=== PATIENT | female | born 1935 | race Caucasian/White ===

== ENCOUNTER → 2016-09-20 | Outpatient (REF) | payer MEDICARE, MEDICAID ==
[~2016-09-20] MED LIST: /ESOM40CA OR; /SALMDISK IN; ALBUTEROL LIQ; ASMA110A INH; CLIN150C OR; FLOVENT PO; MELO15TA4 PO; MELO7.5S PO; MOTR200T4 PO; PROA1AER INH; SYNT100T OR; [UNRECOGNIZED DRUG - OTHER]
[2016-09-20 18:41] LABS: ALBUMIN/GLOBULIN RATIO 0.77 (1.00-1.93); ALKALINE PHOSPHATASE 70 U/L (45-117); ALT/SGPT 9 U/L (12-78); ANION GAP 9 MEQ/L (8-16); AST/SGOT 10 U/L (15-37); BILIRUBIN,TOTAL 0.4 MG/DL (0.2-1.0); BLOOD UREA NITROGEN 19 MG/DL (7-18); CALCIUM LEVEL 8.4 MG/DL (8.8-10.2); CARBON DIOXIDE LEVEL 28 MEQ/L (21-32); CHLORIDE LEVEL 104 MEQ/L (98-107); CREATININE FOR GFR 0.75 MG/DL (0.55-1.02); FERRITIN 65 NG/ML (8-252); GLOMERULAR FILTRATION RATE > 60.0 (>32); GLUCOSE, FASTING 131 MG/DL (83-110); PERCENT SATURATION 6.9 % (13.2-37.4); POTASSIUM SERUM 4.2 MEQ/L (3.5-5.1); SODIUM LEVEL 141 MEQ/L (136-145); TOTAL IRON BINDING CAPACITY 216 UG/DL (250-450); TOTAL PROTEIN 6.9 GM/DL (6.4-8.2)
[2016-09-20 18:58] LABS: BASO % 0.6 % (0.0-1.0); EOS # 0.1 K/mm3 (0.0-0.50); EOS % 2.9 % (0.0-3.0); LARGE UNSTAINED CELL # 0.2 K/mm3 (0.0-0.4); LARGE UNSTAINED CELL % 4.7 % (0.0-4.0); LYMPH # 0.7 K/mm3 (1.5-4.5); LYMPH % 15.8 % (24.0-44.0); MEAN CORPUSCULAR HEMOGLOBIN 26.3 pg (27.0-33.0); MEAN CORPUSCULAR HGB CONC 32.3 g/dl (32.0-36.5); MEAN CORPUSCULAR VOLUME 81.5 fl (80.0-96.0); MONO # 0.3 K/mm3 (0.0-0.8); MONO % 7.4 % (0.0-5.0); NEUTROPHILS # 3.1 K/mm3 (1.8-7.7); NEUTROPHILS % 68.5 % (36.0-66.0); PLATELET COUNT, AUTOMATED 328 k/mm3 (150-450); RED CELL DISTRIBUTION WIDTH 19.8 % (11.5-14.5); WHITE BLOOD COUNT 4.5 K/mm3 (4.0-10.0)
[2016-09-20 21:40] LABS: ERYTHROCYTE SEDIMENTATION RATE 86 mm/hr (0-30)
== END ==
LOC: M SFHCPLAZ 14:41
PROVIDERS: ATTEND Family Medicine
DX: D50.9 Iron deficiency anemia, unspecified (principal); E55.9 Vitamin D deficiency, unspecified; T84.51XA Infection and inflammatory reaction due to internal right hip prosthesis, initial encounter; R73.01 Impaired fasting glucose; E03.9 Hypothyroidism, unspecified; Z23 Encounter for immunization
CPT/HCPCS: 36415; 80053; 82306; 82728; 83036; 83550; 83970; 84443; 85025; 85652; 86140; 90670; G0009; G0463

== ENCOUNTER → 2016-09-27 | Outpatient (REF) | payer MEDICARE, MEDICAID | LOC: M SFHCPLAZ 11:40 | PROVIDERS: ATTEND Physician Assistant Medical | DX: L02.91 Cutaneous abscess, unspecified (principal) ==

== ENCOUNTER → 2016-10-11 | Outpatient (REF) | payer MEDICARE, MEDICAID ==
[2016-10-11 18:25] LABS: MEAN CORPUSCULAR VOLUME 77.5 fl (80.0-96.0); WHITE BLOOD COUNT 4.7 K/mm3 (4.0-10.0)
[2016-10-11 18:26] LABS: ADD MORPHOLOGY? NO; BASO % 0.9 % (0.0-1.0); DIFF SLIDE NUMBER 336; EOS # 0.2 K/mm3 (0.0-0.50); LARGE UNSTAINED CELL # 0.1 K/mm3 (0.0-0.4); LARGE UNSTAINED CELL % 1.6 % (0.0-4.0); LYMPH # 0.9 K/mm3 (1.5-4.5); LYMPH % 19.3 % (24.0-44.0); MEAN CORPUSCULAR HEMOGLOBIN 24.3 pg (27.0-33.0); MEAN CORPUSCULAR HGB CONC 31.4 g/dl (32.0-36.5); MONO # 0.1 K/mm3 (0.0-0.8); MONO % 8.4 % (0.0-5.0); NEUTROPHILS # 3.1 K/mm3 (1.8-7.7); NEUTROPHILS % 65.8 % (36.0-66.0); PLATELET COUNT, AUTOMATED 328 k/mm3 (150-450); RED CELL DISTRIBUTION WIDTH 15.6 % (11.5-14.5)
[2016-10-11 21:29] LABS: ERYTHROCYTE SEDIMENTATION RATE 80 mm/hr (0-30)
== END ==
LOC: M LAB REF 15:43
PROVIDERS: ATTEND Physician Assistant Medical
DX: L02.91 Cutaneous abscess, unspecified (principal)

== ENCOUNTER → 2016-11-08 | Outpatient (REF) | payer MEDICARE, MEDICAID ==
[2016-11-08 16:38] LABS: MEAN CORPUSCULAR HEMOGLOBIN 26.3 pg (27.0-33.0); MEAN CORPUSCULAR HGB CONC 33.3 g/dl (32.0-36.5); PLATELET COUNT, AUTOMATED 294 k/mm3 (150-450); RED CELL DISTRIBUTION WIDTH 20.4 % (11.5-14.5); WHITE BLOOD COUNT 4.1 K/mm3 (4.0-10.0)
[2016-11-08 18:30] LABS: ERYTHROCYTE SEDIMENTATION RATE 86 mm/hr (0-30)
[2016-11-08 21:58] LABS: EOSINOPHILS 4 % (0-5); HYPOCHROMASIA 2+
[2016-11-08 21:59] LABS: ANISOCYTOSIS 3+; MICROCYTOSIS 2+
[2016-11-08 22:00] LABS: ROULEAUX 1+
== END ==
LOC: M SFHCPLAZ 13:32
PROVIDERS: ATTEND Physician Assistant Medical
DX: B99.9 Unspecified infectious disease (principal)
CPT/HCPCS: 85025; 85652; 86140; G0463

== ENCOUNTER → 2016-11-22 | Outpatient (REF) | payer MEDICARE, MEDICAID | LOC: M SFHCPLAZ 15:00 | PROVIDERS: ATTEND Physician Assistant Medical | DX: T84.51XA Infection and inflammatory reaction due to internal right hip prosthesis, initial encounter (principal); B99.9 Unspecified infectious disease | CPT/HCPCS: 87070; 87077; G0463 ==

== ENCOUNTER → 2016-12-09 | Outpatient (CLI) | payer MEDICARE, MEDICAID ==
--- NOTE | 2016-12-09 15:26 | REP ---
LEFT RIB SERIES: Five views including PA chest. HISTORY: Pain. COMPARISON STUDY: August 15, 2007. FINDINGS: There is bilateral calcific pleural plaquing again noted. This is a little more extensive than previously. Lung bernal are otherwise clear. There is a levoconvex lower thoracic upper lumbar curve and a dextroconvex lumbar curve again noted. This is more pronounced than on the prior study as well. Heart is mildly prominent. Pulmonary vasculature is not increased. Multiple views of the left rib cage show no evidence of left rib fracture or bony destructive lesion. IMPRESSION: Negative left rib series. No active disease. Calcific pleural plaquing on the left. Signed by Caden Perez MD 12/09/2016 04:47 P
[2016-12-09 17:43] LABS: ADD MORPHOLOGY? YES; BASO % 0.5 % (0.0-1.0); EOS # 0.2 K/mm3 (0.0-0.50); EOS % 3.7 % (0.0-3.0); LARGE UNSTAINED CELL # 0.2 K/mm3 (0.0-0.4); LYMPH # 0.9 K/mm3 (1.5-4.5); LYMPH % 20.9 % (24.0-44.0); MEAN CORPUSCULAR HEMOGLOBIN 25.4 pg (27.0-33.0); MEAN CORPUSCULAR HGB CONC 32.3 g/dl (32.0-36.5); MEAN CORPUSCULAR VOLUME 78.8 fl (80.0-96.0); MONO # 0.4 K/mm3 (0.0-0.8); MONO % 9.4 % (0.0-5.0); NEUTROPHILS # 2.5 K/mm3 (1.8-7.7); NEUTROPHILS % 61.5 % (36.0-66.0); PLATELET COUNT, AUTOMATED 306 k/mm3 (150-450); RED CELL DISTRIBUTION WIDTH 26.6 % (11.5-14.5); WHITE BLOOD COUNT 4.1 K/mm3 (4.0-10.0)
[2016-12-09 18:21] LABS: ERYTHROCYTE SEDIMENTATION RATE 84 mm/hr (0-30)
[2016-12-09 20:49] LABS: ANISOCYTOSIS 3+; HYPOCHROMASIA 1+; MICROCYTOSIS 1+
== END ==
LOC: M WUC 12:39
PROVIDERS: ATTEND Physician Assistant Medical
DX: R07.81 Pleurodynia (principal); T84.51XA Infection and inflammatory reaction due to internal right hip prosthesis, initial encounter; Y83.9 Surgical procedure, unspecified as the cause of abnormal reaction of the patient, or of later complication, without mention of misadventure at the time of the procedure
CPT/HCPCS: 36415; 71101; 85025; 85652; 86140; G0463

== ENCOUNTER → 2017-01-21 | Outpatient (REF) | payer MEDICARE, MEDICAID ==
[2017-01-21 17:47] LABS: BASO % 0.9 % (0.0-1.0); EOS # 0.2 K/mm3 (0.0-0.50); EOS % 5.3 % (0.0-3.0); LARGE UNSTAINED CELL # 0.1 K/mm3 (0.0-0.4); LARGE UNSTAINED CELL % 1.6 % (0.0-4.0); LYMPH # 1.2 K/mm3 (1.5-4.5); LYMPH % 24.3 % (24.0-44.0); MEAN CORPUSCULAR HEMOGLOBIN 24.8 pg (27.0-33.0); MEAN CORPUSCULAR HGB CONC 32.6 g/dl (32.0-36.5); MEAN CORPUSCULAR VOLUME 76.1 fl (80.0-96.0); MONO # 0.4 K/mm3 (0.0-0.8); MONO % 8.4 % (0.0-5.0); NEUTROPHILS # 2.8 K/mm3 (1.8-7.7); NEUTROPHILS % 59.5 % (36.0-66.0); PLATELET COUNT, AUTOMATED 340 k/mm3 (150-450); RED CELL DISTRIBUTION WIDTH 22.1 % (11.5-14.5); WHITE BLOOD COUNT 4.7 K/mm3 (4.0-10.0)
[2017-01-21 17:52] LABS: ADD MORPHOLOGY? YES
[2017-01-21 18:11] LABS: ALBUMIN/GLOBULIN RATIO 0.68 (1.00-1.93); ALKALINE PHOSPHATASE 79 U/L (45-117); ALT/SGPT 14 U/L (12-78); ANION GAP 7 MEQ/L (8-16); AST/SGOT 12 U/L (15-37); BILIRUBIN,TOTAL 0.5 MG/DL (0.2-1.0); BLOOD UREA NITROGEN 17 MG/DL (7-18); CALCIUM LEVEL 8.8 MG/DL (8.8-10.2); CARBON DIOXIDE LEVEL 30 MEQ/L (21-32); CHLORIDE LEVEL 103 MEQ/L (98-107); CREATININE FOR GFR 0.73 MG/DL (0.55-1.02); FERRITIN 52 NG/ML (8-252); FREE T4 2.07 NG/DL (0.76-1.46); GLOMERULAR FILTRATION RATE > 60.0 (>32); GLUCOSE, FASTING 82 MG/DL (83-110); PERCENT SATURATION 7.1 % (13.2-37.4); POTASSIUM SERUM 4.5 MEQ/L (3.5-5.1); SODIUM LEVEL 140 MEQ/L (136-145); TOTAL IRON BINDING CAPACITY 254 UG/DL (250-450); TOTAL PROTEIN 7.4 GM/DL (6.4-8.2)
[2017-01-21 18:37] LABS: VITAMIN B12 LEVEL 299 PG/ML (247-911)
[2017-01-21 20:45] LABS: ANISOCYTOSIS 4+; HYPOCHROMASIA 1+; MICROCYTOSIS 1+; OVALOCYTES 2+; POIKILOCYTOSIS 2+; TARGET CELLS 1+
[2017-01-21 21:20] LABS: ERYTHROCYTE SEDIMENTATION RATE 76 mm/hr (0-30)
== END ==
LOC: M SFHCPLAZ 16:18
PROVIDERS: ATTEND Family Medicine
DX: T84.51XA Infection and inflammatory reaction due to internal right hip prosthesis, initial encounter (principal); D50.9 Iron deficiency anemia, unspecified; E03.9 Hypothyroidism, unspecified
CPT/HCPCS: 36415; 80053; 82607; 82728; 83550; 84439; 84443; 85025; 85652; 86140; G0463

== ENCOUNTER → 2017-03-03 | Outpatient (REF) | payer MEDICARE, MEDICAID ==
[~2017-03-03] MED LIST changes: -PROA1AER INH; +PROAAER10 INH
== END ==
LOC: M LAB REF 17:17
PROVIDERS: ATTEND Surgery
DX: T84.51XA Infection and inflammatory reaction due to internal right hip prosthesis, initial encounter (principal); Y83.1 Surgical operation with implant of artificial internal device as the cause of abnormal reaction of the patient, or of later complication, without mention of misadventure at the time of the procedure
CPT/HCPCS: 87070; 97597; G0463

== ENCOUNTER → 2017-03-17 | Outpatient (REF) | payer MEDICARE, MEDICAID ==
[2017-03-17 17:20] LABS: BLOOD UREA NITROGEN 17 MG/DL (7-18); CREATININE FOR GFR 0.73 MG/DL (0.55-1.02); GLOMERULAR FILTRATION RATE > 60.0 (>32)
== END ==
LOC: M LAB REF 16:27
PROVIDERS: ATTEND Surgery
DX: T84.51XA Infection and inflammatory reaction due to internal right hip prosthesis, initial encounter (principal)

== ENCOUNTER → 2017-04-29 | Outpatient (CLI) | payer MEDICARE, MEDICAID ==
--- NOTE | 2017-04-29 13:55 | REPMRS ---
Patient History The patient states she had a clinical breast exam in 03/2017. Patient has history of other cancer at age 77. Family history of colorectal cancer in maternal grandmother at age 50 or over. Benign excisional biopsy of the left breast, 1989. Taking estrogen for 4 years. Digital Woman Screen Mammo: April 29, 2017 - Exam #: [id number] Bilateral CC and MLO view(s) were taken. Technologist: Norma Acharya, Technologist Prior study comparison: April 27, 2016, digital woman screen mammo performed at [facility]. April 24, 2015, digital woman screen mammo performed at [facility]. April 23, 2014, digital woman screen mammo performed at [facility]. FINDINGS: There are scattered fibroglandular densities. There is a stable densely calcified central nodule in the left breast again noted. There has been no change in the appearance of the mammogram from the prior studies. There is a mild amount of scattered fibroglandular density which is fairly symmetric. There is no interval development of dominant mass, architectural distortion, or clustered microcalcification suggestive of malignancy. ASSESSMENT: BI-RADS/ACR category 1 mammogram. Negative. Recommendation Routine screening mammogram in 1 year (for women over age 40). This mammogram was interpreted with the aid of an FDA-approved computer-aided dectection system. Electronically Signed By: Simon Perez MD 04/29/17 [id number]
== END ==
LOC: M WHC 12:46
PROVIDERS: ATTEND Family Medicine
DX: Z12.31 Encounter for screening mammogram for malignant neoplasm of breast (principal)

== ENCOUNTER → 2017-05-12 | Outpatient (CLI) | payer MEDICARE, MEDICAID ==
--- NOTE | 2017-05-12 18:04 | REP ---
CT study of the right hip without contrast: History: Osteomyelitis, infection right prosthetic hip joint. Comparison right hip CT study is from January 22, 2016. Comparison radiographs are from January 24, 2016. CT technique: Helical scanning is acquired and 3 mm axial images are reviewed along with coronal and sagittal multiplanar re-formation images. CT findings: The prior study showed a large anterior soft tissue abscess. This has resolved. There is, however, in its wake a linear sinus tract out to the anterolateral skin from the right hip. No new abscess is appreciated. 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 Areas of bony erosion and radiolucent change are seen in the proximal femur adjacent to the prosthesis. There is considerable resorption of the acetabulum medially and superiorly. There is some reactive sclerosis in the right iliac bone. The right colon is displaced by the acetabuli protrusio. Visualized intra-abdominal structures are otherwise unremarkable. 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 The previously noted soft tissue abscess is resolved with a sinus tract visible in place anterolaterally. No new abscess is seen. Bony changes are essentially unchanged from the January 22, 2016 study. Signed by Caden Perez MD 05/13/2017 08:07 A
== END ==
LOC: M RADPRO 09:11
PROVIDERS: ATTEND Surgery
DX: T84.51XA Infection and inflammatory reaction due to internal right hip prosthesis, initial encounter (principal); S71.001A Unspecified open wound, right hip, initial encounter; Z88.8 Allergy status to other drugs, medicaments and biological substances; Z88.5 Allergy status to narcotic agent; Z91.040 Latex allergy status; Z88.0 Allergy status to penicillin; Z91.048 Other nonmedicinal substance allergy status; Z88.3 Allergy status to other anti-infective agents; X58.XXXA Exposure to other specified factors, initial encounter; Y93.9 Activity, unspecified; Y92.9 Unspecified place or not applicable; Y99.8 Other external cause status

== ENCOUNTER → 2017-07-01 | Outpatient (REF) | payer MEDICARE, MEDICAID ==
[2017-07-01 18:25] LABS: ALBUMIN 2.9 GM/DL (3.2-5.2); ALBUMIN/GLOBULIN RATIO 0.67 (1.00-1.93); ALKALINE PHOSPHATASE 72 U/L (45-117); ALT/SGPT 12 U/L (12-78); ANION GAP 7 MEQ/L (8-16); AST/SGOT 16 U/L (7-37); BILIRUBIN,TOTAL 0.4 MG/DL (0.2-1.0); BLOOD UREA NITROGEN 21 MG/DL (7-18); CALCIUM LEVEL 8.6 MG/DL (8.8-10.2); CARBON DIOXIDE LEVEL 29 MEQ/L (21-32); CHLORIDE LEVEL 102 MEQ/L (98-107); CREATININE FOR GFR 0.71 MG/DL (0.55-1.02); GLOMERULAR FILTRATION RATE > 60.0 (>32); GLUCOSE, FASTING 90 MG/DL (83-110); POTASSIUM SERUM 4.2 MEQ/L (3.5-5.1); SODIUM LEVEL 138 MEQ/L (136-145); TOTAL PROTEIN 7.2 GM/DL (6.4-8.2)
[2017-07-01 19:13] LABS: MEAN CORPUSCULAR VOLUME 78.9 fl (80.0-96.0); PLATELET COUNT, AUTOMATED 406 10^3/uL (150-450); RED CELL DISTRIBUTION WIDTH 17.8 % (11.5-14.5); WHITE BLOOD COUNT 5.8 10^3/uL (4.0-10.0)
[2017-07-01 19:17] LABS: MEAN CORPUSCULAR HGB CONC 30.4 g/dl (32.0-36.5)
[2017-07-01 22:07] LABS: ERYTHROCYTE SEDIMENTATION RATE 117 mm/hr (0-30)
== END ==
LOC: M LAB REF 16:36
PROVIDERS: ATTEND Surgery
DX: T84.51XS Infection and inflammatory reaction due to internal right hip prosthesis, sequela (principal); X58.XXXA Exposure to other specified factors, initial encounter; Y92.9 Unspecified place or not applicable; Y93.9 Activity, unspecified
CPT/HCPCS: 15271; 80053; 85027; 85652; Q4131

== ENCOUNTER → 2017-10-03 | Outpatient (CLI) | payer MEDICARE, MEDICAID | LOC: M WUC 14:20 | DX: M47.22 Other spondylosis with radiculopathy, cervical region (principal) ==

== ENCOUNTER → 2017-10-03 | Outpatient (CLI) | payer MEDICARE, MEDICAID ==
[2017-10-03 17:28] LABS: ALBUMIN 2.9 GM/DL (3.2-5.2); ALBUMIN/GLOBULIN RATIO 0.74 (1.00-1.93); ALKALINE PHOSPHATASE 79 U/L (45-117); ALT/SGPT 11 U/L (12-78); ANION GAP 7 MEQ/L (8-16); AST/SGOT 17 U/L (7-37); BILIRUBIN,TOTAL 0.3 MG/DL (0.2-1.0); BLOOD UREA NITROGEN 22 MG/DL (7-18); CALCIUM LEVEL 8.4 MG/DL (8.8-10.2); CARBON DIOXIDE LEVEL 30 MEQ/L (21-32); CHLORIDE LEVEL 103 MEQ/L (98-107); CREATININE FOR GFR 0.71 MG/DL (0.55-1.30); GLOMERULAR FILTRATION RATE > 60.0 (>32); GLUCOSE, FASTING 102 MG/DL (70-100); POTASSIUM SERUM 4.4 MEQ/L (3.5-5.1); PTH INTACT 67.6 PG/ML (18.5-88.0); SODIUM LEVEL 140 MEQ/L (136-145); TOTAL PROTEIN 6.8 GM/DL (6.4-8.2)
[2017-10-03 17:52] LABS: ESTIMATED AVERAGE GLUCOSE 117 MG/DL (60-110); HEMOGLOBIN A1c 5.7 %
[2017-10-03 18:58] LABS: BASO # 0.1 10^3/uL (0.0-0.2); BASO % 1.3 % (0.0-1.0); EOS # 0.2 10^3/uL (0.0-0.50); EOS % 4.4 % (0.0-3.0); HEMATOCRIT 31.1 % (36.0-47.0); HEMOGLOBIN 9.9 g/dl (12.0-16.0); IMMATURE GRANULOCYTE % 0.4 % (0-3.0); LYMPH % 22.9 % (24.0-44.0); MEAN CORPUSCULAR HEMOGLOBIN 24.8 pg (27.0-33.0); MEAN CORPUSCULAR HGB CONC 31.8 g/dl (32.0-36.5); MEAN CORPUSCULAR VOLUME 77.8 fl (80.0-96.0); MONO # 0.4 10^3/uL (0.0-0.8); MONO % 8.9 % (0.0-5.0); NEUTROPHILS # 2.8 10^3/uL (1.8-7.7); NEUTROPHILS % 62.1 % (36.0-66.0); PLATELET COUNT, AUTOMATED 306 10^3/uL (150-450); RED CELL DISTRIBUTION WIDTH 17.4 % (11.5-14.5); WHITE BLOOD COUNT 4.5 10^3/uL (4.0-10.0)
[2017-10-03 20:12] LABS: RETIC HEMOGLOBIN EQUIVALENT 29.2 pg (24-36); RETICULOCYTE # 39.6 10^9/L (17-77)
== END ==
LOC: M WUC 14:15
DX: D50.9 Iron deficiency anemia, unspecified (principal); E55.9 Vitamin D deficiency, unspecified; E03.9 Hypothyroidism, unspecified; R73.01 Impaired fasting glucose; M47.22 Other spondylosis with radiculopathy, cervical region
CPT/HCPCS: 84443

== ENCOUNTER 2017-10-18 08:56 | Emergency (ER) | payer MEDICARE, MEDICAID ==
[2017-10-18 10:13] LABS: BASO % 0.7 % (0.0-1.0); EOS # 0.2 10^3/uL (0.0-0.50); EOS % 2.6 % (0.0-3.0); HEMATOCRIT 31.6 % (36.0-47.0); HEMOGLOBIN 9.8 g/dl (12.0-16.0); IMMATURE GRANULOCYTE % 0.2 % (0-3.0); LYMPH # 0.8 10^3/uL (1.5-4.5); LYMPH % 13.1 % (24.0-44.0); MEAN CORPUSCULAR HEMOGLOBIN 24.4 pg (27.0-33.0); MEAN CORPUSCULAR VOLUME 78.6 fl (80.0-96.0); MONO # 0.5 10^3/uL (0.0-0.8); MONO % 9.3 % (0.0-5.0); NEUTROPHILS # 4.3 10^3/uL (1.8-7.7); NEUTROPHILS % 74.1 % (36.0-66.0); PLATELET COUNT, AUTOMATED 360 10^3/uL (150-450); RED BLOOD COUNT 4.02 10^6/uL (4.00-5.40); RED CELL DISTRIBUTION WIDTH 17.5 % (11.5-14.5); WHITE BLOOD COUNT 5.8 10^3/uL (4.0-10.0)
[2017-10-18 10:13] LABS: BEDSIDE GLUCOSE 98 MG/DL (83-110)
[2017-10-18 10:40] LABS: ANION GAP 6 MEQ/L (8-16); BLOOD UREA NITROGEN 24 MG/DL (7-18); CALCIUM LEVEL 8.5 MG/DL (8.8-10.2); CARBON DIOXIDE LEVEL 30 MEQ/L (21-32); CHLORIDE LEVEL 104 MEQ/L (98-107); CPK CREATINE PHOSPHOKINASE 59 U/L (26-192); FREE T4 1.21 NG/DL (0.76-1.46); GLOMERULAR FILTRATION RATE > 60.0 (>32); GLUCOSE, FASTING 90 MG/DL (70-100); MAGNESIUM LEVEL 2.2 MG/DL (1.8-2.4); POTASSIUM SERUM 4.1 MEQ/L (3.5-5.1); SODIUM LEVEL 140 MEQ/L (136-145); TROPONIN I < 0.02 NG/ML (< 0.10)
[2017-10-18 10:46] LABS: CK-MB VALUE MASS 1.6 NG/ML (0.0-3.6); MB/CK RELATIVE INDEX 2.71 (< OR =4)
== END 2017-10-18 15:46 | disposition home or self-care (01) ==
LOC: M ED 08:56
DX: R55 Syncope and collapse (principal); J45.909 Unspecified asthma, uncomplicated; J44.9 Chronic obstructive pulmonary disease, unspecified; I10 Essential (primary) hypertension; E03.9 Hypothyroidism, unspecified; M50.30 Other cervical disc degeneration, unspecified cervical region; Z79.51 Long term (current) use of inhaled steroids; Z79.899 Other long term (current) drug therapy; Z79.890 Hormone replacement therapy; Z88.5 Allergy status to narcotic agent; Z88.8 Allergy status to other drugs, medicaments and biological substances; Z88.0 Allergy status to penicillin; Z91.048 Other nonmedicinal substance allergy status; Z98.890 Other specified postprocedural states
CPT/HCPCS: 72141

== ENCOUNTER → 2017-12-21 | Outpatient (CLI) | payer MEDICARE, MEDICAID | LOC: M RAD 13:50 | DX: S71.001D Unspecified open wound, right hip, subsequent encounter (principal); Z96.60 Presence of unspecified orthopedic joint implant | CPT/HCPCS: 73700 ==

== ENCOUNTER → 2017-12-21 | Outpatient (REF) | payer MEDICARE, MEDICAID ==
[2017-12-21 20:11] LABS: C REACTIVE PROTEIN QUANTITATIV 5.96 MG/DL (0.00-0.30)
[2017-12-21 20:21] LABS: HEMATOCRIT 29.5 % (36.0-47.0); HEMOGLOBIN 9.1 g/dl (12.0-15.5); MEAN CORPUSCULAR HEMOGLOBIN 25.4 pg (27.0-33.0); MEAN CORPUSCULAR HGB CONC 30.8 g/dl (32.0-36.5); MEAN CORPUSCULAR VOLUME 82.4 fl (80.0-96.0); PLATELET COUNT, AUTOMATED 284 10^3/uL (150-450); RED BLOOD COUNT 3.58 10^6/uL (4.00-5.40); RED CELL DISTRIBUTION WIDTH 18.3 % (11.5-14.5); WHITE BLOOD COUNT 5.9 10^3/uL (4.0-10.0)
[2017-12-21 20:49] LABS: ERYTHROCYTE SEDIMENTATION RATE 107 mm/hr (0-30)
== END ==
LOC: M LAB REF 18:29
DX: S71.001D Unspecified open wound, right hip, subsequent encounter (principal); X58.XXXA Exposure to other specified factors, initial encounter; Y92.9 Unspecified place or not applicable; Y93.9 Activity, unspecified
CPT/HCPCS: 86140

== ENCOUNTER → 2018-02-03 | Outpatient (CLI) | payer MEDICARE, MEDICAID | LOC: M RAD 17:19 | DX: M71.22 Synovial cyst of popliteal space [Baker], left knee (principal); R60.9 Edema, unspecified | CPT/HCPCS: 93971 ==

== ENCOUNTER → 2018-02-03 | Outpatient (REF) | payer MEDICARE, MEDICAID ==
[2018-02-03 17:48] LABS: ALBUMIN/GLOBULIN RATIO 0.75 (1.00-1.93); ALKALINE PHOSPHATASE 73 U/L (45-117); ALT/SGPT 16 U/L (12-78); ANION GAP 8 MEQ/L (8-16); AST/SGOT 16 U/L (7-37); BILIRUBIN,TOTAL 0.5 MG/DL (0.2-1.0); BLOOD UREA NITROGEN 20 MG/DL (7-18); CALCIUM LEVEL 8.5 MG/DL (8.8-10.2); CARBON DIOXIDE LEVEL 28 MEQ/L (21-32); CHLORIDE LEVEL 104 MEQ/L (98-107); CREATININE FOR GFR 0.76 MG/DL (0.55-1.30); FREE T4 1.39 NG/DL (0.76-1.46); GLOMERULAR FILTRATION RATE > 60.0 (>32); GLUCOSE, FASTING 91 MG/DL (70-100); POTASSIUM SERUM 4.3 MEQ/L (3.5-5.1); SODIUM LEVEL 140 MEQ/L (136-145)
[2018-02-03 18:23] LABS: BASO % 0.9 % (0.0-1.0); EOS # 0.1 10^3/uL (0.0-0.50); EOS % 2.5 % (0.0-3.0); HEMATOCRIT 31.6 % (36.0-47.0); HEMOGLOBIN 9.7 g/dl (12.0-15.5); IMMATURE GRANULOCYTE % 0.2 % (0-3.0); LYMPH # 0.8 10^3/uL (1.5-4.5); LYMPH % 19.1 % (24.0-44.0); MEAN CORPUSCULAR HEMOGLOBIN 25.3 pg (27.0-33.0); MEAN CORPUSCULAR HGB CONC 30.7 g/dl (32.0-36.5); MEAN CORPUSCULAR VOLUME 82.3 fl (80.0-96.0); MONO # 0.4 10^3/uL (0.0-0.8); MONO % 8.2 % (0.0-5.0); NEUTROPHILS % 69.1 % (36.0-66.0); PLATELET COUNT, AUTOMATED 283 10^3/uL (150-450); RED BLOOD COUNT 3.84 10^6/uL (4.00-5.40); RED CELL DISTRIBUTION WIDTH 16.9 % (11.5-14.5); RETIC HEMOGLOBIN EQUIVALENT 29.2 pg (24-36); RETICULOCYTE # 41.1 10^9/L (17-77); RETICULOCYTE % 1.1 % (0.5-1.5); WHITE BLOOD COUNT 4.4 10^3/uL (4.0-10.0)
[2018-02-06 13:08] LABS: ALBUMIN 3.33 GM/DL (3.29-5.55); ALBUMIN % 47.5 % (55.8-66.1); ALPHA-1-GLOBULIN % 6.8 % (2.9-4.9); ALPHA-1-GLOBULINS 0.48 GM/DL (0.17-0.41); ALPHA-2-GLOBULINS 0.86 GM/DL (0.42-0.99); ALPHA-2-GLOBULINS % 12.3 % (7.1-11.8); BETA-1-GLOBULINS 0.44 GM/DL (0.28-0.60); BETA-1-GLOBULINS % 6.3 % (4.7-7.2); BETA-2-GLOBULINS 0.34 GM/DL (0.19-0.55); BETA-2-GLOBULINS % 4.8 % (3.2-6.5); GAMMA GLOBULIN % 22.3 % (11.1-18.8); GAMMA GLOBULINS 1.56 GM/DL (0.65-1.58)
== END ==
LOC: M SFHCPLAZ 16:10
DX: E53.8 Deficiency of other specified B group vitamins (principal); D50.9 Iron deficiency anemia, unspecified; E03.9 Hypothyroidism, unspecified
CPT/HCPCS: 84165

== ENCOUNTER → 2018-05-05 | Outpatient (CLI) | payer MEDICARE, MEDICAID | LOC: M WHC 11:09 | DX: Z12.31 Encounter for screening mammogram for malignant neoplasm of breast (principal) | CPT/HCPCS: 77067 ==

== ENCOUNTER → 2018-06-12 | Outpatient (CLI) | payer MEDICARE, MEDICAID ==
[2018-06-12 20:28] LABS: HEMATOCRIT 33.9 % (36.0-47.0)
[2018-06-12 20:28] LABS: BASO # 0.1 10^3/uL (0.0-0.2); EOS # 0.1 10^3/uL (0.0-0.50); EOS % 2.3 % (0.0-3.0); ESTIMATED AVERAGE GLUCOSE 126 MG/DL (60-110); HEMATOCRIT 33.9 % (36.0-47.0); HEMOGLOBIN 10.2 g/dl (12.0-15.5); IMMATURE GRANULOCYTE % 0.4 % (0-3.0); LYMPH # 0.9 10^3/uL (1.5-4.5); LYMPH % 18.2 % (24.0-44.0); MEAN CORPUSCULAR HEMOGLOBIN 23.8 pg (27.0-33.0); MEAN CORPUSCULAR HGB CONC 30.1 g/dl (32.0-36.5); MEAN CORPUSCULAR VOLUME 79.2 fl (80.0-96.0); MONO # 0.5 10^3/uL (0.0-0.8); MONO % 9.1 % (0.0-5.0); NEUTROPHILS # 3.6 10^3/uL (1.8-7.7); PLATELET COUNT, AUTOMATED 318 10^3/uL (150-450); RED BLOOD COUNT 4.28 10^6/uL (4.00-5.40); RED CELL DISTRIBUTION WIDTH 18.5 % (11.5-14.5); WHITE BLOOD COUNT 5.2 10^3/uL (4.0-10.0)
[2018-06-12 20:42] LABS: ALBUMIN 2.9 GM/DL (3.2-5.2); ALBUMIN/GLOBULIN RATIO 0.71 (1.00-1.93); ALKALINE PHOSPHATASE 82 U/L (45-117); ALT/SGPT 12 U/L (12-78); ANION GAP 7 MEQ/L (8-16); AST/SGOT 13 U/L (7-37); BILIRUBIN,TOTAL 0.4 MG/DL (0.2-1.0); BLOOD UREA NITROGEN 27 MG/DL (7-18); CALCIUM LEVEL 8.6 MG/DL (8.8-10.2); CARBON DIOXIDE LEVEL 28 MEQ/L (21-32); CHLORIDE LEVEL 104 MEQ/L (98-107); CREATININE FOR GFR 0.82 MG/DL (0.55-1.30); FERRITIN 42 NG/ML (8-252); FREE T4 1.33 NG/DL (0.76-1.46); GLOMERULAR FILTRATION RATE > 60.0 (>32); GLUCOSE, FASTING 97 MG/DL (70-100); IRON (FE) 18 UG/DL (50-170); NT-PRO BNP 1501 PG/ML (<450); PERCENT SATURATION 7.7 % (13.2-45.0); POTASSIUM SERUM 5.1 MEQ/L (3.5-5.1); SODIUM LEVEL 139 MEQ/L (136-145); TOTAL IRON BINDING CAPACITY 235 UG/DL (250-450)
[2018-06-12 20:43] LABS: GOLD SPEC TUBE RECIEVED
[2018-06-12 20:44] LABS: PTH INTACT 40.5 PG/ML (18.5-88.0)
[2018-06-13 11:39] LABS: PRETREATED FOLATE FOR RBCFOL 8.1 NG/ML; RBC FOLATE 501.8 NG/ML (280-791)
== END ==
LOC: M WUC 16:02
DX: R60.9 Edema, unspecified (principal); D50.9 Iron deficiency anemia, unspecified; E55.9 Vitamin D deficiency, unspecified; E03.9 Hypothyroidism, unspecified; R73.01 Impaired fasting glucose; Z79.899 Other long term (current) drug therapy
CPT/HCPCS: 83550

== ENCOUNTER → 2018-07-05 | Outpatient (REF) | payer MEDICARE, MEDICAID ==
[2018-07-05 13:47] LABS: ALBUMIN 2.8 GM/DL (3.2-5.2); ANION GAP 7 MEQ/L (8-16); BLOOD UREA NITROGEN 24 MG/DL (7-18); CARBON DIOXIDE LEVEL 29 MEQ/L (21-32); CHLORIDE LEVEL 99 MEQ/L (98-107); CREATININE FOR GFR 0.83 MG/DL (0.55-1.30); GLOMERULAR FILTRATION RATE > 60.0 (>32); GLUCOSE, FASTING 91 MG/DL (70-100); NT-PRO BNP 1629 PG/ML (<450); PHOSPHORUS LEVEL 4.2 MG/DL (2.5-4.9); POTASSIUM SERUM 4.1 MEQ/L (3.5-5.1); SODIUM LEVEL 135 MEQ/L (136-145)
== END ==
LOC: M LAB REF 12:36
DX: I50.32 Chronic diastolic (congestive) heart failure (principal)
CPT/HCPCS: 80069

== ENCOUNTER → 2018-08-18 | Outpatient (REF) | payer MEDICARE, MEDICAID ==
[~2018-08-18] MED LIST changes: -/ESOM40CA OR; +/ESOM40CA PO; +CALCTAB75 PO; +CELE100C PO; +DOXY-350 PO; +ESTR1CRE PV; +FLUT22IN INH; +MELO15TA28 PO; -MELO15TA4 PO; +POLY150C4 PO; +SALMDISK INH; +SYNT88TA2 PO; +VITA100072 PO
== END ==
LOC: M LAB REF 16:19
PROVIDERS: ATTEND Surgery
DX: L30.8 Other specified dermatitis (principal); S71.001D Unspecified open wound, right hip, subsequent encounter

== ENCOUNTER 2018-10-15 10:59 | Emergency (ER) | payer MEDICARE, MEDICAID ==
[~2018-10-15] VITALS: Ht 167.6 cm; Wt 61.4 kg
[2018-10-15] MEDS ORDERED: CALCTAB41 PO (11:21)
[2018-10-15] MEDS ORDERED: ONDANSETRON 4MG/2ML VIAL (J2405) IV ONE (12:00)
[2018-10-15 12:35] LABS: BASO # 0.1 10^3/uL (0.0-0.2); BASO % 1.1 % (0.0-1.0); EOS % 0.4 % (0.0-3.0); HEMATOCRIT 33.8 % (36.0-47.0); HEMOGLOBIN 10.7 g/dl (12.0-15.5); LYMPH # 0.8 10^3/uL (1.5-4.5); LYMPH % 15.4 % (24.0-44.0); MEAN CORPUSCULAR HEMOGLOBIN 24.9 pg (27.0-33.0); MEAN CORPUSCULAR HGB CONC 31.7 g/dl (32.0-36.5); MEAN CORPUSCULAR VOLUME 78.8 fl (80.0-96.0); MONO # 0.3 10^3/uL (0.0-0.8); MONO % 5.7 % (0.0-5.0); NEUTROPHILS # 4.1 10^3/uL (1.8-7.7); NEUTROPHILS % 77.2 % (36.0-66.0); PLATELET COUNT, AUTOMATED 423 10^3/uL (150-450); RED BLOOD COUNT 4.29 10^6/uL (4.00-5.40); WHITE BLOOD COUNT 5.3 10^3/uL (4.0-10.0)
[2018-10-15 12:46] LABS: INR 1.11; PROTHROMBIN TIME 14.4 SECONDS (12.1-14.4)
[2018-10-15 12:47] LABS: PARTIAL THROMBOPLASTIN TIME 38.2 SECONDS (25.4-37.6)
[2018-10-15 13:06] LABS: BLOOD UREA NITROGEN 16 MG/DL (7-18); C REACTIVE PROTEIN QUANTITATIV 8.52 MG/DL (0.00-0.30); CALCIUM LEVEL 8.5 MG/DL (8.8-10.2); CARBON DIOXIDE LEVEL 28 MEQ/L (21-32); CHLORIDE LEVEL 103 MEQ/L (98-107); CREATININE FOR GFR 0.76 MG/DL (0.55-1.30); GLOMERULAR FILTRATION RATE > 60.0 (>32); GLUCOSE, FASTING 95 MG/DL (70-100); SODIUM LEVEL 139 MEQ/L (136-145)
[2018-10-15 13:14] LABS: ERYTHROCYTE SEDIMENTATION RATE 73 mm/hr (0-30)
[2018-10-15 14:04] VITALS: BP 169/74
[2018-10-15] MEDS ORDERED: ONDA4TAB6 PO (14:17)
== END 2018-10-15 14:25 | disposition home or self-care (01) ==
LOC: M ED 10:59
DX: R11.0 Nausea (principal); S71.001D Unspecified open wound, right hip, subsequent encounter; X58.XXXD Exposure to other specified factors, subsequent encounter; Y92.89 Other specified places as the place of occurrence of the external cause; J45.909 Unspecified asthma, uncomplicated; E03.9 Hypothyroidism, unspecified; Z78.0 Asymptomatic menopausal state; Z79.899 Other long term (current) drug therapy; Z79.890 Hormone replacement therapy; Z88.0 Allergy status to penicillin; Z88.5 Allergy status to narcotic agent; Z88.8 Allergy status to other drugs, medicaments and biological substances; Z91.040 Latex allergy status; Z91.048 Other nonmedicinal substance allergy status
CPT/HCPCS: 80048; 83605; 85025; 85610; 85652; 85730; 86140; 87040; 96374; 99284; J2405

== ENCOUNTER 2018-10-18 10:07 | Emergency (ER) | payer MEDICARE, MEDICAID ==
[~2018-10-18] VITALS: Ht 167.6 cm; Wt 61.4 kg
[~2018-10-18 10:07] MED LIST changes: +CALCTAB41 PO; +ONDA4TAB6 PO
[2018-10-18] MEDS ORDERED: ONDANSETRON 4MG/2ML VIAL (J2405) IV ONE ×2 (11:45→13:15)
[2018-10-18] MEDS: GASTROGRAFIN SOLUTION 30ML PO SCH ×2 (12:30→13:18)
[2018-10-18 12:39] LABS: BASO # 0.1 10^3/uL (0.0-0.2); BASO % 0.6 % (0.0-1.0); EOS % 0.2 % (0.0-3.0); HEMATOCRIT 34.2 % (36.0-47.0); HEMOGLOBIN 11.1 g/dl (12.0-15.5); LYMPH # 0.5 10^3/uL (1.5-4.5); LYMPH % 4.6 % (24.0-44.0); MEAN CORPUSCULAR HEMOGLOBIN 25.5 pg (27.0-33.0); MEAN CORPUSCULAR HGB CONC 32.5 g/dl (32.0-36.5); MEAN CORPUSCULAR VOLUME 78.4 fl (80.0-96.0); MONO # 0.5 10^3/uL (0.0-0.8); MONO % 5.2 % (0.0-5.0); NEUTROPHILS # 8.7 10^3/uL (1.8-7.7); NEUTROPHILS % 89.1 % (36.0-66.0); PLATELET COUNT, AUTOMATED 434 10^3/uL (150-450); RED BLOOD COUNT 4.36 10^6/uL (4.00-5.40); WHITE BLOOD COUNT 9.8 10^3/uL (4.0-10.0)
[2018-10-18 13:06] LABS: BILIRUBIN,DIRECT 0.3 MG/DL (0.0-0.2); BILIRUBIN,TOTAL 0.8 MG/DL (0.2-1.0); CALCIUM LEVEL 8.8 MG/DL (8.8-10.2); CREATININE FOR GFR 1.07 MG/DL (0.55-1.30); GLOMERULAR FILTRATION RATE 52.1 (>32); TOTAL PROTEIN 7.3 GM/DL (6.4-8.2)
[2018-10-18] MEDS ORDERED: ISOVUE-370 76% 100ML VIAL (Q9967) As Ordered ONE (14:07)
--- NOTE | 2018-10-18 14:49 | REP ---
Clinical: Abdominal pain and nausea. Technique: Axial contrast enhanced images from the lung bases to the pubic symphysis oozing oral (per protocol) and 100 ml Isovue 370 intravenous contrast material with coronal and sagittal re-formations. Comparison: 11/22/2008. Findings: Lung bases are clear. Visualized heart and pericardium are grossly normal. Liver, spleen, pancreas, bilateral adrenal glands and kidneys are relatively normal. Subcentimeter left renal hypodensity compatible with cyst. The enteric system demonstrates fluid-filled mildly prominent large bowel suggesting element of colitis. Diffuse sigmoid diverticulosis noted without definite evidence for acute diverticulitis. No evidence for bowel obstruction. The small bowel appears relatively normal including terminal ileum. Evaluation of the pelvis is severely limited due to metallic streak artifact from bilateral hip prosthesis. No significant ascites. No free air. No obvious adenopathy. Atherosclerotic changes to the aorta and vasculature noted without aneurysm or dissection. Skeletal structures demonstrate extensive degenerative changes specifically involving the pelvis and hips (right greater than left). Impression: 1. Mildly prominent fluid filled colon suggests element of colitis. Correlation is recommended. 2. Diffuse sigmoid diverticulosis without obvious acute diverticulitis. 3. No ascites. No free air. No obvious adenopathy. No obvious focal inflammatory changes. 4. Extensive degenerative changes involving the bilateral hips and pelvis (right greater than left). Electronically Signed by Dragan Zuñiga MD 10/18/2018 02:41 P
[2018-10-18 15:53] VITALS: BP 132/80
--- NOTE | 2018-10-18 21:00 | ECGEPIP ---
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
== END 2018-10-18 16:00 | disposition home or self-care (01) ==
LOC: M ED 10:07 → EDBD 10:07 → M ED 16:00
DX: R55 Syncope and collapse (principal); Z79.899 Other long term (current) drug therapy; Z79.890 Hormone replacement therapy; Z88.0 Allergy status to penicillin; Z88.5 Allergy status to narcotic agent; Z88.8 Allergy status to other drugs, medicaments and biological substances; Z91.040 Latex allergy status; Z91.048 Other nonmedicinal substance allergy status
CPT/HCPCS: 36415; 74177; 80048; 80076; 83690; 85025; 93005; 96374; 96376; 99285; J2405; Q9963; Q9967

== ENCOUNTER → 2018-10-27 | Outpatient (REF) | payer MEDICARE, MEDICAID ==
[2018-10-27 19:02] LABS: BASO # 0.1 10^3/uL (0.0-0.2); BASO % 0.7 % (0.0-1.0); EOS # 0.1 10^3/uL (0.0-0.50); HEMATOCRIT 35.5 % (36.0-47.0); HEMOGLOBIN 10.8 g/dl (12.0-15.5); LYMPH # 0.8 10^3/uL (1.5-4.5); LYMPH % 11.1 % (24.0-44.0); MEAN CORPUSCULAR HEMOGLOBIN 24.1 pg (27.0-33.0); MEAN CORPUSCULAR HGB CONC 30.4 g/dl (32.0-36.5); MEAN CORPUSCULAR VOLUME 79.1 fl (80.0-96.0); MONO # 0.6 10^3/uL (0.0-0.8); MONO % 8.4 % (0.0-5.0); NEUTROPHILS # 5.5 10^3/uL (1.8-7.7); NEUTROPHILS % 78.7 % (36.0-66.0); PLATELET COUNT, AUTOMATED 344 10^3/uL (150-450); RED BLOOD COUNT 4.49 10^6/uL (4.00-5.40)
[2018-10-27 19:08] LABS: ALBUMIN 2.8 GM/DL (3.2-5.2); ALT/SGPT 15 U/L (12-78); BILIRUBIN,TOTAL 0.8 MG/DL (0.2-1.0); BLOOD UREA NITROGEN 20 MG/DL (7-18); CALCIUM LEVEL 7.9 MG/DL (8.8-10.2); CARBON DIOXIDE LEVEL 25 MEQ/L (21-32); CHLORIDE LEVEL 101 MEQ/L (98-107); CREATININE FOR GFR 0.87 MG/DL (0.55-1.30); FREE T4 1.48 NG/DL (0.76-1.46); GLOMERULAR FILTRATION RATE > 60.0 (>32); GLUCOSE, FASTING 71 MG/DL (70-100); MAGNESIUM LEVEL 2.1 MG/DL (1.8-2.4); NT-PRO BNP 477 PG/ML (<450); POTASSIUM SERUM 4.6 MEQ/L (3.5-5.1); SODIUM LEVEL 135 MEQ/L (136-145); THYROID STIMULATING HORMONE 0.579 uIU/ML (0.358-3.740); TOTAL PROTEIN 7.3 GM/DL (6.4-8.2)
== END ==
LOC: M LAB REF 16:54
PROVIDERS: ATTEND Family Medicine
DX: K59.09 Other constipation (principal); R10.13 Epigastric pain

== ENCOUNTER → 2019-05-10 | Outpatient (CLI) | payer MEDICARE, MEDICAID ==
[~2019-05-10] MED LIST changes: -/ESOM40CA PO; -/SALMDISK IN; +NEXI1CAP3 PO; +SERE1AER IN; +VITA100018 PO; -VITA100072 PO
--- NOTE | 2019-05-10 14:10 | REPMRS ---
Patient History The patient states she has not had a clinical breast exam in over a year. Patient has history of other cancer at age 77. Family history of colorectal cancer at age 50 or over in maternal grandmother. Benign excisional biopsy of the left breast, 1989. Took estrogen for 5 years. 3D TOMOSYNTHESIS WAS PERFORMED. The [facility] lifetime risk for breast cancer is 0.3%. Digital Woman Screen Mammo: May 10, 2019 - Exam #: [id number] Bilateral CC and MLO view(s) were taken. Technologist: Sol Gutierrez, Technologist Prior study comparison: May 05, 2018, bilateral digital woman screen mammo performed at [facility]. April 29, 2017, digital woman screen mammo performed at [facility]. FINDINGS: There are scattered fibroglandular densities. There has been no change in the appearance of the mammogram from the prior studies. There is a mild amount of residual fibroglandular tissue which is fairly symmetric. There is no interval development of dominant mass, architectural distortion, or clustered microcalcification suggestive of malignancy. Assessment: BI-RADS/ACR category 1 mammogram. Negative Mammogram. Recommendation Routine screening mammogram in 1 year (for women over age 40). This mammogram was interpreted with the aid of an FDA-approved computer-aided dectection system. Electronically Signed By: Chad Norwood MD 05/10/19 [id number]
--- NOTE | 2019-05-14 10:41 | DEXA ---
AP SPINE L1 - L4 1.197 0.0 1.9 LT FEMUR TOTAL Bilateral hip replacement. 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 The decreased density of the spine does represent a significant change. The density of the spine has decreased 3.6% since the initial exam on 03/19/2003. The spine density has decreased 6.2% since the most recent exam on 04/24/2015. The density of the left hip in the density of the right hip is N/A. FOLLOW-UP: Recommendation for the next bone density exam: 2 years. SARA
== END ==
LOC: M WHC 12:58
PROVIDERS: ATTEND Family Medicine
DX: Z12.31 Encounter for screening mammogram for malignant neoplasm of breast (principal); M81.0 Age-related osteoporosis without current pathological fracture

== ENCOUNTER → 2020-04-10 | Outpatient (REF) | payer MEDICARE, MEDICAID ==
[~2020-04-10] MED LIST changes: +DULC10SU2 PR; +ENSULIQ8 PO; +FLEEENE12 PR; +MIRA3350 PO; +MORP15TA2 PO; +MSIR30TA PO; +OMEP40CA97 PO; +SENN-80 PO
[2020-04-10 20:28] LABS: HEMATOCRIT 36.9 % (36.0-47.0); HEMOGLOBIN 10.9 g/dl (12.0-15.5); MEAN CORPUSCULAR HEMOGLOBIN 22.5 pg (27.0-33.0); MEAN CORPUSCULAR HGB CONC 29.5 g/dl (32.0-36.5); MEAN CORPUSCULAR VOLUME 76.2 fl (80.0-96.0); PLATELET COUNT, AUTOMATED 411 10^3/uL (150-450); RED BLOOD COUNT 4.84 10^6/uL (4.00-5.40); WHITE BLOOD COUNT 5.5 10^3/uL (4.0-10.0)
[2020-04-10 21:27] LABS: ALBUMIN 2.7 GM/DL (3.2-5.2); ALT/SGPT 12 U/L (12-78); BILIRUBIN,TOTAL 0.8 MG/DL (0.2-1.0); BLOOD UREA NITROGEN 10 MG/DL (7-18); CALCIUM LEVEL 8.9 MG/DL (8.8-10.2); CARBON DIOXIDE LEVEL 28 MEQ/L (21-32); CHLORIDE LEVEL 104 MEQ/L (98-107); CREATININE FOR GFR 0.79 MG/DL (0.55-1.30); FERRITIN 31 NG/ML (8-252); FREE T4 1.49 NG/DL (0.76-1.46); GLOMERULAR FILTRATION RATE > 60.0 (>32); GLUCOSE, FASTING 103 MG/DL (70-100); IRON (FE) 15 UG/DL (50-170); PERCENT SATURATION 6.6 % (13.2-45.0); POTASSIUM SERUM 4.9 MEQ/L (3.5-5.1); SODIUM LEVEL 136 MEQ/L (136-145); TOTAL IRON BINDING CAPACITY 229 UG/DL (250-450); TOTAL PROTEIN 7.4 GM/DL (6.4-8.2)
== END ==
LOC: M LAB REF 18:12
PROVIDERS: ATTEND Family Medicine
DX: I10 Essential (primary) hypertension (principal); E03.9 Hypothyroidism, unspecified; D50.9 Iron deficiency anemia, unspecified
CPT/HCPCS: 80053; 82728; 83036; 83550; 84439; 84443; 85027; G0463

== ENCOUNTER 2020-04-12 15:28 | Emergency (ER) | payer MEDICARE, MEDICAID ==
[~2020-04-12] VITALS: Ht 165.1 cm; Wt 60.0 kg
[~2020-04-12 15:28] MED LIST changes: -DULC10SU2 PR; -ENSULIQ8 PO; -FLEEENE12 PR; -MIRA3350 PO; -MORP15TA2 PO; -MSIR30TA PO; -OMEP40CA97 PO; -SENN-80 PO
[2020-04-12] MEDS ORDERED: DULC10SU2 PR (15:40)
[2020-04-12] MEDS ORDERED: FLEEENE12 PR (15:40)
[2020-04-12] MEDS ORDERED: MIRA3350 PO (15:40)
[2020-04-12] MEDS ORDERED: SENN-80 PO (15:40)
[2020-04-12] MEDS ORDERED: FLEET ENEMA PR ONE (16:30)
--- NOTE | 2020-04-12 17:37 | REPVR ---
PROCEDURE INFORMATION: Exam: XR Abdomen, 1 View Exam date and time: 04/12/2020 4:29 PM Age: 84 years old Clinical indication: Abdominal pain; Colic; Additional info: Constipation R/O obstruction TECHNIQUE: Imaging protocol: XR of the abdomen. Views: Frontal supine view of the abdomen. 1 View. COMPARISON: CT ABD/PEL W/IV ORAL CONTRAS 10/18/2018 2:06 PM FINDINGS: Gastrointestinal tract: Normal. No bowel dilation. Organs: There has been a cholecystectomy. Bones/joints: Status post bilateral hip replacements with a displaced acetabular prosthesis on the right. Dextroscoliosis. Degenerative spondylosis lumbar spine. Osteoporosis. IMPRESSION: 1. There has been a cholecystectomy. 2. No bowel obstruction. Electronically signed by: Rogers Kerns On 04/12/2020 17:37:14 PM
[2020-04-12] MEDS ORDERED: GLYCERIN ADULT SUPP PR ONE (18:15)
[2020-04-12] MEDS ORDERED: NS 500 ML IV ONE (18:30)
[2020-04-12] MEDS ORDERED: ISOVUE-370 76% 100ML VIAL As Ordered ONE (18:50)
[2020-04-12 19:01] LABS: BASO % 0.8 % (0.0-1.0); EOS % 0.8 % (0.0-3.0); HEMATOCRIT 31.4 % (36.0-47.0); HEMOGLOBIN 9.7 g/dl (12.0-15.5); LYMPH # 0.8 10^3/uL (1.5-5.0); LYMPH % 15.5 % (24.0-44.0); MEAN CORPUSCULAR HEMOGLOBIN 23.7 pg (27.0-33.0); MEAN CORPUSCULAR HGB CONC 30.9 g/dl (32.0-36.5); MEAN CORPUSCULAR VOLUME 76.6 fl (80.0-96.0); MONO # 0.5 10^3/uL (0.0-0.8); MONO % 8.8 % (0.0-5.0); NEUTROPHILS # 3.8 10^3/uL (1.5-8.5); NEUTROPHILS % 73.7 % (36.0-66.0); PLATELET COUNT, AUTOMATED 367 10^3/uL (150-450); WHITE BLOOD COUNT 5.1 10^3/uL (4.0-10.0)
--- NOTE | 2020-04-12 19:12 | REPVR ---
PROCEDURE INFORMATION: Exam: CT Abdomen And Pelvis With Contrast Exam date and time: 04/12/2020 6:52 PM Age: 84 years old Clinical indication: Other: Cramping; Additional info: Abd cramping, constipation x2 weeks TECHNIQUE: Imaging protocol: Computed tomography of the abdomen and pelvis with intravenous contrast. Radiation optimization: All CT scans at this facility use at least one of these dose optimization techniques: automated exposure control; mA and/or kV adjustment per patient size (includes targeted exams where dose is matched to clinical indication); or iterative reconstruction. Contrast material: ISOVUE 370; Contrast volume: 100 ml; Contrast route: INTRAVENOUS (IV); COMPARISON: CT ABD/PEL W/IV ORAL CONTRAS 10/18/2018 2:06 PM FINDINGS: Pleural space: Pleural calcifications lung bases. Findings suggest prior asbestos exposure. Liver: There is a diffuse decrease in hepatic parenchymal density, consistent with steatosis. Gallbladder and bile ducts: There has been a cholecystectomy. Pancreas: Normal. No ductal dilation. Spleen: Normal. No splenomegaly. Adrenals: Normal. No mass. Kidneys and ureters: Small bilateral renal cysts measure up to 9 mm. No follow-up suggested. Stomach and bowel: Moderate diverticulosis is present in the distal colon. No diverticulitis. There is increased fluid demonstrated in the transverse and proximal left colon consistent with diarrhea. No mass demonstrated. Appendix: No evidence of appendicitis. Intraperitoneal space: Unremarkable. No free air. No significant fluid collection. Vasculature: The aortoiliac vessels demonstrate mild atherosclerotic calcification. Lymph nodes: Unremarkable. No enlarged lymph nodes. Bladder: Unremarkable as visualized. Reproductive: There has been a hysterectomy. Bones/joints: Osteoporosis. Dextroscoliosis. Moderate central spinal stenosis L3-L4 and severe central spinal stenosis L4-L5. Status post bilateral hip replacements with medially displaced acetabular cup on the right associated with bony remodeling and destruction in the right acetabular region. Soft tissues: Unremarkable. IMPRESSION: 1. There has been a cholecystectomy. 2. There is a diffuse decrease in hepatic parenchymal density, consistent with steatosis. 3. Small bilateral renal cysts measure up to 9 mm. No follow-up suggested. 4. Moderate diverticulosis is present in the distal colon. No diverticulitis. 5. There is increased fluid demonstrated in the transverse and proximal left colon consistent with diarrhea. No mass demonstrated. 6. There has been a hysterectomy. COMMENTS: Consistent with the [employer]'s Incidental Findings Committee white paper (J Am Ariel Radiol 2018): Any incidental renal lesion less than 1.0 cm or classified as too small to characterize, or any incidental cystic renal lesion characterized as simple-appearing, is likely benign. No follow-up imaging is recommended for these lesions per consensus recommendations based on imaging criteria. Electronically signed by: Rogers Kerns On 04/12/2020 19:13:07 PM
[2020-04-12 19:34] LABS: ALBUMIN 2.3 GM/DL (3.2-5.2); BILIRUBIN,DIRECT 0.1 MG/DL (0.0-0.2); BILIRUBIN,TOTAL 0.7 MG/DL (0.2-1.0); TOTAL PROTEIN 6.5 GM/DL (6.4-8.2)
[2020-04-12 19:35] VITALS: BP 168/74
[2020-04-12] MEDS ORDERED: DOXYCYCLINE HYCLATE 100MG TABLET As Ordered ONE (20:20)
[2020-04-12] MEDS ORDERED: DOXYCYCLINE HYCLATE 100MG TABLET PO ONE (20:30)
[2020-04-12] MEDS ORDERED: ONDANSETRON 4 MG ORAL DISINTEGRATING TAB PO ONE (21:00)
== END 2020-04-12 21:05 | disposition home or self-care (01) ==
LOC: M ED 15:28
DX: K59.00 Constipation, unspecified (principal); K21.9 Gastro-esophageal reflux disease without esophagitis; J45.909 Unspecified asthma, uncomplicated; E03.9 Hypothyroidism, unspecified; K76.89 Other specified diseases of liver; K57.30 Diverticulosis of large intestine without perforation or abscess without bleeding; N28.1 Cyst of kidney, acquired; Z90.49 Acquired absence of other specified parts of digestive tract; Z96.643 Presence of artificial hip joint, bilateral; Z88.0 Allergy status to penicillin; Z88.8 Allergy status to other drugs, medicaments and biological substances; Z88.6 Allergy status to analgesic agent; Z91.040 Latex allergy status; Z79.899 Other long term (current) drug therapy
CPT/HCPCS: 36415; 74018; 74177; 80047; 80076; 83690; 85025; 96360; 99284; Q0162; Q9967

== ENCOUNTER 2020-04-15 14:54 | Emergency (ER) | payer MEDICARE, MEDICAID ==
[~2020-04-15 14:54] MED LIST changes: +DULC10SU2 PR; +FLEEENE12 PR; +MIRA3350 PO; +SENN-80 PO
[2020-04-15 17:15] VITALS: BP 128/73
== END 2020-04-15 17:44 | disposition home or self-care (01) ==
LOC: M ED 14:54 → EDBD 14:54 → M ED 17:44
DX: K62.89 Other specified diseases of anus and rectum (principal); K21.9 Gastro-esophageal reflux disease without esophagitis; J45.909 Unspecified asthma, uncomplicated; E03.9 Hypothyroidism, unspecified; K76.89 Other specified diseases of liver; Z88.0 Allergy status to penicillin; Z88.6 Allergy status to analgesic agent; Z88.8 Allergy status to other drugs, medicaments and biological substances; Z79.899 Other long term (current) drug therapy; Z91.040 Latex allergy status

== ENCOUNTER 2020-06-04 12:09 | Inpatient (IN) | payer MEDICARE, MEDICAID ==
[~2020-06-04] VITALS: Ht 165.1 cm; Wt 59.1 kg
[2020-06-04] VITALS (10 sets, daily range): BP systolic 143–166; BP diastolic 67–87
[2020-06-04] MEDS ORDERED: MORPHINE 4 MG/ML 1ML VIAL/SYRINGE (J2270) IV ONE (13:15)
--- NOTE | 2020-06-04 13:41 | REPVR ---
PROCEDURE INFORMATION: Exam: XR Right Femur Exam date and time: 06/04/2020 1:05 PM Age: 84 years old Clinical indication: Injury or trauma; Fall; Sprain or strain; Thigh or upper leg; Right TECHNIQUE: Imaging protocol: XR Right femur. Views: 2 views. COMPARISON: No relevant prior studies available. FINDINGS: Bones/joints: Nonvisualization of the proximal right femur. Incompletely visualized surgical hardware in the proximal right femur. osteopenia and degenerative change. No acute bony injury in the visualized right femur. Soft tissues: Metallic snaps. Vasculature: Prominent vascular calcification. IMPRESSION: 1. Nonvisualization of the proximal right femur. 2. No acute bony injury in the visualized right femur. Electronically signed by: Jorge Sullivan On 06/04/2020 13:41:50 PM
--- NOTE | 2020-06-04 13:43 | REPVR ---
PROCEDURE INFORMATION: Exam: XR Right Hip with Pelvis when Performed Exam date and time: 06/04/2020 1:05 PM Age: 84 years old Clinical indication: Injury or trauma; Fall; Sprain or strain; Right; Hip TECHNIQUE: Imaging protocol: XR Right hip with pelvis when performed. Views: 2 or 3 views. COMPARISON: CT ABD/PEL W/IV CONTRAST ONLY 04/12/2020 6:49 PM FINDINGS: Bones/joints: Extensive remodeling deformity in the right acetabulum and ilium. Malpositioned right hip prosthesis which can be better evaluated with CT if clinically indicated. Stable left hip arthroplasty. Osteopenia and degenerative change. Soft tissues: Metallic snaps. Gastrointestinal tract: Prominent stool. Vasculature: Vascular calcification. IMPRESSION: Malpositioned right hip prosthesis which can be better evaluated with CT if clinically indicated. Electronically signed by: Jorge Sullivan On 06/04/2020 13:43:41 PM
[2020-06-04 14:09] LABS: BASO # 0.1 10^3/uL (0.0-0.2); BASO % 0.8 % (0.0-1.0); EOS # 0.2 10^3/uL (0.0-0.5); EOS % 2.9 % (0.0-3.0); HEMATOCRIT 24.8 % (36.0-47.0); HEMOGLOBIN 7.6 g/dl (12.0-15.5); LYMPH # 0.6 10^3/uL (1.5-5.0); LYMPH % 10.7 % (24.0-44.0); MEAN CORPUSCULAR HEMOGLOBIN 24.1 pg (27.0-33.0); MEAN CORPUSCULAR HGB CONC 30.6 g/dl (32.0-36.5); MEAN CORPUSCULAR VOLUME 78.7 fl (80.0-96.0); MONO # 0.5 10^3/uL (0.0-0.8); MONO % 8.6 % (0.0-5.0); NEUTROPHILS # 4.6 10^3/uL (1.5-8.5); NEUTROPHILS % 76.7 % (36.0-66.0); PLATELET COUNT, AUTOMATED 353 10^3/uL (150-450); RED BLOOD COUNT 3.15 10^6/uL (4.00-5.40)
[2020-06-04 14:37] LABS: BLOOD UREA NITROGEN 13 MG/DL (7-18); CALCIUM LEVEL 8.5 MG/DL (8.8-10.2); CARBON DIOXIDE LEVEL 28 MEQ/L (21-32); CHLORIDE LEVEL 108 MEQ/L (98-107); CREATININE FOR GFR 0.61 MG/DL (0.55-1.30); GLOMERULAR FILTRATION RATE > 60.0 (>32); GLUCOSE, FASTING 89 MG/DL (70-100); POTASSIUM SERUM 4.3 MEQ/L (3.5-5.1); SODIUM LEVEL 140 MEQ/L (136-145)
[2020-06-04 14:51] LABS: INR 1.17; PROTHROMBIN TIME 15.1 SECONDS (12.5-14.3)
[2020-06-04 14:52] LABS: PARTIAL THROMBOPLASTIN TIME 34.4 SECONDS (24.2-38.5)
[2020-06-04] MEDS ORDERED: ISOVUE-370 76% 100ML VIAL As Ordered ONE (16:42)
[2020-06-04 16:54] LABS: FERRITIN 28 NG/ML (8-252); IRON (FE) 17 UG/DL (50-170); PERCENT SATURATION 6.9 % (13.2-45.0); TOTAL IRON BINDING CAPACITY 247 UG/DL (250-450)
[2020-06-04] MEDS: ACETAMINOPHEN 500 MG TAB PO SCH ×2 (17:00→21:00)
[2020-06-04] MEDS ORDERED: NALOXONE INJ 0.4MG/1ML VIAL (J2310 PER 1MG) IV PRN (17:00)
[2020-06-04] MEDS ORDERED: DOXYCYCLINE HYCLATE 100MG TABLET PO ONE (17:15)
[2020-06-04] MEDS ORDERED: ENSULIQ8 PO (17:27)
[2020-06-04] MEDS ORDERED: OMEP40CA97 PO (17:27)
--- NOTE | 2020-06-04 17:35 | REPVR ---
PROCEDURE INFORMATION: Exam: CT Right Lower Extremity With Contrast; Thigh Exam date and time: 06/04/2020 5:22 PM Age: 84 years old Clinical indication: Swelling or effusion of joint; Other: Femur; Prior surgery; Additional info: Right hip prosthetic chronic infection-malpositioned TECHNIQUE: Imaging protocol: CT of the Right lower extremity with intravenous contrast was performed. Exam focused on the thigh. Radiation optimization: All CT scans at this facility use at least one of these dose optimization techniques: automated exposure control; mA and/or kV adjustment per patient size (includes targeted exams where dose is matched to clinical indication); or iterative reconstruction. Contrast material: ISOVUE 370; Contrast volume: 100 ml; Contrast route: INTRAVENOUS (IV); COMPARISON: CR Femur RIGHT 06/04/2020 1:11 PM FINDINGS: Bones/joints: Redemonstration of extensive remodeling deformity in the right acetabulum and ilium. Malposition right hip prosthesis with medial displacement of the acetabular cup with protrusio deformity. There is subluxation of the femoral component from the acetabular cup. Osteoporosis. Status post total left hip replacement. Small knee joint effusion. Soft tissues: Examination of the soft tissues demonstrates gross inflammatory changes about the right hip joint with multiple enhancing fluid collections extending from the prosthesis into the anterior superior thigh. Bowel: Moderate diverticulosis is present in the distal colon. No diverticulitis. Reproductive: Pessary demonstrated. Status post hysterectomy. IMPRESSION: 1. Redemonstration of extensive remodeling deformity in the right acetabulum and ilium. Malposition right hip prosthesis with medial displacement of the acetabular cup with protrusio deformity. There is subluxation of the femoral component from the acetabular cup. 2. Moderate diverticulosis is present in the distal colon. No diverticulitis. 3. Examination of the soft tissues demonstrates gross inflammatory changes about the right hip joint with multiple enhancing fluid collections extending from the prosthesis into the anterior superior thigh. Electronically signed by: Rogers Kerns On 06/04/2020 17:34:42 PM
--- NOTE | 2020-06-04 17:38 | HPEPDOC ---
[facility] Medical History & Physical Date of Admission Jun 04, 2020 Date of Service: Jun 04, 2020 History and Physical CHIEF COMPLAINT: Right hip pain since she fell last Tuesday HISTORY OF PRESENT ILLNESS: 84-year-old female with history of congenital bilateral hip dysplasia status post bilateral total hip replacement complicated by chronic right hip wound secondary to osteomyelitis and degeneration of her total hip on i mmunosuppressive therapy with doxycycline 100 twice a day and wound care per Dr. Chris, as well as maintenance surveillance by [facility] in [place], Dr. Antonio Martínez at [phone] cell, presents to the emergency room with intractable right hip pain 10/10 on a pain scale since her fall on Tuesday.She was trying to get into the building walking up the slanted ramp into [facility] in order to do a CT of the right hip to look for a new pocket of infection since it stopped draining. Her daughter was a few steps in front of her and she was walking with her cane when a strong essence of wind pushed her over into the bushes. She fell backwards onto the side of the building landing on her bad hip on the right, unable to get up. She landed on the planter and Her daughter looked back and asked how she was. A man delivering rugs came over to help. Her daughter went inside the building to ask someone to help stand her up, and returned with a wheelchair. She was wheeled into the building after having some scrapes on her right 4th and 5th fingers, and had a CT of the right hip which was reviewed by Dr. Chris who said that there was no new fracture or drainage as compared with the previous CT in February 2020. Since then, she has had intractable right hip pain, rated a 10 out of 10, unable to sleep and was thrashing about in bed for the past few days despite taking ibuprofen 2 tablets. She is able to ambulate with severe pain and has attempted to put an ice pack on it to deaden the pain, but she remains in agony, prompting her to have her daughter bring her to the emergency room for further evaluation because "I can't take it anymore." , She asked her daughter to call her [facility] nurse, but that [place] was busy and another nurse from [facility] came and despite having normal vital signs. Encourage her to come into the ER for further evaluation. She denies any fever, chills, or serosanguineous or purulent drainage at the right hip site. Prior to the fall. She denied any chest pain, pressure, tightness, lightheadedness, dizziness, shortness of breath, nausea, vomiting, epigastric abdominal pain. Patient has chronic anemia and gets IV iron given by her primary care physician and denies any bright red blood per rectum, melena, hematemesis, coffee-ground emesis ,black tarry stools. She had a previous upper GI series showing Schatzki's ring, gastroesophageal reflux disease and hiatal hernia but has had no EGD or prior colonoscopy recently. Patient complains of chronic constipation for which she takes Senokot at night and MiraLAX in the morning, but recently has had liquid stools. She also complains of bladder issues with her prolapsed bladder with pessary. In the emergency room she was found to have a hemoglobin of 7.8 with baseline hemoglobin of 9.7 on 04/10/2020. X-ray of the right hip and pelvis showed malpositioned right hip prosthesis, which can be evaluated with CT if clinically indicated extensive remodeling deformity in the right acetabulum and ileum. Stable left hip arthroplasty, osteopenia and degenerative change, prominent stool in the GI tract. Hospitalist was asked to admit the patient for intractable pain at the right hip status post a mechanical fall 1 week ago. Per the patient's orthopedic surgeon in [place], Dr. Antonio Martínez, we should evaluate with a CT of the pelvis and femur. If patient has pockets of infection, which is the most common cause of malpositioning of the prosthesis and to continue on prophylactic doxycycline. PAST MEDICAL HISTORY: Iron deficiency anemia, gastroesophageal reflux disease, large hiatal hernia, large Schatzki's ring at the GE junction on upper GI series November 2009. History of dysphagia, chronic constipation, normal coronary angiogram 2007, Dr. Veras at [facility] in [place]. Nephrolithiasis, hypothyroidism, impaired fasting glucose. Allergic rhinitis, recurrent sinusitis, osteopenia, mild persistent asthma September 2007, FEV1 108% congenital hip dysplasia status post bilateral hip replacement. Microscopic hematuria secondary to nephrolithiasis, normal cystoscopy in 2008. Mild mitral regurgitation, borderline left ventricular hypertrophy, left atrial enlargement 4.4 cm by transthoracic echo June 2007, read by Dr. Guevara. Recurrent urinary tract infection. Carpal tunnel syndrome, left greater than right. 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 Ch. 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 Huerta , managed by Dr. Chris and Dr. Martínez at [facility] orthopedic group in [place], psoriasis, chronic diastolic heart failure. Osteo-arthritis of the spine with radiculopathy, dyspepsia, chronic constipation, weight loss, mild protein calorie malnutrition. Physical deconditioning shoulder impingement syndrome, B12 deficiency, mixed urinary incontinence, osteoporosis PAST SURGICAL HISTORY: Toe surgery, 2005 due to claw toes, right hip revision July 2002, right total hip replacement April 1995. 2. Right hip operations June 1948, left total hip replacement by Dr. Mcleod 2014. Cholecystectomy 1971, appendectomy 1969. Left total knee replacement 1990. Total abdominal hysterectomy for noncancerous reasons May 1970. Septoplasty June 1994 SOCIAL HISTORY: Divorce . DO NOT RESUSCITATE .Lives with her daughter,Stacey, walks with a cane. Right leg, 2 inches shorter than the left, which has been chronic for the past few decades. Lives in a one-story home is able to cope for self toilet and shower were on her own without assistance and was able to do her laundry prior to coming into the hospital. Denies any alcohol or cigarette use. Retired. FAMILY HISTORY: Father age 72, heart disease. Mother age 87. Dementia. Pneumonia. 2 sons, 2 daughters. One son in his 50s ALLERGIES: Please see below. REVIEW OF SYSTEMS: 12 point systems review obtained, all of which are negative aside from positive findings on the history of present illness. HOME MEDICATIONS: Please see below. PHYSICAL EXAMINATION: VITAL SIGNS: see below GENERAL APPEARANCE: Awake, alert, oriented, appears her stated age. No respiratory distress, cyanosis, pallor, able to speak in full sentences HEENT: Anicteric, no jaundice. Pupils round and reactive to light and accommodation. Extraocular muscles are intact. Normocephalic, atraumatic. Dry mucous membranes. No JVD, thyromegaly or cervical lymphadenopathy CARDIOVASCULAR: S1, S2, sinus rhythm, faint, 2/6 systolic ejection murmur at the apex with no radiation, slightly displaced point of maximal impulse no carotid bruit. No abdominal bruit LUNGS: Air entry is equal bilaterally. Clear to auscultation. No wheezing, rales or rhonchi ABDOMEN: Soft, nontender, nondistended, positive bowel sounds 4 quadrants. No hepatosplenomegaly. No abdominal bruit MUSCULOSKELETAL: 4 cm open wound noted at the right hip. No serious or sanguinous or purulent drainage. Clean and dry. No erythema or induration EXTREMITIES: No cyanosis, clubbing or pitting edema bilateral lower extremities LABORATORY DATA: See below. IMAGIN06/04/2020. X-ray of the right hip with pelvis malpositioned right hip prosthesi s, which can be better evaluated with CT if clinically indicated. Stable left hip arthroplasty. Extensive remodeling deformity in the right acetabulum and ileum degenerative change and osteopenia. Metallic snaps noted in the soft tissue and prominent stool in the gastrointestinal tract 06/04/2020. X-ray of the right femur nonvisualization of the proximal right femur. No acute bony injury in the visualized right femur incompletely visualized. Surgical hardware in the proximal right femur osteopenia and degenerative change. Metallic snaps, prominent vascular calcification. MICROBIOLOGY: Please see below. 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 Chris, as well as maintenance surveillance by [facility] in [place], Dr. Antonio Martínez at [phone] cell, presents to the emergency room with intractable right hip pain 10/10 on a pain scale since her fall on Tuesday.She was trying to get into the building walking up the slanted ramp into [facility] in order to do a CT of the right hip to look for a new pocket of infection since it stopped draining. Her daughter was a few steps in front of her and she was walking with her cane when a strong essence of wind pushed her over into the bushes. She fell backwards onto the side of the building landing on her bad hip on the right, unable to get up. She landed on the planter and Her daughter looked back and asked how she was. A man delivering rugs came over to help. Her daughter went inside the building to ask someone to help stand her up, and returned with a wheelchair. She was wheeled into the building after having some scrapes on her right 4th and 5th fingers, and had a CT of the right hip which was reviewed by Dr. Chris who said that there was no new fracture or drainage as compared with the previous CT in February 2020. Since then, she has had intractable right hip pain, rated a 10 out of 10, unable to sleep and was thrashing about in bed for the past few days despite taking ibuprofen 2 tablets. She is able to ambulate with severe pain and has attempted to put an ice pack on it to deaden the pain, but she remains in agony, prompting her to have her daughter bring her to the emergency room for further evaluation because "I can't take it anymore." . She denies any fever, chills, or serosanguineous or purulent drainage at the right hip site. Prior to the fall. She denied any chest pain, pressure, tightness, lightheadedness, dizziness, shortness of breath, nausea, vomiting, epigastric abdominal pain. Patient has chronic anemia and gets IV iron given by her primary care physician and denies any bright red blood per rectum, melena, black tarry stools. She had a previous upper GI series showing Schatzki's ring, gastroesophageal reflux disease and hiatal hernia but has had no EGD or prior colonoscopy recently. In the emergency room she was found to have a hemoglobin of 7.8 with baseline hemoglobin of 9.7 on 04/10/2020. X-ray of the right hip and pelvis showed malpositioned right hip prosthesis, which can be evaluated with CT if clinically indicated extensive remodeling deformity in the right acetabulum and ileum. Stable left hip arthroplasty, osteopenia and degenerative change, prominent stool in the GI tract. Hospitalist was asked to admit the patient for intractable pain at the right hip status post a mechanical fall 1 week ago. Per the patient's orthopedic surgeon in [place], Dr. Antonio Martínez, we should evaluate with a CT of the pelvis and femur. If patient has pockets of infection, which is the most common cause of malpositioning of the prosthesis and to continue on prophylactic doxycycline. 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 Huerta managed by Dr. Chris and Dr. Martínez at [facility] group in [place] Chronic iron deficiency anemia Acute symptomatic anemia gastroesophageal reflux disease/large hiatal hernia, large Schatzki's ring at the GE junction chronic constipation hypothyroidism impaired fasting glucose congenital hip dysplasia status post bilateral hip replacement. Prolapsed bladder pessary #3 knob with support psoriasis chronic diastolic heart failure PLAN: Patient will be admitted as an inpatient for 2 midnights for evaluation of her anemia which is most likely chronic iron deficiency with decreased oral intake and ruling out acute GI bleed as well as treatment for intractable right hip pain status post her mechanical fall. Iron studies have been sent and appears to be iron deficiency anemia, but since the patient is severely weak. We will transfuse her for symptomatic anemia until the hemoglobin is at least above 8 or 9. Blood transfusion consent form has been signed by the patient. She will be monitored for Hemoccult stools to look for blood during the hospital stay and will have repeatCBC in the morning. Per her [facility] orthopedic surgeon in [place]. We should evaluate her right hip to look for any pockets of infection despite being on prophylactic doxycycline with a CT of the pelvis and the right hip with contrast. She is to be continued on her doxycycline for now unless she develops purulent drainage at which point we will obtain a wound culture and sensitivity and change antibiotics accordingly if needed depending on the sensitivity results. Activity as tolerated per her orthopedic surgeon, Dr. Martínez. Compression stockings for DVT prophylaxis. She'll also other home medications. Patient says that she did okay with morphine in the emergency room and would like to continue this for pain control. For her Chronic constipation, Patient will need an aggressive bowel regimen. Vital Signs Vital Signs Date Time Temp Pulse Resp B/P (MAP) Pulse Ox O2 Delivery O2 Flow Rate FiO2 06/04/20 14:00 16 06/04/20 12:28 97.6 73 145/80 (101) 95 Room Air Laboratory Data Labs 24H Laboratory Tests 2 06/04/20 13:54: Immature Granulocyte % (Auto) 0.3, Neutrophils (%) (Auto) 76.7H, Lymphocytes (%) (Auto) 10.7L, Monocytes (%) (Auto) 8.6H, Eosinophils (%) (Auto) 2.9, Basophils (%) (Auto) 0.8, Neutrophils # (Auto) 4.6, Lymphocytes # (Auto) 0.6L, Monocytes # (Auto) 0.5, Eosinophils # (Auto) 0.2, Basophils # (Auto) 0.1, Reticulocyte # (auto) 39.0, Nucleated Red Blood Cells % (auto) 0.0, Differential Slide Review Report, Peripheral Blood Smear Path Consult PERIPHERAL SMEAR, Percent Reticulocyte Count 1.9H, Reticulocyte Hemoglobin Equivalent 20.9L, Anion Gap 4L, Glomerular Filtration Rate > 60.0, Calcium Level 8.5L, Iron Level 17L, Total Iron Binding Capacity 247L, Transferrin % Saturation 6.9L, Ferritin 28 06/04/20 14:27: Prothrombin Time 15.1H, Prothromb Time International Ratio 1.17, Activated Partial Thromboplast Time 34.4 CBC/BMP Laboratory Tests 06/04/20 13:54 Home Medications Scheduled Bisacodyl (Dulcolax) 10 Mg Supp.rect, 1 SUP NH DAILY for constipation Calcium Carbonate/Vitamin D3 (Calcium 500-Vit D3 400 Tablet) 1 Tab Tab, 1 TAB PO DAILY Cyanocobalamin (Vitamin B-12) (Vitamin B-12) 1,000 Mcg Tab, 1,000 MCG PO DAILY LUNCHTIME Doxycycline Monohydrate (Doxycycline) 100 Mg Cap, 100 MG PO Q12H Esomeprazole Magnesium (Nexium) 40 Mg Cap, 40 MG PO DAILY LUNCHTIME Estradiol (Estrace) 0.1 Mg/Gm Cre, 1 DOSE PV 2XWK NO SPECIFIC DAYS Fluticasone Propionate (Flovent Hfa) 220 Mcg/Act Aer, 2 PUFFS INH BID Levothyroxine Sodium (Synthroid) 88 Mcg Tab, 88 MCG PO DAILY 1000 Polyethylene Glycol 3350 (Miralax) 119 Gm Powder, 17 GRAM PO DAILY for constipation dissolve in water Salmeterol (Serevent Diskus) 28 Puff/Inhaler Aerp, 1 PUFF INH BID Sennosides (Senna) 8.6 Mg Tablet, 2 TAB PO TID for constipation Sodium Phosphate,[place]-Dibasic (Fleet Enema) 133 Ml Enema, 1 NATI NH ONCE Scheduled PRN Albuterol Sulfate (Proair Hfa) 108 Mcg/Act Aer, 2 PUFFS INH Q4H PRN for SOB/WHEEZING Allergies Coded Allergies: Corticosteroids (Glucocorticoids) (Verified Allergy, Unknown, 04/12/20) Penicillins (Verified Allergy, Unknown, 04/12/20) TAPE (Unverified Allergy, Unknown, BLISTERING, PRURITIS, 09/10/04) budesonide (Verified Allergy, Unknown, 04/12/20) codeine (Verified Allergy, Unknown, 04/12/20) hydrocodone (Verified Allergy, Unknown, 04/12/20) latex (Verified Allergy, Unknown, 04/12/20) montelukast (Verified Allergy, Unknown, 04/12/20) morphine (Verified Allergy, Unknown, 04/12/20) zoledronic acid (Verified Allergy, Unknown, 04/12/20) A-FIB/CHADSVASC A-FIB History Current/History of A-Fib/PAF?: No Current PO Anticoag Therapy: No Age/Risk Factor Scoring CHADSVASC: CHADSVASC Response (Comments) Value Age Risk Factor Age >/= 75 years old 2 Gender Risk Factor Female 1 Hx of CHF Yes 1 Hx of HTN No 0 Hx of Stroke/TIA/or VTE No 0 Hx of Diabetes No 0 Hx of Vascular Disease No 0 Total 4 Treatment Treatment ordered: NONE Reason Anticoagulant not given: Not indicated/[id number] BALDOMERO NELSON MD Jun 04, 2020 17:06
--- NOTE | 2020-06-04 17:38 | REPVR ---
PROCEDURE INFORMATION: Exam: CT Pelvis With Contrast Exam date and time: 06/04/2020 5:22 PM Age: 84 years old Clinical indication: Swelling or effusion of joint; Right; Prior surgery; Additional info: Right hip prosthetic chronic infection-malpositioned TECHNIQUE: Imaging protocol: Computed tomography images of the pelvis with intravenous contrast. Radiation optimization: All CT scans at this facility use at least one of these dose optimization techniques: automated exposure control; mA and/or kV adjustment per patient size (includes targeted exams where dose is matched to clinical indication); or iterative reconstruction. Contrast material: ISOVUE 370; Contrast volume: 100 ml; Contrast route: INTRAVENOUS (IV); COMPARISON: CT ABD/PEL W/IV CONTRAST ONLY 04/12/2020 6:49 PM FINDINGS: Stomach and bowel: Moderate diverticulosis is present in the distal colon. No diverticulitis. Appendix: No evidence of appendicitis. Intraperitoneal space: Unremarkable. No free air. No significant fluid collection. Vasculature: The aortoiliac vessels demonstrate mild atherosclerotic calcification. Lymph nodes: Unremarkable. No enlarged lymph nodes. Bladder: Normal. No mass. Reproductive: There has been a hysterectomy. Bones/joints: Abnormal positioning and deformity of the right hip prosthesis. Previous refer to accompanying CT extremity report for further details. Status post total left hip replacement. Fracture superior pubic ramus on the right. Degenerative spondylosis and scoliosis visualized lower lumbar spine. Soft tissues: Unremarkable. Other findings: Osteoporosis. IMPRESSION: 1. Abnormal positioning and deformity of the right hip prosthesis. Previous refer to accompanying CT extremity report for further details. 2. There has been a hysterectomy. 3. Moderate diverticulosis is present in the distal colon. No diverticulitis. 4. Fracture superior pubic ramus on the right. Electronically signed by: Rogers Kerns On 06/04/2020 17:38:23 PM
[2020-06-04] MEDS ORDERED: MORPHINE 2 MG/ML 1ML VIAL (J2270) IV PRN (18:00)
[2020-06-04] MEDS ORDERED: MORPHINE 30 MG TAB **MSIR PO ONE (18:15)
[2020-06-04] MEDS ORDERED: MORPHINE 30 MG TAB **MSIR PO PRN (22:00)
[2020-06-04] MEDS: DOXYCYCLINE HYCLATE 100MG TABLET PO SCH (22:01)
[2020-06-05 00:35] VITALS: BP 159/85
[2020-06-05] MEDS ORDERED: ALBUTEROL 90 MCG/ACT 8GM HFA INHALER INH PRN (05:45)
[2020-06-05 06:00] VITALS: BP 151/82
[2020-06-05] MEDS ORDERED: LEVOTHYROXINE 88MCG TABLET (0.088 MG) PO SCH (06:00)
[2020-06-05] MEDS ORDERED: PILL CUTTER 1 EACH XX PRN (06:15)
[2020-06-05 07:05] LABS: BASO # 0.1 10^3/uL (0.0-0.2); BASO % 1.1 % (0.0-1.0); EOS # 0.3 10^3/uL (0.0-0.5); EOS % 5.1 % (0.0-3.0); HEMATOCRIT 30.8 % (36.0-47.0); LYMPH # 0.8 10^3/uL (1.5-5.0); LYMPH % 14.1 % (24.0-44.0); MEAN CORPUSCULAR HEMOGLOBIN 25.3 pg (27.0-33.0); MEAN CORPUSCULAR HGB CONC 31.8 g/dl (32.0-36.5); MEAN CORPUSCULAR VOLUME 79.4 fl (80.0-96.0); MONO # 0.5 10^3/uL (0.0-0.8); MONO % 9.2 % (0.0-5.0); NEUTROPHILS # 3.7 10^3/uL (1.5-8.5); NEUTROPHILS % 70.1 % (36.0-66.0); PLATELET COUNT, AUTOMATED 302 10^3/uL (150-450); RED BLOOD COUNT 3.88 10^6/uL (4.00-5.40); WHITE BLOOD COUNT 5.3 10^3/uL (4.0-10.0)
[2020-06-05 07:11] LABS: HEMOGLOBIN 9.8 g/dl (12.0-15.5)
[2020-06-05 07:18] LABS: BLOOD UREA NITROGEN 14 MG/DL (7-18); CALCIUM LEVEL 8.3 MG/DL (8.8-10.2); CARBON DIOXIDE LEVEL 27 MEQ/L (21-32); CHLORIDE LEVEL 105 MEQ/L (98-107); CREATININE FOR GFR 0.76 MG/DL (0.55-1.30); GLOMERULAR FILTRATION RATE > 60.0 (>32); GLUCOSE, FASTING 78 MG/DL (70-100); POTASSIUM SERUM 4.6 MEQ/L (3.5-5.1); SODIUM LEVEL 138 MEQ/L (136-145)
[2020-06-05] MEDS ORDERED: MSIR30TA PO (07:42)
[2020-06-05] MEDS: IBUPROFEN 200MG TAB PO SCH ×3 (07:44→13:46)
[2020-06-05] MEDS ORDERED: FLUTICASONE HFA 220 MCG 12 GM INHALER (FLOVENT) INH SCH (08:00)
[2020-06-05] MEDS ORDERED: SALMETEROL DISKUS 50MCG INHALER (SEREVENT) INH SCH (08:00)
[2020-06-05] MEDS: ACETAMINOPHEN 500 MG TAB PO SCH (08:52)
[2020-06-05] MEDS: DOXYCYCLINE HYCLATE 100MG TABLET PO SCH (08:52)
[2020-06-05] MEDS ORDERED: MORPHINE 30 MG TAB **MSIR PO SCH ×2 (09:00→21:00)
[2020-06-05] MEDS ORDERED: CALCIUM/VITAMIN D 500 MG TAB PO SCH ×2 (09:00→17:30)
[2020-06-05] MEDS ORDERED: MIRALAX *UNIT DOSE* 17GM PACKET PO SCH (09:00)
[2020-06-05] MEDS ORDERED: FLUBLOK(EGG FREE)(QUAD)INFLUENZA VACC 0.5ML SYRINGE 18YRS & OLDER IM ONE (09:00)
[2020-06-05] MEDS ORDERED: MORP15TA2 PO (09:37)
[2020-06-05] MEDS ORDERED: SENOKOT S TAB PO ONE (09:45)
--- NOTE | 2020-06-05 10:06 | IPNPDOC ---
Date Seen The patient was seen on 06/05/20. Progress Note SUBJECTIVE: Complains of 5 out of 10 pain when she tries to move and ambulate, has not been out of bed, has had breakfast this morning and was given morphine intravenously with some improvement in her pain at the bedside without moving. She has no pain at all. CT of the hip shows no abscess or fluid collection. Despite the chronic sinus tract. She's had no fever or chills overnight. Per her surgeon, Dr. James zuniga [facility] in [place]. Patient may be discharged home once the pain is controlled and physical therapy has cleared her. Patient was given 2 units RBC transfusion for her chronic iron deficiency anemia. Hemoccult stool has been ordered, but no sample has been given. She otherwise denies any bright red blood per rectum, melena, black tarry stools, hematemesis or coffee-ground emesis and says that she has been evaluated with colOguard by Dr. Ch. OBJECTIVE: PHYSICAL EXAMINATION: VITAL SIGNS: see below GENERAL APPEARANCE: Awake, alert, oriented, appears her stated age. No respiratory distress, cyanosis, pallor, able to speak in full sentences. Conversant HEENT: Anicteric, no jaundice. Pupils round and reactive to light and accommodation. Extraocular muscles are intact. Normocephalic, atraumatic. , Moist mucous membranes. No JVD, thyromegaly or cervical lymphadenopathy CARDIOVASCULAR: S1, S2, sinus rhythm, faint, 2/6 systolic ejection murmur at the apex with no radiation, slightly displaced point of maximal impulse no carotid bruit. No abdominal bruit LUNGS: Air entry is equal bilaterally. Clear to auscultation. No wheezing, rales or rhonchi ABDOMEN: Soft, nontender, nondistended, positive bowel sounds 4 quadrants. No hepatosplenomegaly. No abdominal bruit MUSCULOSKELETAL: 4 cm open wound noted at the right hip. No serious or sanguinous or purulent drainage. Clean and dry. No erythema or induration EXTREMITIES: No cyanosis, clubbing or pitting edema bilateral lower extremities LABORATORY DATA: See below. IMAGIN06/04/2020. X-ray of the right hip with pelvis malpositioned right hip prosthesis, which can be better evaluated with CT if clinically indicated. Stable left hip arthroplasty. Extensive remodeling deformity in the right acet abulum and ileum degenerative change and osteopenia. Metallic snaps noted in the soft tissue and prominent stool in the gastrointestinal tract 06/04/2020. X-ray of the right femur nonvisualization of the proximal right femur. No acute bony injury in the visualized right femur incompletely visualize d. Surgical hardware in the proximal right femur osteopenia and degenerative change. Metallic snaps, prominent vascular calcification. MICROBIOLOGY: Please see below. 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 Chris, as well as maintenance surveillance by [facility] in [place], Dr. Antonio Martínez at [phone] cell, presents to the emergency room with intractable right hip pain 10/10 on a pain scale since her fall on Tuesday.She was trying to get into the building walking up the slanted ramp into [facility] in order to do a CT of the right hip to look for a new pocket of infection since it stopped draining. Her daughter was a few steps in front of her and she was walking with her cane when a strong essence of wind pushed her over into the bushes. She fell backwards onto the side of the building landing on her bad hip on the right, unable to get up. She landed on the planter and Her daughter looked back and asked how she was. A man delivering rugs came over to [facility]. Her daughter went inside the building to ask someone to help stand her up, and returned with a wheelchair. She was wheeled into the building after having some scrapes on her right 4th and 5th fingers, and had a CT of the right hip which was reviewed by Dr. Chris who said that there was no new fracture or drainage as compared with the previous CT in February 2020. Since then, she has had intractable right hip pain, rated a 10 out of 10, unable to sleep and was thrashing about in bed for the past few days despite taking ibuprofen 2 tablets. She is able to ambulate with severe pain and has attempted to put an ice pack on it to deaden the pain, but she remains in agony, prompting her to have her daughter bring her to the emergency room for further evaluation because "I can't take it anymore." . She denies any fever, chills, or serosanguineous or purulent drainage at the right hip site. Prior to the fall. She denied any chest pain, pressure, tightness, lightheadedness, dizziness, shortness of breath, nausea, vomiting, epigastric abdominal pain. Patient has chronic anemia and gets IV iron given by her primary care physician and denies any bright red blood per rectum, melena, black tarry stools. She had a previous upper GI series showing Schatzki's ring, gastroesophageal reflux disease and hiatal hernia but has had no EGD or prior colonoscopy recently. In the emergency room she was found to have a hemoglobin of 7.8 with baseline hemoglobin of 9.7 on 04/10/2020. X-ray of the right hip and pelvis showed malpositioned right hip prosthesis, which can be evaluated with CT if clinically indicated extensive remodeling deformity in the right acetabulum and ileum. Stable left hip arthroplasty, osteopenia and degenerative change, prominent stool in the GI tract. Hospitalist was asked to admit the patient for intractable pain at the right hip status post a mechanical fall 1 week ago. Per the patient's orthopedic surgeon in [place], Dr. Antonio Martínez, we should evaluate with a CT of the pelvis and femur. If patient has pockets of infection, which is the most common cause of malpositioning of the prosthesis and to continue on prophylactic doxycycline. 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 Huerta managed by Dr. Chris and Dr. Martínez at [facility] orthopedic group in [place] Chronic iron deficiency anemia Acute symptomatic anemia gastroesophageal reflux disease/large hiatal hernia, large Schatzki's ring at the GE junction chronic constipation hypothyroidism impaired fasting glucose congenital hip dysplasia status post bilateral hip replacement. Prolapsed bladder pessary #3 knob with support psoriasis chronic diastolic heart failure PLAN: Patient does not want any evaluation for her chronic anemia and refuses to have an EGD, colonoscopy and says that Dr. Ch has done the color guard for her. She says that she chronically has iron deficiency and takes supplements. She did have 2 units of RBC transfusion yesterday. She currently feels better with no complaints of any active GI bleed, either from above or from below. She denies any bright red blood per rectum, melena, black tarry stools, coffee-ground emesis, hematemesis and has no abdominal pain or nausea. No complaints of dysphagia. Her pain is improved with IV morphine and immediate release morphine were awaiting physical therapy evaluation today. Per her surgeon in [place], Dr. Martínez, Patient may be discharged home with no changes in her medications, aside from the addition of pain medications. . Her CAT scan of the right hip is unchanged with chronic sinus tract, but no purulent discharge at the bedside or abscess noted on imaging. Patient may be continued on her home dose of doxycycline with outpatient follow-up with Dr. Chris and her orthopedic surgeon in [place]. There are no other active medical issues and she may be discharged home when she is cleared by physical therapy. Vital Signs Vital Signs Date Time Temp Pulse Resp B/P (MAP) Pulse Ox O2 Delivery O2 Flow Rate FiO2 06/04/20 14:00 16 06/04/20 12:28 97.6 73 145/80 (101) 95 Room Air VS, I&O, 24H, Vincentbone Vital Signs/I&O Vital Signs Date Time Temp Pulse Resp B/P (MAP) Pulse Ox O2 Delivery O2 Flow Rate FiO2 06/05/20 08:54 20 06/05/20 06:00 99.3 77 151/82 (105) 95 Room Air I&O- Last 24 Hours up to 6 AM 06/05/20 06:00 Intake Total 1200 ml Output Total 0 ml Balance 1200 ml Laboratory Data 24H LABS Laboratory Tests 2 06/04/20 13:54: Immature Granulocyte % (Auto) 0.3, Neutrophils (%) (Auto) 76.7H, Lymphocytes (%) (Auto) 10.7L, Monocytes (%) (Auto) 8.6H, Eosinophils (%) (Auto) 2.9, Basophils (%) (Auto) 0.8, Neutrophils # (Auto) 4.6, Lymphocytes # (Auto) 0.6L, Monocytes # (Auto) 0.5, Eosinophils # (Auto) 0.2, Basophils # (Auto) 0.1, Reticulocyte # (auto) 39.0, Nucleated Red Blood Cells % (auto) 0.0, Differential Slide Review Report, Peripheral Blood Smear Path Consult PERIPHERAL SMEAR, Percent Reticulocyte Count 1.9H, Reticulocyte Hemoglobin Equivalent 20.9L, Anion Gap 4L, Glomerular Filtration Rate > 60.0, Calcium Level 8.5L, Iron Level 17L, Total Iron Binding Capacity 247L, Transferrin % Saturation 6.9L, Ferritin 28 06/04/20 14:27: Prothrombin Time 15.1H, Prothromb Time International Ratio 1.17, Activated Partial Thromboplast Time 34.4 06/05/20 06:35: Immature Granulocyte % (Auto) 0.4, Neutrophils (%) (Auto) 70.1H, Lymphocytes (%) (Auto) 14.1L, Monocytes (%) (Auto) 9.2H, Eosinophils (%) (Auto) 5.1H, Basophils (%) (Auto) 1.1H, Neutrophils # (Auto) 3.7, Lymphocytes # (Auto) 0.8L, Monocytes # (Auto) 0.5, Eosinophils # (Auto) 0.3, Basophils # (Auto) 0.1, Nucleated Red Blood Cells % (auto) 0.4H, Anion Gap 6L, Glomerular Filtration Rate > 60.0, Calcium Level 8.3L CBC/BMP Laboratory Tests 06/04/20 13:54 06/05/20 06:35 BALDOMERO NELSON MD Jun 05, 2020 10:03
[2020-06-05] MEDS ORDERED: KETOROLAC 30 MG/ML 1ML VIAL IV ONE (10:45)
[2020-06-05] MEDS ORDERED: ALPRAZolam 0.25 MG TAB PO PRN (10:45)
[2020-06-05] MEDS ORDERED: MORPHINE 30 MG TAB **MSIR PO ONE (12:00)
[2020-06-05] MEDS ORDERED: ACETAMINOPHEN 500 MG TAB PO SCH (13:00)
[2020-06-05 14:00] VITALS: BP 112/65
[2020-06-05] MEDS ORDERED: OMEPRAZOLE 20 MG CAP PO SCH (15:00)
[2020-06-05] MEDS ORDERED: DOXYCYCLINE HYCLATE 100MG TABLET PO SCH (17:30)
[2020-06-05] MEDS ORDERED: SENNA 8.6 MG TAB (SENOKOT) PO SCH (21:00)
== END 2020-06-05 16:15 | disposition home health service (06) | DRG 812 ==
LOC: M ED 12:09 → EDBD 12:09 → M ED INP 16:08 → ENRESERV 19:33 → M MS5PR 19:55
PROVIDERS: ADMIT General Practice; ATTEND General Practice
PROC: 30233N1 Transfusion of Nonautologous Red Blood Cells into Peripheral Vein, Percutaneous Approach (ICD-10-PCS; principal; 2020-06-04)
DX: D50.9 Iron deficiency anemia, unspecified (principal); I50.32 Chronic diastolic (congestive) heart failure; K21.9 Gastro-esophageal reflux disease without esophagitis; E03.9 Hypothyroidism, unspecified; N81.10 Cystocele, unspecified; K59.09 Other constipation; M25.551 Pain in right hip; R29.6 Repeated falls; T84.020D Dislocation of internal right hip prosthesis, subsequent encounter; K44.9 Diaphragmatic hernia without obstruction or gangrene; M85.80 Other specified disorders of bone density and structure, unspecified site; J45.30 Mild persistent asthma, uncomplicated; Z87.76 Personal history of (corrected) congenital malformations of integument, limbs and musculoskeletal system; Z79.899 Other long term (current) drug therapy; Z88.0 Allergy status to penicillin; Z96.643 Presence of artificial hip joint, bilateral; Z88.5 Allergy status to narcotic agent; Z88.8 Allergy status to other drugs, medicaments and biological substances; Z91.040 Latex allergy status; Z91.048 Other nonmedicinal substance allergy status

== ENCOUNTER → 2020-06-10 | Outpatient (REF) | payer MEDICARE, MEDICAID ==
[~2020-06-10] MED LIST changes: +ENSULIQ8 PO; +MORP15TA2 PO; +MSIR30TA PO; +OMEP40CA97 PO
[2020-06-10 18:39] LABS: HEMATOCRIT 36.2 % (36.0-47.0); HEMOGLOBIN 10.7 g/dl (12.0-15.5); MEAN CORPUSCULAR HEMOGLOBIN 23.6 pg (27.0-33.0); MEAN CORPUSCULAR HGB CONC 29.6 g/dl (32.0-36.5); MEAN CORPUSCULAR VOLUME 79.9 fl (80.0-96.0); PLATELET COUNT, AUTOMATED 393 10^3/uL (150-450); RED BLOOD COUNT 4.53 10^6/uL (4.00-5.40); WHITE BLOOD COUNT 6.6 10^3/uL (4.0-10.0)
[2020-06-10 18:54] LABS: HEMATOCRIT 36.2 % (36.0-47.0)
[2020-06-10 19:00] LABS: ALBUMIN 2.6 GM/DL (3.2-5.2); ALT/SGPT 13 U/L (12-78); BILIRUBIN,TOTAL 0.4 MG/DL (0.2-1.0); BLOOD UREA NITROGEN 21 MG/DL (7-18); CALCIUM LEVEL 9.1 MG/DL (8.8-10.2); CARBON DIOXIDE LEVEL 29 MEQ/L (21-32); CHLORIDE LEVEL 102 MEQ/L (98-107); CREATININE FOR GFR 0.68 MG/DL (0.55-1.30); FREE T4 1.13 NG/DL (0.76-1.46); GLOMERULAR FILTRATION RATE > 60.0 (>32); GLUCOSE, FASTING 130 MG/DL (70-100); POTASSIUM SERUM 5.3 MEQ/L (3.5-5.1); PTH INTACT 41.5 PG/ML (18.5-88.0); SODIUM LEVEL 138 MEQ/L (136-145); TOTAL 25(OH) VITAMIN D 45.9 NG/ML (30.0-100.0); TOTAL PROTEIN 8.2 GM/DL (6.4-8.2)
[2020-06-10 19:01] LABS: VITAMIN B12 LEVEL 508 PG/ML (247-911)
[2020-06-10 19:28] LABS: ERYTHROCYTE SEDIMENTATION RATE 77 mm/hr (0-30)
== END ==
LOC: M SFHCPLAZ 15:58
PROVIDERS: ATTEND Family Medicine
DX: D50.9 Iron deficiency anemia, unspecified (principal); E03.9 Hypothyroidism, unspecified; E55.9 Vitamin D deficiency, unspecified; T84.51XA Infection and inflammatory reaction due to internal right hip prosthesis, initial encounter; Z79.899 Other long term (current) drug therapy
CPT/HCPCS: 36415; 80053; 82306; 82607; 82747; 83970; 84439; 84443; 85027; 85046; 85652; 86140; G0463

== ENCOUNTER → 2020-11-18 | Outpatient (REF) | payer MEDICARE, MEDICAID ==
[2020-11-18 17:20] LABS: ALBUMIN 2.9 GM/DL (3.2-5.2); ALT/SGPT 13 U/L (12-78); BILIRUBIN,TOTAL 0.4 MG/DL (0.2-1.0); BLOOD UREA NITROGEN 26 MG/DL (7-18); CALCIUM LEVEL 9.4 MG/DL (8.8-10.2); CARBON DIOXIDE LEVEL 29 MEQ/L (21-32); CHLORIDE LEVEL 105 MEQ/L (98-107); CREATININE FOR GFR 0.85 MG/DL (0.55-1.30); FERRITIN 44 NG/ML (8-252); FREE T4 1.15 NG/DL (0.76-1.46); GLOMERULAR FILTRATION RATE > 60.0 (>32); GLUCOSE, FASTING 118 MG/DL (70-100); NT-PRO BNP 2016 PG/ML (<450); POTASSIUM SERUM 4.6 MEQ/L (3.5-5.1); SODIUM LEVEL 138 MEQ/L (136-145); TOTAL PROTEIN 7.5 GM/DL (6.4-8.2)
[2020-11-18 17:37] LABS: BASO # 0.1 10^3/uL (0.0-0.2); EOS # 0.1 10^3/uL (0.0-0.5); HEMATOCRIT 32.3 % (36.0-47.0); HEMOGLOBIN 9.8 g/dl (12.0-15.5); LYMPH % 15.5 % (24.0-44.0); MEAN CORPUSCULAR HEMOGLOBIN 25.1 pg (27.0-33.0); MEAN CORPUSCULAR HGB CONC 30.3 g/dl (32.0-36.5); MEAN CORPUSCULAR VOLUME 82.6 fl (80.0-96.0); MONO # 0.6 10^3/uL (0.0-0.8); MONO % 9.1 % (2.0-8.0); NEUTROPHILS # 4.4 10^3/uL (1.5-8.5); NEUTROPHILS % 72.1 % (36.0-66.0); PLATELET COUNT, AUTOMATED 354 10^3/uL (150-450); RED BLOOD COUNT 3.91 10^6/uL (4.00-5.40); WHITE BLOOD COUNT 6.1 10^3/uL (4.0-10.0)
[2020-11-18 17:47] LABS: HEMOGLOBIN A1c 5.5 %
== END ==
LOC: M SFHCPLAZ 13:46
PROVIDERS: ATTEND Family Medicine
DX: R73.01 Impaired fasting glucose (principal); D50.9 Iron deficiency anemia, unspecified; E03.9 Hypothyroidism, unspecified; I50.32 Chronic diastolic (congestive) heart failure
CPT/HCPCS: 36415; 80053; 82728; 83036; 83525; 83880; 84439; 84443; 85025; G0463

== ENCOUNTER → 2021-01-19 | Outpatient (REF) | payer MEDICARE, MEDICAID ==
[2021-01-19 11:21] LABS: BASO % 0.7 % (0.0-1.0); EOS # 0.1 10^3/uL (0.0-0.5); EOS % 2.4 % (0.0-3.0); HEMATOCRIT 30.7 % (36.0-47.0); HEMOGLOBIN 10.1 g/dl (12.0-15.5); LYMPH # 0.9 10^3/uL (1.5-5.0); LYMPH % 15.5 % (24.0-44.0); MEAN CORPUSCULAR HGB CONC 32.9 g/dl (32.0-36.5); MEAN CORPUSCULAR VOLUME 79.1 fl (80.0-96.0); MONO # 0.5 10^3/uL (0.0-0.8); MONO % 7.8 % (2.0-8.0); NEUTROPHILS # 4.2 10^3/uL (1.5-8.5); NEUTROPHILS % 73.1 % (36.0-66.0); PLATELET COUNT, AUTOMATED 358 10^3/uL (150-450); RED BLOOD COUNT 3.88 10^6/uL (4.00-5.40); WHITE BLOOD COUNT 5.8 10^3/uL (4.0-10.0)
[2021-01-19 11:34] LABS: ALBUMIN 2.5 GM/DL (3.2-5.2); ALT/SGPT 13 U/L (12-78); BILIRUBIN,TOTAL 0.4 MG/DL (0.2-1.0); BLOOD UREA NITROGEN 24 MG/DL (7-18); CALCIUM LEVEL 8.6 MG/DL (8.8-10.2); CARBON DIOXIDE LEVEL 27 MEQ/L (21-32); CHLORIDE LEVEL 104 MEQ/L (98-107); CREATININE FOR GFR 0.68 MG/DL (0.55-1.30); FERRITIN 37 NG/ML (8-252); GLOMERULAR FILTRATION RATE > 60.0 (>32); GLUCOSE, FASTING 156 MG/DL (70-100); NT-PRO BNP 2338 PG/ML (<450); POTASSIUM SERUM 4.3 MEQ/L (3.5-5.1); SODIUM LEVEL 138 MEQ/L (136-145); TOTAL PROTEIN 7.1 GM/DL (6.4-8.2)
== END ==
LOC: M SHH 10:38
PROVIDERS: ATTEND Family Medicine
DX: D50.9 Iron deficiency anemia, unspecified (principal); I50.32 Chronic diastolic (congestive) heart failure

== ENCOUNTER → 2021-01-29 | Outpatient (CLI) | payer MEDICARE, MEDICAID ==
--- NOTE | 2021-01-29 16:11 | REP ---
INDICATION: FRACTURE OF UNSP TARSAL BONE(S) OF LEFT FOOT, INIT. COMPARISON: None. TECHNIQUE: Helical scanning using 2 mm increments and reconstructed in both sagittal and coronal planes. FINDINGS: The bones are markedly demineralized. There are multiple chronic hammertoe deformities. Advanced degenerative changes seen throughout the foot particularly the digits and midfoot region. There is multifocal subchondral cyst formation with subchondral sclerosis and asymmetric joint space narrowing seen involving all of the tarsal metatarsal joints. There is no evidence of an acute fracture, dislocation, or subluxation. The alignment of the subtalar joints is within normal limits. There are plantar and retrocalcaneal heel spurs. There is no evidence of cyst formation the os calcis deep to the angle of Gissane. IMPRESSION: Advanced chronic changes as described above. No evidence of an acute fracture. Consider follow-up with MRI if marrow edema is of clinical concern. <Electronically signed by Rohan Huerta > 01/29/21 [id number]
== END ==
LOC: M RAD 15:11
PROVIDERS: ATTEND Podiatrist
DX: M20.42 Other hammer toe(s) (acquired), left foot (principal); M19.072 Primary osteoarthritis, left ankle and foot

== ENCOUNTER → 2021-02-03 | Outpatient (REF) | payer MEDICARE, MEDICAID ==
[~2021-02-03] MED LIST changes: +OMEP40CA4 PO; -OMEP40CA97 PO
== END ==
LOC: M LAB REF 16:00
PROVIDERS: ATTEND Physician Assistant
DX: S71.001D Unspecified open wound, right hip, subsequent encounter (principal)
CPT/HCPCS: 11043; 87070; 87077; 87186; G0463

== ENCOUNTER → 2021-04-14 | Outpatient (CLI) | payer MEDICARE, MEDICAID ==
--- NOTE | 2021-04-14 16:08 | REPMRS ---
Patient History The patient states she had a clinical breast exam in May 2020. Family history of colorectal cancer at age 50 or over in maternal grandmother. Benign excisional biopsy of the left breast, 1989. Took estrogen for 5 years. Patient states no breast complaints today. Patient has signed MRS History Sheet. Digital Woman Screen Mammo: April 14, 2021 - Exam #: [id number] Bilateral CC and MLO view(s) were taken. Technologist: Sol Gutierrez, Technologist Prior study comparison: May 10, 2019, bilateral digital woman screen mammo performed at [facility]. May 05, 2018, bilateral digital woman screen mammo performed at [facility]. April 29, 2017, digital woman screen mammo performed at [facility]. FINDINGS: There are scattered fibroglandular densities. The Volpara volumetric breast density category is:B. There has been no change in the appearance of the mammogram from the prior studies. There is a mild amount of scattered fibroglandular density which is fairly symmetric. There is no interval development of dominant mass, architectural distortion, or grouped microcalcification suggestive of malignancy. 3-D tomosynthesis shows no additional findings. Assessment: BI-RADS/ACR category 1 mammogram. Negative Mammogram. Recommendation Routine screening mammogram of both breasts in 1 year (for women over age 40). This mammogram was interpreted with the aid of an FDA-approved computer-aided dectection system. Electronically Signed By: Simon Perez MD 04/14/21 [id number]
== END ==
LOC: M WHC 15:07
PROVIDERS: ATTEND Family Medicine
DX: Z12.31 Encounter for screening mammogram for malignant neoplasm of breast (principal)

== ENCOUNTER 2021-06-20 19:16 | Observation (INO) | payer MEDICARE, MEDICAID ==
[~2021-06-20] VITALS: Ht 165.1 cm; Wt 72.2 kg
--- OUTSIDE RECORDS SUMMARY | 2021-06-20 19:24 | CCD ---
Author Author [facility] Organization [facility] Address Unknown Phone Unavailable Care Team Providers Care Machine Tester Name Role Phone Biju Ch Unavailable PROBLEMS Type Condition ICD9-CM Code RCO80-W[place] Code Onset Dates Condition S tatus W/U Status Risk SNOMED Code Notes Problem Impingement syndrome, shoulder M75.40 Active confir med 349937867 Problem Fe deficiency anemia D50.9 Active confirmed 23941385 Problem Hip osteoarthritis M16.9 Active confirmed 2 69319955 Problem Hypothyroid E03.9 Active confirmed 79298048 Problem Asthma, mild persistent J45.30 Active confirmed 744553639 Problem Breast cancer screening Z12.39 Active confirmed 399595208 Problem Vitamin D deficiency E55.9 Active confirmed 13756374 Problem Physical deconditioning R53.81 Active confirmed 70633884442849 Problem Mixed incontinence N39.46 Active confirmed 4 89963684 Problem Mild protein-calorie malnutrition E44.1 Active confirmed 889992943 Problem Pessary maintenance Z46.89 Active confirmed 712870314 Problem Cystocele N81.10 Active confirmed 198397378 Problem Primary osteoarthritis of both hips M16.0 Acti ve confirmed 872140525 Problem Allergic rhinitis, unspecifi ed allergic rhinitis trigger, unspecified rhinitis seasonality J30.9 Active confirmed 13780873 Problem Iron deficiency anemia, unspecified iron deficiency an emia type D50.9 Active confirmed 24657703 Problem B12 deficiency E53.8 Active confirmed 62907 4004 Problem Open wound of right hip, subsequent encounter S71. 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 Active confirmed 7536401725004514 Problem IFG (impaired fasting glucose) R73.01 Active confir med 365286038 Problem Ataxia R27.0 Active confirmed 45956463 Problem Osteoporosis M81.0 Active confirmed 7251749 6 Problem 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 Active confirmed 892007015 Problem Weight loss R63.4 Active confirmed 14951613 Problem Colon cancer screening Z12.11 Active confirmed 814294435 Problem Chronic pruritus L29.9 Active confirmed 418 113306 Problem Arthritis of foot M19.079 Active confirmed 4 99060743 ALLERGIES Allergen (clinical drug ingredient) Drug/Non Drug Allergy do cumented on EMR Reaction Allergy Type Onset Date Status Penicillin (For Allergies Use Only) Pruritis Drug Allerg y Active Vicodin suicidial, depressed Drug Allergy Ac tive codeine Codeine Sulfate([facility] Code:[address]-35) headaches Drug Al lergy Active budesonide Budesonide(ND Code:[address]-15) palpitations Drug Aller gy Active Oxycodone itching Drug Allergy Active Cortisporin Palpitations Drug Allergy Active montelukast Singulair(ND Code:[address]-89) Flu like symptoms Drug Allergy Active reclast increases BP Non Drug Allergy Active Levaquin muscle spasms/weakness Drug Allergy Active adhesive tape rash/ hives Non Drug Allergy Acti ve ENCOUNTERS from 1934 to 2021-05-28 Encounter Location Date Provider Diagnosis [place] [address] [facility] [phone] [place] [address] Apr, Biju Ch IMMUNIZATIONS Vaccine Route Administration Date Status Influenza 18 yrs & older Flublok IM Intramuscular Jun 09, 2018 Administered Influenza 18 yrs & older Flublok IM Intramuscular Jun 05, 2020 Administered Influenza (High Dose 65 & up) IM Intramuscular Jun 02, 2017 A dministered Influenza (High Dose 65 & up) IM Intramuscular Jun 11, 2016 A dministered Influenza (High Dose 65 & up) Unknown Jun 03, 2016 Ot hers Influenza (High Dose 65 & up) IM Intramuscular May 09, 2015 A dministered Influenza 18 yrs & older Flublok Unknown Jun 18, 2019 Others TDAP 0.5mL (Boostrix) IM Intramuscular Jul 30, 2010 Administe red Pneumococcal 0.5mL Prevnar 13 IM Intramuscular Sep 20, 2016 A dministered Influenza 6mo & up Fluzone IM Intramuscular Jun 06, 2014 Admi nistered SOCIAL HISTORY Tobacco Use: Social History Observation Description Date Details (start date - stop date) Never Smoker Sex Assigned At : Social History Observation Description Sex Assigned At Unknown Education: Question Answer Notes Level of Education: College Mormonism: Question Answer Notes Mormonism No restorationist beliefs that would impact health care. Alcohol Screening: Question Answer Notes Did you have a drink containing alcohol in the past year? No Points 0 Interpretation Negative BMI Care Goal Follow-Up Question Answer Notes Above Normal BMI Follow-Up Dietary needs education Tobacco Use: Question Answer Notes Are you a: never smoker never smoker REASON FOR REFERRAL No Information VITAL SIGNS No information MEDICATIONS Medication SIG (Take, Route, Frequency, Duration) Notes Start Da te End Date Status Omeprazole 40 MG 1 capsule 30 minutes before morning meal Orally Once a day for 90 day(s) Sep, Active Vitamin D 50 MCG (2000 UT) 1 capsule Orally Once a day for 90 day(s) Active Torsemide 5 MG 1 tablet Orally every morning for 90 day(s) Jan, Active Doxycycline Hyclate 100 MG 1 capsule Orally every 12 hrs for 90 day(s ) Active Salmeterol Xinafoate 50 MCG/DOSE 1 puff Inhalation Twice a day f or 90 day(s) Active Levothyroxine Sodium 88 MCG 1 tablet on an empty stoma ch in the morning Orally Once a day for 90 day(s) Active ProAir HFA 108 (90 Base) MCG/ACT 2 puffs Inhalation 4 times a day as needed for 90 day(s) Active Clobetasol Propionate 0.05 % 1 application to scalp Ex ternally every morning to scalp for 30 day(s) Active Polyethylene Glycol - 17 gm orally in 8 oz fluid every morning f or 90 day(s) Active Senna S 8.6-50 MG 1-2 tabs Orally QHS for 90 day(s) Active Cyanocobalamin 100 MCG 1 tablet Orally Daily for 90 day(s) Active Hypafix Tape 2"x10 yard - as directed Active Combine ABD 5 1 pad 5x9 abd pad apply to r ight hip wound Once a day Dx: T84.51XA for 30 day(s) Sep, Active Ibuprofen 200 mg 1-2 tablets Orally bid for 30 Days December Active Flovent HFA 220 MCG/ACT 2 puffs Inhalation Twice a day for 90 day(s) Active Gauze Pads 4 2 pad apply to right hip wou nd Once a day DX: T84.51XA for 30 day(s) Sep, Active Sodium Chloride 0.9 % as directed Irrigation Right hip Once a day Dx: T84.51XA for 30 Days Sep, Active Commode Bedside - as directed dx: R27.0 fax to [facility] emergency department December, Active Voltaren 1 % as directed Transdermal Four times a day Active hydrOXYzine HCl 25 MG 1-2 tablets Orally at bedtime for 30 day(s) Active Estrace 0.1 MG/GM 0.5 gm Vaginal twice a week for 90 days Active PROCEDURES No Information RESULTS No Results REASON FOR VISIT JCPN called reported DIZZY/HR 48 MEDICAL (GENERAL) HISTORY Type Description Date Medical History anemia, secondary to iron deficiency/ACD Medical History GERD/large hiatal hernia/lar ge Schatzki's ring at the GE junction by November 2009 upper GI series/history of dysphagia Medical History constipation, chronic Medical History September 2007 normal cardiac catheterization-Dr. Veras, [facility] Medical History history of nephrolithiasis Medical History hypothyroidism Medical History impaired fasting glucose Medical History allergic rhinitis/recurrent sinusitis Medical History osteopenia Medical History asthma, mild persistent-September 2007 FE V1 108% normal Medical History congential hip dysplasia status post matthew ateral hip replacement Medical History microscopic hematuria, proba cheryl secondary to nephrolithiasis seen by November 2008 CT largest 2 mm-March 2009 normal cystoscopy-Dr. De Los Santos Medical History mild MR, borderline LVH, LAE 4.4 cm by TTE June 2007-Dr. 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-[facility] er Medical History prolapsed bladder pessary # 3 knob with support changed to #4 ring with support 06/2020 Medical History Chronic diastolic CHF Surgical History appendectomy May 1970 Surgical History cholecystectomy August 1971 Surgical History TKR-left December 1990 Surgical History ANJALI-for noncancerous reasons May 197 0 Surgical History septoplasty June 1994 Surgical History left THR press fit Dr elaine Mayorga 2004 Surgical History 2 right hip operations June 1948 Surgical History right THR April 1995 Surgical History right hip revision July 2002 Surgical History toe surgery-claw toes 06/2006 Hospitalization History [facility]-intractable R hip pain s p mechanical fall-controlled c MSO4, CT R femur/pelvis s fracture nor new infection 06/04-06/05/20 Goals Section No Information Health Concerns No Information MEDICAL EQUIPMENT No Information MENTAL STATUS No Information FUNCTIONAL STATUS No Information ASSESSMENTS No Information PLAN OF TREATMENT Next Appt Details Provider Name:Maurilio Chris, 11:00:00 AM, [address] [facility], , [place], [address], Provider Name:Deborah Monroe, 2021-06-16 01:20:00 PM, [address] [facility], , [place], [address], Insurance Providers Payer Name Payer Address Payer Phone Insured Name Patient Relati onship to Insured Coverage Start Date Coverage End Date MEDICARE Part A and B [address] [facility] [phone] JACQUELINE DUNAWAY MEDICAID [place] [employer] [address] [facility] [id number] JACQUELINE DUNAWAY
--- OUTSIDE RECORDS SUMMARY | 2021-06-20 19:24 | CCD ---
Author Author [facility] Organization [facility] Address Unknown Phone Unavailable Care Team Providers Care Tire Recapper Name Role Phone Deborah Monroe Unavailable PROBLEMS Type Condition ICD9-CM Code AHR07-WO Code Onset Dates Condition S tatus W/U Status Risk SNOMED Code Notes Problem Impingement syndrome, shoulder M75.40 Active confir med 147354756 Problem Fe deficiency anemia D50.9 Active confirmed 00612336 Problem Hip osteoarthritis M16.9 Active confirmed 2 88857171 Problem Hypothyroid E03.9 Active confirmed 59241526 Problem Asthma, mild persistent J45.30 Active confirmed 113558323 Problem Breast cancer screening Z12.39 Active confirmed 039887860 Problem Vitamin D deficiency E55.9 Active confirmed 20227928 Problem Physical deconditioning R53.81 Active confirmed 52638134401333 Problem Mixed incontinence N39.46 Active confirmed 4 63346581 Problem Mild protein-calorie malnutrition E44.1 Active confirmed 858359054 Problem Pessary maintenance Z46.89 Active confirmed 996361778 Problem Cystocele N81.10 Active confirmed 748316764 Problem Primary osteoarthritis of both hips M16.0 Acti ve confirmed 927480557 Problem Allergic rhinitis, unspecifi ed allergic rhinitis trigger, unspecified rhinitis seasonality J30.9 Active confirmed 81688821 Problem Iron deficiency anemia, unspecified iron deficiency an emia type D50.9 Active confirmed 54803434 Problem B12 deficiency E53.8 Active confirmed 56278 4004 Problem Open wound of right hip, subsequent encounter S71. 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 Active confirmed 2921575051322553 Problem IFG (impaired fasting glucose) R73.01 Active confir med 057424708 Problem Ataxia R27.0 Active confirmed 70509264 Problem Osteoporosis M81.0 Active confirmed 7564311 6 Problem 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 Active confirmed 054274114 Problem Weight loss R63.4 Active confirmed 73884611 Problem Colon cancer screening Z12.11 Active confirmed 761499393 Problem Chronic pruritus L29.9 Active confirmed 418 643737 Problem Arthritis of foot M19.079 Active confirmed 4 07141215 ALLERGIES Allergen (clinical drug ingredient) Drug/Non Drug Allergy do cumented on EMR Reaction Allergy Type Onset Date Status Penicillin (For Allergies Use Only) Pruritis Drug Allerg y Active Vicodin suicidial, depressed Drug Allergy Ac tive Adhesive rash/ hives Drug Allergy Active budesonide Budesonide(ND Code:[address]-71) palpitations Drug Aller gy Active Levaquin muscle spasms/weakness Drug Allergy Active Oxycodone itching Drug Allergy Active Cortisporin Palpitations Drug Allergy Active montelukast Singulair(ND Code:[address]-26) Flu like symptoms Drug Allergy Active codeine Codeine Sulfate(ND Code:[address]-10) headaches Drug Al lergy Active zoledronic acid Reclast(ND Code:[address]-49) increases BP Drug All ergy Active ENCOUNTERS from 1934 to 2021-06-17 Encounter Location Date Provider Diagnosis [facility] [address] [facility] [phone] [place] [address] May, Deborah Monroe Pessary maintenance Z46.89 IMMUNIZATIONS Vaccine Route Administration Date Status Influenza 18 yrs & older Flublok Unknown Jun 18, 2019 Others Influenza 18 yrs & older Flublok IM Intramuscular Jun 09, 2018 Administered Influenza (High Dose 65 & up) IM Intramuscular Jun 02, 2017 A dministered Influenza (High Dose 65 & up) IM Intramuscular Jun 11, 2016 A dministered Influenza (High Dose 65 & up) Unknown Jun 03, 2016 Ot hers Influenza (High Dose 65 & up) IM Intramuscular May 09, 2015 A dministered Influenza 18 yrs & older Flublok IM Intramuscular Jun 05, 2020 Administered TDAP 0.5mL (Boostrix) IM Intramuscular Jul 30, [...] Question Answer Notes Level of Education: College Denominational: Question Answer Notes Denominational No congregational beliefs that would impact health care. Alcohol Screening: Question Answer Notes Did you have a drink containing alcohol in the past year? No Points 0 Interpretation Negative BMI Care Goal Follow-Up Question Answer Notes Above Normal BMI Follow-Up Dietary needs education Tobacco Use: Question Answer Notes Are you a: never smoker never smoker REASON FOR REFERRAL No Information VITAL SIGNS Weight 119 lbs May, Height 66 in May, BMI 19.21 kg/m2 May, Blood pressure systolic 100 mm Hg May, Blood pressure diastolic 60 mm Hg May, MEDICATIONS Medication SIG (Take, Route, Frequency, Duration) Notes Start Da te End Date Status Flovent HFA 220 MCG/ACT 2 puffs Inhalation Twice a day for 90 day(s) Active ProAir HFA 108 (90 Base) MCG/ACT 2 puffs Inhalation 4 times a day as needed for 90 day(s) Active Polyethylene Glycol - 17 gm orally in 8 oz fluid every morning f or 90 day(s) Active Ibuprofen 200 mg 1-2 tablets Orally bid for 30 Days December Active Senna S 8.6-50 MG 1-2 tabs Orally QHS for 90 day(s) Active hydrOXYzine HCl 25 MG 1-2 tablets Orally at bedtime for 30 day(s) Active Combine ABD 5 1 pad 5x9 abd pad apply to r ight hip wound Once a day Dx: T84.51XA for 30 day(s) Sep, Active Clobetasol Propionate 0.05 % 1 application to scalp Ex ternally every morning to scalp for 30 day(s) Active Levothyroxine Sodium 88 MCG 1 tablet on an empty stoma ch in the morning Orally Once a day for 90 day(s) Active Voltaren 1 % as directed Transdermal Four times a day Active Vitamin D 50 MCG (2000 UT) 1 capsule Orally Once a day for 90 day(s) Active Estrace 0.1 MG/GM 0.5 gm Vaginal twice a week for 90 days Active Doxycycline Hyclate 100 MG 1 capsule Orally every 12 hrs for 90 day(s ) Active Salmeterol Xinafoate 50 MCG/DOSE 1 puff Inhalation Twice a day f or 90 day(s) Active Hypafix Tape 2"x10 yard - as directed Active Sodium Chloride 0.9 % as directed Irrigation Right hip Once a day Dx: T84.51XA for 30 Days Sep, Active Omeprazole 40 MG 1 capsule 30 minutes before morning meal Orally Once a day for 90 day(s) Sep, Active Gauze Pads 4 2 pad apply to right hip wou nd Once a day DX: T84.51XA for 30 day(s) Sep, Active Commode Bedside - as directed dx: R27.0 fax to [facility] December, Active Cyanocobalamin 100 MCG 1 tablet Orally Daily for 90 day(s) Active Torsemide 5 MG 1 tablet Orally every morning for 90 day(s) Jan, Active PROCEDURES No Information RESULTS No Results REASON FOR VISIT pess check MEDICAL (GENERAL) HISTORY Type Description Date Medical History anemia, secondary to iron deficiency/ACD Medical History GERD/large hiatal hernia/lar ge Schatzki's ring at the GE junction by November 2009 upper GI series/history of dysphagia Medical History constipation, chronic Medical History September 2007 normal cardiac catheterization-Dr. 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 Medical History prolapsed bladder pessary # 3 knob with support changed to #4 ring with support 06/2020 Medical History Chronic diastolic CHF Surgical History appendectomy May 1970 Surgical History cholecystectomy August 1971 Surgical History TKR-left December 1990 Surgical History ANJALI-for noncancerous reasons May 0 Surgical History septoplasty June 1994 Surgical [...] No Information FUNCTIONAL STATUS No Information ASSESSMENTS Encounter Date Diagnosis Assessment Notes Treatment Notes Treatm ent Clinical Notes May, Pessary maintenance (ICD-10 - Z46.89) PLAN OF TREATMENT Next Appt Details 3 Months Reason:pessary maintenance Provider Name:Maurilio Chris, 02:15:00 PM, [address], , [place], [address], Provider Name:Biju Ch, 2021-07-01 0 1:00:00 PM, [address] [facility], , [place], [address], Provider Name:Deborah Monroe, 2021-09-15 01:20:00 PM, [address] [facility], , [place], [address], Follow Up:3 Monthspessary maintenance Insurance Providers Payer Name Payer Address Payer Phone Insured Name Patient Relati onship to Insured Coverage Start Date Coverage End Date MEDICAID Vocation [address] [facility] [id number] [phone] JACQUELINE DUNAWAY [facility] MEDICARE Part A and B [address] [place] [id number] [phone] JACQUELINE DUNAWAY self
--- OUTSIDE RECORDS SUMMARY | 2021-06-20 19:24 | CCD ---
Author Author [facility] Organization [facility] Address Unknown Phone Unavailable Care Team Providers Care Car Oiler Name Role Phone Maurilio Chris Unavailable PROBLEMS Type Condition ICD9-CM Code HJM26-XZ Code Onset Dates Condition S tatus W/U Status Risk SNOMED Code Notes Problem Impingement syndrome, shoulder M75.40 Active confir med 321793426 Problem Fe deficiency anemia D50.9 Active confirmed 18574640 Problem Hip osteoarthritis M16.9 Active confirmed 2 63125013 Problem Hypothyroid E03.9 Active confirmed 27114039 Problem Asthma, mild persistent J45.30 Active confirmed 031499926 Problem Breast cancer screening Z12.39 Active confirmed 392429740 Problem Vitamin D deficiency E55.9 Active confirmed 54757088 Problem Physical deconditioning R53.81 Active confirmed 11934061305152 Problem Mixed incontinence N39.46 Active confirmed 4 21778601 Problem Mild protein-calorie malnutrition E44.1 Active confirmed 044425067 Problem Pessary maintenance Z46.89 Active confirmed 269753071 Problem Cystocele N81.10 Active confirmed 909827619 Problem Primary osteoarthritis of both hips M16.0 Acti ve confirmed 850657836 Problem Allergic rhinitis, unspecifi ed allergic rhinitis trigger, unspecified rhinitis seasonality J30.9 Active confirmed 58842512 Problem Iron deficiency anemia, unspecified iron deficiency an emia type D50.9 Active confirmed 34055537 Problem B12 deficiency E53.8 Active confirmed 91361 4004 Problem Open wound of right hip, subsequent encounter S71. 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 Active confirmed 8058531679409561 Problem IFG (impaired fasting glucose) R73.01 Active confir med 559557402 Problem Ataxia R27.0 Active confirmed 02507225 Problem Osteoporosis M81.0 Active confirmed 9307831 6 Problem 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 Active confirmed 399619903 Problem Weight loss R63.4 Active confirmed 83255791 Problem Colon cancer screening Z12.11 Active confirmed 958333493 Problem Chronic pruritus L29.9 Active confirmed 418 793383 Problem Arthritis of foot M19.079 Active confirmed 4 20006139 ALLERGIES Allergen (clinical drug ingredient) Drug/Non Drug Allergy do cumented on EMR Reaction Allergy Type Onset Date Status Penicillin (For Allergies Use Only) Pruritis Drug Allerg y Active Vicodin suicidial, depressed Drug Allergy Ac tive codeine Codeine Sulfate(ND Code:[address]-06) headaches Drug Al lergy Active budesonide Budesonide(ND Code:[address]-27) palpitations Drug Aller gy Active Oxycodone itching Drug Allergy Active Cortisporin Palpitations Drug Allergy Active montelukast Singulair(ND Code:[address]-95) Flu like symptoms Drug Allergy Active reclast increases BP Non Drug Allergy Active Levaquin muscle spasms/weakness Drug Allergy Active adhesive tape rash/ hives Non Drug Allergy Acti ve ENCOUNTERS from 1934 to 2021-04-23 Encounter Location Date Provider Diagnosis [facility] [address] [facility] [phone] [place] [address] Apr, Maurilio Chris Open wound of right hip, sub sequent encounter S71.001D IMMUNIZATIONS Vaccine Route Administration Date Status Influenza [...] Question Answer Notes Level of Education: College Rastafari: Question Answer Notes Rastafari No gnosticism beliefs that would impact health care. Alcohol Screening: Question Answer Notes Did you have a drink containing alcohol in the past year? No Points 0 Interpretation Negative BMI Care Goal Follow-Up Question Answer Notes Above Normal BMI Follow-Up Dietary needs education Tobacco Use: Question Answer Notes Are you a: never smoker never smoker REASON FOR REFERRAL No Information VITAL SIGNS Weight 129.3 lbs Apr, Weight-kg 58.65 kg Apr, Height 66 in Apr, BMI 20.87 kg/m2 Apr, Heart Rate 67 /min Apr, Respiratory Rate 20 /min Apr, Temperature 97.9 degrees Fahrenheit Apr, Oximetry 97 Apr, Blood pressure systolic 136 mm Hg Apr, Blood pressure diastolic 58 mm Hg Apr, MEDICATIONS Medication SIG (Take, Route, Frequency, Duration) Notes Start Da te End Date Status Sodium Chloride 0.9 % as directed Irrigation Right hip Once a day Dx: T84.51XA for 30 Days Sep, Active Cyanocobalamin 100 MCG 1 tablet Orally Daily for 90 day(s) Active Estrace 0.1 MG/GM 0.5 gm Vaginal twice a week for 90 days Active Commode Bedside - as directed dx: R27.0 fax to [facility] December, Active Ibuprofen 200 mg 1-2 tablets Orally bid for 30 Days December Active Omeprazole 40 MG 1 capsule 30 minutes before morning meal Orally Once a day for 90 day(s) Sep, Active Polyethylene Glycol - 17 gm orally in 8 oz fluid every morning f or 90 day(s) Active Clobetasol Propionate 0.05 % 1 application to scalp Ex ternally every morning to scalp for 30 day(s) Active Vitamin D 50 MCG (2000 UT) 1 capsule Orally Once a day for 90 day(s) Active Senna S 8.6-50 MG 1-2 tabs Orally QHS for 90 day(s) Active hydrOXYzine HCl 25 MG 1-2 tablets Orally at bedtime for 30 day(s) Active Flovent HFA 220 MCG/ACT 2 puffs Inhalation Twice a day for 90 day(s) Active Salmeterol Xinafoate 50 MCG/DOSE 1 puff Inhalation Twice a day f or 90 day(s) Active Doxycycline Hyclate 100 MG 1 capsule Orally every 12 hrs for 90 day(s ) Active Combine ABD 5 1 pad 5x9 abd pad apply to r ight hip wound Once a day Dx: T84.51XA for 30 day(s) Sep, Active ProAir HFA 108 (90 Base) MCG/ACT 2 puffs Inhalation 4 times a day as needed for 90 day(s) Active Gauze Pads 4 2 pad apply to right hip wou nd Once a day DX: T84.51XA for 30 day(s) Sep, Active Levothyroxine Sodium 88 MCG 1 tablet on an empty stoma ch in the morning Orally Once a day for 90 day(s) Active Voltaren 1 % as directed Transdermal Four times a day Active Torsemide 5 MG 1 tablet Orally every morning for 90 day(s) Jan, Active Hypafix Tape 2"x10 yard - as directed Active PROCEDURES from 1934 to 2021-04-23 Procedure Date Ordered Result Body Site Medication: 4% Lidocaine topical cream (Anecream) 5gm 2021-04-22 N/A RESULTS No Results REASON FOR VISIT Right Hip Wound MEDICAL (GENERAL) HISTORY Type Description Date Medical History anemia, secondary to iron deficiency/ACD Medical History GERD/large hiatal hernia/lar ge Schatzki's ring at the GE junction by November 2009 upper GI series/history of dysphagia Medical History constipation, chronic Medical History September 2007 normal cardiac catheterization-Dr. Veras, [facility] Medical History history of nephrolithiasis Medical [...] Notes Treatment Notes Treatm ent Clinical Notes Apr, Open wound of right hip, subsequent enco unter (ICD-10 - S71.001D) PLAN OF TREATMENT Next Appt Details 3 Weeks Reason: Provider Name:Maurilio Chris, 02:15:00 PM, [address], , [place], [address], Provider Name:Biju Ch, 2021-05-25 0 2:30:00 PM, [address] [place] [address], , [place], [address], Provider Name:Deborah Monroe, 2021-06-16 01:20:00 PM, [address] [place] [address], , [place], [address], Insurance Providers Payer Name Payer Address Payer Phone Insured Name Patient Relati onship to Insured Coverage Start Date Coverage End Date MEDICAID [employer] [address] [facility] [id number] JACQUELINE DUNWAAY MEDICARE Part A and B [address] [facility] [phone] JACQUELINE DUNAWAY self
--- OUTSIDE RECORDS SUMMARY | 2021-06-20 19:24 | CCD ---
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 Name Role Phone Maurilio Chris Unavailable PROBLEMS Type Condition ICD9-CM Code [id number] Code Onset Dates Condition S tatus W/U Status Risk SNOMED Code Notes Problem Impingement syndrome, shoulder M75.40 Active confir med 466902257 Problem Fe deficiency anemia D50.9 Active confirmed 74391991 Problem Hip osteoarthritis M16.9 Active confirmed 2 81878297 Problem Hypothyroid E03.9 Active confirmed 13418864 Problem Asthma, mild persistent J45.30 Active confirmed 054259405 Problem Breast cancer screening Z12.39 Active confirmed 769839671 Problem Vitamin D deficiency E55.9 Active confirmed 89971201 Problem Physical deconditioning R53.81 Active confirmed 33550771765684 Problem Mixed incontinence N39.46 Active confirmed 4 72153611 Problem Mild protein-calorie malnutrition E44.1 Active confirmed 246306430 Problem Pessary maintenance Z46.89 Active confirmed 678257288 Problem Cystocele N81.10 Active confirmed 868889189 Problem Primary osteoarthritis of both hips M16.0 Acti ve confirmed 444576529 Problem Allergic rhinitis, unspecifi ed allergic rhinitis trigger, unspecified rhinitis seasonality J30.9 Active confirmed 00221367 Problem Iron deficiency anemia, unspecified iron deficiency an emia type D50.9 Active confirmed 70468078 Problem B12 deficiency E53.8 Active confirmed 13482 4004 Problem Open wound of right hip, subsequent encounter S71. 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 Active confirmed 2783910497827960 Problem IFG (impaired fasting glucose) R73.01 Active confir med 736842588 Problem Ataxia R27.0 Active confirmed 98825770 Problem Osteoporosis M81.0 Active confirmed 4097731 6 Problem 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 Active confirmed 656076610 Problem Weight loss R63.4 Active confirmed 79959367 Problem Colon cancer screening Z12.11 Active confirmed 492383028 Problem Chronic pruritus L29.9 Active confirmed 418 410544 Problem Arthritis of foot M19.079 Active confirmed 4 34985289 ALLERGIES Allergen (clinical drug ingredient) Drug/Non Drug Allergy do cumented on EMR Reaction Allergy Type Onset Date Status Penicillin (For Allergies Use Only) Pruritis Drug Allerg y Active Vicodin suicidial, depressed Drug Allergy Ac tive Adhesive rash/ hives Drug Allergy Active budesonide Budesonide(ND Code:[address]-68) palpitations Drug Aller gy Active Levaquin muscle spasms/weakness Drug Allergy Active Oxycodone itching Drug Allergy Active Cortisporin Palpitations Drug Allergy Active montelukast Singulair(ND Code:[address]-23) Flu like symptoms Drug Allergy Active codeine Codeine Sulfate(ND Code:[address]-58) headaches Drug Al lergy Active zoledronic acid Reclast(ND Code:[address]-25) increases BP Drug All ergy Active ENCOUNTERS from 1934 to 2021-06-08 Encounter Location Date Provider Diagnosis [facility] [address] [phone] [place] [address] 13 May, 2021 Maurilio Chris Open wound of right hip, sub sequent encounter S71.001D IMMUNIZATIONS Vaccine Route Administration Date Status Influenza 18 yrs & older Flublok IM Intramuscular Jun 09, 2018 Administered Influenza (High Dose 65 & up) IM Intramuscular Jun 02, 2017 A dministered Influenza 18 yrs & older [...] Question Answer Notes Level of Education: College Hoahaoism: Question Answer Notes Hoahaoism No taoist beliefs that would impact health care. Alcohol Screening: Question Answer Notes Did you have a drink containing alcohol in the past year? No Points 0 Interpretation Negative BMI Care Goal Follow-Up Question Answer Notes Above Normal BMI Follow-Up Dietary needs education Tobacco Use: Question Answer Notes Are you a: never smoker never smoker REASON FOR REFERRAL No Information VITAL SIGNS Weight 129 lbs May, Height 66 in May, BMI 20.82 kg/m2 May, Heart Rate 101 /min May, Respiratory Rate 17 /min May, Temperature 97.1 degrees Fahrenheit May, Oximetry 99% May, Blood pressure systolic 127 mm Hg May, Blood pressure diastolic 66 mm Hg May, MEDICATIONS Medication SIG (Take, Route, Frequency, Duration) Notes Start Da te End Date Status Sodium Chloride 0.9 % as directed Irrigation Right hip Once a day Dx: T84.51XA for 30 Days Sep, Active Cyanocobalamin 100 MCG 1 tablet Orally Daily for 90 day(s) Active Estrace 0.1 MG/GM 0.5 gm Vaginal twice a week for 90 days Active Levothyroxine Sodium 88 MCG 1 tablet on an empty stoma ch in the morning Orally Once a day for 90 day(s) Active Ibuprofen 200 mg 1-2 tablets Orally bid for 30 Days December Active Voltaren 1 % as directed Transdermal Four times a day Active Vitamin D 50 MCG (1999) 1 capsule Orally Once a day for 90 day(s) Active Commode Bedside - as directed dx: R27.0 fax to [facility] December, Active Flovent HFA 220 MCG/ACT 2 puffs Inhalation Twice a day for 90 day(s) Active ProAir HFA 108 (90 Base) MCG/ACT 2 puffs Inhalation 4 times a day as needed for 90 day(s) Active hydrOXYzine HCl 25 MG 1-2 tablets Orally at bedtime for 30 day(s) Active Combine ABD 5 1 pad 5x9 abd pad apply to r ight hip wound Once a day Dx: T84.51XA for 30 day(s) Sep, Active Senna S 8.6-50 MG 1-2 tabs Orally QHS for 90 day(s) Active Doxycycline Hyclate 100 MG 1 capsule Orally every 12 hrs for 90 day(s ) Active Torsemide 5 MG 1 tablet Orally every morning for 90 day(s) Jan, Active Polyethylene Glycol - 17 gm orally in 8 oz fluid every morning f or 90 day(s) Active Gauze Pads 4 2 pad apply to right hip wou nd Once a day DX: T84.51XA for 30 day(s) Sep, Active Omeprazole 40 MG 1 capsule 30 minutes before morning meal Orally Once a day for 90 day(s) Sep, Active Salmeterol Xinafoate 50 MCG/DOSE 1 puff Inhalation Twice a day f or 90 day(s) Active Clobetasol Propionate 0.05 % 1 application to scalp Ex ternally every morning to scalp for 30 day(s) Active Hypafix Tape 2"x10 yard - as directed Active PROCEDURES from 1934 to 2021-06-08 Procedure Date Ordered Result Body Site Medication: 4% Lidocaine topical cream (Anecream) 5gm 2021-06-03 N/A RESULTS No Results REASON FOR VISIT Right Hip Wound MEDICAL (GENERAL) HISTORY Type Description Date Medical History anemia, secondary to iron deficiency/ACD Medical History GERD/large hiatal hernia/lar ge Schatzki's ring at the GE junction by November 2009 upper GI series/history of dysphagia Medical History constipation, chronic Medical History September 2007 normal cardiac catheterization-Dr. Veras, [facility] Medical History history of nephrolithiasis [...] Treatment Notes Treatm ent Clinical Notes May, Open wound of right hip, subsequent enco unter (ICD-10 - S71.001D) PLAN OF TREATMENT Next Appt Details 2 Weeks Reason: Provider Name:Deborah Monroe, 2021-06-16 01:20:00 PM, [address] [facility], , [place], [address], Provider Name:Maurilio Chris, 02:15:00 PM, [address], , [place], [address], Provider Name:Biju Ch, 2021-07-01 0 1:00:00 PM, [address] [facility], , [place], [address], Insurance Providers Payer Name Payer Address Payer Phone Insured Name Patient Relati onship to Insured Coverage Start Date Coverage End Date MEDICAID [employer] [address] [facility] [id number] [phone] JACQUELINE DUNAWAY MEDICARE Part A and B [address] [facility] [address] JACQUELINE DUNAWAY self
--- OUTSIDE RECORDS SUMMARY | 2021-06-20 19:24 | CCD ---
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 Field Name Role Phone Maurilio Chris Unavailable PROBLEMS Type Condition ICD9-CM Code [id number] Code Onset Dates Condition S tatus W/U Status Risk SNOMED Code Notes Problem Impingement syndrome, shoulder M75.40 Active confir med 583305331 Problem Fe deficiency anemia D50.9 Active confirmed 50358287 Problem Hip osteoarthritis M16.9 Active confirmed 2 47645841 Problem Hypothyroid E03.9 Active confirmed 30344464 Problem Asthma, mild persistent J45.30 Active confirmed 590905092 Problem Breast cancer screening Z12.39 Active confirmed 194071824 Problem Vitamin D deficiency E55.9 Active confirmed 58719356 Problem Physical deconditioning R53.81 Active confirmed 67818154170509 Problem Mixed incontinence N39.46 Active confirmed 4 01889815 Problem Mild protein-calorie malnutrition E44.1 Active confirmed 495144676 Problem Pessary maintenance Z46.89 Active confirmed 952192693 Problem Cystocele N81.10 Active confirmed 655536401 Problem 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 Active confirmed 6691735192513941 Problem IFG (impaired fasting glucose) R73.01 Active confir med 541281454 Problem Ataxia R27.0 Active confirmed 59344123 Problem Osteoporosis M81.0 Active confirmed 6131056 6 Problem 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 Active confirmed 191803720 Problem Weight loss R63.4 Active confirmed 10930570 Problem Colon cancer screening Z12.11 Active confirmed 070194787 Problem Chronic pruritus L29.9 Active confirmed 418 089096 Problem Arthritis of foot M19.079 Active confirmed 4 65608316 ALLERGIES Allergen (clinical drug ingredient) Drug/Non Drug Allergy do cumented on EMR Reaction Allergy Type Onset Date Status Penicillin (For Allergies Use Only) Pruritis Drug Allerg y Active Vicodin suicidial, depressed Drug Allergy Ac tive codeine Codeine Sulfate(ND Code:[address]-64) headaches Drug Al lergy Active budesonide Budesonide(ND Code:[address]-55) palpitations Drug Aller gy Active Oxycodone itching Drug Allergy Active Cortisporin Palpitations Drug Allergy Active montelukast Singulair(ND Code:[address]-33) Flu like symptoms Drug Allergy Active reclast increases BP Non Drug Allergy Active Levaquin muscle spasms/weakness Drug Allergy Active adhesive tape rash/ hives Non Drug Allergy Acti ve ENCOUNTERS from 1934 to 2021-04-06 Encounter Location Date Provider Diagnosis [facility] [address] [facility] [phone] [place] [address] 11 Mar, 2021 Maurilio Chris Open wound of right [...] Question Answer Notes Level of Education: College Evangelical: Question Answer Notes Evangelical No mormonism beliefs that would impact health care. Alcohol Screening: Question Answer Notes Did you have a drink containing alcohol in the past year? No Points 0 Interpretation Negative BMI Care Goal Follow-Up Question Answer Notes Above Normal BMI Follow-Up Dietary needs education Tobacco Use: Question Answer Notes Are you a: never smoker never smoker REASON FOR REFERRAL No Information VITAL SIGNS Weight 127.5 lbs Mar, Height 66 in Mar, BMI 20.58 kg/m2 Mar, Heart Rate 55 /min Mar, Respiratory Rate 19 /min Mar, Temperature 97 degrees Fahrenheit Mar, Oximetry 99 Mar, Blood pressure systolic 130 mm Hg Mar, Blood pressure diastolic 62 mm Hg Mar, MEDICATIONS Medication SIG (Take, Route, Frequency, Duration) Notes Start Da te End Date Status Flovent HFA 220 MCG/ACT 2 puffs Inhalation Twice a day for 90 day(s) Active Estrace 0.1 MG/GM 0.5 gm Vaginal twice a week for 90 days Active Clobetasol Propionate 0.05 % 1 application to scalp Ex ternally every morning to scalp for 30 day(s) Active Gauze Pads 4 2 pad apply to right hip wou nd Once a day DX: T84.51XA for 30 day(s) Sep, Active Senna S 8.6-50 MG 1-2 tabs Orally QHS for 90 day(s) Active Torsemide 5 MG 1 tablet Orally every morning for 90 day(s) Jan, Active Polyethylene Glycol - 17 gm orally in 8 oz fluid every morning f or 90 day(s) Active Commode Bedside - as directed dx: R27.0 fax to [facility] December, Active Salmeterol Xinafoate 50 MCG/DOSE 1 puff Inhalation Twice a day f or 90 day(s) Active Omeprazole 40 MG 1 capsule 30 minutes before morning meal Orally Once a day for 90 day(s) Sep, Active Hypafix Tape 2"x10 yard - as directed Active Doxycycline Hyclate 100 MG 1 capsule Orally every 12 hrs for 90 day(s ) Active ProAir HFA 108 (90 Base) MCG/ACT 2 puffs Inhalation 4 times a day as needed for 90 day(s) Active Sodium Chloride 0.9 % as directed Irrigation Right hip Once a day Dx: T84.51XA for 30 Days Sep, Active Combine ABD 5 1 pad 5x9 abd pad apply to r ight hip wound Once a day Dx: T84.51XA for 30 day(s) Sep, Active hydrOXYzine HCl 25 MG 1-2 tablets Orally at bedtime for 30 day(s) Active Cyanocobalamin 100 MCG 1 tablet Orally Daily for 90 day(s) Active Levothyroxine Sodium 88 MCG 1 tablet on an empty stoma ch in the morning Orally Once a day for 90 day(s) Active Vitamin D 50 MCG (2000 UT) 1 capsule Orally Once a day for 90 day(s) Active Voltaren 1 % as directed Transdermal Four times a day Active Ibuprofen 200 mg 1-2 tablets Orally bid for 30 Days December Active PROCEDURES from 1934 to 2021-04-06 Procedure Date Ordered Result Body Site Medication: Silver Nitrate Stick topically 2021-04-01 N/A Medication: 4% Lidocaine topical cream (Anecream) 5gm 2021-04-01 N/A RESULTS No Results REASON FOR VISIT Right Hip Wound MEDICAL (GENERAL) HISTORY Type Description Date Medical History anemia, secondary to iron deficiency/ACD Medical History GERD/large hiatal hernia/lar ge Schatzki's ring at the GE junction by November 2009 upper GI series/history of dysphagia Medical History constipation, chronic Medical History September 2007 normal cardiac catheterization-Dr. Veras, [facility] Medical History history of nephrolithiasis Medical History [...] Notes Treatment Notes Treatm ent Clinical Notes Mar, Open wound of right hip, subsequent enco unter (ICD-10 - S71.001D) PLAN OF TREATMENT Next Appt Details 3 Weeks Reason: Provider Name:Maurilio Chris, 11:15:00 AM, [address], , [place], [address], Provider Name:Biju Ch, 2021-05-25 0 2:30:00 PM, [address] [place] [address], , [place], [address], Provider Name:Deborah Monroe, 2021-06-16 01:20:00 PM, [address] [place] [address], , [place], [address], Insurance Providers Payer Name Payer Address Payer Phone Insured Name Patient Relati onship to Insured Coverage Start Date Coverage End Date MEDICAID [employer] [address] [facility] [id number] JACQUELINE DUNAWAY MEDICARE Part A and B [address] [facility] [address] JACQUELINE DUNAWAY self
--- OUTSIDE RECORDS SUMMARY | 2021-06-20 19:24 | CCD ---
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 Name Role Phone Biju Ch Unavailable PROBLEMS Type Condition ICD9-CM Code [id number] Code Onset Dates Condition S tatus W/U Status Risk SNOMED Code Notes Problem Impingement syndrome, shoulder M75.40 Active confir med 669981358 Problem Fe deficiency anemia D50.9 Active confirmed 90793847 Problem Hip osteoarthritis M16.9 Active confirmed 2 75423392 Problem Hypothyroid E03.9 Active confirmed 91215237 Problem Asthma, mild persistent J45.30 Active confirmed 311329634 Problem Breast cancer screening Z12.39 Active confirmed 876336932 Problem Vitamin D deficiency E55.9 Active confirmed 81680650 Problem Physical deconditioning R53.81 Active confirmed 65337690127920 Problem Mixed incontinence N39.46 Active confirmed 4 00516368 Problem Mild protein-calorie malnutrition E44.1 Active confirmed 269125204 Problem Pessary maintenance Z46.89 Active confirmed 096597056 Problem Cystocele N81.10 Active confirmed 207682196 Problem Primary osteoarthritis of both hips M16.0 Acti ve confirmed 925446550 Problem Allergic rhinitis, unspecifi ed allergic rhinitis trigger, unspecified rhinitis seasonality J30.9 Active confirmed 92465510 Problem Iron deficiency anemia, unspecified iron deficiency an emia type D50.9 Active confirmed 83783986 Problem B12 deficiency E53.8 Active confirmed 44727 4004 Problem Open wound of right hip, subsequent encounter S71. 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 Active confirmed 0648685921619403 Problem IFG (impaired fasting glucose) R73.01 Active confir med 135265960 Problem Ataxia R27.0 Active confirmed 16975641 Problem Osteoporosis M81.0 Active confirmed 4727761 6 Problem 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 Active confirmed 730384453 Problem Weight loss R63.4 Active confirmed 53364908 Problem Colon cancer screening Z12.11 Active confirmed 361824498 Problem Chronic pruritus L29.9 Active confirmed 418 128088 Problem Arthritis of foot M19.079 Active confirmed 4 49895262 ALLERGIES Allergen (clinical drug ingredient) Drug/Non Drug Allergy do cumented on EMR Reaction Allergy Type Onset Date Status Penicillin (For Allergies Use Only) Pruritis Drug Allerg y Active Vicodin suicidial, depressed Drug Allergy Ac tive codeine Codeine Sulfate([facility] Code:[address]-91) headaches Drug Al lergy Active budesonide Budesonide(ND Code:[address]-70) palpitations Drug Aller gy Active Oxycodone itching Drug Allergy Active Cortisporin Palpitations Drug Allergy Active montelukast Singulair(ND Code:[address]-77) Flu like symptoms Drug Allergy Active reclast increases BP Non Drug Allergy Active Levaquin muscle spasms/weakness Drug Allergy Active adhesive tape rash/ hives Non Drug Allergy Acti ve ENCOUNTERS from 1934 to 2021-06-03 Encounter Location Date Provider Diagnosis [place] [id number] [facility] [phone] [place] [address] May, Biju Ch IMMUNIZATIONS Vaccine Route Administration Date Status Influenza 18 yrs & older Flublok IM Intramuscular Jun 09, 2018 Administered Influenza (High Dose 65 & up) IM Intramuscular Jun 02, 2017 A dministered Influenza (High Dose 65 & up) IM Intramuscular Jun 11, 2016 A dministered Influenza 18 yrs & older Flublok IM Intramuscular Jun 05, 2020 Administered Influenza (High Dose 65 & up) Unknown [...] Question Answer Notes Level of Education: College Christianity: Question Answer Notes Christianity No nondenominational beliefs that would impact health care. Alcohol [...] - as directed dx: R27.0 fax to [facility] December, Active Flovent HFA 220 MCG/ACT 2 [...] 2"x10 yard - as directed Active PROCEDURES No Information RESULTS No Results REASON FOR VISIT No Information MEDICAL (GENERAL) HISTORY Type Description Date Medical History anemia, secondary to iron deficiency/ACD Medical History GERD/large hiatal hernia/lar ge Schatzki's ring at the GE junction by November 2009 upper GI series/history of dysphagia Medical History constipation, chronic Medical History September 2007 normal cardiac catheterization-Dr. 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 er Medical History prolapsed bladder [...] PLAN OF TREATMENT Next Appt Details Provider Name:Deborah Monroe, 2021-06-16 01:20:00 PM, [address] [place] [address], , [place], [address], Provider Name:Maurilio Chris, 02:15:00 PM, [facility] [address], , [place], [address], Provider Name:Biju Ch, 2021-07-01 0 1:00:00 PM, [address] [facility], , [place], [address], Insurance Providers Payer Name Payer Address Payer Phone Insured Name Patient Relati onship to Insured Coverage Start Date Coverage End Date MEDICAID [employer] [address] [facility] [id number] JACQUELINE DUNAWAY MEDICARE Part A and B [address] [facility] [address] JACQUELINE DUNAWAY
--- OUTSIDE RECORDS SUMMARY | 2021-06-20 19:24 | CCD ---
Author Author [facility] Organization [facility] [employer] ems Address Unknown Phone Unavailable Care Team Providers Care Threshing Operator Name Role Phone Maurilio Chris Unavailable PROBLEMS Type Condition ICD9-CM Code OMI66-VH Code Onset Dates Condition S tatus W/U Status Risk SNOMED Code Notes Problem Impingement syndrome, shoulder M75.40 Active confir med 826056775 Problem Fe deficiency anemia D50.9 Active confirmed 59010555 Problem Hip osteoarthritis M16.9 Active confirmed 2 85141963 Problem Hypothyroid E03.9 Active confirmed 36928516 Problem Asthma, mild persistent J45.30 Active confirmed 059825707 Problem Breast cancer screening Z12.39 Active confirmed 953967254 Problem Vitamin D deficiency E55.9 Active confirmed 18497803 Problem Physical deconditioning R53.81 Active confirmed 36051730829746 Problem Mixed incontinence N39.46 Active confirmed 4 64520866 Problem Mild protein-calorie malnutrition E44.1 Active confirmed 991629573 Problem Pessary maintenance Z46.89 Active confirmed 851541081 Problem Cystocele N81.10 Active confirmed 509498219 Problem Primary osteoarthritis of both hips M16.0 Acti ve confirmed 600882506 Problem Allergic rhinitis, unspecifi ed allergic rhinitis trigger, unspecified rhinitis seasonality J30.9 Active confirmed 87780289 Problem Iron deficiency anemia, unspecified iron deficiency an emia type D50.9 Active confirmed 20562410 Problem B12 deficiency E53.8 Active confirmed 91410 4004 Problem Open wound of right hip, subsequent encounter S71. 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 Active confirmed 1069276367982774 Problem IFG (impaired fasting glucose) R73.01 Active confir med 689325187 Problem Ataxia R27.0 Active confirmed 66004192 Problem Osteoporosis M81.0 Active confirmed 4679339 6 Problem 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 Code:[address]-47) headaches Drug Al lergy Active budesonide Budesonide(ND Code:[address]-78) palpitations Drug Aller gy Active Oxycodone itching Drug Allergy Active Cortisporin Palpitations Drug Allergy Active montelukast Singulair(ND Code:[address]-67) Flu like symptoms Drug Allergy Active reclast increases BP Non Drug Allergy Active Levaquin muscle spasms/weakness Drug Allergy Active adhesive tape rash/ hives Non Drug Allergy Acti ve ENCOUNTERS from 1934 to 2021-04-29 Encounter Location Date Provider Diagnosis [facility] [address] [facility] [phone] [place] [address] Apr, Maurilio Chris IMMUNIZATIONS Vaccine Route Administration Date Status Influenza [...] Question Answer Notes Level of Education: College Gnosticism: Question Answer Notes Gnosticism No congregational beliefs that would impact health [...] - as directed dx: R27.0 fax to [facility] December, Active Ibuprofen 200 mg 1-2 tablets [...] 30 day(s) Active Vitamin D 50 MCG (1999 [place]) 1 capsule Orally Once a day [...] Information RESULTS No Results REASON FOR VISIT increase in wound MEDICAL (GENERAL) HISTORY Type Description Date Medical History anemia, secondary to iron deficiency/ACD Medical History GERD/large hiatal hernia/lar ge Schatzki's ring at the GE junction by November 2009 upper GI series/history of dysphagia Medical History constipation, chronic Medical History September 2007 normal cardiac catheterization-Dr. 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-[facility] er Medical History prolapsed bladder pessary # [...] TREATMENT Next Appt Details Provider Name:Maurilio Chris, 02:15:00 PM, [address], , [place], [address], Provider Name:Biju Ch, 2021-05-25 0 2:30:00 PM, [address] [place] [address] , [place], [address], Provider Name:Deborah Monroe, 2021-06-16 01:20:00 PM, [address] [place] [address] , [place], [address], Insurance Providers Payer Name Payer Address Payer Phone Insured Name Patient Relati onship to Insured Coverage Start Date Coverage End Date MEDICARE Part A and B [address] [facility] [phone] JACQUELINE DUNAWAY MEDICAID [employer] [address] [facility] [id number] JACQUELINE DUNAWAY
--- OUTSIDE RECORDS SUMMARY | 2021-06-20 19:24 | CCD ---
Author Author [facility] Organization [facility] [employer] em[facility] Address Unknown Phone Unavailable Care Team Providers Care Application Integration Engineer Name Role Phone Maurilio Chris Unavailable PROBLEMS Type Condition ICD9-CM Code WWG26-CL Code Onset Dates Condition S tatus W/U Status Risk SNOMED Code Notes Problem Impingement syndrome, shoulder M75.40 Active confir med 254373748 Problem Fe deficiency anemia D50.9 Active confirmed 65172864 Problem Hip osteoarthritis M16.9 Active confirmed 2 81677414 Problem Hypothyroid E03.9 Active confirmed 33961571 Problem Asthma, mild persistent J45.30 Active confirmed 701239666 Problem Breast cancer screening Z12.39 Active confirmed 392490567 Problem Vitamin D deficiency E55.9 Active confirmed 71330523 Problem Physical deconditioning R53.81 Active confirmed 64863585590488 Problem Mixed incontinence N39.46 Active confirmed 4 66367246 Problem Mild protein-calorie malnutrition E44.1 Active confirmed 159182398 Problem Pessary maintenance Z46.89 Active confirmed 375749500 Problem Cystocele N81.10 Active confirmed 527749644 Problem Primary osteoarthritis of both hips M16.0 Acti ve confirmed 845520963 Problem Allergic rhinitis, unspecifi ed allergic rhinitis trigger, unspecified rhinitis seasonality J30.9 Active confirmed 81733351 Problem Iron deficiency anemia, unspecified iron deficiency an emia type D50.9 Active confirmed 87360318 Problem B12 deficiency E53.8 Active confirmed 06479 4004 Problem Open wound of right hip, subsequent encounter S71. 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 Active confirmed 7908347240658274 Problem IFG (impaired fasting glucose) R73.01 Active confir med 146060237 Problem Ataxia R27.0 Active confirmed 03246226 Problem Osteoporosis M81.0 Active confirmed 1724973 6 Problem 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 Active confirmed 331434798 Problem Weight loss R63.4 Active confirmed 97782024 Problem Colon cancer screening Z12.11 Active confirmed 650969925 Problem Chronic pruritus L29.9 Active confirmed 418 408937 Problem Arthritis of foot M19.079 Active confirmed 4 68248123 ALLERGIES Allergen (clinical drug ingredient) Drug/Non Drug Allergy do cumented on EMR Reaction Allergy Type Onset Date Status Penicillin (For Allergies Use Only) Pruritis Drug Allerg y Active Vicodin suicidial, depressed Drug Allergy Ac tive codeine Codeine Sulfate(ND Code:[address]-96) headaches Drug Al lergy Active budesonide Budesonide(ND Code:[address]-03) palpitations Drug Aller gy Active Oxycodone itching Drug Allergy Active Cortisporin Palpitations Drug Allergy Active montelukast Singulair(ND Code:[address]-79) Flu like symptoms Drug Allergy Active reclast increases BP Non Drug Allergy Active Levaquin muscle spasms/weakness Drug Allergy Active adhesive tape rash/ hives Non Drug Allergy Acti ve ENCOUNTERS from 1934 to 2021-05-19 Encounter Location Date Provider Diagnosis [facility] [address] [facility] [phone] [place] [address] Apr, Maurilio Chris Open wound of right [...] Question Answer Notes Level of Education: College Anabaptism: Question Answer Notes Anabaptism No amish beliefs that would impact health care. Alcohol Screening: Question Answer Notes Did you have a drink containing alcohol in the past year? No Points 0 Interpretation Negative BMI Care Goal Follow-Up Question Answer Notes Above Normal BMI Follow-Up Dietary needs education Tobacco Use: Question Answer Notes Are you a: never smoker never smoker REASON FOR REFERRAL No Information VITAL SIGNS Weight 129 lbs Apr, Height 66 in Apr, BMI 20.82 kg/m2 Apr, Heart Rate 50 /min Apr, Respiratory Rate 18 /min Apr, Temperature 98.5 degrees Fahrenheit Apr, Oximetry 100 Apr, MEDICATIONS Medication SIG (Take, Route, Frequency, [...] - as directed dx: R27.0 fax to [facility] December, Active Voltaren 1 % as directed Transdermal Four times a day Active hydrOXYzine HCl 25 MG 1-2 tablets Orally at bedtime for 30 day(s) Active Estrace 0.1 MG/GM 0.5 gm Vaginal twice a week for 90 days Active PROCEDURES from 1934 to 2021-05-19 Procedure Date Ordered Result Body Site Medication: 2% Lidocaine intradermal 2021-05-13 N/A Medication: 4% Lidocaine topical cream (Anecream) 5gm 2021-05-13 N/A RESULTS No Results REASON FOR VISIT Right Hip Wound MEDICAL (GENERAL) HISTORY Type Description Date Medical History anemia, secondary to iron deficiency/ACD Medical History GERD/large hiatal hernia/lar ge Schatzki's ring at the GE junction by November 2009 upper GI series/history of dysphagia Medical History constipation, chronic Medical History September 2007 normal cardiac catheterization-Dr. Veras, [facility] Medical History history of nephrolithiasis Medical [...] hip, subsequent enco unter (ICD-10 - S71.001D) I, Alexia Lewis, documented the above orders acting as a scribe for Dr. Chris. I have reviewed the above orders, written by nathanael Marquez, and I verify it is accurate. PLAN OF TREATMENT Treatment Notes Assessment Notes Clinical Notes Open wound of right hip, subsequent encounter I, Alexia Lewis, documented the above orders acting as a scribe for Dr. Chris. I have reviewed the above orders, written by nathanael Marquez, and I verify it is accurate. Next Appt Details 2 Week Reason: Provider Name:Biju Ch, 2021-05-25 0 2:30:00 PM, [address] [address], , [place], [address], Provider Name:Maurilio Hessaltagracia, 11:00:00 AM, [address], , [place], [address], Provider Name:Deborah Mabel, 2021-06-16 01:20:00 PM, [address] [facility], , [place], [address], Insurance Providers Payer Name Payer Address Payer Phone Insured Name Patient Relati onship to Insured Coverage Start Date Coverage End Date MEDICARE Part A and B [address] [facility] [phone] JACQUELINE DUNAWAY self MEDICAID [employer] [address] [facility] [id number] [phone] JACQUELINE DUNAWAY self
--- OUTSIDE RECORDS SUMMARY | 2021-06-20 19:24 | CCD ---
Author Author [facility] Organization [facility] [employer] Address Unknown Phone Unavailable Care Team Providers Care Flagsetter Name Role Phone Biju Ch Unavailable PROBLEMS Type Condition ICD9-CM Code TTY89-EE Code Onset Dates Condition S tatus W/U Status Risk SNOMED Code Notes Problem Impingement syndrome, shoulder M75.40 Active confir med 821848956 Problem Fe deficiency anemia D50.9 Active confirmed 00002674 Problem Hip osteoarthritis M16.9 Active confirmed 2 34578572 Problem Hypothyroid E03.9 Active confirmed 72123934 Problem Asthma, mild persistent J45.30 Active confirmed 173105527 Problem Breast cancer screening Z12.39 Active confirmed 226543756 Problem Vitamin D deficiency E55.9 Active confirmed 86101436 Problem Physical deconditioning R53.81 Active confirmed 67885216564109 Problem Mixed incontinence N39.46 Active confirmed 4 19170553 Problem Mild protein-calorie malnutrition E44.1 Active confirmed 352690515 Problem Pessary maintenance Z46.89 Active confirmed 743936724 Problem Cystocele N81.10 Active confirmed 526121137 Problem Primary osteoarthritis of both hips M16.0 Acti ve confirmed 868589158 Problem Allergic rhinitis, unspecifi ed allergic rhinitis trigger, unspecified rhinitis seasonality J30.9 Active confirmed 24630020 Problem Iron deficiency anemia, unspecified iron deficiency an emia type D50.9 Active confirmed 46570722 Problem B12 deficiency E53.8 Active confirmed 94170 4004 Problem Open wound of right hip, subsequent encounter S71. 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 Active confirmed 5800827391485587 Problem IFG (impaired fasting glucose) R73.01 Active confir med 834445975 Problem Ataxia R27.0 Active confirmed 15470783 Problem Osteoporosis M81.0 Active confirmed 5717810 6 Problem 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 Active confirmed 468183784 Problem Weight loss R63.4 Active confirmed 34916041 Problem Colon cancer screening Z12.11 Active confirmed 684004924 Problem Chronic pruritus L29.9 Active confirmed 418 118964 Problem Arthritis of foot M19.079 Active confirmed 4 75818247 ALLERGIES Allergen (clinical drug ingredient) Drug/Non Drug Allergy do cumented on EMR Reaction Allergy Type Onset Date Status Penicillin (For Allergies Use Only) Pruritis Drug Allerg y Active Vicodin suicidial, depressed Drug Allergy Ac tive codeine Codeine Sulfate(ND Code:[address]-83) headaches Drug Al lergy Active budesonide Budesonide(ND Code:[address]-30) palpitations Drug Aller gy Active Oxycodone itching Drug Allergy Active Cortisporin Palpitations Drug Allergy Active montelukast Singulair(ND Code:[address]-31) Flu like symptoms Drug Allergy Active reclast increases BP Non Drug Allergy Active Levaquin muscle spasms/weakness Drug Allergy Active adhesive tape rash/ hives Non Drug Allergy Acti ve ENCOUNTERS from 1934 to 2021-05-07 Encounter Location Date Provider Diagnosis [place] [address] [facility] [phone] [place] [address] 15 Apr, 2021 Biju Ch IMMUNIZATIONS Vaccine Route Administration Date [...] Question Answer Notes Level of Education: College Sikh: Question Answer Notes Sikh No sabianism beliefs that would impact health care. Alcohol [...] - as directed dx: R27.0 fax to [facility] December, Active Ibuprofen 200 mg 1-2 tablets [...] Information RESULTS No Results REASON FOR VISIT irregular heart beat, low pulse MEDICAL (GENERAL) HISTORY Type Description Date Medical History anemia, secondary to iron deficiency/ACD Medical History GERD/large hiatal hernia/lar ge Schatzki's ring at the GE junction by November 2009 upper GI series/history of dysphagia Medical History constipation, chronic Medical History September 2007 normal cardiac catheterization-Dr. 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-[facility] er Medical History prolapsed bladder pessary [...] Name:Maurilio Chris, 02:15:00 PM, [address], , [place], [address], Provider Name:Biju Ch, 2021-05-25 0 2:30:00 PM, [address] [place] [address] , [place], [address], Provider Name:Deborah Monroe, 2021-06-16 01:20:00 PM, [address] [place] [address] , [place], [address], Insurance Providers Payer Name Payer Address Payer Phone Insured Name Patient Relati onship to Insured Coverage Start Date Coverage End Date MEDICARE Part A and B [address] [facility] [id number] [phone] JACQUELINE DUNAWAY MEDICAID [employer] [address] [facility] [address] JACQUELINE DUNAWAY
--- OUTSIDE RECORDS SUMMARY | 2021-06-20 19:25 | CCD ---
Author Author [facility] Organization [facility] Address Unknown Phone Unavailable Care Team Providers Care Actuary Manager Name Role Phone NO, PCP Unavailable Unavailable Isai Perdomo MD Unavailable Unavailable Isai Perdomo MD Unavailable Unavailable Isai Perdomo MD Unavailable Unavailable Isai Perdomo MD Unavailable Unavailable Isai Perdomo MD Unavailable Unavailable Isai Perdomo MD Unavailable Unavailable Isai Perdomo MD Unavailable Unavailable Isai Perdomo MD Unavailable Unavailable Isai Perdomo MD Unavailable Unavailable Isai Perdomo MD Unavailable Unavailable Isai Perdomo MD Unavailable Unavailable Isai Perdomo MD Unavailable Unavailable Isai Perdomo MD Unavailable Unavailable Isai Perdomo MD Unavailable Unavailable Isai Perdomo MD Unavailable Unavailable Isai Perdomo MD Unavailable Unavailable Isai Perdomo MD Unavailable Unavailable Isai Perdomo MD Unavailable Unavailable Isai Perdomo MD Unavailable Unavailable Isai Perdomo MD Unavailable Unavailable Isai Perdomo MD Unavailable Unavailable Isai Perdomo MD Unavailable Unavailable Isai Perdomo MD Unavailable Unavailable Isai Perdomo MD Unavailable Unavailable Isai Perdomo MD Unavailable Unavailable Isai Perdomo MD Unavailable Unavailable Greenky, S Antonio MD Unavailable Unavailable Greenky, S Antonio MD Unavailable Unavailable Greenky, S Antonio MD Unavailable Unavailable Greenky, S Antonio MD Unavailable Unavailable Greenky, S Antonio MD Unavailable Unavailable Greenky, S Antonio MD Unavailable Unavailable Greenky, S Antonio MD Unavailable Unavailable Greenky, S Antonio MD Unavailable Unavailable Greenky, S Antonio MD Unavailable Unavailable Greenky, S Antonio MD Unavailable Unavailable Greenky, S Antonio MD Unavailable Unavailable Greenky, S Antonio MD Unavailable Unavailable Greenky, S Antonio MD Unavailable Unavailable Greenky, S Antonio MD Unavailable Unavailable Greenky, S Antonio MD Unavailable Unavailable Greenky, S Antonio MD Unavailable Unavailable Greenky, S Antonio MD Unavailable Unavailable Greenky, S Antonio MD Unavailable Unavailable Greenky, S Antonio MD Unavailable Unavailable Greenky, S Antonio MD Unavailable Unavailable Greenky, S Antonio MD Unavailable Unavailable Greenky, S Antonio MD Unavailable Unavailable Greenky, S Antonio MD Unavailable Unavailable Greenky, S Antonio MD Unavailable Unavailable Greenky, S Antonio MD Unavailable Unavailable Greenky, S Antonio MD Unavailable Unavailable Greenky, S Antonio MD Unavailable Unavailable Greenky, S Antonio MD Unavailable Unavailable Greenky, S Antonio MD Unavailable Unavailable Greenky, S Antonio MD Unavailable Unavailable Greenky, S Antonio MD Unavailable Unavailable Greenky, S Antonio MD Unavailable Unavailable Greenky, S Antonio MD Unavailable Unavailable Greenky, S Antonio MD Unavailable Unavailable Greenky, S Antonio MD Unavailable Unavailable Greenky, S Antonio MD Unavailable Unavailable Greenky, S Antonio MD Unavailable Unavailable Greenky, S Antonio MD Unavailable Unavailable Greenky, S Antonio MD Unavailable Unavailable Greenky, S Antonio MD Unavailable Unavailable Greenky, S Antonio MD Unavailable Unavailable Greenky, S Antonio MD Unavailable Unavailable Greenky, S Antonio MD Unavailable Unavailable Greenky, S Antonio MD Unavailable Unavailable Greenky, S Antonio MD Unavailable Unavailable Greenky, S Antonio MD Unavailable Unavailable Greenky, S Antonio MD Unavailable Unavailable Greenky, S Antonio MD Unavailable Unavailable Greenky, S Antonio MD Unavailable Unavailable Greenky, S Antonio MD Unavailable Unavailable Greenky, S Antonio MD Unavailable Unavailable Greenky, S Antonio MD Unavailable Unavailable Greenky, S Antonio MD Unavailable Unavailable Greenky, S Antonio MD Unavailable Unavailable Greenky, S Antonio MD Unavailable Unavailable Greenky, S Antonio MD Unavailable Unavailable Greenky, S Antonio MD Unavailable Unavailable Isai Perdomo MD Unavailable Unavailable Isai Perdomo MD Unavailable Unavailable Isai Perdomo MD Unavailable Unavailable Isai Perdomo MD Unavailable Unavailable Isai Perdomo MD Unavailable Unavailable Isai Perdomo MD Unavailable Unavailable Justin Purcell MD Unavailable Unavailable Justin Purcell MD Unavailable Unavailable Justin Purcell MD Unavailable Unavailable Justin Purcell MD Unavailable Unavailable Justin Purcell MD Unavailable Unavailable Justin Purcell MD Unavailable Unavailable DimaCaren shelton MD Unavailable Unavailable DimaCaren shelton MD Unavailable Unavailable DimaCaren shelton MD Unavailable Unavailable DimaCaren shelton MD Unavailable Unavailable DimaCaren shelton MD Unavailable Unavailable DimaCaren shelton MD Unavailable Unavailable DimaCaren MD Unavailable Unavailable DimaCaren shelton MD Unavailable Unavailable DimaCaren shelton MD Unavailable Unavailable DimaCaren shelton MD Unavailable Unavailable DimaCaren shelton MD Unavailable Unavailable DimaCaren shelton MD Unavailable Unavailable DimaCaren shelton MD Unavailable Unavailable DimaCaren shelton MD Unavailable Unavailable DimaCaren shelton MD Unavailable Unavailable DimaCaren shelton MD Unavailable Unavailable DimaCaren shelton MD Unavailable Unavailable DimaCaren shelton MD Unavailable Unavailable DimaCaren shelton MD Unavailable Unavailable DimaCaren shelton MD Unavailable Unavailable DimaCaren shelton MD Unavailable Unavailable DimaCaren shelton MD Unavailable Unavailable DimaCaren shelton MD Unavailable Unavailable DimaCaren shelton MD Unavailable Unavailable DimaCaren shelton MD Unavailable Unavailable DimaCaren shelton MD Unavailable Unavailable DimaCaren shelton MD Unavailable Unavailable DimaCaren shelton MD Unavailable Unavailable DimaCaren shelton MD Unavailable Unavailable DimaCaren shelton MD Unavailable Unavailable DimaCaren shelton MD Unavailable Unavailable DimaCaren shelton MD Unavailable Unavailable DimaCaren shelton MD Unavailable Unavailable DimaCaren shelton MD Unavailable Unavailable DimaCaren shelton MD Unavailable Unavailable DimaCaren shelton MD Unavailable Unavailable DimaCaren shelton MD Unavailable Unavailable DimaCaren shelton MD Unavailable Unavailable DimaCaren shelton MD Unavailable Unavailable DimaCaren shelton MD Unavailable Unavailable DimaCaren shelton MD Unavailable Unavailable DimaCaren shelton MD Unavailable Unavailable DimaCaren shelton MD Unavailable Unavailable DimaCaren shelton MD Unavailable Unavailable DimaCaren shelton MD Unavailable Unavailable DimaCaren shelton MD Unavailable Unavailable DimaCaren shelton MD Unavailable Unavailable DimaCaren shelton MD Unavailable Unavailable DimaCaren shelton MD Unavailable Unavailable DimaCaren shelton MD Unavailable Unavailable Dima, E Biju MD Unavailable Unavailable Dima, E Biju MD Unavailable Unavailable Dima, E Biju MD Unavailable Unavailable Dima, E Biju MD Unavailable Unavailable Dima, E Biju MD Unavailable Unavailable Dima, E Biju MD Unavailable Unavailable Dima, E Biju MD Unavailable Unavailable Dima, E Biju MD Unavailable Unavailable Dima, E Biju MD Unavailable Unavailable Dima, E Biju MD Unavailable Unavailable Re-disclosure Warning The records that you are about to access may contain information from federally-assisted alcohol or drug abuse programs. If such information is present, then the following federally mandated warning applies: This information has been disclosed to you from records protected by federal confidentiality rules (42 CFR part 2). The federal rules prohibit you from making any further disclosure of this information unless further disclosure is expressly permitted by the written consent of the person to whom it pertains or as otherwise permitted by 42 CFR part 2. A general authorization for the release of medical or other information is NOT sufficient for this purpose. The Federal rules restrict any use of the information to criminally investigate or prosecute any alcohol or drug abuse patient.The records that you are about to access may contain highly sensitive health information, the redisclosure of which is protected by Article 27-F of the [facility] Public Health law. If you continue you may have access to information: Regarding HIV / AIDS; Provided by facilities licensed or operated by the [facility] Office of Mental Health; or Provided by the [facility] Office for People With Developmental Disabilities. If such information is present, then the following [facility] mandated warning applies: This information has been disclosed to you from confidential records which are protected by state law. State law prohibits you from making any further disclosure of this information without the specific written consent of the person to whom it pertains, or as otherwise permitted by law. Any unauthorized further disclosure in violation of state law may result in a fine or usp sentence or both. A general authorization for the release of medical or other information is NOT sufficient authorization for further disc losure. Family History Family Member Name Family Member Gender Family Member Status Date o f Status Description Data Source(s) Unknown Male Encounters Encounter Providers Location Date Indications Data Source(s ) [place] [address] [facility] [address] 06/16/2021 12:00:00 AM EDT eCW1 ([facility]) ([id number]) For Template [place] [address] [place] [address] 06/03/2021 12:00:00 AM EDT eCW1 ([facility]) Unknown [address] [facility] [address] 06/03/2021 12:00:00 AM EDT eCW1 ([facility]) Emergency Attender: Justin Purcell MDConsultant: PCP NO 05/30/2021 11:06:00 AM EDT - 05/30/2021 02:14:00 PM EDT [facility] Patient discharged. Unknown [address] [facility] [address] 05/21/2021 12:00:00 AM EDT eCW1 ([facility]) ([id number]) For [place] [address] [place] [address] 05/13/2021 12:00:00 AM EDT eCW1 ([facility]) Unknown [address] [facility] [address] 05/06/2021 12:00:00 AM EDT eCW1 ([facility]) Unknown [address] [facility] [place] [address] 04/29/2021 12:00:00 AM EDT eCW1 ([facility]) Outpatient [address] [facility] [place] [address] 04/22/2021 12:00:00 AM EDT eCW1 ([facility]) ([id number]) For [employer] [place] [address] [place] [address] 04/01/2021 12:00:00 AM EDT eCW1 ([facility]) Outpatient [facility] [address] 03/19/2021 12:00:00 AM EDT eCW1 ([email or web address] ([id number]) For [place] [facility] [place] [address] 03/11/2021 12:00:00 AM EDT eCW1 ([facility]) Unknown [address] [facility] [address] 02/24/2021 12:00:00 AM EDT eCW1 ([facility]) ([id number]) For [employer] [place] [address] [place] [address] 02/18/2021 12:00:00 AM EDT eCW1 ([facility]) Unknown [address] [facility] [address] 02/13/2021 12:00:00 AM EDT eCW1 ([facility]) Unknown [address] [facility] [address] 02/13/2021 12:00:00 AM EDT eCW1 ([facility]) ([id number]) For [employer] [place] [address] [place] [address] 02/10/2021 12:00:00 AM EDT eCW1 ([facility]) Unknown [address] [facility] [address] 02/04/2021 12:00:00 AM EDT eCW1 ([facility]) ([id number]) Est New Patient 60 [address] [place] [address] 02/03/2021 12:00:00 AM EDT eCW1 ([facility]) Unknown [address] [facility] [address] 02/03/2021 12:00:00 AM EDT eCW1 ([facility]) Unknown [address] [facility] [address] 02/02/2021 12:00:00 AM EDT eCW1 ([facility]) Unknown [address] [facility] [address] 01/20/2021 12:00:00 AM EDT eCW1 ([facility]) Unknown [address] [facility] [address] 01/16/2021 12:00:00 AM EDT eCW1 ([facility]) Unknown [address] [facility], [facility] [address] 01/16/2021 12:00:00 AM EDT eCW1 ([facility]) Unknown [address] [facility] [address] 01/16/2021 12:00:00 AM EDT eCW1 ([facility]) Outpatient [address] [facility], [facility] [address] 01/15/2021 12:00:00 AM EDT eCW1 ([facility]) ([id number]) For [place] [address] [place] [address] 01/14/2021 12:00:00 AM EDT eCW1 ([facility]) Office Visit, Est Pt., Level 3 PC [address] [place] [address] 01/12/2021 12:00:00 AM EDT eCW1 ([facility]) Unknown [address] [facility] [address] 01/09/2021 12:00:00 AM EDT eCW1 ([facility]) ([id number]) For [place] [address] [place] [address] 12/24/2020 12:00:00 AM EDT eCW1 ([facility]) ([id number]) For [place] [address] [place] [address] 12/03/2020 12:00:00 AM EDT eCW1 ([facility]) Unknown [facility] [address] 12/03/2020 12:00:00 AM EDT eCW1 ([facility]) ([id number]) 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 [address] [place] [address] 11/18/2020 12:00:00 AM EDT eCW1 ([facility]) ([id number]) For [employer] [place] [address] [place] [address] 11/12/2020 12:00:00 AM EDT eCW1 ([facility]) Unknown [address] [facility] [address] 10/27/2020 12:00:00 AM EST eCW1 ([facility]) ([id number]) For [place] [address] [place] [address] 10/22/2020 12:00:00 AM EST eCW1 ([facility]) ([id number]) For [place] [facility] [place] [address] 10/01/2020 12:00:00 AM EST eCW1 ([facility]) Unknown [address] [facility] [place] [address] 09/29/2020 12:00:00 AM EST eCW1 ([facility]) Unknown [address] [facility] [place] [address] 09/24/2020 12:00:00 AM EST eCW1 ([facility]) Unknown [address] [facility] [place] [address] 09/22/2020 12:00:00 AM EST eCW1 ([facility]) Unknown [address] [facility] [place] [address] 09/19/2020 12:00:00 AM EST eCW1 ([facility]) Outpatient [address] [facility] [place] [address] 09/18/2020 12:00:00 AM EST eCW1 ([facility]) ([id number]) For [place] [facility] [place] [address] 09/10/2020 12:00:00 AM EST eCW1 ([facility]) Unknown [address] [facility] [place] [address] 08/28/2020 12:00:00 AM EST eCW1 ([email or web address] ([id number]) Est New Patient 60 [address] [place] [address] 08/27/2020 12:00:00 AM EST eCW1 ([facility]) Unknown [address] [facility] [address] 08/27/2020 12:00:00 AM EST eCW1 ([facility]) ([id number]) Est New Patient 60 [address] [place] [address] 07/14/2020 12:00:00 AM EST eCW1 ([facility]) Unknown [address] [facility] [address] 07/09/2020 12:00:00 AM EST eCW1 ([email or web address] Outpatient Attender: Antonio Perdomo MDReferrer: Biju Ch MD 07/02/2020 08:47:52 AM EST [facility] Visit, Est Pt., Level 3 PC [address] [place] [address] 06/25/2020 12:00:00 AM EST eCW1 ([facility]) ([id number]) For [employer] [place] [address] [place] [address] 06/16/2020 12:00:00 AM EDT eCW1 ([facility]) Unknown [address] [facility] [address] 06/11/2020 12:00:00 AM EDT eCW1 ([email or web address] Unknown [address] [facility] [address] 06/10/2020 12:00:00 AM EDT eCW1 ([email or web address] Outpatient [address] [facility] [address] 06/10/2020 12:00:00 AM EDT eCW1 ([facility]) Unknown [address] [facility] [address] 06/04/2020 12:00:00 AM EDT eCW1 ([facility]) Unknown [address] [facility] [address] 05/30/2020 12:00:00 AM EDT eCW1 ([facility]) Outpatient [address] [facility] [place] [address] 05/26/2020 12:00:00 AM EDT eCW1 ([facility]) [facility] [address] [place] [address] 05/07/2020 12:00:00 AM EDT eCW1 ([facility]) Immunizations Vaccine Date Status Description Data Source(s) COVID-19 VACCINE Dilan 11/07/2020 12:00:00 AM EDT completed [facility] Vaccine Series Complete: YESThis Data wa s Submitted to [facility] Via [employer]. influenza, recombinant, quadrIvalent,injectable, prese rvative free 06/05/2020 02:44:00 PM EDT completed eCW1 ([facility]) influenza, recombinant, quadrIvalent,injectable, prese rvative free 06/05/2020 02:44:00 PM EDT completed eCW1 ([facility]) influenza, recombinant, quadrIvalent,injectable, prese rvative free 06/05/2020 02:44:00 PM EDT completed eCW1 ([facility]) influenza, recombinant, quadrIvalent,injectable, prese rvative free 06/05/2020 02:44:00 PM EDT completed eCW1 ([facility]) influenza, recombinant, quadrIvalent,injectable, prese rvative free 06/05/2020 02:44:00 PM EDT completed eCW1 ([facility]) influenza, recombinant, quadrIvalent,injectable, prese rvative free 06/05/2020 02:44:00 PM EDT completed eCW1 ([facility]) influenza, recombinant, quadrIvalent,injectable, prese rvative free 06/05/2020 02:44:00 PM EDT completed eCW1 ([facility]) influenza, recombinant, quadrIvalent,injectable, prese rvative free 06/05/2020 02:44:00 PM EDT completed eCW1 ([facility]) influenza, recombinant, quadrIvalent,injectable, prese rvative free 06/05/2020 02:44:00 PM EDT completed eCW1 ([facility]) influenza, recombinant, quadrIvalent,injectable, prese rvative free 06/05/2020 02:44:00 PM EDT completed eCW1 ([facility]) influenza, recombinant, quadrIvalent,injectable, prese rvative free 06/05/2020 02:44:00 PM EDT completed eCW1 ([facility]) influenza, recombinant, quadrIvalent,injectable, prese rvative free 06/05/2020 02:44:00 PM EDT completed eCW1 ([facility]) influenza, recombinant, quadrIvalent,injectable, prese rvative free 06/05/2020 02:44:00 PM EDT completed eCW1 ([facility]) influenza, recombinant, quadrIvalent,injectable, prese rvative free 06/05/2020 02:44:00 PM EDT completed eCW1 ([facility]) influenza, recombinant, quadrIvalent,injectable, prese rvative free 06/05/2020 02:44:00 PM EDT completed eCW1 ([facility]) influenza, recombinant, quadrIvalent,injectable, prese rvative free 06/05/2020 02:44:00 PM EDT completed eCW1 ([facility]) influenza, recombinant, quadrIvalent,injectable, prese rvative free 06/05/2020 02:44:00 PM EDT completed eCW1 ([facility]) influenza, recombinant, quadrIvalent,injectable, prese rvative free 06/05/2020 02:44:00 PM EDT completed eCW1 ([facility]) influenza, recombinant, quadrIvalent,injectable, prese rvative free 06/05/2020 02:44:00 PM EDT completed eCW1 ([facility]) influenza, recombinant, quadrIvalent,injectable, prese rvative free 06/05/2020 02:44:00 PM EDT completed eCW1 ([facility]) influenza, recombinant, quadrIvalent,injectable, prese rvative free 06/05/2020 02:44:00 PM EDT completed eCW1 ([facility]) influenza, recombinant, quadrIvalent,injectable, prese rvative free 06/05/2020 02:44:00 PM EDT completed eCW1 ([facility]) influenza, recombinant, quadrIvalent,injectable, prese rvative free 06/05/2020 02:44:00 PM EDT completed eCW1 ([facility]) influenza, recombinant, quadrIvalent,injectable, prese rvative free 06/05/2020 02:44:00 PM EDT completed eCW1 ([facility]) influenza, recombinant, quadrIvalent,injectable, prese rvative free 06/05/2020 02:44:00 PM EDT completed eCW1 ([facility]) influenza, recombinant, quadrIvalent,injectable, prese rvative free 06/05/2020 02:44:00 PM EDT completed eCW1 ([facility]) influenza, recombinant, quadrIvalent,injectable, prese rvative free 06/05/2020 02:44:00 PM EDT completed eCW1 ([facility]) influenza, recombinant, quadrIvalent,injectable, prese rvative free 06/05/2020 02:44:00 PM EDT completed eCW1 ([facility]) influenza, recombinant, quadrIvalent,injectable, prese rvative free 06/05/2020 02:44:00 PM EDT completed eCW1 ([facility]) influenza, recombinant, quadrIvalent,injectable, prese rvative free 06/05/2020 02:44:00 PM EDT completed eCW1 ([facility]) influenza, recombinant, quadrIvalent,injectable, prese rvative free 06/05/2020 02:44:00 PM EDT completed eCW1 ([facility]) influenza, recombinant, quadrIvalent,injectable, prese rvative free 06/05/2020 02:44:00 PM EDT completed eCW1 ([facility]) influenza, recombinant, quadrIvalent,injectable, prese rvative free 06/05/2020 02:44:00 PM EDT completed eCW1 ([facility]) influenza, recombinant, quadrIvalent,injectable, prese rvative free 06/05/2020 02:44:00 PM EDT completed eCW1 ([facility]) influenza, recombinant, quadrIvalent,injectable, prese rvative free 06/05/2020 02:44:00 PM EDT completed eCW1 ([facility]) influenza, recombinant, quadrIvalent,injectable, prese rvative free 06/05/2020 02:44:00 PM EDT completed eCW1 ([facility]) influenza, recombinant, quadrIvalent,injectable, prese rvative free 06/05/2020 02:44:00 PM EDT completed eCW1 ([facility]) influenza, recombinant, quadrIvalent,injectable, prese rvative free 06/05/2020 02:44:00 PM EDT completed eCW1 ([facility]) influenza, recombinant, quadrIvalent,injectable, prese rvative free 06/05/2020 02:44:00 PM EDT completed eCW1 ([facility]) influenza, recombinant, quadrIvalent,injectable, prese rvative free 06/05/2020 02:44:00 PM EDT completed eCW1 ([facility]) influenza, recombinant, quadrIvalent,injectable, prese rvative free 06/05/2020 02:44:00 PM EDT completed eCW1 ([facility]) influenza, recombinant, quadrIvalent,injectable, prese rvative free 06/05/2020 02:44:00 PM EDT completed eCW1 ([facility]) influenza, recombinant, quadrIvalent,injectable, prese rvative free 06/05/2020 02:44:00 PM EDT completed eCW1 ([facility]) influenza, recombinant, quadrIvalent,injectable, prese rvative free 06/05/2020 02:44:00 PM EDT completed eCW1 ([facility]) influenza, recombinant, quadrIvalent,injectable, prese rvative free 06/05/2020 02:44:00 PM EDT completed eCW1 ([facility]) influenza, recombinant, quadrIvalent,injectable, prese rvative free 06/05/2020 02:44:00 PM EDT completed eCW1 ([facility] [facility]) influenza, recombinant, quadrIvalent,injectable, prese rvative free 06/05/2020 02:44:00 PM EDT completed eCW1 ([facility]) influenza, recombinant, quadrIvalent,injectable, prese rvative free 06/05/2020 02:44:00 PM EDT completed eCW1 ([facility]) influenza, recombinant, quadrIvalent,injectable, prese rvative free 06/05/2020 02:44:00 PM EDT completed eCW1 ([facility]) influenza, recombinant, quadrIvalent,injectable, prese rvative free 06/05/2020 02:44:00 PM EDT completed eCW1 ([facility]) influenza, recombinant, quadrIvalent,injectable, prese rvative free 06/05/2020 02:44:00 PM EDT completed eCW1 ([facility]) influenza, recombinant, quadrIvalent,injectable, prese rvative free 06/05/2020 02:44:00 PM EDT completed eCW1 ([facility]) influenza, recombinant, quadrIvalent,injectable, prese rvative free 06/05/2020 02:44:00 PM EDT completed eCW1 ([facility]) influenza, recombinant, quadrIvalent,injectable, prese rvative free 06/05/2020 02:44:00 PM EDT completed eCW1 ([facility]) Medications Medication Brand Name Start Date Product Form Dose Route Admi nistrative Instructions Pharmacy Instructions Status Indications Reaction Description Data Source(s) torsemide 5 MG Oral Tablet Torsemide 5 MG Torsemide 5 MG 01/20/2021 12:00:00 AM EDT 1.0 {tablet} active Torsemide 5 MG eCW1 ([facility]) torsemide 5 MG Oral Tablet Torsemide 5 MG Torsemide 5 MG 01/20/2021 12:00:00 AM EDT 1.0 {tablet} active Torsemide 5 MG eCW1 ([facility]) torsemide 5 MG Oral Tablet Torsemide 5 MG Torsemide 5 MG 01/20/2021 12:00:00 AM EDT 1.0 {tablet} active Torsemide 5 MG eCW1 ([facility]) torsemide 5 MG Oral Tablet Torsemide 5 MG Torsemide 5 MG 01/20/2021 12:00:00 AM EDT 1.0 {tablet} active Torsemide 5 MG eCW1 ([facility]) torsemide 5 MG Oral Tablet Torsemide 5 MG Torsemide 5 MG 01/20/2021 12:00:00 AM EDT 1.0 {tablet} active Torsemide 5 MG eCW1 ([facility]) torsemide 5 MG Oral Tablet Torsemide 5 MG Torsemide 5 MG 01/20/2021 12:00:00 AM EDT 1.0 {tablet} active Torsemide 5 MG eCW1 ([facility]) torsemide 5 MG Oral Tablet Torsemide 5 MG Torsemide 5 MG 01/20/2021 12:00:00 AM EDT 1.0 {tablet} active Torsemide 5 MG eCW1 ([facility]) torsemide 5 MG Oral Tablet Torsemide 5 MG Torsemide 5 MG 01/20/2021 12:00:00 AM EDT 1.0 {tablet} active Torsemide 5 MG eCW1 ([facility]) torsemide 5 MG Oral Tablet Torsemide 5 MG Torsemide 5 MG 01/20/2021 12:00:00 AM EDT 1.0 {tablet} active Torsemide 5 MG eCW1 ([facility]) torsemide 5 MG Oral Tablet Torsemide 5 MG Torsemide 5 MG 01/20/2021 12:00:00 AM EDT 1.0 {tablet} active Torsemide 5 MG eCW1 ([facility]) torsemide 5 MG Oral Tablet Torsemide 5 MG Torsemide 5 MG 01/20/2021 12:00:00 AM EDT 1.0 {tablet} active Torsemide 5 MG eCW1 ([facility]) torsemide 5 MG Oral Tablet Torsemide 5 MG Torsemide 5 MG 01/20/2021 12:00:00 AM EDT 1.0 {tablet} active Torsemide 5 MG eCW1 ([facility]) torsemide 5 MG Oral Tablet Torsemide 5 MG Torsemide 5 MG 01/20/2021 12:00:00 AM EDT 1.0 {tablet} active Torsemide 5 MG eCW1 ([facility]) torsemide 5 MG Oral Tablet Torsemide 5 MG Torsemide 5 MG 01/20/2021 12:00:00 AM EDT 1.0 {tablet} active Torsemide 5 MG eCW1 ([facility]) torsemide 5 MG Oral Tablet Torsemide 5 MG Torsemide 5 MG 01/20/2021 12:00:00 AM EDT 1.0 {tablet} active Torsemide 5 MG eCW1 ([facility]) torsemide 5 MG Oral Tablet Torsemide 5 MG Torsemide 5 MG 01/20/2021 12:00:00 AM EDT 1.0 {tablet} active Torsemide 5 MG eCW1 ([facility]) torsemide 5 MG Oral Tablet Torsemide 5 MG Torsemide 5 MG 01/20/2021 12:00:00 AM EDT 1.0 {tablet} active Torsemide 5 MG eCW1 ([facility]) torsemide 5 MG Oral Tablet Torsemide 5 MG Torsemide 5 MG 01/20/2021 12:00:00 AM EDT 1.0 {tablet} active Torsemide 5 MG eCW1 ([facility]) torsemide 5 MG Oral Tablet Torsemide 5 MG Torsemide 5 MG 01/20/2021 12:00:00 AM EDT 1.0 {tablet} active Torsemide 5 MG eCW1 ([facility]) torsemide 5 MG Oral Tablet Torsemide 5 MG Torsemide 5 MG 01/20/2021 12:00:00 AM EDT 1.0 {tablet} active Torsemide 5 MG eCW1 ([facility]) torsemide 5 MG Oral Tablet Torsemide 5 MG Torsemide 5 MG 01/20/2021 12:00:00 AM EDT 1.0 {tablet} active Torsemide 5 MG eCW1 ([facility]) torsemide 5 MG Oral Tablet Torsemide 5 MG Torsemide 5 MG 01/20/2021 12:00:00 AM EDT 1.0 {tablet} active Torsemide 5 MG eCW1 ([facility]) Ibuprofen 200 MG Oral Tablet Ibuprofen 200 mg Ibuprofen 200 mg 01/15/2021 12:00:00 AM EDT active Ibuprofe n 200 mg eCW1 ([facility]) Ibuprofen 200 MG Oral Tablet Ibuprofen 200 mg Ibuprofen 200 mg 01/15/2021 12:00:00 AM EDT active Ibuprofe n 200 mg eCW1 ([facility]) Ibuprofen 200 MG Oral Tablet Ibuprofen 200 mg Ibuprofen 200 mg 01/15/2021 12:00:00 AM EDT active e CW1 ([facility]) Ibuprofen 200 MG Oral Tablet Ibuprofen 200 mg Ibuprofen 200 mg 01/15/2021 12:00:00 AM EDT active Ibuprofe n 200 mg eCW1 ([facility]) Ibuprofen 200 MG Oral Tablet Ibuprofen 200 mg Ibuprofen 200 mg 01/15/2021 12:00:00 AM EDT active Ibuprofe n 200 mg eCW1 ([facility]) Ibuprofen 200 MG Oral Tablet Ibuprofen 200 mg Ibuprofen 200 mg 01/15/2021 12:00:00 AM EDT active Ibuprofe n 200 mg eCW1 ([facility]) Ibuprofen 200 MG Oral Tablet Ibuprofen 200 mg Ibuprofen 200 mg 01/15/2021 12:00:00 AM EDT active Ibuprofe n 200 mg eCW1 ([facility]) Ibuprofen 200 MG Oral Tablet Ibuprofen 200 mg Ibuprofen 200 mg 01/15/2021 12:00:00 AM EDT active Ibuprofe n 200 mg eCW1 ([facility]) Ibuprofen 200 MG Oral Tablet Ibuprofen 200 mg Ibuprofen 200 mg 01/15/2021 12:00:00 AM EDT active Ibuprofe n 200 mg eCW1 ([facility]) Ibuprofen 200 MG Oral Tablet Ibuprofen 200 mg Ibuprofen 200 mg 01/15/2021 12:00:00 AM EDT active Ibuprofe n 200 mg eCW1 ([facility]) Ibuprofen 200 MG Oral Tablet Ibuprofen 200 mg Ibuprofen 200 mg 01/15/2021 12:00:00 AM EDT active Ibuprofe n 200 mg eCW1 ([facility]) Ibuprofen 200 MG Oral Tablet Ibuprofen 200 mg Ibuprofen 200 mg 01/15/2021 12:00:00 AM EDT active Ibuprofe n 200 mg eCW1 ([facility]) Ibuprofen 200 MG Oral Tablet Ibuprofen 200 mg Ibuprofen 200 mg 01/15/2021 12:00:00 AM EDT active e CW1 ([facility]) Ibuprofen 200 MG Oral Tablet Ibuprofen 200 mg Ibuprofen 200 mg 01/15/2021 12:00:00 AM EDT active Ibuprofe n 200 mg eCW1 ([facility]) Ibuprofen 200 MG Oral Tablet Ibuprofen 200 mg Ibuprofen 200 mg 01/15/2021 12:00:00 AM EDT active Ibuprofe n 200 mg eCW1 ([facility]) Ibuprofen 200 MG Oral Tablet Ibuprofen 200 mg Ibuprofen 200 mg 01/15/2021 12:00:00 AM EDT active Ibuprofe n 200 mg eCW1 ([facility]) Ibuprofen 200 MG Oral Tablet Ibuprofen 200 mg Ibuprofen 200 mg 01/15/2021 12:00:00 AM EDT active Ibuprofe n 200 mg eCW1 ([facility]) Ibuprofen 200 MG Oral Tablet Ibuprofen 200 mg Ibuprofen 200 mg 01/15/2021 12:00:00 AM EDT active Ibuprofe n 200 mg eCW1 ([facility]) Ibuprofen 200 MG Oral Tablet Ibuprofen 200 mg Ibuprofen 200 mg 01/15/2021 12:00:00 AM EDT active Ibuprofe n 200 mg eCW1 ([facility]) Ibuprofen 200 MG Oral Tablet Ibuprofen 200 mg Ibuprofen 200 mg 01/15/2021 12:00:00 AM EDT active Ibuprofe n 200 mg eCW1 ([facility]) Ibuprofen 200 MG Oral Tablet Ibuprofen 200 mg Ibuprofen 200 mg 01/15/2021 12:00:00 AM EDT active Ibuprofe n 200 mg eCW1 ([facility]) Ibuprofen 200 MG Oral Tablet Ibuprofen 200 mg Ibuprofen 200 mg 01/15/2021 12:00:00 AM EDT active Ibuprofe n 200 mg eCW1 ([facility]) Ibuprofen 200 MG Oral Tablet Ibuprofen 200 mg Ibuprofen 200 mg 01/15/2021 12:00:00 AM EDT active Ibuprofe n 200 mg eCW1 ([facility]) Ibuprofen 200 MG Oral Tablet Ibuprofen 200 mg Ibuprofen 200 mg 01/15/2021 12:00:00 AM EDT active Ibuprofe n 200 mg eCW1 ([facility]) Ibuprofen 200 MG Oral Tablet Ibuprofen 200 mg Ibuprofen 200 mg 01/15/2021 12:00:00 AM EDT active Ibuprofe n 200 mg eCW1 ([facility]) Ibuprofen 200 MG Oral Tablet Ibuprofen 200 mg Ibuprofen 200 mg 01/15/2021 12:00:00 AM EDT active Ibuprofe n 200 mg eCW1 ([facility]) Ibuprofen 200 MG Oral Tablet Ibuprofen 200 mg Ibuprofen 200 mg 01/15/2021 12:00:00 AM EDT active Ibuprofe n 200 mg eCW1 ([facility]) Commode Bedside - Commode Bedside - 01/12/2021 12:00:00 AM EDT active Commode Bedside - eCW1 ([facility]) Commode Bedside - Commode Bedside - 01/12/2021 12:00:00 AM EDT active Commode Bedside - eCW1 ([facility]) celecoxib 200 MG Oral Capsule [Celebrex] Celebrex 200 MG Rosalee ebrex 200 MG 01/12/2021 12:00:00 AM EDT 1.0 {capsule_with_food} active Celebrex 200 MG eCW1 ([facility]) Commode Bedside - Commode Bedside - 01/12/2021 12:00:00 AM EDT active Commode Bedside - eCW1 ([facility]) Commode Bedside - Commode Bedside - 01/12/2021 12:00:00 AM EDT active Commode Bedside - eCW1 ([facility]) tramadol hydrochloride 50 MG Oral Tablet Tramadol HCl 50 MG Tramadol HCl 50 MG 01/12/2021 12:00:00 AM EDT 1.0 {tablet_as_needed} active Tramadol HCl 50 MG eCW1 ([facility]) Commode Bedside - Commode Bedside - 01/12/2021 12:00:00 AM EDT active Commode Bedside - eCW1 ([facility]) Commode Bedside - Commode Bedside - 01/12/2021 12:00:00 AM EDT active Commode Bedside - eCW1 ([facility]) Commode Bedside - Commode Bedside - 01/12/2021 12:00:00 AM EDT active eCW1 ([facility]) Commode Bedside - Commode Bedside - 01/12/2021 12:00:00 AM EDT active Commode Bedside - eCW1 ([facility]) Commode Bedside - Commode Bedside - 01/12/2021 12:00:00 AM EDT active Commode Bedside - eCW1 ([facility]) Commode Bedside - Commode Bedside - 01/12/2021 12:00:00 AM EDT active Commode Bedside - eCW1 ([facility]) Commode Bedside - Commode Bedside - 01/12/2021 12:00:00 AM EDT active Commode Bedside - eCW1 ([facility]) Commode Bedside - Commode Bedside - 01/12/2021 12:00:00 AM EDT active Commode Bedside - eCW1 ([facility]) Commode Bedside - Commode Bedside - 01/12/2021 12:00:00 AM EDT active Commode Bedside - eCW1 ([facility]) Commode Bedside - Commode Bedside - 01/12/2021 12:00:00 AM EDT active Commode Bedside - eCW1 ([facility]) Commode Bedside - Commode Bedside - 01/12/2021 12:00:00 AM EDT active Commode Bedside - eCW1 ([facility]) Commode Bedside - Commode Bedside - 01/12/2021 12:00:00 AM EDT active Commode Bedside - eCW1 ([facility]) Commode Bedside - Commode Bedside - 01/12/2021 12:00:00 AM EDT active Commode Bedside - eCW1 ([facility]) Commode Bedside - Commode Bedside - 01/12/2021 12:00:00 AM EDT active Commode Bedside - eCW1 ([facility]) Commode Bedside - Commode Bedside - 01/12/2021 12:00:00 AM EDT active Commode Bedside - eCW1 ([facility]) Commode Bedside - Commode Bedside - 01/12/2021 12:00:00 AM EDT active Commode Bedside - eCW1 ([facility]) Commode Bedside - Commode Bedside - 01/12/2021 12:00:00 AM EDT active Commode Bedside - eCW1 ([facility]) Commode Bedside - Commode Bedside - 01/12/2021 12:00:00 AM EDT active Commode Bedside - eCW1 ([facility]) Commode Bedside - Commode Bedside - 01/12/2021 12:00:00 AM EDT active Commode Bedside - eCW1 ([facility]) Commode Bedside - Commode Bedside - 01/12/2021 12:00:00 AM EDT active Commode Bedside - eCW1 ([facility]) Commode Bedside - Commode Bedside - 01/12/2021 12:00:00 AM EDT active Commode Bedside - eCW1 ([facility]) Commode Bedside - Commode Bedside - 01/12/2021 12:00:00 AM EDT active Commode Bedside - eCW1 ([facility]) Commode Bedside - Commode Bedside - 01/12/2021 12:00:00 AM EDT active eCW1 ([facility]) Commode Bedside - Commode Bedside - 01/12/2021 12:00:00 AM EDT active Commode Bedside - eCW1 ([facility]) Omeprazole 40 MG Delayed Release Oral Capsule Omeprazole 40 MG 09/22/2020 12:00:00 AM EST active Omeprazo le 40 MG eCW1 ([facility]) Omeprazole 40 MG Delayed Release Oral Capsule Omeprazole 40 MG 09/22/2020 12:00:00 AM EST active Omeprazo le 40 MG eCW1 ([facility]) Omeprazole 40 MG Delayed Release Oral Capsule Omeprazole 40 MG 09/22/2020 12:00:00 AM EST active Omeprazo le 40 MG eCW1 ([facility]) Omeprazole 40 MG Delayed Release Oral Capsule Omeprazole 40 MG 09/22/2020 12:00:00 AM EST active e CW1 ([facility]) Omeprazole 40 MG Delayed Release Oral Capsule Omeprazole 40 MG 09/22/2020 12:00:00 AM EST active Omeprazo le 40 MG eCW1 ([facility]) Omeprazole 40 MG Delayed Release Oral Capsule Omeprazole 40 MG 09/22/2020 12:00:00 AM EST active Omeprazo le 40 MG eCW1 ([facility]) Omeprazole 40 MG Delayed Release Oral Capsule Omeprazole 40 MG 09/22/2020 12:00:00 AM EST active Omeprazo le 40 MG eCW1 ([facility]) Omeprazole 40 MG Delayed Release Oral Capsule Omeprazole 40 MG 09/22/2020 12:00:00 AM EST active Omeprazo le 40 MG eCW1 ([facility]) Omeprazole 40 MG Delayed Release Oral Capsule Omeprazole 40 MG 09/22/2020 12:00:00 AM EST active Omeprazo le 40 MG eCW1 ([facility]) Omeprazole 40 MG Delayed Release Oral Capsule Omeprazole 40 MG 09/22/2020 12:00:00 AM EST active Omeprazo le 40 MG eCW1 ([facility]) Omeprazole 40 MG Delayed Release Oral Capsule Omeprazole 40 MG 09/22/2020 12:00:00 AM EST active Omeprazo le 40 MG eCW1 ([facility]) Omeprazole 40 MG Delayed Release Oral Capsule Omeprazole 40 MG 09/22/2020 12:00:00 AM EST active Omeprazo le 40 MG eCW1 ([facility]) Omeprazole 40 MG Delayed Release Oral Capsule Omeprazole 40 MG 09/22/2020 12:00:00 AM EST active Omeprazo le 40 MG eCW1 ([facility]) Omeprazole 40 MG Delayed Release Oral Capsule Omeprazole 40 MG 09/22/2020 12:00:00 AM EST active Omeprazo le 40 MG eCW1 ([facility]) Omeprazole 40 MG Delayed Release Oral Capsule Omeprazole 40 MG 09/22/2020 12:00:00 AM EST active Omeprazo le 40 MG eCW1 ([facility]) Omeprazole 40 MG Delayed Release Oral Capsule Omeprazole 40 MG 09/22/2020 12:00:00 AM EST active Omeprazo le 40 MG eCW1 ([facility]) Omeprazole 40 MG Delayed Release Oral Capsule Omeprazole 40 MG 09/22/2020 12:00:00 AM EST active Omeprazo le 40 MG eCW1 ([facility]) Omeprazole 40 MG Delayed Release Oral Capsule Omeprazole 40 MG 09/22/2020 12:00:00 AM EST active Omeprazo le 40 MG eCW1 ([facility]) Omeprazole 40 MG Delayed Release Oral Capsule Omeprazole 40 MG 09/22/2020 12:00:00 AM EST active Omeprazo le 40 MG eCW1 ([facility]) Omeprazole 40 MG Delayed Release Oral Capsule Omeprazole 40 MG 09/22/2020 12:00:00 AM EST active Omeprazo le 40 MG eCW1 ([facility]) Omeprazole 40 MG Delayed Release Oral Capsule Omeprazole 40 MG 09/22/2020 12:00:00 AM EST active Omeprazo le 40 MG eCW1 ([facility]) Omeprazole 40 MG Delayed Release Oral Capsule Omeprazole 40 MG 09/22/2020 12:00:00 AM EST active Omeprazo le 40 MG eCW1 ([facility]) Omeprazole 40 MG Delayed Release Oral Capsule Omeprazole 40 MG 09/22/2020 12:00:00 AM EST active Omeprazo le 40 MG eCW1 ([facility]) Omeprazole 40 MG Delayed Release Oral Capsule Omeprazole 40 MG 09/22/2020 12:00:00 AM EST active Omeprazo le 40 MG eCW1 ([facility]) Omeprazole 40 MG Delayed Release Oral Capsule Omeprazole 40 MG 09/22/2020 12:00:00 AM EST active Omeprazo le 40 MG eCW1 ([facility]) Omeprazole 40 MG Delayed Release Oral Capsule Omeprazole 40 MG 09/22/2020 12:00:00 AM EST active Omeprazo le 40 MG eCW1 ([facility]) Omeprazole 40 MG Delayed Release Oral Capsule Omeprazole 40 MG 09/22/2020 12:00:00 AM EST active Omeprazo le 40 MG eCW1 ([facility]) Omeprazole 40 MG Delayed Release Oral Capsule Omeprazole 40 MG 09/22/2020 12:00:00 AM EST active Omeprazo le 40 MG eCW1 ([facility]) Omeprazole 40 MG Delayed Release Oral Capsule Omeprazole 40 MG 09/22/2020 12:00:00 AM EST active Omeprazo le 40 MG eCW1 ([facility]) Omeprazole 40 MG Delayed Release Oral Capsule Omeprazole 40 MG 09/22/2020 12:00:00 AM EST active Omeprazo le 40 MG eCW1 ([facility]) Omeprazole 40 MG Delayed Release Oral Capsule Omeprazole 40 MG 09/22/2020 12:00:00 AM EST active Omeprazo le 40 MG eCW1 ([facility]) Omeprazole 40 MG Delayed Release Oral Capsule Omeprazole 40 MG 09/22/2020 12:00:00 AM EST active Omeprazo le 40 MG eCW1 ([facility]) Omeprazole 40 MG Delayed Release Oral Capsule Omeprazole 40 MG 09/22/2020 12:00:00 AM EST active Omeprazo le 40 MG eCW1 ([facility]) Omeprazole 40 MG Delayed Release Oral Capsule Omeprazole 40 MG 09/22/2020 12:00:00 AM EST active Omeprazo le 40 MG eCW1 ([facility]) Omeprazole 40 MG Delayed Release Oral Capsule Omeprazole 40 MG 09/22/2020 12:00:00 AM EST active Omeprazo le 40 MG eCW1 ([facility]) Omeprazole 40 MG Delayed Release Oral Capsule Omeprazole 40 MG 09/22/2020 12:00:00 AM EST active Omeprazo le 40 MG eCW1 ([facility]) Omeprazole 40 MG Delayed Release Oral Capsule Omeprazole 40 MG 09/22/2020 12:00:00 AM EST active Omeprazo le 40 MG eCW1 ([facility]) Omeprazole 40 MG Delayed Release Oral Capsule Omeprazole 40 MG 09/22/2020 12:00:00 AM EST active Omeprazo le 40 MG eCW1 ([facility]) Omeprazole 40 MG Delayed Release Oral Capsule Omeprazole 40 MG 09/22/2020 12:00:00 AM EST active Omeprazo le 40 MG eCW1 ([facility]) Omeprazole 40 MG Delayed Release Oral Capsule Omeprazole 40 MG 09/22/2020 12:00:00 AM EST active Omeprazo le 40 MG eCW1 ([facility]) Omeprazole 40 MG Delayed Release Oral Capsule Omeprazole 40 MG 09/22/2020 12:00:00 AM EST active e CW1 ([facility]) Hydroxyzine Hydrochloride 25 MG Oral Tablet HydrOXYzin e HCl 25 MG HydrOXYzine HCl 25 MG 09/18/2020 12:00:00 AM EST suspende d HydrOXYzine HCl 25 MG eCW1 ([facility]) Hydroxyzine Hydrochloride 25 MG Oral Tablet HydrOXYzin e HCl 25 MG HydrOXYzine HCl 25 MG 09/18/2020 12:00:00 AM EST suspende d HydrOXYzine HCl 25 MG eCW1 ([facility]) Hydroxyzine Hydrochloride 25 MG Oral Tablet HydrOXYzin e HCl 25 MG HydrOXYzine HCl 25 MG 09/18/2020 12:00:00 AM EST active HydrOXYzine HCl 25 MG eCW1 ([facility]) Hydroxyzine Hydrochloride 25 MG Oral Tablet HydrOXYzin e HCl 25 MG HydrOXYzine HCl 25 MG 09/18/2020 12:00:00 AM EST active HydrOXYzine HCl 25 MG eCW1 ([facility]) Hydroxyzine Hydrochloride 25 MG Oral Tablet HydrOXYzin e HCl 25 MG HydrOXYzine HCl 25 MG 09/18/2020 12:00:00 AM EST active HydrOXYzine HCl 25 MG eCW1 ([facility]) Hydroxyzine Hydrochloride 25 MG Oral Tablet HydrOXYzin e HCl 25 MG HydrOXYzine HCl 25 MG 09/18/2020 12:00:00 AM EST active HydrOXYzine HCl 25 MG eCW1 ([facility]) Hydroxyzine Hydrochloride 25 MG Oral Tablet HydrOXYzin e HCl 25 MG HydrOXYzine HCl 25 MG 09/18/2020 12:00:00 AM EST active HydrOXYzine HCl 25 MG eCW1 ([facility]) Hydroxyzine Hydrochloride 25 MG Oral Tablet HydrOXYzin e HCl 25 MG HydrOXYzine HCl 25 MG 09/18/2020 12:00:00 AM EST suspende d HydrOXYzine HCl 25 MG eCW1 ([facility]) Hydroxyzine Hydrochloride 25 MG Oral Tablet HydrOXYzin e HCl 25 MG HydrOXYzine HCl 25 MG 09/18/2020 12:00:00 AM EST active HydrOXYzine HCl 25 MG eCW1 ([facility]) Hydroxyzine Hydrochloride 25 MG Oral Tablet HydrOXYzin e HCl 25 MG HydrOXYzine HCl 25 MG 09/18/2020 12:00:00 AM EST suspende d HydrOXYzine HCl 25 MG eCW1 ([facility]) Hydroxyzine Hydrochloride 25 MG Oral Tablet HydrOXYzin e HCl 25 MG HydrOXYzine HCl 25 MG 09/18/2020 12:00:00 AM EST suspende d HydrOXYzine HCl 25 MG eCW1 ([facility]) Hydroxyzine Hydrochloride 25 MG Oral Tablet HydrOXYzin e HCl 25 MG HydrOXYzine HCl 25 MG 09/18/2020 12:00:00 AM EST active HydrOXYzine HCl 25 MG eCW1 ([facility]) Hydroxyzine Hydrochloride 25 MG Oral Tablet HydrOXYzin e HCl 25 MG HydrOXYzine HCl 25 MG 09/18/2020 12:00:00 AM EST active HydrOXYzine HCl 25 MG eCW1 ([facility]) Hydroxyzine Hydrochloride 25 MG Oral Tablet HydrOXYzin e HCl 25 MG HydrOXYzine HCl 25 MG 09/18/2020 12:00:00 AM EST active HydrOXYzine HCl 25 MG eCW1 ([facility]) Hydroxyzine Hydrochloride 25 MG Oral Tablet HydrOXYzin e HCl 25 MG HydrOXYzine HCl 25 MG 09/18/2020 12:00:00 AM EST suspende d HydrOXYzine HCl 25 MG eCW1 ([facility]) Morphine Sulfate 2 MG/ML Oral Solution Morphine Sulfat e 10 MG/5ML Morphine Sulfate 10 MG/5ML 06/12/2020 12:00:00 AM EDT 2.0 {ml_as_needed} suspended Morphine Sulfate 10 MG/5ML eCW1 ([facility]) Morphine Sulfate 2 MG/ML Oral Solution Morphine Sulfat e 10 MG/5ML Morphine Sulfate 10 MG/5ML 06/12/2020 12:00:00 AM EDT 2.0 {ml_as_needed} suspended Morphine Sulfate 10 MG/5ML eCW1 ([facility]) Morphine Sulfate 2 MG/ML Oral Solution Morphine Sulfat e 10 MG/5ML Morphine Sulfate 10 MG/5ML 06/12/2020 12:00:00 AM EDT 2.0 {ml_as_needed} suspended Morphine Sulfate 10 MG/5ML eCW1 ([facility]) Morphine Sulfate 2 MG/ML Oral Solution Morphine Sulfat e 10 MG/5ML Morphine Sulfate 10 MG/5ML 06/12/2020 12:00:00 AM EDT 2.0 {ml_as_needed} suspended Morphine Sulfate 10 MG/5ML eCW1 ([facility]) Morphine Sulfate 2 MG/ML Oral Solution Morphine Sulfat e 10 MG/5ML Morphine Sulfate 10 MG/5ML 06/12/2020 12:00:00 AM EDT 2.0 {ml_as_needed} active Morphine Sulfate 10 MG/5ML eCW1 ([facility]) Morphine Sulfate 2 MG/ML Oral Solution Morphine Sulfat e 10 MG/5ML Morphine Sulfate 10 MG/5ML 06/12/2020 12:00:00 AM EDT 2.0 {ml_as_needed} active Morphine Sulfate 10 MG/5ML eCW1 ([facility]) Morphine Sulfate 2 MG/ML Oral Solution Morphine Sulfat e 10 MG/5ML Morphine Sulfate 10 MG/5ML 06/12/2020 12:00:00 AM EDT 2.0 {ml_as_needed} suspended Morphine Sulfate 10 MG/5ML eCW1 ([facility]) Morphine Sulfate 2 MG/ML Oral Solution Morphine Sulfat e 10 MG/5ML Morphine Sulfate 10 MG/5ML 06/12/2020 12:00:00 AM EDT 2.0 {ml_as_needed} suspended Morphine Sulfate 10 MG/5ML eCW1 ([facility]) Morphine Sulfate 2 MG/ML Oral Solution Morphine Sulfat e 10 MG/5ML Morphine Sulfate 10 MG/5ML 06/12/2020 12:00:00 AM EDT 2.0 {ml_as_needed} suspended Morphine Sulfate 10 MG/5ML eCW1 ([facility]) Morphine Sulfate 2 MG/ML Oral Solution Morphine Sulfat e 10 MG/5ML Morphine Sulfate 10 MG/5ML 06/12/2020 12:00:00 AM EDT 2.0 {ml_as_needed} suspended Morphine Sulfate 10 MG/5ML eCW1 ([facility]) Morphine Sulfate 2 MG/ML Oral Solution Morphine Sulfat e 10 MG/5ML Morphine Sulfate 10 MG/5ML 06/12/2020 12:00:00 AM EDT 2.0 {ml_as_needed} suspended Morphine Sulfate 10 MG/5ML eCW1 ([facility]) Docusate Sodium 50 MG / sennosides, NURSING HOME 8.6 MG Oral Ta blet Senna S 8.6-50 MG Senna S 8.6-50 MG 06/10/2020 12:00:00 AM EDT active Senna S 8.6-50 MG eCW1 ([facility]) Docusate Sodium 50 MG / sennosides, NURSING HOME 8.6 MG Oral Ta blet Senna S 8.6-50 MG Senna S 8.6-50 MG 06/10/2020 12:00:00 AM EDT active Senna S 8.6-50 MG eCW1 ([facility]) Docusate Sodium 50 MG / sennosides, NURSING HOME 8.6 MG Oral Ta blet Senna S 8.6-50 MG Senna S 8.6-50 MG 06/10/2020 12:00:00 AM EDT active Senna S 8.6-50 MG eCW1 ([facility]) Docusate Sodium 50 MG / sennosides, NURSING HOME 8.6 MG Oral Ta blet Senna S 8.6-50 MG Senna S 8.6-50 MG 06/10/2020 12:00:00 AM EDT active Senna S 8.6-50 MG eCW1 ([facility]) Docusate Sodium 50 MG / sennosides, NURSING HOME 8.6 MG Oral Ta blet Senna S 8.6-50 MG Senna S 8.6-50 MG 06/10/2020 12:00:00 AM EDT active Senna S 8.6-50 MG eCW1 ([facility]) Docusate Sodium 50 MG / sennosides, NURSING HOME 8.6 MG Oral Ta blet Senna S 8.6-50 MG Senna S 8.6-50 MG 06/10/2020 12:00:00 AM EDT active Senna S 8.6-50 MG eCW1 ([facility]) Docusate Sodium 50 MG / sennosides, NURSING HOME 8.6 MG Oral Ta blet Senna S 8.6-50 MG Senna S 8.6-50 MG 06/10/2020 12:00:00 AM EDT active Senna S 8.6-50 MG eCW1 ([facility]) Docusate Sodium 50 MG / sennosides, NURSING HOME 8.6 MG Oral Ta blet Senna S 8.6-50 MG Senna S 8.6-50 MG 06/10/2020 12:00:00 AM EDT active Senna S 8.6-50 MG eCW1 ([facility]) Docusate Sodium 50 MG / sennosides, NURSING HOME 8.6 MG Oral Ta blet Senna S 8.6-50 MG Senna S 8.6-50 MG 06/10/2020 12:00:00 AM EDT active Senna S 8.6-50 MG eCW1 ([facility]) Docusate Sodium 50 MG / sennosides, NURSING HOME 8.6 MG Oral Ta blet Senna S 8.6-50 MG Senna S 8.6-50 MG 06/10/2020 12:00:00 AM EDT active Senna S 8.6-50 MG eCW1 ([facility]) Docusate Sodium 50 MG / sennosides, NURSING HOME 8.6 MG Oral Ta blet Senna S 8.6-50 MG Senna S 8.6-50 MG 06/10/2020 12:00:00 AM EDT active Senna S 8.6-50 MG eCW1 ([facility]) Morphine Sulfate 4 MG/ML Oral Solution Morphine Sulfat e 20 MG/5ML Morphine Sulfate 20 MG/5ML 06/10/2020 12:00:00 AM EDT 1.0 {ml_as_needed} active Morphine Sulfate 20 MG/5ML eCW1 ([facility]) Docusate Sodium 50 MG / sennosides, NURSING HOME 8.6 MG Oral Ta blet Senna S 8.6-50 MG Senna S 8.6-50 MG 06/10/2020 12:00:00 AM EDT active Senna S 8.6-50 MG eCW1 ([facility]) Insurance Providers Payer name Policy type / Coverage type Policy ID Covered alliance party ID Covered alliance party's relationship to quezada Policy [place] Plan Information Medicare Natl Gov't Servi Medicare Primary [id number] Self [id number] Medicare C [id number] SELF [id number] MEDICARE [id number] SP [id number] MEDICARE A [id number] Self [id number] Medicare C [id number] SELF [id number] [id number] DME Jurisdiction A [facility] C [id number] SELF [id number] Medicaid [facility] S D [id number] SELF [id number] Medicaid [facility] S D [id number] SELF [id number] MEDICAID M [id number] Self [id number] MEDICAID [id number] SP [id number] Medicare C [id number] SELF [id number] DME Jurisdiction A AKIC C [id number] SELF [id number] MEDICAID [id number] SP [id number] ANSI-Medicaid [id number] ANSI-Medicare Part B [id number] ANSI-Medicare Part B [id number] ANSI-Medicaid [id number] ANSI-Medicaid [id number] ANSI-Medicare Part B [id number] MEDICAID [id number] SP [id number] ANSI-Medicare Part B [id number] ANSI-Medicaid [id number] ANSI-Medicare Part B [id number] ANSI-Medicaid [id number] ANSI-Medicare Part B [id number] ANSI-Medicaid [id number] ANSI-Medicaid [id number] ANSI-Medicare Part B [id number] ANSI-Medicaid [id number] ANSI-Medicare Part B [id number] ANSI-Medicare Part B [id number] ANSI-Medicaid [id number] ANSI-Medicare Part B [id number] ANSI-Medicaid [id number] ANSI-Medicare Part B [id number] ANSI-Medicaid [id number] ANSI-Medicaid [id number] ANSI-Medicare Part B [id number] ANSI-Medicaid [id number] ANSI-Medicare Part B [id number] ANSI-Medicaid [id number] ANSI-Medicare Part B [id number] ANSI-Medicaid [id number] ANSI-Medicare Part B [id number] ANSI-Medicaid [id number] ANSI-Medicare Part B [id number] ANSI-Medicare Part B [id number] ANSI-Medicaid [id number] ANSI-Medicaid [id number] ANSI-Medicare Part B [id number] ANSI-Medicaid [id number] ANSI-Medicare Part B [id number] ANSI-Medicaid [id number] ANSI-Medicare Part B [id number] ANSI-Medicare Part B [id number] ANSI-Medicaid [id number] ANSI-Medicaid [id number] ANSI-Medicare Part B [id number] ANSI-Medicaid [id number] ANSI-Medicare Part B [id number] ANSI-Medicaid [id number] ANSI-Medicare Part B [id number] ANSI-Medicaid [id number] ANSI-Medicare Part B [id number] ANSI-Medicare Part B [id number] ANSI-Medicaid [id number] ANSI-Medicaid [id number] ANSI-Medicare Part B [id number] ANSI-Medicare Part B [id number] ANSI-Medicaid [id number] ANSI-Medicaid [id number] ANSI-Medicare Part B [id number] ANSI-Medicare Part B [id number] ANSI-Medicaid [id number] ANSI-Medicare Part B [id number] ANSI-Medicaid [id number] ANSI-Medicaid [id number] ANSI-Medicare Part B [id number] ANSI-Medicare Part B [id number] ANSI-Medicaid [id number] ANSI-Medicaid [id number] ANSI-Medicare Part B [id number] ANSI-Medicaid [id number] ANSI-Medicare Part B [id number] MEDICARE [id number] SP [id number] MEDICARE [id number] SP [id number] [employer] OPTIONS O [id number] S [id number] MEDICARE C [id number] S [id number] [place] [id number] [place] [id number] SP [id number] M [id number] MEDICARE [id number] SP [id number] MEDICAID -O/P [id number] MEDICARE PART A -O/P [id number] 18 [id number] EMEDNY [id number] SP [id number] MEDICARE C [id number] S [id number] MEDICAID M [id number] S [id number] [facility] O [id number] S [id number] MEDICARE PART A -O/P [id number] 18 [id number] [facility]-Medicare Part B [id number] [facility]-Medicaid [id number] [facility] [id number] [facility] [id number] Problems, Conditions, and Diagnoses Code Display Name Description Problem Type Effective Dates Data Source(s) K65394 Presence of unspecified artificial hip j oint Presence of unspecified artificial hip joint Diagnosis 05/30/2021 11:06:00 AM EDT [facility] I509 Heart failure, unspecified Heart failure, unspecified Diagnosis 05/30/2021 11:06:00 AM EDT [facility] [id number] Unspecified asthma, uncomplicated Unspecified as thma, uncomplicated Diagnosis 05/30/2021 11:06:00 AM EDT [facility] 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 Diagnosis 05/30/2021 11:06:00 AM EDT [facility] D508 Other iron deficiency anemias Other iron deficiency an emias Diagnosis 05/30/2021 11:06:00 AM EDT [facility] R42 Dizziness and giddiness Dizziness and giddiness Diagno sis 05/30/2021 11:06:00 AM EDT [facility] M19.079 [id number] Arthritis of foot Problem 01/15/2021 12:00:0 0 AM EDT eCW1 ([facility]) R27.0 04697159 Ataxia Problem 01/12/2021 12:00:00 AM ED T eCW1 ([facility]) M19.072 [id number] Arthritis of left foot Problem 0 01/12/2021 12:00:00 AM EDT eCW1 ([facility]) L29.9 [id number] Chronic pruritus Problem 09/18/2020 12:00:00 AM EST eCW1 ([facility]) Z12.11 [id number] Colon cancer screening Problem 09/18/2020 12 :00:00 AM EST eCW1 ([facility]) R63.4 92239492 Weight loss Problem 09/18/2020 12:00:[address] eCW1 ([facility]) N81.6 8570974 Rectocele Problem 06/25/2020 12:00:00 AM ES T eCW1 ([facility]) Surgeries/Procedures Procedure Description Date Indications Data Source(s) FINE NEEDLE ASPIRATION W/O IMAGING GUIDANCE 06/03/2021 12:00:00 AM EDT eCW1 ([facility]) FINE NEEDLE ASPIRATION W/O IMAGING GUIDANCE 05/13/2021 12:00:00 AM EDT eCW1 ([facility]) Medication: 2% Lidocaine intradermal 05/13/2021 12:00: 00 AM EDT eCW1 ([facility]) FINE NEEDLE ASPIRATION W/O IMAGING GUIDANCE 04/22/2021 12:00:00 AM EDT eCW1 ([facility]) FINE NEEDLE ASPIRATION W/O IMAGING GUIDANCE 04/01/2021 12:00:00 AM EDT eCW1 ([facility]) Medication: Silver Nitrate Stick topically 04/01/2021 12:00:00 AM EDT eCW1 ([facility]) FINE NEEDLE ASPIRATION W/O IMAGING GUIDANCE 03/11/2021 12:00:00 AM EDT eCW1 ([facility]) FINE NEEDLE ASPIRATION W/O IMAGING GUIDANCE 02/18/2021 12:00:00 AM EDT eCW1 ([facility]) Medication: Silver Nitrate Stick topically 02/10/2021 12:00:00 AM EDT eCW1 ([facility]) FINE NEEDLE ASPIRATION W/O IMAGING GUIDANCE 02/10/2021 12:00:00 AM EDT eCW1 ([facility]) FINE NEEDLE ASPIRATION W/O IMAGING GUIDANCE 02/03/2021 12:00:00 AM EDT eCW1 ([facility]) FINE NEEDLE ASPIRATION W/O IMAGING GUIDANCE 12/24/2020 12:00:00 AM EDT eCW1 ([facility]) FINE NEEDLE ASPIRATION W/O IMAGING GUIDANCE 12/03/2020 12:00:00 AM EDT eCW1 ([facility]) FINE NEEDLE ASPIRATION W/O IMAGING GUIDANCE 11/12/2020 12:00:00 AM EDT eCW1 ([facility]) FINE NEEDLE ASPIRATION W/O IMAGING GUIDANCE 10/22/2020 12:00:00 AM EST eCW1 ([facility]) FINE NEEDLE ASPIRATION W/O IMAGING GUIDANCE 10/01/2020 12:00:00 AM EST eCW1 ([facility]) FINE NEEDLE ASPIRATION W/O IMAGING GUIDANCE 09/10/2020 12:00:00 AM EST eCW1 ([facility]) FINE NEEDLE ASPIRATION W/O IMAGING GUIDANCE 06/16/2020 12:00:00 AM EDT eCW1 ([facility]) FINE NEEDLE ASPIRATION W/O IMAGING GUIDANCE 05/26/2020 12:00:00 AM EDT eCW1 ([facility]) Results ID Date Data Source [id number] 06/02/2021 07:46:00 AM EDT [facility] [address] [place] [address] RESPIRATORY CARE REPORT ==== ---------NAME------- NUMBER SEX AGE ADMIT DISC. XRAY# F/C DANIEL PHILLIPS [id number] F 85 05/30/21 05/30/21155327 MB4 E/R DATE OF : 1935 M/R# [id number] PH#: [phone] TR-03 LOCATION: EMERGENCY DEPT [facility] [address] COMP LETE:05/30/21 14:25 [facility] [address] PHYSICIAN: TORI Lopez Name Value Range Interpretation Code Description Data Ladi rce(s) Supporting Document(s) ID Date Data Source [id number] 06/01/2021 02:02:00 PM EDT [facility] [address] [place] [address] PHONE: [phone] FAX: [phone] Name .................. : GUME PHILLIPS Acct Number.................. : [id number] ROOM. ................. : TR-03 Number ................... : [id number] Stay type ............. : E/R Discharge Date......... ... : 05/30/21 Admit Date ......... : 05/30/21 Admit Phys .................... : TORI Lopez Date of ....... : 1935 Family Phys ................... : NO PCP Phone .................. : [phone] Age ................................ : 85 Film# .................. .:[id number] Sex ................................. : F Unsigned transcriptions are preliminary reports and do not represent a medical or legal document CT HEAD W/O CONTRAST [id number] COMPLETE:05/30/21 16:23 [facility] [id number] Reason(s): Vertigo/Dizziness CT BRAIN WITHOUT IV CONTRAST INDICATION: Vertigo, dizziness COMPARISON: None CONTRAST: None Preliminary report for this exam was provided by [facility] . One or more of the following dose reduction techniques were utilized in effectively lowering the radiation dose for this examination: Automated Exposure Control, Adjustment of the mA and/or kV according to patient size, or Iterative Reconstruction. FIN DINGS: Ventricles and sulci moderately enlarged. Linear group of small benign- appearing calcifications along the anterior left ventricular margin. No adjacent mass effect or abnormal attenuation. Mild periventricular low attenuation elsewhere likely chronic ischemic small vessel change. No extra-axial collection or intracranial hemorrhage. No indication of acute or prior ischemic CVA. No mass or mass effect. Calvarium and skull base are within normal limits. Left maxillary sinus mucosal thickening. Bilateral antrectomies. IMPRESSION: Age compatible atrophy and likely chronic ischemic small vessel change. Small calcifications along left lateral ventricle anterior margin likely benign dystrophic calcification. No acute intracranial abnormality. Incidental chronic sinusitis and postoperative sinus changes. [address] 2 [place] [address] PHONE: [phone] FAX: [phone] Name .................. : GUME PHILLIPS Acct Number.................. : [id number] ROOM. ................. : TR-03 MR Number ................... : [id number] Stay type ............. : E/R Discharge Date......... ... : 05/30/21 Admit Date ......... : 05/30/21 Admit Phys .................... : TORI Lopez Date of ....... : 1935 Family Phys ................... : NO PCP Phone .................. : [phone] Age ................................ : 85 Film# .................. .:[id number] Sex ................................. : F Unsigned transcriptions are preliminary reports and do not represent a medical or legal document CT HEAD W/O CONTRAST [id number] COMPLETE:05/30/21 16:23 [facility] [id number] Reason(s): Vertigo/Dizziness Electronically Reviewed and Signed By Gunnar Bray MD , 06/01/21 14:02, [facility] Transcribe Initials: DZ , Transcribe Date: 05/30/21 22:12, Dictation Date: Copy for: EMERGENCY DEPT via modem Copy for: 710 MED REC DISCHARGED Page 2 of 2 Name Value Range Interpretation Code Description Data Ladi rce(s) Supporting Document(s) ID Date Data Source [id number] 06/01/2021 01:58:00 [place] [address] PHONE: [phone] FAX: [phone] Name .................. : GUME PHILLIPS Acct Number.................. : [id number] ROOM. ................. : TR-[id number] MR Number ................... : [id number] Stay type ............. : E/R Discharge Date......... ... : 05/30/21 Admit Date ......... : 05/30/21 Admit Phys .................... : TORI Lopez Date of ....... : 1935 Family Phys ................... : NO PCP Phone .................. : [phone] Age ................................ : 85 Film# .................. .:[id number] Sex ................................. : F Unsigned transcriptions are preliminary reports and do not represent a medical or legal document CHEST PORTABLE [id number] COMPLETE:05/30/21 16:23 GILMER [id number] Reason(s): Shortness of Breath PORTABLE CHEST SINGLE VIEW 11:46 AM HISTORY: Shortness of breath COMPARISON: None. FINDINGS: No mediastinal or hilar masses. Heart size within normal limits. No pneumonia or edema. Large irregular calcific densities over the upper lungs bilaterally most likely representing calcified pleural plaques. Elevated right hemidiaphragm. No pleural effusions or pneumothorax. Clips over right upper quadrant. IMPRESSION: Irregular densities likely representing calcified pleural plaques.. Elevated right hemidiaphragm. Electronically Reviewed and Signed By Gunnar Brya MD , 06/01/21 13:58, SCB Transcribe Initials: SHY , Transcribe Date: 05/30/21 22:10, Dictation Date: Copy for: EMERGENCY DEPT via modem Copy for: 710 MED REC DISCHARGED Page 1 of 1 Name Value Range Interpretation Code Description Data Ladi rce(s) Supporting Document(s) ID Date Data Source [id number] 05/30/2021 11:06:00 AM EDT [facility] 1 OrderSheet [facility] Emergency Department [address] [place] [address] Phone #: ext- [phone] 05/30/2021 11:04 Patient: JACQUELINE DUNAWAY Sex: F : 1935 Age: 85yWEIGHT:57.2 kg (M) HEIGHT:65 inches (E) BMI:21.0ALLERGIES: PulmicortCHIEF COMPLAINT: dizzinessDIAGNOSIS: Anemia, Dizziness, Ventricular premature complexLAB ORDERSOrder Description Priority Entered Acknowledged InitialedCMP STAT 11:24 05/30 11:27 Tori Perez Jack ; Deborah JonesCBC w Diff STAT 11:24 05/30/2021 11:27 Tori Perez Jack ; Jennifer R.N.Type and Screen STAT 11:24 05/30/2021 11:27 Tori Perez Jack ; Jennifer R.N.Troponin-T STAT 11:24 05/30/2021 11:27 Tori Perez Jack ; Jennifer R.N.Magnesium STAT 11:28 05/30/2021 11:29 Tori Perez Jack ; Jennifer R.N.Occult Blood Stool 14:10 05/30/2021 14:15 Carrington,Diagnostic 1 slide Justin Purcell ; Ava JonesDIAGNOSTIC STUDY ORDERSOrder Description Priority Entered Acknowledged InitialedChest Portable 1 STAT 11:24 05/30/2021 Ack'd: 11:27 11:31 Ranjana Perez Jack ; Deborah Perez R.N.(Oxygen?(No)) Robert Reason for Study: Shortness of BreathCT Head W/O Cont STAT 11:24 05/30/2021 Ack'd: 11:27 11:41 Ana(Oxygen?(No)) Justin Purcell ; Deborah Perez R.N., R.N. Reason for Study: Vertigo/DizzinessMEDICATION/IV/DRIP/FLUID ORDERSOrder Description Priority Entered Acknowledged InitialedGENERAL ORDERSOrder Description Priority Entered Acknowledged In itialed 2 OrderSheet [facility] Emergency Department [address] [place] [address] Phone #: [phone] 05/30/2021 11:04 Patient: JACQUELINE DUNAWAY Sex: F : 1935 Age: 85yEKG 11:24 05/30/2021 11:27 Tori Perez Jack ; Deborah Jones[Electronically signed by Deborah Perez R.N. (15:22 05/30/2021)][Electronically signed by Justin Purcell (15:57 05/30/2021)][Electronically locked by Deborah Perez R.N. (15:22 05/30/2021)] Name Value Range Interpretation Code Description Data Ladi rce(s) Supporting Document(s) ID Date Data Source [id number] 05/30/2021 11:06:00 AM EDT [facility] 1 Medication Reconciliation Report [facility] Emergency Department [address] [place] [address] Phone #: ext- [phone] 05/30/2021 11:04 Patient: JACQUELINE DUNAWAY Sex: F : 1935 Age: 85yWeight: 57.2 kgHeight/Length: 65 in.BMI: 21.0ALLERGIES: PulmicortThe patient's Home Medications are listed below:CONTINUE TAKING THE FOLLOWING MEDICATIONS: Boost Oral Doxycycline Oral unknown dose, 2x a day Flovent Diskus Inhalation 2 puffs, 2x a day Levothyroxine Sodium Oral 88 mcg, daily MiraLax Oral 1 packet, daily Salmeterol Xinafoate Inhalation 1 puff, daily Senna S Oral (8.6-50 mg) 2 tablets, dailyThe source(s) of the original Home Medication information:patientThe following Medications were given to the patient in the Emergency Department:None.The following Medications were prescribed to the patient:None. Name Value Range Interpretation Code Description Data Ladi [facility](s) Supporting Document(s) ID Date Data Source [id number] 05/30/2021 11:06:00 AM EDT [facility] 1 Medication Administration Record [facility] Emergency Department [address] [place] [address] Phone #: ext- [phone] 05/30/2021 11:04 Patient: JACQUELINE DUNAWAY Sex: F : 1935 Age: 85yWeight: 57.2 kgHeight/Length: 65 inBMI: 21ALLERGIES: PulmicortDate/Time Medication Administered Medication Ordered Name Value Range Interpretation Code Description Data Ladi [facility](s) Supporting Document(s) ID Date Data Source [id number] 05/30/2021 11:06:00 AM EDT [facility] 1 General Instructions [facility] Emergency Department [address] [place] [address] Phone #: ext- [phone] 05/30/2021 11:04 Patient: JACQUELINE DUNAWAY Sex: F : 1935 Age: 85yEpisodic dizzinessModerate chronic iron deficiency anemia. No iron deficiency anemia from chronic blood loss.Occasional PVC's.INSTRUCTIONSWarnings: Further evaluation is necessary.GENERAL WARNINGS: Return or contact your physician immediately if your condition worsens orchanges unexpectedly, if not improving as expected, or if other problems arise.Your Current Medications: Your current home medications have been reviewed.CONTINUE TAKING THE FOLLOWING MEDICATIONS:Boost Oral.Doxycycline Oral : unknown dose 2x a day.Flovent Diskus Inhalation : 2 puffs 2x a day.Levothyroxine Sodium Oral : 88 mcg daily.MiraLax Oral : 1 packet daily.Salmeterol Xinafoate Inhalation : 1 puff daily.Senna S Oral : Tablet 8.6-50 mg, 2 tablets daily.Follow-up:Follow up with your healthcare provider.Understanding of the discharge instructions verbalized by patient. ADDITIONAL INFORMATIONDizziness (Uncertain Cause)Dizziness is a common symptom. It may be described as lightheadedness, spinning, or feeling likeyou are going to faint. Dizziness can have many causes.Tell the healthcare provider about: All medicines you take, including prescription, fpiu-fwr-xumozmj, herbs, and supplements Any other symptoms you have 2 General Instructions [facility] Emergency Department [address] [place] [address] Phone #: ext- [phone] 05/30/2021 11:04 Patient: JACQUELINE DUNAWAY Sex: F : 1935 Age: 85y Any health problems you are being treated for Any past major health problems you've had, such as a heart attack, balance issues, hearing problems, or blood pressure problems Anything that causes the dizziness to get worse or betterToday's exam did not show an exact cause for your dizziness . Other tests may be needed. Follow upwith your healthcare provi eugenio.Home care Dizziness that occurs with sudden standing may be a sign of mild dehydration. Drink extra fluids for the next few days. If you recently started a new medicine, stopped a medicine, or had the dose of a current medicine changed, talk with the prescribing healthcare provider. Your medicine plan may need adjustment. If dizziness lasts more than a few seconds, sit or lie down until it passes. This may help prevent injury in case you pass out. Get up slowly when you feel better. Don't drive or use power tools or dangerous equipment until you have had no dizziness for at least 48 hours.Follow-up careFollow up with your healthcare provider for further evaluation in the next 7 days, or as advised.When to get medical adviceCall your healthcare provider for any of the following: Worsening of symptoms or new symptoms Repeated vomiting Headache Vision or hearing changesCall 911Call 911, or get medical care right away if any of these occur: Chest, arm, neck, back, or jaw pain Weakness of an arm or leg or one side of the face 3 General Instructions [facility] Emergency Department [address] [place] [address] Phone #: ext- [phone] 05/30/2021 11:04 Patient: [id number] Sex: F : 1935 Age: 85y Blood in vomit or stool (black or red color) Shortness of breath Feeling that your heart is fluttering or beating fast or hard (palpitations) Passing out or seizure Trouble walking or speaking [id number] [employer] [place] [address]. All rights reserved. This information is not intended as asubstitute for professional medical care. Always follow your healthcare professional's instructions.Anemia, Type Not Specified (Adult)Red blood cells carry oxygen to the tissues of your body. Anemia is a condition in which you have toofew red blood cells. You need iron to make red blood cells. The most common cause of ane stacy is nothaving enough iron. This may be because of: Loss of blood. This can be caused by heavy menstrual periods. It can also be caused by bleeding from the stomach or intestines. Poor diet. You may not be eating enough foods that contain iron.Other causes of anemia include certain vitamin deficiencies, chronic kidney disease, and otherchronic illnesses.Anemia makes you feel tired and run down. When anemia becomes severe, your skin becomes pale.You may feel short of breath after physical activity. Other symptoms include: Headaches Dizziness Leg cramps with physical activity DrowsinessHome careFollow these guidelines when caring for yourself at home: Don't overexert yourself. Talk with your healthcare provider before traveling by air or traveling to high altitudes.Follow-up careFollow up with your healthcare provider, or as advised. You may need other blood tests to find out the 4 General Instructions [facility] Emergency Department [address] [place] [address] Phone #: ext- [phone] 05/30/2021 11:04 Patient: JACQUELINE DUNAWAY Sex: F : 1935 Age: 85yexact cause of your anemia. If you had testing done today, it may take several days to get all of theresults. You can follow up with your own healthcare provider to get the results.Call [address] [place] [address] or get immediate medical care if any of the following occur: Shortness of breath or chest pain Dizziness or fainting gets worse Vomiting blood or passing red or black-colored stool [employer]. [address] [place] [address], [place] [address]. All rights reserved. This information is not intended as asubstitute for professional medical care. Always follow your healthcare professional's instructions.Heart PalpitationsPalpitations are the feeling that your heart is beating hard, fast, or irregular. Some describe it as"pounding," "flip-flopping in the chest," or "skipped beats." Palpitations may occur in someone withheart disease. But they can also occur in a healthy person. 5 General Instructions [facility] Emergency Department [address] [place] [address] Phone #: ext- [phone] 05/30/2021 11:04 Patient: JACQUELINE DUNAWAY Sex: F : 1935 Age: 85yHeart-related causes: Heart rhythm problem (arrhythmia) Heart valve disease Disease of the heart muscle (cardiomyopathy) Coronary artery disease High blood jwxuogiiQjt-euhmj-hupygez causes: Certain medicines such as asthma inhalers and decongestants Some herbal supplements, energy drinks and pills, and weight loss pills Illegal stimulant drugs such as cocaine, crank, methamphetamine, PCP, bath salts, and ecstasy Caffeine, alcohol, and tobacco Health conditions such as thyroid disease, anemia, anxiety, and panic disorderSometimes the cause can't be found.Home careFollow these home care tips: Don't use too much caffeine, alcohol, or tobacco, or any stimulant drugs. Tell your doctor about any prescription or tqzn-spb-gergnlq or herbal medicines you take.Follow-up care Follow up with your doctor, or as advised.Call 911This is the fastest and safest way to get to the emergency department. The paramedics can also starttreatment on the way to the hospital, if needed.Don't wait until your symptoms are severe to call 911. These are reasons to call 911: Chest pain Shortness of breath 6 General Instructions [facility] Emergency Department [address] [place] [address] Phone #: ext- [phone] 05/30/2021 11:04 Patient: JACQUELINE DUNAWAY Sex: F : 1935 Age: 85y Feeling lightheaded, faint, or dizzy, or losing consciousness Very irregular heartbeat Rapid heartbeat that makes you uncomfortable Slower than usual heart rate along with symptoms Chest pain with weakness, dizziness, heavy sweating, nausea, or vomiting Extreme drowsiness, confusion, or weakness Weakness of an arm or leg, or on one side of the face Trouble with speech or visionWhen to seek medical adviceCall your healthcare provider right away if you have palpitations that last longer than normal, or aredifferent from your past palpitations. [id number] [employer] [place] [address]. All rights reserved. This information is not intended as asubstitute for professional medical care. Always follow your healthcare professional's instructions. You have been given the following additional information: Dizziness, Uncertain Cause Anemia, Type Not Specified (Adult) Palpitations(Electronically signed by Justin Purcell 05/30/2021 15:57) Name Value Range Interpretation Code Description Data Ladi rce(s) Supporting Document(s) ID Date Data Source [id number] 05/30/2021 11:06:00 AM EDT [facility] 1 Clinical Report - Nurses [facility] Emergency Department [address] [place] [address] Phone #: [phone]- [phone] 05/30/2021 11:04 Patient: JACQUELINE DUNAWAY Sex: F : 1935 Age: 85yTRIAGEArrived by EMS. Historian: EMS and patient. Unaccompanied.Triage time: 11:07 05/30/2021. Acuity: LEVEL 3.Chief Complaint: DIZZINESS.Alert. No acute distress.This started 3 weeks ago. ( EMS noted several PVCs on the way here. Pt took Zofran this am with n oeffect. Pt has taken Doxy for the last 5 yrs. Pt has had dizziness for 3 weeks. Pts heart rate has variedfrom 42-135 today during vital signs with home health aide. Pt contacted her PCP on regarding this.Pt feels nausea but doesn't want to vomit.). She has had nausea and trouble walking.Treatment GRAPHIC USER INTERFACE DESIGNER:None.SEPSIS SCREEN: SIRS SCREEN NEGATIVE. SEPSIS SCREEN NEGATIVE. No suspected or confirmedsigns of infection present.GLA OW COMA SCORE: 15- eyes open- spontaneous (4); best verbal response- oriented (5); bestmotor response- obeys commands (6). --11:15 05/30/21 Ava Carrington R.N.11:07 05/30/21. BP: 148/90. MAP: 109. HR: 82. RR: 18. O2 saturation: 97% on room air. Temp: 97.8 F(oral). Pain level now: 0. --11:15 05/30/21 Ava Carrington R.N.Weight: 57.2 kg measured. Height/Length: 65 inches Estimated. BMI: 21. --11:06 05/30/21 Ava Carrington R.N.MedicationsDoxycycline Oral unknown dose, 2x a day. --11:22 05/30/21 Deborah Perez R.N. Levothyroxine Sodium Oral 88 mcg, daily. --11:23 05/30/21 Deborah Perez R.N. Salmeterol Xinafoate Inhalation 1 puff, daily. --11:23 05/30/21 Deborah Perez R.N. Flovent Diskus Inhalation 2 puffs, 2x a day. --11:23 05/30/21 Deborah Perez R.N. Senna S Oral (Tablet 8.6-50 mg) 2 tablets, daily. --11:24 05/30/21 Deborah Perez R.N. MiraLax Oral 1 packet, daily. --11:24 05/30/21 Deborah Perez R.N. Boost Oral. --11:24 05/30/21 Deborah Perez R.N.AllergiesPulmicort. 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 --11:25 05/30/21 Deborah Perez R.N.Medication/allergy information source: the patient. --11:15 05/30/21 Ava Carrington R.N.ADDITIONAL SURGERIES:Appendectomy.Cholecystectomy.Hip Surgery.Hysterectomy. --11:18 05/30/21 Ava Carrington R.N.HistorySOCIAL HX: Never smoker. No alcohol use or drug use. She was offered HIV testing but declined.Patient education was provided. She was offered hepatitis C testing but declined. Patient education wasprovided. She has not traveled outside the [place]Infectious disease exposure: No infectious disease exposure. (COVID screen negative, pt was vaccinatedfor COVID). Patient is not a known carrier of tuberculosis, hepatitis, HIV, MRSA or VRE. Patient is not aknown carrier of CRE.SELF HARM ASSESSMENT: Self harm assessment was performed. The patient answered "no" to thequestion(s) "Do you have thoughts of harming or killing yourself?", "Do you have a plan for harming orkilling yourself?" and "Have you recently had thoughts about harming or killing others?".ABUSE ASSESSMENT: Abuse assessment. The patient had positive responses to the question(s) "Do youfeel safe in your home?" (yes). Abuse denied. No suspicion of abuse. No report of abu se.NUTRITIONAL RISK ASSESSMENT: The nutritional risk assessment revealed no deficiencies.FUNCTIONAL ASSESSMENT: Functional assessment: no impairments noted.LEARNING NEEDS ASSESSMENT: The learning needs assessment revealed no barriers.FALL RISK ASSESSMENT: Fall risk assessment completed. Risk factors identified include dizziness andpatient medications, age greater than 65 years and history of fall. Fall interventions initiated. Side rails upx2. Patient identified as a fall risk by chart flagged. Call light in reach of patient. Instructed not to get upwithout assistance. Instructions given to patient.SKIN INTEGRITY ASSESSMENT: Skin integrity risk assessment completed. No skin integrity riskidentified. --11:15 05/30/21 Ava Carrington R.N.FAMILY HX:(non- contributory). --11:30 05/30/21 Justin Purcell.InterventionsIdentification band on patient. --11:05/30/21 Ava Carirngton R.N. 3 Clinical Report - Nurses [facility] Emergency Department [address] [place] [address] Phone #: ext- [phone] 05/30/2021 11:04 Patient: JACQUELINE DUNAWAY Sex: F : 1935 Age: 85yPHYSICAL ASSESSMENTTo room via stretcher. Patient gowned.GENERAL / NEURO / PSYCH: Oriented X 4. Appears anxious. Alert. Speech within normal limits. (Pt gets tearful at times when talking about symptoms as she states "i'm dizzy but not dizzy and i'mnauseous but not like i might throw up and i can't make anyone understand";).HEENT: No facial asymmetry noted. Pupils equal, round and reactive to light.RESPIRATORY: Breath sounds within normal limits. Respirations not labored.CVS: Cardiac rhythm: PVCs (70's-80's with frequent PVC's).GI / : The patient has had intermittent episodes of nausea (denies currently). Abdomen soft andnontender.SKIN: Skin is warm and dry. Skin is pale. --11:27 05/30/21 Deborah Perez R.N.NURSING PROGRESS NOTES11:05/30/2021 Site #1 started prior to arrival by EMS via IV in the left forearm with an 20g angiocath,with aseptic technique and good blood return. --11:22 05/30/21 Deborah Perez R.N. late entry - 11:11 05/30/21. nuclear monitoring technician, NIBP monitor and pulse oximeter placed on patient; monitoring specialist- Lead II; monitor alarms on; monitor strip added to paper chart. Patient gowned. Reassurance given. Three patient identifiers checked. Call light placed in reach. Side rails up x 2. Bed placed in lowest position. Brakes of bed on. Patient ready for evaluation- ED physician notified. --11:05/30/21 Deborah Perez R.N. EKG time: (late entry - 11:05 05/30/2021). EKG was ordered, performed by a nurse and shown to the ED physician. --11:22 05/30/21 Deborah Perez R.N. 11:27 05/30/21. BP: 148/79. HR: 84. RR: 16. O2 saturation: 99%. --11:27 05/30/21 Deborah Perez R.N. Portable chest x-ray completed. --11:31 05/30/21 Deborah Perez R.N. Patient transported to CT by stretcher with mask and master fire control technician. --11:42 05/30/21 Deborah Perez R.N. Patient returned from CT by stretcher with mask and master fire control technician. --11:50 05/30/21 Deborah Perez R.N. Rounding: Pain: assessed pain level. Proximity of possessions / care items: call light within easy reach. Plug ins: checked status of equipment in use; located all cords, tubes, and lines to prevent fall hazard. Set expectations: advised patient of rounding protocol timing and asked if they needed anything else at this time. The patient is calm and resting quietly. Overall patient status is the same- she states feels the same. ( Pt has intermittent episodes of this "nausea and dizziness" but states it is not "nausea and dizziness"; Pt gets very frustrated when attempting to describe symptoms; Otherwise pt condition unchanged, NAD). 4 Clinical Report - Nurses [facility] Emergency Department [address] [place] [address] Phone #: ext- [phone] 05/30/2021 11:04 Patient: JACQUELINE DUNAWAY Sex: F : 1935 Age: 85y GENERAL / NEURO / PSYCH: The patient reports anxiety. Denies headache. Alert. Oriented X 4. RESPIRATORY: No respiratory distress. CVS: Cardiac rhythm: normal sinus rhythm; unifocal PVCs. --12:02 05/30/21 Deborah Perez R.N. 12:01 05/30/21. BP: 143/76. HR: 73. RR: 16. O2 saturation: 97%. --12:02 05/30/21 Deborah Perez R.N. late entry - 13:00 05/30/21. Reassessment acuity: LEVEL 3. Rounding: Pain: assessed pain level. Position: states comfortable. Proximity of possessions / care items: call light within easy reach. Plug ins: checked status of equipment in use; located all cords, tubes, and lines to prevent fall hazard. Set expectations: advised patient of rounding protocol timing and asked if they needed anything else at this time. The patient reports no complaints and she is calm and resting quietly. Overall patient status is the same- she states feels the same. ( Pt talks very fast and asked many questions and appears quite anxious, otherwise pt stable, NAD; Pt stood and pivoted to commode with 1 assist and tolerated well.). GENERAL / NEURO / PSYCH: The patient reports anxiety. Alert. Oriented X 4. RESPIRATORY: No respiratory distress. --15:20 05/30/21 Deborah Perez R.N. late entry - 14:00 05/30/21. Reassessment acuity: LEVEL 3. Rounding: Pain: assessed pain level. Position: states comfortable. Proximity of possessions / care items: call light within easy reach. Plug ins: checked status of equipment in use; located all cords, tubes, and lines to prevent fall hazard. Set expectations: advised patient of rounding protocol timing and asked if they needed anything else at this time. The patient reports no complaints and she is calm and resting quietly. Overall patient status is the same- she states feels the same. ( stool for charlie obtained by ). --15:05/30/21 Deborah Perez R.N.DISPOSITION / DISCHARGE Departure time: late entry - 14:14 05/30/2021. Condition at departure: improved and stable. No learning barriers present. Discharge instructions provided and reviewed with the patient. Reviewed warnings (please see paper copy). Patient verbalized understanding. Written instructions provided in Rwandan. The patient was discharged by the physician. She was discharged home and accompanied by family. She left in a wheelchair and via private vehicle. Family member driving (daughter). --15:05/30/21 Deborah Perez R.N. 14:14 05/30/21. BP: 137/74. MAP: 95. HR: 79. RR: 18. O2 saturation: 97% on room air. Temp: 98.7 F (oral). Pain level now: 0/10. --15:22 05/30/21 Deborah Perez R.N. ( please see paper copy for full list of VS). --15:05/30/21 Deborah Perez R.N. 14:00 05/30/2021 Site #1 removed upon discharge. Bandage applied (2x2 and tape, pt tolerated well, clean dry and intact upon d/c.). --15:05/30/21 Deborah Perez R.N. 5 Clinical Report - Nurses [facility] Emergency Department [address] [place] [address] Phone #: ext- [phone] 05/30/2021 11:04 Patient: JACQUELINE DUNAWAY Sex: F : 1935 Age: 85yLocked/Released at 05/30/2021 15:22 by Deborah Perez R.N. Name Value Range Interpretation Code Description Data Ladi rce(s) Supporting Document(s) ID Date Data Source [id number] 05/30/2021 11:06:00 AM EDT [facility] 1 Clinical Report - Physicians/Mid Levels [facility] Emergency Department [address] [place] [address] Phone #: ext- [phone] 05/30/2021 11:04 Patient: JACQUELINE DUNAWAY Sex: F : 1935 Age: 85y Time Seen: 11:22 05/30/2021. Arrived- By ambulance. Historian- patient.HISTORY OF PRESENT ILLNESS Chief Complaint: DIZZINESS. This started 3 weeks and is still present. It has been constant and waxing/waning. Not described as a sense of rotation, movement, falling or confusion. Not described as feeling off balance or weak all over. Described as feeling light-headed. Severity described as moderate at its maximum. When seen in the E.D., severity described as moderate. Modifying factors. Not worsened by anything. The patient has had nausea. No vomiting, hearing loss, tinnitus or ear pain. (Patient states she feels like she's going to pass out for weeks. Nauseated at times. She has not passed out. She complains she can't get any answers from her PCP or Scientologist. No new medications, palpitations or chest pain. History of "bowel problems" and constipation but no rectal bleeding.). Similar symptoms previously. Recent medical care: Not recently seen/assessed.REVIEW OF SYSTEMSNo headache, double vision, head injury, chest pain or palpitations. No black stools, numbness, fever,sore throat or cough. No abdominal pain, diarrhea, enlarged lymph nodes, joint pain or weight loss. Nonumbness or diabetic symptoms. The patient has had difficulty walking. She has had nausea anddizziness. All other systems reviewed and are negative.PAST HISTORYSee nurses notes. Has not had GI bleeding. Problems: Congestive Heart Failure. Anemia. 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 Additional Surgeries: Appendectomy. Cholecystectomy. Hip Surgery. Hysterectomy. Medications: Boost Oral. MiraLax Oral 1 packet, daily. 2 Clinical Report - Physicians/Mid Levels [facility] Emergency Department [address] [place] [address] Phone #: ext- [phone] 05/30/2021 11:04 Patient: JACQUELINE DUNAWAY Sex: F : 1935 Age: 85y Senna S Oral (Tablet 8.6-50 mg) 2 tablets, daily. Flovent Diskus Inhalation 2 puffs, 2x a day. Salmeterol Xinafoate Inhalation 1 puff, daily. Levothyroxine Sodium Oral 88 mcg, daily. Doxycycline Oral unknown dose, 2x a day. Allergies: Pulmicort.SOCIAL HISTORYNever smoker. No alcohol use.FAMILY HISTORY(non-contribu tory).ADDITIONAL NOTESThe nursing notes have been reviewed.PHYSICAL EXAMVital Signs: 05/30/2021 11:07 BP: 148/90. MAP: 109. HR: 82. RR: 18. O2 saturation: 97% on room air.Temp: 97.8 F. Pain level now: 0/10.Appearance: Alert. No acute distress.Eyes: Pupils equal, round and reactive to light. No nystagmus. Extraocular movements normal.ENT: Moist mucous membranes. Pharynx normal.Neck: Neck supple.CVS: Normal heart rate and rhythm. Heart sounds normal. Pulses normal.Respiratory: No respiratory distress. Painless inspiration.Abdomen: Nontender.Back: Normal inspection.Rectal: Light brown stool.Skin: Skin warm and dry. Pallor. (two opening wound over right lateral hip is without induration).Extremities: No lower extremity edema. (right leg is shortened).Neuro: Alert. Oriented X 3. Speech normal. Cranial nerves normal (as tested). No cerebellar findings.No motor deficit. No sensory deficit.LABS, X- RAYS, AND EKGEKG: EKG time: 11:05 05/30/2021. No acute ischemia. Rate: 80. Occasional ectopic beats. Consistentwith premature ventricular contractions. Normal DARRICK. Normal QRS complex. Normal axis. Normal STand T waves and QT. Prior EKG unavailable. The study has been interpreted contemporaneously byme. Interpr etation time: 11:05/30/2021.CT Head: No acute changes. There is atrophy is present. No intracranial mass or infarction. The studywas interpreted by the radiologist.Laboratory Tests: Occult Blood Stool Diagnostic 1 slide: (ZOLTAN: 05/30/2021 14:20) ( MsgRcvd 05/30/2021 14:49) Final results 3 Clinical Report - Physicians/Mid Levels [facility] Emergency Department [address] [place] [address] Phone #: [phone] 05/30/2021 11:04 Patient: JACQUELINE DUNAWAY Sex: F : 1935 Age: 85y Test Result Flag Units (Reference) OCCULT BLOOD NEGATIVE (NORMAL: NEGAT OCCULT BLOOD REENTER NEGATIVE (NORMAL: NEGAT { HEMOCCULT LOT # [id number] ){ LOT EXP [id number] ){ PROCEDURAL CONTROL POS/NEG VALID)Direct Heath: (ZOLTAN: 05/30/2021 12:12) ( MsgRcvd 05/30/2021 15:49) Final results Test Result Flag Units (Reference) DIR HEATH POSITIVE A (NORMAL: NEGAT { DIR HEATH RE-ENTER POSITIVE (NORMAL: NEGATIVE )Magnesium: (ZOLTAN: 05/30/2021 12:12) ( MsgRcvd 05/30/2021 13:12) Final results Test Result Flag Units (Reference) MAGNESIUM 1.7 MG/DL (1.7 - 2.2)CMP: (ZOLTAN: 05/30/2021 12:12) ( MsgRcvd 05/30/2021 13:24) Final results Test Result Flag Units (Reference) COMPREHENSIVE METABOLIC PANEL COMPREHENSIVE METABOLIC PANEL SODIUM 140 mEq/L (134 - 153) POTASSIUM 4.5 mEq/L (3.6 - 5.0) CHLORIDE 102 mEq/L (98 - 107) CO2 27 MEQ/L (22 - 30) GLUCOSE 95 MG/DL (70 - 99) BUN 15 MG/DL (7 - 21) CREATININE 0.7 MG/DL (0.7 - 1.5) BUN/CREAT 21 (8 - 27) TOTAL PROTEIN 6.9 G/DL (6.3 - 8.2) ALBUMIN 3.2 L G/DL (3.9 - 5.0) GLOBULIN 3.7 H GM/DL (2.4 - 3.2) A/G RATIO 0.9 (0.8 - 2.0) CALCIUM 9.2 MG/DL (8.4 - 10.2) TOTAL BILI <0.7 MG/DL (0.2 - 1.3) ALKALINE PHOS 77 U/L (38 - 126) SGOT/AST 13 U/L (5 - 40) SGPT/ALT 5 L U/L (7 - 56) ANION GAP 11.0 mmol/L (8.0 - 16.0) AGE 85 yrs NON-AA GFR >60 mL/min AFR AMER GFR >60 Male GFR Interprentation 20-49 yrs >60 mL/min Uhrwkc77-80 yrs >56 mL/min Normal 60-69 yrs >49 mL/min Normal 70-79yrs>42 mL/min Normal 80 and above >35 mL/min Normal Female GFRInterpretation 20-39 yrs >60 mL/min Normal 40-49 yrs >58 mL/minNormal 50- 59 yrs >51 mL/min Normal 60-69 yrs >45 mL/min Derlyq12-90 yrs >39 mL/min Normal 80 and above >32 mL/min NormalCBC w Diff: (ZOLTAN: 05/30/2021 12:12) ( MsgRcvd 05/30/2021 12:43) Final results Test Result Flag Units (Reference) CBC W/AUTOMATED DIFF COMPLETE BLOOD COUNT WBC 4.3 10/uL (4.2 - 11.0) 4 Clinical Report - Physicians/Mid Levels [facility] Emergency Department [address] [place] [address] Phone #: ext- [phone] 05/30/2021 11:04 Patient: JACQUELINE DUNAWAY Sex: F : 1935 Age: 85y RBC 3.89 L 10/uL (4.20 - 5.40) HEMOGLOBIN 8.8 L g/dL (12.0 - 16.0) HEMATOCRIT 29.1 L % (37.0 - 47.0) MCV 74.8 L fL (81.0 - 101) MCH 22.6 L pg (27.0 - 34.0) MCHC 30.2 L g/dL (31.0 - 36.0) RDW 17.9 H % (11.5 - 14.5) PLATELETS 415 10/uL (150 - 450) MPV 9.9 fL (7.4 - 10.4) NEUT 79.1 % (37.0 - 80.0) LYMPH 10.1 L % (25.0 - 40.0) MONO 8.0 % (3.0 - 8.0) EOS 1.4 % (0.0 - 7.0) BASO 0.9 % (0.0 - 2.5) %IG 0.5 H % (0.0 - 0.0) %NRBC 0.0 % (0.0 - 0.0) #NEUT 3.38 10/uL (2.00 - 6.90) #LYMPH 0.43 L 10/uL (0.60 - 3.40) #MONO 0.34 10/uL (0.00 - 0.90) #EOS 0.06 10/uL (0.00 - 0.70) #BASO 0.04 10/uL (0.00 - 0.20) #IG 0.02 10/uL (0.00 - 0.10) #NRBC 0.00 10/uL (0.00 - 0.00) MANUAL DIFF NOT INDICATED RBC MORPH NOT INDICATED Type and Screen: (ZOLTAN: 05/30/2021 12:12) ( [facility] 05/30/2021 14:38) Final results Test Result Flag Units (Reference) ABO GROUP O RH TYPE POSITIVE AB SCREEN POSITIVE A (NORMAL: NEGAT { ABO/RH REENTER O POSITIVE{ AB SCREEN RE-ENTER POSITIVE Troponin-T: (ZOLTAN: 05/30/2021 12:12) ( [facility] 05/30/2021 13:24) Final results Test Result Flag Units (Reference) TROPONIN T 0.02 NG/ML (0.00 - 0.10) TROPONIN T0.1 ng/ml Recommended as the clinical threshold value Christ Connor.PROGRESS AND PROCEDURESCourse of Care: 11:33 05/30/21. Vital signs stable aside from slightly elevated BP. PVC's seen on cardiacmonitor. Its unclear if her complaints are chronic. Will check for electrolyte abnormalities 14:12 05/30/21. Blood pressure is 135/70 with a pulse of 80. The patient's symptoms may be secondary to anemia. However she even complained of lightheadedness with laying flat at rest. Patient had a colonoscopy in past that was reportedly normal. Patient/family counseled. Disposition: Discharged. Condition: stable. 5 Clinical Report - Physicians/Mid Levels [facility] Emergency Department [address] [place] [address] Phone #: ext- [phone] 05/30/2021 11:04 Patient: JACQUELINE DUNAWAY Sex: F : 1935 Age: 85yCLINICAL IMPRESSION Episodic dizziness Moderate chronic iron deficiency anemia. No iron deficiency anemia from chronic blood loss. Occasional PVC's.INSTRUCTIONS Warnings: Further evaluation is necessary. GENERAL WARNINGS: Return or contact your physician immediately if your condition worsens or changes unexpectedly, if not improving as expected, or if other problems arise. Your Current Medications: Your current home medications have been reviewed. CONTINUE TAKING THE FOLLOWING MEDICATIONS: Boost Oral. Doxycycline Oral : unknown dose 2x a day. Flovent Diskus Inhalation : 2 puffs 2x a day. Levothyroxine Sodium Oral : 88 mcg daily. MiraLax Oral : 1 packet daily. Salmeterol Xinafoate Inhalation : 1 puff daily. Senna S Oral : Tablet 8.6-50 mg, 2 tablets daily. Follow-up: Follow up with your healthcare provider. Understanding of the discharge instructions verbalized by patient.(Electronically signed by Justin Purcell 05/30/2021 15:57) Name Value Range Interpretation Code Description Data Ladi rce(s) Supporting Document(s) ID Date Data Source [id number] 05/30/2021 02:49:00 PM EDT [facility] Name Value Range Interpretation Code Description Data [facility] rce(s) Supporting Document(s) OCCULT BLOOD NEGATIVE NORMAL: NEGATIVE [facility] OCCULT BLOOD REENTER NEGATIVE NORMAL: NEGATIVE [facility] { HEMOCCULT LOT # [id number] ){ LOT EXP DATE 01-19-22 ){ PROCEDURAL CONTROL POS/NEG VALID ) ID Date Data Source [id number] 06/02/2021 10:35:00 AM EDT [facility] Name Value Range Interpretation Code Description Data [facility] rce(s) Supporting Document(s) Blood group antibodies identified in Serum or Plasma Anti-Fy(a) Wu [facility] XXX blood group Ab [Titer] in Serum or Plasma by Antihuman globulin 1 6 NA [facility] If a numerical titer result has been rep orted, please note that thisresult is the reciprocal value of titer results formerly reported as1:2,1:4, 1:8, etc. These results are now reported as 2, 4, 8, etc.[employer] has recommended this changein titer reporting formats to simply reflect the reciprocal value ofthe titer. ID Date Data Source [id number] 05/30/2021 03:49:00 PM EDT [facility] Name Value Range Interpretation Code Description Data Ladi rce(s) Supporting Document(s) Direct antiglobulin test.IgG specific re agent [Interpretation] on Red Blood Cells POSITIVE NORMAL: NEGATIVE [facility] { DIR HEATH RE-ENTER POSITIVE (NORMAL: NEGATIVE ) ID Date Data Source [id number] 05/30/2021 02:37:00 PM EDT [facility] Name Value Range Interpretation Code Description Data Ladi rce(s) Supporting Document(s) ABO group [Type] in Blood O [facility] Rh [Type] in Blood POSITIVE [facility] AB SCREEN POSITIVE NORMAL: NEGATIVE [facility] { ABO/RH REENTER O POSITIVE{ AB SCREEN RE-ENTER POSITIVE ID Date Data Source [id number] 05/30/2021 01:24:00 PM EDT [facility] Name Value Range Interpretation Code Description Data Ladi rce(s) Supporting Document(s) TROPONIN T 0.02 NG/ML 0.00 - 0.10 [facility] spital TROPONIN T0.1 ng/ml Recommended as the c linical threshold value forTroponin T. ID Date Data Source [id number] 05/30/2021 01:24:00 PM EDT [facility] Name Value Range Interpretation Code Description Data Ladi rce(s) Supporting Document(s) COMPREHENSIVE METABOLIC PANEL [facility] COMPREHENSIVE METABOLIC PANEL Sodium [Moles/volume] in Serum or Plasma 140 mEq/L 134 - 153 [facility] Potassium [Moles/volume] in Serum or Plasma 4.5 mEq/L 3.6 - 5.0 [facility] Chloride [Moles/volume] in Serum or Plasma 102 mEq/L 98 - 107 [facility] Carbon dioxide, total [Moles/volume] in Serum or Plasma 27 MEQ/L 22 - 30 [facility] Glucose [Mass/volume] in Serum or Plasma 95 MG/DL 70 - 99 [facility] BUN 15 MG/DL 7 - 21 [facility] al Creatinine [Mass/volume] in Serum or Plasma 0.7 MG/DL 0.7 - 1.5 [facility] BUN/CREAT 21 8 - 27 [facility] al Protein [Mass/volume] in Serum or Plasma 6.9 G/DL 6.3 - 8.2 [facility] Albumin [Mass/volume] in Serum or Plasma 3.2 G/DL 3.9 - 5.0 L [facility] Globulin [Mass/volume] in Serum by calculation 3.7 GM/DL 2.4 - 3.2 H [facility] A/G RATIO 0.9 0.8 - 2.0 [facility] Calcium [Mass/volume] in Serum or Plasma 9.2 MG/DL 8.4 - 10.2 [facility] Bilirubin.total [Mass/volume] in Serum or Plasma <0.7 MG/DL 0.2 - 1.3 [facility] Alkaline phosphatase [Enzymatic activity/volume] in Serum or Plasma 77 U/L 38 - 126 [facility] Aspartate aminotransferase [Enzymatic activity/volume] in Serum or Plasma 13 U/L 5 - 40 [facility] Alanine aminotransferase [Enzymatic activity/volume] in Seru m or Plasma 5 U/L 7 - 56 L [facility] Anion gap 3 in Serum or Plasma 11.0 mmol/L 8.0 - 16.0 [facility] AGE 85 yrs [facility] al NON-AA GFR >60 mL/min [facility] ital AFR AMER GFR >60 [facility] Male GFR In terprentation 20-49 yrs >60 mL/min Normal 50-59 yrs >56 mL/min Normal 60-69 yrs >49 mL/min Normal 70-79yrs >42 mL/min Normal 80 and above >35 mL/min Normal Female GFR Interpretation 20-39 yrs >60 mL/min Normal 40-49 yrs >58 mL/min Normal 50-59 yrs >51 mL/min Normal 60-69 yrs >45 mL/min Normal 70-79 yrs >39 mL/min Normal 80 and above >32 mL/min Normal ID Date Data Source [id number] 05/30/2021 01:12:00 PM EDT [facility] Name Value Range Interpretation Code Description Data Ladi rce(s) Supporting Document(s) Magnesium [Mass/volume] in Serum or Plasma 1.7 MG/DL 1.7 - 2.2 [facility] ID Date Data Source [id number] 05/30/2021 12:43:00 PM EDT [facility] Name Value Range Interpretation Code Description Data Ladi rce(s) Supporting Document(s) CBC W/AUTOMATED DIFF [facility] COMPLETE BLOOD COUNT Leukocytes [#/volume] in Blood by Automated count 4.3 10^3/uL 4.2 - 1 1.0 [facility] Erythrocytes [#/volume] in Blood by Automated count 3.89 10^6/uL 4. 20 - 5.40 L [facility] Hemoglobin [Mass/volume] in Blood 8.8 g/dL 12.0 - 16.0 L [facility] Hematocrit [Volume Fraction] of Blood by Automated count 29.1 % 3 7.0 - 47.0 L [facility] Erythrocyte mean corpuscular volume [Entitic volume] by Auto mated count 74.8 fL 81.0 - 101 L [facility] Erythrocyte mean corpuscular hemoglobin [Entitic mass] by Automated count 22.6 pg 27.0 - 34.0 L [facility] Erythrocyte mean corpuscular hemoglobin concentration [Mass/volume] by Automated count 30.2 g/dL 31.0 - 36.0 L [facility] Erythrocyte distribution width [Ratio] by Automated count 17.9 % 11.5 - 14.5 H [facility] Platelets [#/volume] in Blood by Automated count 415 10^3/uL 150 - 45 0 [facility] Platelet mean volume [Entitic volume] in Blood by Automated count 9.9 fL 7.4 - 10.4 [facility] Neutrophils/100 leukocytes in Blood by Automated count 79.1 % 37. 0 - 80.0 [facility] Lymphocytes/100 leukocytes in Blood by Manual count 10.1 % 25.0 - 40.0 L [facility] Monocytes/100 leukocytes in Blood by Automated count 8.0 % 3.0 - 8.0 [facility] Eosinophils/100 leukocytes in Blood by Automated count 1.4 % 0.0 - 7.0 [facility] Basophils/100 leukocytes in Blood by Automated count 0.9 % 0.0 - 2.5 [facility] %IG 0.5 % 0.0 - 0.0 [facility] al %NRBC 0.0 % 0.0 - 0.0 [facility] al Neutrophils [#/volume] in Blood by Automated count 3.38 10^3/uL 2.00 - 6.90 [facility] Lymphocytes [#/volume] in Blood by Automated count 0.43 10^3/uL 0.60 - 3.40 L [facility] Monocytes [#/volume] in Blood by Automated count 0.34 10^3/uL 0.00 - 0.90 [facility] Eosinophils [#/volume] in Blood by Automated count 0.06 10^3/uL 0.00 - 0.70 [facility] Basophils [#/volume] in Blood by Automated count 0.04 10^3/uL 0.00 - 0.20 [facility] #IG 0.02 10^3/uL 0.00 - 0.10 [facility] #NRBC 0.00 10^3/uL 0.00 - 0.00 [facility] MANUAL DIFF NOT INDICATED [facility] RBC MORPH NOT INDICATED [facility] ID Date Data Source WOUND CULTURE 02/03/2021 12:00:00 AM EDT eCW1 ([facility]) Name Value Range Interpretation Code Description Data Ladi rce(s) Supporting Document(s) FULL REPORT IN LAB NOTES (eCW and Medent). WOUND CULTURE eCW1 ([facility]) ID Date Data Source TSH 01/19/2021 12:00:00 AM EDT eCW1 ([facility]) Name Value Range Interpretation Code Description Data Ladi rce(s) Supporting Document(s) 8.570 0.358-3.740 THYROID STIMULATING HORM ONE eCW1 ([facility]) THYROID STIMULATING HORMONE ID Date Data Source Reticulocyte Count Sysmex 01/19/2021 12:00:00 AM EDT eCW1 ([facility]) Name Value Range Interpretation Code Description Data Ladi rce(s) Supporting Document(s) 1.4 0.5-1.5 RETICULOCYTE % eCW1 ([facility]) ID Date Data Source FERRITIN 01/19/2021 12:00:00 AM EDT eCW1 ([facility]) Name Value Range Interpretation Code Description Data Ladi rce(s) Supporting Document(s) 37 8-252 FERRITIN eCW1 ([facility]) FERRITIN ID Date Data Source Comprehensive Metabolic Profile (CMP) 01/19/2021 12:00:00 AM EDT eCW1 ([facility]) Name Value Range Interpretation Code Description Data Ladi rce(s) Supporting Document(s) 24 7-18 BLOOD UREA NITROGEN eCW1 ([facility]) 0.68 0.55-1.30 CREATININE FOR GFR eCW1 ([facility]) 156 70-100 GLUCOSE, FASTING eCW1 ([facility]) 4.3 3.5-5.1 POTASSIUM SERUM eCW1 ([facility]) 104 98-107 CHLORIDE LEVEL eCW1 ([facility]) 138 136-145 SODIUM LEVEL eCW1 ([facility]) > 60.0 >32 GLOMERULAR FILTRATION RATE eCW 1 ([facility]) 8.6 8.8-10.2 CALCIUM LEVEL eCW1 ([facility]) 27 21-32 CARBON DIOXIDE LEVEL eCW1 ([facility]) 13 7-37 AST/SGOT eCW1 ([facility]) 0.4 0.2-1.0 BILIRUBIN,TOTAL eCW1 ([facility]) 13 12-78 ALT/SGPT eCW1 ([facility]) 94 45-117 ALKALINE PHOSPHATASE eCW1 ([facility]) 7.1 6.4-8.2 TOTAL PROTEIN eCW1 ([facility]) 0.5 1.2-2.2 ALBUMIN/GLOBULIN RATIO eCW1 ([facility]) 2.5 3.2-5.2 ALBUMIN eCW1 ([facility]) ID Date Data Source CBC with Differential 01/19/2021 12:00:00 AM EDT eCW1 ([facility]) Name Value Range Interpretation Code Description Data Ladi rce(s) Supporting Document(s) 5.8 4.0-10.0 WHITE BLOOD COUNT eCW1 ([facility]) 10.1 12.0-15.5 HEMOGLOBIN eCW1 ([facility]) 30.7 36.0-47.0 HEMATOCRIT eCW1 ([facility]) 3.88 4.00-5.40 RED BLOOD COUNT eCW1 ([facility]) 26.0 27.0-33.0 MEAN CORPUSCULAR HEMOGLOB IN eCW1 ([facility]) 79.1 80.0-96.0 MEAN CORPUSCULAR VOLUME e CW1 ([facility]) 32.9 32.0-36.5 MEAN CORPUSCULAR HGB CONC eCW1 ([facility]) 18.4 11.5-14.5 RED CELL DISTRIBUTION WID TH eCW1 ([facility]) 358 150-450 PLATELET COUNT, AUTOMATED eCW1 ([facility]) 7.8 2.0-8.0 MONO % eCW1 ([facility]) 15.5 24.0-44.0 LYMPH % eCW1 ([facility]) 73.1 36.0-66.0 NEUTROPHILS % eCW1 ([facility]) 0.7 0.0-1.0 BASO % eCW1 ([facility]) 2.4 0.0-3.0 EOS % eCW1 ([facility]) 4.2 1.5-8.5 NEUTROPHILS # eCW1 ([facility]) 0.9 1.5-5.0 LYMPH # eCW1 ([facility]) 0.1 0.0-0.5 EOS # eCW1 ([facility]) 0.5 0.0-0.8 MONO # eCW1 ([facility]) 0.0 0.0-0.2 BASO # eCW1 ([facility]) ID Date Data Source NT-PRO BNP 01/19/2021 12:00:00 AM EDT eCW1 ([facility]) Name Value Range Interpretation Code Description Data Ladi rce(s) Supporting Document(s) 2338 <450 NT-PRO BNP eCW1 ([facility]) ID Date Data Source FREE T4 BY DIALYSIS DIRECT 06/17/2020 05:43:42 AM EDT eCW1 ( [facility]) Name Value Range Interpretation Code Description Data Ladi rce(s) Supporting Document(s) 1.6 eCW1 ([facility]) ID Date Data Source RBC FOLATE PROFILE 06/17/2020 05:43:27 AM EDT eCW1 ([facility]) Name Value Range Interpretation Code Description Data Ladi rce(s) Supporting Document(s) 36.2 HEMATOCRIT eCW1 ([facility]) 707 RBC FOLATE eCW1 ([facility]) ID Date Data Source [id number] 07/02/2020 08:47:52 AM EST [facility] PCName: Jacqueline Singleton: 1935Provider: Livia Perdomo: 06/13/2020 Reason For VisitVerbal consent obtained from the patient for telemedicine visit. This assessment was done using telemedicine as a result of social distancing due to the outbreak of COVID-19. Minutes for review of chart, virtual visit itself, and documentation. AssessmentREASON FOR VISIT:Increased pain in right hip. 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 She was doing well, in fact the drainage stopped with no evidence of swelling or redness. She took a fall when the wind blew her over and that was the precipitant of increased pain. It was not the infection itself. She was seen in a day, waited in the hospital. She had a CT scan which showed some possible fluid around the hip. She was seen by her doctor. Her pain is in improving. She is now waking around the house and is out of the hospital. She has some Morphine that she takes at night for discomfort, but definitely feels she is improved. PAST MEDICAL HISTORY:Remains unchanged. VIRTUAL EXAMINATION:Patient told me there was no real drainage at this present time, but the right leg itself is not red, swollen or warm and that she was walking in a similar was as she had when I last physically saw her. In addition, she told me that she has not had a te mperature recorded, i.e., she does not have a temperature. <OBX.5.1><OBX.5.1.1>IMPRESSION </OBX.5.1.1><OBX.5.1.2> PLAN: </OBX.5.1.2></OBX.5.1>Regarding the right hip, we spoke for some time on the phone about her problem I am going to connect with her again next week, Tuesday or Tuesday and check on her and make sure she is getting better and not make her come up here unless there is evidence of worsening. It doesn't sound like it is her infection. Her wound care doctor is going to be seeing her next week for a check. Signatures Electronically signed by : Zahira Grace, ; Jun 30 2020 1:22PM EST Electronically signed by : Antonio Perdomo M.D.; Jul 02 2020 8:47AM EST Name Value Range Interpretation Code Description Data Ladi rce(s) Supporting Document(s) ID Date Data Source ERYTHROCYTE SEDIMENTATION RATE 06/12/2020 03:07:47 AM EDT eC W1 ([facility]) Name Value Range Interpretation Code Description Data Ladi rce(s) Supporting Document(s) 77 ERYTHROCYTE SEDIMENTATION RATE eCW1 ([facility]) ERYTHROCYTE SEDIMENTATION RATE ID Date Data Source CBC - Complete Blood Count 06/12/2020 03:07:42 AM EDT eCW1 ( [facility]) Name Value Range Interpretation Code Description Data Ladi rce(s) Supporting Document(s) 4.53 eCW1 ([facility]) 10.7 eCW1 ([facility]) 6.6 eCW1 ([facility]) 29.6 eCW1 ([facility]) 23.6 eCW1 ([facility]) 79.9 eCW1 ([facility]) 36.2 eCW1 ([facility]) 393 eCW1 ([facility]) 21.5 eCW1 ([facility]) ID Date Data Source C REACTIVE PROTEIN QUANTITATIV (At [facility]) 06/10/2020 08:02 :45 AM EDT eCW1 ([facility]) Name Value Range Interpretation Code Description Data Ladi rce(s) Supporting Document(s) 11.10 C REACTIVE PROTEIN QUANTI TATIV eCW1 ([facility]) C REACTIVE PROTEIN QUANTITATIV ID Date Data Source VITAMIN D 25-HYDROXY 06/10/2020 08:02:32 AM EDT eCW1 ([facility]) Name Value Range Interpretation Code Description Data Ladi rce(s) Supporting Document(s) 45.9 TOTAL 25(OH) VITAMIN D eCW1 ([facility]) TOTAL 25(OH) VITAMIN D ID Date Data Source FREE T4 & TSH PANEL 06/10/2020 08:02:29 AM EDT eCW1 ([facility]) Name Value Range Interpretation Code Description Data Ladi rce(s) Supporting Document(s) 1.13 FREE T4 eCW1 ([facility]) 14.200 THYROID STIMULATING HORMONE eC W1 ([facility]) ID Date Data Source PTH INTACT 06/10/2020 08:02:20 AM EDT eCW1 ([facility]) Name Value Range Interpretation Code Description Data Ladi rce(s) Supporting Document(s) 41.5 PTH INTACT eCW1 ([facility]) PTH INTACT ID Date Data Source VITAMIN B12 LEVEL 06/10/2020 08:02:18 AM EDT eCW1 ([facility]) Name Value Range Interpretation Code Description Data Ladi rce(s) Supporting Document(s) 508 VITAMIN B12 LEVEL eCW1 ([facility]) ID Date Data Source [id number] 05/30/2020 12:00:00 AM EDT [facility] Maurilio Chris MD Patient Name: DOUGLAS DUNAWAY Date [place] : 1935[place] [address] Date of Exam: 05/30/2020#: Fax: [phone] EXAM: CT LOWER EXTREMITY W/O CONTRASTCLINICAL INFORMATION: Pain and swelling. Patient has a history of acutaneous abscess.Low dose 64 slice helical scanning through the right hip was obtained using1 mm increments and reconstructed in both coronal and sagittal planes. 3Dreconstructions were also obtained. 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 The bones are markedly demineralized, status quo. Alignment andposition of the prosthesis is unchanged. No new fractures are identified.There is no significant change in the appearance of the position of theinternally affixing screws and the affixing wires.Even with O-MAR, there is significant spray artifact obscuring the softtissue detail. There does not appear to be a significant change in theappearance of the soft tissues compared to the latest prior exam. Nodefinite abnormal air densities have developed. No definite air fluidlevels are identified.IMPRESSION:There is no evidence of significant change when compared to the prior exam.Accredited by the [employer] in [place].NGA Moseley/Ines you for referring JACQUELINE DUNAWAY to our office. Electronically Signed - KAYCE JUARES DO 06/02/20 10:24 Name Value Range Interpretation Code Description Data Ladi rce(s) Supporting Document(s) Procedure Social History Code Duration Value Status Description Data Source(s ) Smoking 06/16/2021 12:00:00 AM EDT Never Smoker completed Never S moker eCW1 ([facility]) Smoking 06/06/2021 12:00:00 AM EDT Never Smoker completed Never S moker eCW1 ([facility]) Smoking 06/03/2021 12:00:00 AM EDT Never Smoker completed Never S moker eCW1 ([facility]) Smoking 05/13/2021 12:00:00 AM EDT Never Smoker completed Never S moker eCW1 ([facility]) Smoking 05/13/2021 12:00:00 AM EDT Never Smoker completed Never S moker eCW1 ([facility]) Smoking 04/22/2021 12:00:00 AM EDT Never Smoker completed Never S moker eCW1 ([facility]) Smoking 04/22/2021 12:00:00 AM EDT Never Smoker completed Never S moker eCW1 ([facility]) Smoking 04/22/2021 12:00:00 AM EDT Never Smoker completed Never S moker eCW1 ([facility]) Smoking 04/01/2021 12:00:00 AM EDT Never Smoker completed Never S moker eCW1 ([facility]) Smoking 03/17/2021 12:00:00 AM EDT Never Smoker completed Never S moker eCW1 ([facility]) Smoking 03/17/2021 12:00:00 AM EDT Never Smoker completed Never S moker eCW1 ([facility]) Smoking 02/18/2021 12:00:00 AM EDT Never Smoker completed Never S moker eCW1 ([facility]) Smoking 02/18/2021 12:00:00 AM EDT Never Smoker completed Never S moker eCW1 ([facility]) Smoking 02/10/2021 12:00:00 AM EDT Never Smoker completed Never S moker eCW1 ([facility]) Smoking 02/10/2021 12:00:00 AM EDT Never Smoker completed Never S moker eCW1 ([facility]) Smoking 02/10/2021 12:00:00 AM EDT Never Smoker completed Never S moker eCW1 ([facility]) Smoking 02/10/2021 12:00:00 AM EDT Never Smoker completed Never S moker eCW1 ([facility]) Smoking 02/03/2021 12:00:00 AM EDT Never Smoker completed Never S moker eCW1 ([facility]) Smoking 02/03/2021 12:00:00 AM EDT Never Smoker completed Never S moker eCW1 ([facility]) Smoking 01/15/2021 12:00:00 AM EDT Never Smoker completed Never S moker eCW1 ([facility]) Smoking 01/15/2021 12:00:00 AM EDT Never Smoker completed Never S moker eCW1 ([facility]) Smoking 01/15/2021 12:00:00 AM EDT Never Smoker completed Never S moker eCW1 ([facility]) Smoking 01/15/2021 12:00:00 AM EDT Never Smoker completed Never S moker eCW1 ([facility]) Smoking 01/15/2021 12:00:00 AM EDT Never Smoker completed Never S moker eCW1 ([facility]) Smoking 01/15/2021 12:00:00 AM EDT Never Smoker completed Never S moker eCW1 ([facility]) Smoking 01/15/2021 12:00:00 AM EDT Never Smoker completed Never S moker eCW1 ([facility]) Smoking 01/15/2021 12:00:00 AM EDT Never Smoker completed Never S moker eCW1 ([facility]) Smoking 01/14/2021 12:00:00 AM EDT Never Smoker completed Never S moker eCW1 ([facility]) Smoking 12/24/2020 12:00:00 AM EDT Never Smoker completed Never S moker eCW1 ([facility]) Smoking 12/24/2020 12:00:00 AM EDT Never Smoker completed Never S moker eCW1 ([facility]) Smoking 12/03/2020 12:00:00 AM EDT Never Smoker completed Never S moker eCW1 ([facility]) Smoking 12/03/2020 12:00:00 AM EDT Never Smoker completed Never S moker eCW1 ([facility]) Smoking 11/18/2020 12:00:00 AM EDT Never Smoker completed Never S moker eCW1 ([facility]) Smoking 11/12/2020 12:00:00 AM EDT Never Smoker completed Never S moker eCW1 ([facility]) Smoking 10/22/2020 12:00:00 AM EST Never Smoker completed Never S moker eCW1 ([facility]) Smoking 10/22/2020 12:00:00 AM EST Never Smoker completed Never S moker eCW1 ([facility]) Smoking 10/01/2020 12:00:00 AM EST Never Smoker completed Never S moker eCW1 ([facility]) Smoking 09/18/2020 12:00:00 AM EST Never Smoker completed Never S moker eCW1 ([facility]) Smoking 09/18/2020 12:00:00 AM EST Never Smoker completed Never S moker eCW1 ([facility]) Smoking 09/18/2020 12:00:00 AM EST Never Smoker completed Never S moker eCW1 ([facility]) Smoking 09/18/2020 12:00:00 AM EST Never Smoker completed Never S moker eCW1 ([facility]) Smoking 09/18/2020 12:00:00 AM EST Never Smoker completed Never S moker eCW1 ([facility]) Smoking 09/10/2020 12:00:00 AM EST Never Smoker completed Never S moker eCW1 ([facility]) Smoking 08/27/2020 12:00:00 AM EST Never Smoker completed Never S moker eCW1 ([facility]) Smoking 08/27/2020 12:00:00 AM EST Never Smoker completed Never S moker eCW1 ([facility]) Smoking 08/27/2020 12:00:00 AM EST Never Smoker completed Never S moker eCW1 ([facility]) Smoking 07/14/2020 12:00:00 AM EST Never Smoker completed Never S moker eCW1 ([facility]) Smoking 07/14/2020 12:00:00 AM EST Never Smoker completed Never S moker eCW1 ([facility]) Smoking 06/25/2020 12:00:00 AM EST Never Smoker completed Never S moker eCW1 ([facility]) Smoking 06/25/2020 12:00:00 AM EST Never Smoker completed Never S moker eCW1 ([facility]) Smoking 06/25/2020 12:00:00 AM EST Never Smoker completed Never S moker eCW1 ([facility]) Smoking 06/16/2020 12:00:00 AM EDT Never Smoker completed Never S moker eCW1 ([facility]) Smoking 06/10/2020 12:00:00 AM EDT Never Smoker completed Never S moker eCW1 ([facility]) Smoking 06/10/2020 12:00:00 AM EDT Never Smoker completed Never S moker eCW1 ([facility]) Smoking 05/26/2020 12:00:00 AM EDT Never Smoker completed Never S moker eCW1 ([facility]) Smoking 05/26/2020 12:00:00 AM EDT Never Smoker completed Never S moker eCW1 ([facility]) Smoking 05/26/2020 12:00:00 AM EDT Never Smoker completed Never S moker eCW1 ([facility]) Vital Signs ID Date Data Source UNK Name Value Range Interpretation Code Description Data Source(s) Body weight 119 [lb_av] 119 [lb_av] eCW1 ([facility]) Body height 66 [in_i] 66 [in_i] eCW1 ([facility]) Body mass index (BMI) [Ratio] 19.21 kg/m2 19.21 kg/m2 eCW1 ([facility]) Systolic blood pressure 100 mm[Hg] 100 mm[Hg] e CW1 ([facility]) Diastolic blood pressure 60 mm[Hg] 60 mm[Hg] eCW1 ([facility]) Body temperature 97.1 [degF] 97.1 [degF] eCW1 ( [facility]) Systolic blood pressure 127 mm[Hg] 127 mm[Hg] e CW1 ([facility]) Body weight 129 [lb_av] 129 [lb_av] eCW1 ([facility]) Body height 66 [in_i] 66 [in_i] eCW1 ([facility]) Body mass index (BMI) [Ratio] 20.82 kg/m2 20.82 kg/m2 eCW1 ([facility]) Diastolic blood pressure 66 mm[Hg] 66 mm[Hg] eCW1 ([facility]) Heart rate 101 /min 101 /min eCW1 ([facility]) Respiratory rate 17 /min 17 /min eCW1 ([facility]) Body weight 129 [lb_av] 129 [lb_av] eCW1 ([facility]) Body height 66 [in_i] 66 [in_i] eCW1 ([facility]) Body mass index (BMI) [Ratio] 20.82 kg/m2 20.82 kg/m2 eCW1 ([facility]) Heart rate 50 /min 50 /min eCW1 ([facility]) Respiratory rate 18 /min 18 /min eCW1 ([facility]) Body temperature 98.5 [degF] 98.5 [degF] eCW1 ( [facility]) Body weight 129.3 [lb_av] 129.3 [lb_av] eCW1 ([facility]) Body weight 58.65 kg 58.65 kg eCW1 ([facility]) Body height 66 [in_i] 66 [in_i] eCW1 ([facility]) Body mass index (BMI) [Ratio] 20.87 kg/m2 20.87 kg/m2 eCW1 ([facility]) Heart rate 67 /min 67 /min eCW1 ([facility]) Respiratory rate 20 /min 20 /min eCW1 ([facility]) Body temperature 97.9 [degF] 97.9 [degF] eCW1 ( [facility]) Systolic blood pressure 136 mm[Hg] 136 mm[Hg] e CW1 ([facility]) Diastolic blood pressure 58 mm[Hg] 58 mm[Hg] eCW1 ([facility]) Body height 66 [in_i] 66 [in_i] eCW1 ([facility]) Systolic blood pressure 130 mm[Hg] 130 mm[Hg] e CW1 ([facility]) Body mass index (BMI) [Ratio] 20.58 kg/m2 20.58 kg/m2 eCW1 ([facility]) Body temperature 97 [degF] 97 [degF] eCW1 ([facility]) Heart rate 55 /min 55 /min eCW1 ([facility]) Respiratory rate 19 /min 19 /min eCW1 ([facility]) Diastolic blood pressure 62 mm[Hg] 62 mm[Hg] eCW1 ([facility]) Body weight 127.5 [lb_av] 127.5 [lb_av] eCW1 ([facility]) Body weight 127.4 [lb_av] 127.4 [lb_av] eCW1 ([facility]) Body height 66 [in_i] 66 [in_i] eCW1 ([facility]) Body mass index (BMI) [Ratio] 20.56 kg/m2 20.56 kg/m2 eCW1 ([facility]) Systolic blood pressure 134 mm[Hg] 134 mm[Hg] e CW1 ([facility]) Diastolic blood pressure 64 mm[Hg] 64 mm[Hg] eCW1 ([facility]) Body weight 124 [lb_av] 124 [lb_av] eCW1 ([facility]) Body weight kg eCW1 ([facility]) Body height 66 [in_i] 66 [in_i] eCW1 ([facility]) Body mass index (BMI) [Ratio] 20.01 kg/m2 20.01 kg/m2 eCW1 ([facility]) Heart rate 87 /min 87 /min eCW1 ([facility]) Respiratory rate 18 /min 18 /min eCW1 ([facility]) Body temperature 98.4 [degF] 98.4 [degF] eCW1 ( [facility]) Systolic blood pressure 132 mm[Hg] 132 mm[Hg] e CW1 ([facility]) Diastolic blood pressure 82 mm[Hg] 82 mm[Hg] eCW1 ([facility]) Body height 66 [in_i] 66 [in_i] eCW1 ([facility]) Body weight 124 [lb_av] 124 [lb_av] eCW1 ([facility]) Body weight kg eCW1 ([facility]) Body mass index (BMI) [Ratio] 20.01 kg/m2 20.01 kg/m2 eCW1 ([facility]) Heart rate 56 /min 56 /min eCW1 ([facility]) Respiratory rate 17 /min 17 /min eCW1 ([facility]) Body temperature 97.9 [degF] 97.9 [degF] eCW1 ( [facility]) Respiratory rate 16 /min 16 /min eCW1 ([facility]) Diastolic blood pressure 75 mm[Hg] 75 mm[Hg] eCW1 ([facility]) Body weight 124 [lb_av] 124 [lb_av] eCW1 ([facility]) Body temperature 95.9 [degF] 95.9 [degF] eCW1 ( [facility]) Body height 66 [in_i] 66 [in_i] eCW1 ([facility]) Body mass index (BMI) [Ratio] 20.01 kg/m2 20.01 kg/m2 eCW1 ([facility]) Body weight kg eCW1 ([facility]) Heart rate 54 /min 54 /min eCW1 ([facility]) Systolic blood pressure 180 mm[Hg] 180 mm[Hg] e CW1 ([facility]) Body weight 124 [lb_av] 124 [lb_av] eCW1 ([facility]) Body weight kg eCW1 ([facility]) Body height 66 [in_i] 66 [in_i] eCW1 ([facility]) Body mass index (BMI) [Ratio] 20.01 kg/m2 20.01 kg/m2 eCW1 ([facility]) Heart rate 64 /min 64 /min eCW1 ([facility]) Respiratory rate 18 /min 18 /min eCW1 ([facility]) Body temperature 98.3 [degF] 98.3 [degF] eCW1 ( [facility]) Systolic blood pressure 167 mm[Hg] 167 mm[Hg] e CW1 ([facility]) Diastolic blood pressure 74 mm[Hg] 74 mm[Hg] eCW1 ([facility]) Body weight [lb_av] eCW1 ([facility]) Body weight kg eCW1 ([facility]) Body height 66 [in_i] 66 [in_i] eCW1 ([facility]) Body mass index (BMI) [Ratio] 20.01 kg/m2 20.01 kg/m2 eCW1 ([facility]) Heart rate 41 /min 41 /min eCW1 ([facility]) Respiratory rate 20 /min 20 /min eCW1 ([facility]) Body temperature 98.6 [degF] 98.6 [degF] eCW1 ( [facility]) Systolic blood pressure 142 mm[Hg] 142 mm[Hg] e CW1 ([facility]) Diastolic blood pressure 60 mm[Hg] 60 mm[Hg] eCW1 ([facility]) Body weight [lb_av] eCW1 ([facility]) Body weight kg eCW1 ([facility]) Body height 66 [in_i] 66 [in_i] eCW1 ([facility]) Body mass index (BMI) [Ratio] 20.01 kg/m2 20.01 kg/m2 eCW1 ([facility]) Heart rate 41 /min 41 /min eCW1 ([facility]) Respiratory rate 20 /min 20 /min eCW1 ([facility]) Body temperature 98.6 [degF] 98.6 [degF] eCW1 ( [facility]) Systolic blood pressure 142 mm[Hg] 142 mm[Hg] e CW1 ([facility]) Diastolic blood pressure 60 mm[Hg] 60 mm[Hg] eCW1 ([facility]) Body weight 124 [lb_av] 124 [lb_av] eCW1 ([facility]) Body weight kg eCW1 ([facility]) Body height 66 [in_i] 66 [in_i] eCW1 ([facility]) Body mass index (BMI) [Ratio] 20.01 kg/m2 20.01 kg/m2 eCW1 ([facility]) Heart rate 42 /min 42 /min eCW1 ([facility]) Respiratory rate 18 /min 18 /min eCW1 ([facility]) Body temperature 98.1 [degF] 98.1 [degF] eCW1 ( [facility]) Systolic blood pressure 140 mm[Hg] 140 mm[Hg] e CW1 ([facility]) Diastolic blood pressure 60 mm[Hg] 60 mm[Hg] eCW1 ([facility]) Body mass index (BMI) [Ratio] 20.01 kg/m2 20.01 kg/m2 eCW1 ([facility]) Body weight [lb_av] eCW1 ([facility]) Heart rate 66 /min 66 /min eCW1 ([facility]) Respiratory rate 18 /min 18 /min eCW1 ([facility]) Body temperature 97.6 [degF] 97.6 [degF] eCW1 ( [facility]) Systolic blood pressure 132 mm[Hg] 132 mm[Hg] e CW1 ([facility]) Body height 66 [in_i] 66 [in_i] eCW1 ([facility]) Diastolic blood pressure 66 mm[Hg] 66 mm[Hg] eCW1 ([facility]) Systolic blood pressure 133 mm[Hg] 133 mm[Hg] e CW1 ([facility]) Body weight kg eCW1 ([facility]) Body weight 124 [lb_av] 124 [lb_av] eCW1 ([facility]) Diastolic blood pressure 64 mm[Hg] 64 mm[Hg] eCW1 ([facility]) Body height 66 [in_i] 66 [in_i] eCW1 ([facility]) Body mass index (BMI) [Ratio] 20.01 kg/m2 20.01 kg/m2 eCW1 ([facility]) Heart rate 56 /min 56 /min eCW1 ([facility]) Respiratory rate 18 /min 18 /min eCW1 ([facility]) Body temperature 97.5 [degF] 97.5 [degF] eCW1 ( [facility]) Body weight 124 [lb_av] 124 [lb_av] eCW1 ([facility]) Body weight kg eCW1 ([facility]) Body height 66 [in_i] 66 [in_i] eCW1 ([facility]) Body mass index (BMI) [Ratio] 20.01 kg/m2 20.01 kg/m2 eCW1 ([facility]) Heart rate 59 /min 59 /min eCW1 ([facility]) Respiratory rate 17 /min 17 /min eCW1 ([facility]) Body temperature 98.3 [degF] 98.3 [degF] eCW1 ( [facility]) Systolic blood pressure 154 mm[Hg] 154 mm[Hg] e CW1 ([facility]) Diastolic blood pressure 67 mm[Hg] 67 mm[Hg] eCW1 ([facility]) Body weight 124 [lb_av] 124 [lb_av] eCW1 ([facility]) Body weight 56.25 kg 56.25 kg eCW1 ([facility]) Body height 66 [in_i] 66 [in_i] eCW1 ([facility]) Body mass index (BMI) [Ratio] 20.01 kg/m2 20.01 kg/m2 eCW1 ([facility]) Systolic blood pressure 160 mm[Hg] 160 mm[Hg] e CW1 ([facility]) Diastolic blood pressure 58 mm[Hg] 58 mm[Hg] eCW1 ([facility]) Body weight 124 [lb_av] 124 [lb_av] eCW1 ([facility]) Body weight kg eCW1 ([facility]) Body height 66 [in_i] 66 [in_i] eCW1 ([facility]) Body mass index (BMI) [Ratio] 20.01 kg/m2 20.01 kg/m2 eCW1 ([facility]) Heart rate 82 /min 82 /min eCW1 ([facility]) Respiratory rate 18 /min 18 /min eCW1 ([facility]) Body temperature 98.1 [degF] 98.1 [degF] eCW1 ( [facility]) Body weight 124 [lb_av] 124 [lb_av] eCW1 ([facility]) Body height 66 [in_i] 66 [in_i] eCW1 ([facility]) Body mass index (BMI) [Ratio] 20.01 kg/m2 20.01 kg/m2 eCW1 ([facility]) Systolic blood pressure 154 mm[Hg] 154 mm[Hg] e CW1 ([facility]) Diastolic blood pressure 79 mm[Hg] 79 mm[Hg] eCW1 ([facility]) Body weight 124 [lb_av] 124 [lb_av] eCW1 ([facility]) Body temperature 98.1 [degF] 98.1 [degF] eCW1 ( [facility]) Body weight kg eCW1 ([facility]) Systolic blood pressure 152 mm[Hg] 152 mm[Hg] e CW1 ([facility]) Body height 66 [in_i] 66 [in_i] eCW1 ([facility]) Diastolic blood pressure 64 mm[Hg] 64 mm[Hg] eCW1 ([facility]) Body mass index (BMI) [Ratio] 20.01 kg/m2 20.01 kg/m2 eCW1 ([facility]) Heart rate 56 /min 56 /min eCW1 ([facility]) Respiratory rate 18 /min 18 /min eCW1 ([facility]) Body weight 124.6 [lb_av] 124.6 [lb_av] eCW1 ([facility]) Heart rate 72 /min 72 /min eCW1 ([facility]) Respiratory rate 20 /min 20 /min eCW1 ([facility]) Body height 66 [in_i] 66 [in_i] eCW1 ([facility]) Systolic blood pressure 140 mm[Hg] 140 mm[Hg] e CW1 ([facility]) Body temperature 97.1 [degF] 97.1 [degF] eCW1 ( [facility]) Diastolic blood pressure 60 mm[Hg] 60 mm[Hg] eCW1 ([facility]) Body mass index (BMI) [Ratio] 20.11 kg/m2 20.11 kg/m2 eCW1 ([facility]) Body weight 122 [lb_av] 122 [lb_av] eCW1 ([facility]) Body weight kg eCW1 ([facility]) Body height 66 [in_i] 66 [in_i] eCW1 ([facility]) Body mass index (BMI) [Ratio] 19.69 kg/m2 19.69 kg/m2 eCW1 ([facility]) Heart rate 51 /min 51 /min eCW1 ([facility]) Respiratory rate 18 /min 18 /min eCW1 ([facility]) Body temperature 97.3 [degF] 97.3 [degF] eCW1 ( [facility]) Systolic blood pressure 157 mm[Hg] 157 mm[Hg] e CW1 ([facility]) Diastolic blood pressure 70 mm[Hg] 70 mm[Hg] eCW1 ([facility]) Body weight 122 [lb_av] 122 [lb_av] eCW1 ([facility]) Body height 66 [in_i] 66 [in_i] eCW1 ([facility]) Body mass index (BMI) [Ratio] 19.69 kg/m2 19.69 kg/m2 eCW1 ([facility]) Heart rate 84 /min 84 /min eCW1 ([facility]) Respiratory rate 18 /min 18 /min eCW1 ([facility]) Body temperature 95.7 [degF] 95.7 [degF] eCW1 ( [facility]) Systolic blood pressure 161 mm[Hg] 161 mm[Hg] e CW1 ([facility]) Diastolic blood pressure 81 mm[Hg] 81 mm[Hg] eCW1 ([facility]) Body weight 122 [lb_av] 122 [lb_av] eCW1 ([facility]) Body height 66 [in_i] 66 [in_i] eCW1 ([facility]) Body mass index (BMI) [Ratio] 19.69 kg/m2 19.69 kg/m2 eCW1 ([facility]) Heart rate 67 /min 67 /min eCW1 ([facility]) Respiratory rate 18 /min 18 /min eCW1 ([facility]) Body temperature 97.6 [degF] 97.6 [degF] eCW1 ( [facility]) Systolic blood pressure 166 mm[Hg] 166 mm[Hg] e CW1 ([facility]) Diastolic blood pressure 86 mm[Hg] 86 mm[Hg] eCW1 ([facility]) Body mass index (BMI) [Ratio] 20.17 kg/m2 20.17 kg/m2 eCW1 ([facility]) Systolic blood pressure 126 mm[Hg] 126 mm[Hg] e CW1 ([facility]) Diastolic blood pressure 78 mm[Hg] 78 mm[Hg] eCW1 ([facility]) Body weight 125 [lb_av] 125 [lb_av] eCW1 ([facility]) Body weight 56.7 kg 56.7 kg eCW1 ([facility]) Body height 66 [in_i] 66 [in_i] eCW1 ([facility]) Body weight 125 [lb_av] 125 [lb_av] eCW1 ([facility]) Body weight kg eCW1 ([facility]) Body height 66 [in_i] 66 [in_i] eCW1 ([facility]) Body mass index (BMI) [Ratio] 20.17 kg/m2 20.17 kg/m2 eCW1 ([facility]) Heart rate 75 /min 75 /min eCW1 ([facility]) Respiratory rate 16 /min 16 /min eCW1 ([facility]) Body temperature 96.6 [degF] 96.6 [degF] eCW1 ( [facility]) Systolic blood pressure 138 mm[Hg] 138 mm[Hg] e CW1 ([facility]) Diastolic blood pressure 70 mm[Hg] 70 mm[Hg] eCW1 ([facility]) Body mass index (BMI) [Ratio] 20.17 kg/m2 20.17 kg/m2 eCW1 ([facility]) Body weight 125.0 [lb_av] 125.0 [lb_av] eCW1 ([facility]) Body height 66 [in_i] 66 [in_i] eCW1 ([facility]) Heart rate 843 /min 843 /min eCW1 ([facility]) Respiratory rate 20 /min 20 /min eCW1 ([facility]) Body temperature 98.3 [degF] 98.3 [degF] eCW1 ( [facility]) Systolic blood pressure 118 mm[Hg] 118 mm[Hg] e CW1 ([facility]) Diastolic blood pressure 62 mm[Hg] 62 mm[Hg] eCW1 ([facility]) Body weight 131 [lb_av] 131 [lb_av] eCW1 ([facility]) Body weight kg eCW1 ([facility]) Body height 66 [in_i] 66 [in_i] eCW1 ([facility]) Body mass index (BMI) [Ratio] 21.14 kg/m2 21.14 kg/m2 eCW1 ([facility]) Heart rate 95 /min 95 /min eCW1 ([facility]) Respiratory rate 20 /min 20 /min eCW1 ([facility]) Body temperature 97.1 [degF] 97.1 [degF] eCW1 ( [facility]) Systolic blood pressure 177 mm[Hg] 177 mm[Hg] e CW1 ([facility]) Diastolic blood pressure 73 mm[Hg] 73 mm[Hg] eCW1 ([facility]) Patient Treatment Plan of Care Planned Activity Planned Date Details Description Data Source (s) torsemide 5 MG Oral Tablet 01/20/2021 12:00:00 AM EDT eCW1 ([facility]) torsemide 5 MG Oral Tablet 01/20/2021 12:00:00 AM EDT eCW1 ([facility]) torsemide 5 MG Oral Tablet 01/20/2021 12:00:00 AM EDT eCW1 ([facility]) Ibuprofen 200 MG Oral Tablet 01/15/2021 12:00:00 AM EDT eCW1 ([facility]) Ibuprofen 200 MG Oral Tablet 01/15/2021 12:00:00 AM EDT eCW1 ([facility]) Ibuprofen 200 MG Oral Tablet 01/15/2021 12:00:00 AM EDT eCW1 ([facility]) Ibuprofen 200 MG Oral Tablet 01/15/2021 12:00:00 AM EDT eCW1 ([facility]) Ibuprofen 200 MG Oral Tablet 01/15/2021 12:00:00 AM EDT eCW1 ([facility]) Ibuprofen 200 MG Oral Tablet 01/15/2021 12:00:00 AM EDT eCW1 ([facility]) Ibuprofen 200 MG Oral Tablet 01/15/2021 12:00:00 AM EDT eCW1 ([facility]) Ibuprofen 200 MG Oral Tablet 01/15/2021 12:00:00 AM EDT eCW1 ([facility]) Commode Bedside - 01/12/2021 12:00:00 AM EDT eCW1 ([facility]) Commode Bedside - 01/12/2021 12:00:00 AM EDT eCW1 ([facility]) Commode Bedside - 01/12/2021 12:00:00 AM EDT eCW1 ([facility]) Commode Bedside - 01/12/2021 12:00:00 AM EDT eCW1 ([facility]) Commode Bedside - 01/12/2021 12:00:00 AM EDT eCW1 ([facility]) Commode Bedside - 01/12/2021 12:00:00 AM EDT eCW1 ([facility]) Commode Bedside - 01/12/2021 12:00:00 AM EDT eCW1 ([facility]) Commode Bedside - 01/12/2021 12:00:00 AM EDT eCW1 ([facility]) Omeprazole 40 MG Delayed Release Oral Capsule 09/22/2020 12:00:00 A M EST eCW1 ([facility]) Omeprazole 40 MG Delayed Release Oral Capsule 09/22/2020 12:00:00 A M EST eCW1 ([facility]) Omeprazole 40 MG Delayed Release Oral Capsule 09/22/2020 12:00:00 A M EST eCW1 ([facility]) Omeprazole 40 MG Delayed Release Oral Capsule 09/22/2020 12:00:00 A M EST eCW1 ([facility]) Omeprazole 40 MG Delayed Release Oral Capsule 09/22/2020 12:00:00 A M EST eCW1 ([facility]) Omeprazole 40 MG Delayed Release Oral Capsule 09/22/2020 12:00:00 A M EST eCW1 ([facility]) Omeprazole 40 MG Delayed Release Oral Capsule 09/22/2020 12:00:00 A M EST eCW1 ([facility]) Omeprazole 40 MG Delayed Release Oral Capsule 09/22/2020 12:00:00 A M EST eCW1 ([facility]) Omeprazole 40 MG Delayed Release Oral Capsule 09/22/2020 12:00:00 A M EST eCW1 ([facility]) Omeprazole 40 MG Delayed Release Oral Capsule 09/22/2020 12:00:00 A M EST eCW1 ([facility]) Omeprazole 40 MG Delayed Release Oral Capsule 09/22/2020 12:00:00 A M EST eCW1 ([facility]) Omeprazole 40 MG Delayed Release Oral Capsule 09/22/2020 12:00:00 A M EST eCW1 ([facility]) Hydroxyzine Hydrochloride 25 MG Oral Tablet 09/18/2020 12:00:00 AM EST eCW1 ([facility]) Hydroxyzine Hydrochloride 25 MG Oral Tablet 09/18/2020 12:00:00 AM EST eCW1 ([facility]) Hydroxyzine Hydrochloride 25 MG Oral Tablet 09/18/2020 12:00:00 AM EST eCW1 ([facility]) Hydroxyzine Hydrochloride 25 MG Oral Tablet 09/18/2020 12:00:00 AM EST eCW1 ([facility]) Hydroxyzine Hydrochloride 25 MG Oral Tablet 09/18/2020 12:00:00 AM EST eCW1 ([facility]) Morphine Sulfate 2 MG/ML Oral Solution 06/12/2020 12:00:00 AM EDT eCW1 ([facility]) Docusate Sodium 50 MG / sennosides, [facility]SING HOME 8.6 MG Oral Ta blet 06/10/2020 12:00:00 AM EDT eCW1 ([facility]) Docusate Sodium 50 MG / sennosides, [facility] HOME 8.6 MG Oral Ta blet 06/10/2020 12:00:00 AM EDT eCW1 ([facility]) Morphine Sulfate 4 MG/ML Oral Solution 06/10/2020 12:00:00 AM EDT eCW1 ([facility])
[2021-06-20] MEDS ORDERED: NS 500 ML IV ONE (19:40)
--- NOTE | 2021-06-20 20:07 | ECGEPIP ---
[facility] - ED Test Date: 2021-06-20 Pat Name: JACQUELINE DUNAWAY Department: Room: - Gender: Female Online Content Developer: MARIA A : 1935 Requested By: MALORIE Bill Order Number: [id number] Reading MD: Carmen Gr Measurements Intervals [place] Rate: 84 P: 58 KS: 182 QRS: 46 QRSD: 84 T: 62 QT: 376 QTc: 444 Interpretive Statements Sinus rhythm with frequent premature ventricular complexes low voltage limb NSTTW abnormalities increased rate 10/18/18 Electronically Signed on 06-20-2021 20:06:53 EDT by Carmen Gr
[2021-06-20 20:09] LABS: BASO # 0.1 10^3/uL (0.0-0.2); EOS # 0.1 10^3/uL (0.0-0.5); HEMATOCRIT 30.1 % (36.0-47.0); LYMPH # 0.7 10^3/uL (1.5-5.0); LYMPH % 14.6 % (24.0-44.0); MEAN CORPUSCULAR HEMOGLOBIN 22.3 pg (27.0-33.0); MEAN CORPUSCULAR HGB CONC 29.9 g/dl (32.0-36.5); MEAN CORPUSCULAR VOLUME 74.7 fl (80.0-96.0); MONO # 0.5 10^3/uL (0.0-0.8); MONO % 9.3 % (2.0-8.0); NEUTROPHILS # 3.7 10^3/uL (1.5-8.5); NEUTROPHILS % 73.7 % (36.0-66.0); PLATELET COUNT, AUTOMATED 289 10^3/uL (150-450); RED BLOOD COUNT 4.03 10^6/uL (4.00-5.40); WHITE BLOOD COUNT 5.1 10^3/uL (4.0-10.0)
[2021-06-20 20:21] LABS: INR 1.06; PROTHROMBIN TIME 14.2 SECONDS (12.7-14.5)
--- NOTE | 2021-06-20 20:27 | REPVR ---
PROCEDURE INFORMATION: Exam: CT Head Without Contrast Exam date and time: 06/20/2021 7:55 PM Age: 85 years old Clinical indication: Dizziness; Additional info: Dizzyness TECHNIQUE: Imaging protocol: Computed tomography of the head without contrast. Radiation optimization: All CT scans at this facility use at least one of these dose optimization techniques: automated exposure control; mA and/or kV adjustment per patient size (includes targeted exams where dose is matched to clinical indication); or iterative reconstruction. COMPARISON: CT Head without contrast 10/18/2017 9:46 AM FINDINGS: Brain: There is mild diffuse cerebellar atrophy. Stable periventricular calcifications on the left. There is mild age related parenchymal volume loss. White matter changes are demonstrated in the subcortical, centrum semiovale and periventricular white matter consistent with chronic age related small vessel ischemic changes. Cerebral ventricles: The degree of ventricular dilatation is normal for age and/or degree of atrophy present. Paranasal sinuses: Status post bilateral ethmoidectomy. Inflammatory changes in the left maxillary sinus. No fluid levels. Mastoid air cells: Visualized mastoid air cells are well aerated. Bones/joints: Unremarkable. No acute fracture. Soft tissues: Unremarkable. IMPRESSION: 1. There is mild diffuse cerebellar atrophy. 2. There is mild age related parenchymal volume loss. White matter changes are demonstrated in the subcortical, centrum semiovale and periventricular white matter consistent with chronic age related small vessel ischemic changes. 3. The degree of ventricular dilatation is normal for age and/or degree of atrophy present. 4. No acute intracranial findings. Electronically signed by: Rogers Kerns On 06/20/2021 20:27:03 PM
[2021-06-20 20:28] LABS: ERYTHROCYTE SEDIMENTATION RATE 89 mm/hr (0-30)
--- NOTE | 2021-06-20 20:28 | REPVR ---
PROCEDURE INFORMATION: Exam: XR Chest Exam date and time: 06/20/2021 7:30 PM Age: 85 years old Clinical indication: Dyspnea; Additional info: Dyspnea/cough TECHNIQUE: Imaging protocol: XR of the chest. Views: 1 view. COMPARISON: CR PORTABLE CHEST X-RAY 10/18/2017 9:53 AM FINDINGS: Lungs: No acute infiltrates. Pleural spaces: Bilateral calcified pleural plaques again redemonstrated. Heart/Mediastinum: Unremarkable. No cardiomegaly. Bones/joints: Stable S shaped scoliosis thoracic spine. Osteoporosis IMPRESSION: No acute infiltrates. Electronically signed by: Rogers Kerns On 06/20/2021 20:28:30 PM
--- OUTSIDE RECORDS SUMMARY | 2021-06-20 20:29 | CCD ---
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 If you continue you may have access to information: Regarding HIV / AIDS; Provided by facilities licensed or operated by the [facility] Office of Mental Health; or Provided by the [facility] Office for People With Developmental Disabilities. If such information is present, then the following [facility] mandated warning applies: This information has [...] law may result in a fine or long-term sentence or both. A general authorization for the release of medical or other information is NOT sufficient authorization for further disc losure. Family History Family Member Name Family Member Gender Family Member Status Date o f Status Description Data Source(s) Unknown Male Encounters Encounter Providers Location Date Indications Data Source(s ) Outpatient [address] [facility] [address] 06/16/2021 12:00:00 AM EDT eCW1 ([facility]) ([id number]) For Template [place] [address] [place] [address] 06/03/2021 12:00:00 AM EDT eCW1 ([facility]) Unknown [address] [facility] [address] 06/03/2021 12:00:00 AM EDT eCW1 ([facility]) Emergency Attender: Justin Purcell MDConsultant: PCP NO 05/30/2021 11:06:00 AM EDT - 05/30/2021 02:14:[address] [facility] Patient discharged. Unknown [address] [facility] [address] 05/21/2021 12:00:00 AM EDT eCW1 ([facility]) ([id number]) For [employer] [place] [address] [place] [address] 05/13/2021 12:00:00 AM EDT eCW1 ([facility]) Unknown [address] [facility] [address] 05/06/2021 12:00:00 AM EDT eCW1 ([facility]) Unknown [address] [facility] [place] [address] 04/29/2021 12:00:00 AM EDT eCW1 ([facility]) Outpatient [address] [facility] [id number] 04/22/2021 12:00:00 AM EDT eCW1 ([facility]) ([id number]) For [employer] [place] [address] [place] [address] 04/01/2021 12:00:00 AM EDT eCW1 ([facility]) Outpatient [address] [facility] [place] [address] 03/19/2021 12:00:00 AM EDT eCW1 ([facility]) ([id number]) For [employer] [place] [address] [place] [address] 03/11/2021 12:00:00 AM EDT eCW1 ([facility]) Unknown [address] [facility], [facility] [address] 02/24/2021 12:00:00 AM EDT eCW1 ([facility]) ([id number]) For [employer] [place] [address] [place] [address] 02/18/2021 12:00:00 AM EDT eCW1 ([facility]) Unknown [address] [facility] [address] 02/13/2021 12:00:00 AM EDT eCW1 ([facility]) Unknown [address] [facility] [address] 02/13/2021 12:00:00 AM EDT eCW1 ([facility]) ([id number]) For [employer] [place] [address] [place] [address] 02/10/2021 12:00:00 AM EDT eCW1 ([facility]) Unknown [address] [facility] [address] 02/04/2021 12:00:00 AM EDT eCW1 ([facility]) ([id number]) Est New Patient 60 [address] [place] [address] 02/03/2021 12:00:00 AM EDT eCW1 ([facility]) Unknown [address] [facility] Y [address] 02/03/2021 12:00:00 AM EDT eCW1 ([facility]) Unknown [address] [facility] Y [address] 02/02/2021 12:00:00 AM EDT eCW1 ([facility]) Unknown [address] [facility] Y [address] 01/20/2021 12:00:00 AM EDT [facility]CW1 ([facility]) Unknown [address] [facility], [place] [address] 01/16/2021 12:00:00 AM EDT eCW1 ([facility]) Unknown [address] [facility] [address] 01/16/2021 12:00:00 AM EDT eCW1 ([facility]) Unknown [address] [facility] [address] 01/16/2021 12:00:00 AM EDT eCW1 ([facility]) Outpatient [address] [facility] [address] 01/15/2021 12:00:00 AM EDT eCW1 ([facility]) ([id number]) For [employer] [place] [address] [place] [address] 01/14/2021 12:00:00 AM EDT eCW1 ([facility]) Office Visit, Est Pt., Level 3 PC [address] [place] [address] 01/12/2021 12:00:00 AM EDT eCW1 ([facility]) Unknown [address] [facility] [address] 01/09/2021 12:00:00 AM EDT eCW1 ([facility]) ([id number]) For [employer] [place] [address] [place] [address] 12/24/2020 12:00:00 AM EDT eCW1 ([facility]) ([id number]) For [employer] [place] [address] [place] [address] 12/03/2020 12:00:00 AM EDT eCW1 ([facility]) Unknown [address] [facility] [address] 12/03/2020 12:00:00 AM EDT eCW1 ([facility]) ([id number]) 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 [address] [place] [address] 11/18/2020 12:00:00 AM EDT eCW1 ([facility]) ([id number]) For [employer] [place] [address] [place] [address] 11/12/2020 12:00:00 AM EDT eCW1 ([facility]) Unknown [address] [facility] [place] [address] 10/27/2020 12:00:00 AM EST eCW1 ([facility]) ([id number]) For [employer] [place] [address] [place] [address] 10/22/2020 12:00:00 AM EST eCW1 ([facility]) ([id number]) For [employer] [place] [address] [place] [address] 10/01/2020 12:00:00 AM EST eCW1 ([facility]) Unknown [address] [facility] [address] 09/29/2020 12:00:00 AM EST eCW1 ([facility]) Unknown [address] [facility] Y [address] 09/24/2020 12:00:00 AM EST eCW1 ([facility]) Unknown [address] [facility] Y [address] 09/22/2020 12:00:00 AM EST eCW1 ([facility]) Unknown [address] [facility] [address] 09/19/2020 12:00:00 AM EST eCW1 ([facility]) Outpatient [address] [facility] Y [address] 09/18/2020 12:00:00 AM EST [facility] ([id number]) For [employer] [place] [address] [place] [address] 09/10/2020 12:00:00 AM EST eCW1 ([facility]) Unknown [address] [facility] [address] 08/28/2020 12:00:00 AM EST [facility]CW1 [facility] ([id number]) Est New Patient 60 [address] [place] [address] 08/27/2020 12:00:00 AM EST eCW1 ([facility]) Unknown [address] [facility] [address] 08/27/2020 12:00:00 AM EST [facility]CW1 [facility] ([id number]) Est New Patient 60 [address] [place] [address] 07/14/2020 12:00:00 AM EST eCW1 ([facility]) Unknown [address] [facility] [address] 07/09/2020 12:00:00 AM EST [facility]CW1 [facility] Outpatient Attender: Antonio HAWLEYeferrer: Biju Ch MD 07/02/2020 08:47:52 AM EST [facility] Visit, Est Pt., Level 3 PC [address] [place] [address] 06/25/2020 12:00:00 AM EST eCW1 ([facility]) ([id number]) For [employer] [place] [address] [place] [address] 06/16/2020 12:00:00 AM EDT eCW1 ([facility]) Unknown [address] [facility] [address] 06/11/2020 12:00:00 AM EDT eCW1 ([facility]) Unknown [address] [facility] [address] 06/10/2020 12:00:00 AM EDT eCW1 ([facility]) Outpatient [address] [facility] [address] 06/10/2020 12:00:00 AM EDT [facility]CW1 [facility] [address] [facility] [address] 06/04/2020 12:00:00 AM EDT eCW1 ([facility]) Unknown [address] [facility] [address] 05/30/2020 12:00:00 AM EDT eCW1 ([facility]) Outpatient [address] [facility] [address] 05/26/2020 12:00:00 AM EDT eCW1 ([facility]) [facility] [address] [place] [address] 05/07/2020 12:00:00 AM EDT eCW1 ([facility]) Immunizations Vaccine Date Status Description Data Source(s) COVID-19 VACCINE Dilan 11/07/2020 12:00:00 AM EDT completed [facility] Vaccine Series Complete: YESThis Data wa s Submitted to [facility] Via [employer]. influenza, recombinant, quadrIvalent,injectable, prese rvative free 06/05/2020 02:44:00 PM EDT completed eCW1 ([facility]) influenza, recombinant, quadrIvalent,injectable, prese rvative free 06/05/2020 02:44:00 PM EDT completed eCW1 ([facility]) influenza, recombinant, quadrIvalent,injectable, prese rvative free 06/05/2020 02:44:00 PM EDT completed eCW1 ([facility]) influenza, recombinant, quadrIvalent,injectable, prese rvative free 06/05/2020 02:44:00 PM EDT completed eCW1 ([facility]) influenza, recombinant, quadrIvalent,injectable, prese rvative free 06/05/2020 02:44:00 PM EDT completed eCW1 ([facility]) influenza, recombinant, quadrIvalent,injectable, prese rvative free 06/05/2020 02:44:00 PM EDT completed eCW1 ([facility]) influenza, recombinant, quadrIvalent,injectable, prese rvative free 06/05/2020 02:44:00 PM EDT completed eCW1 ([facility]) influenza, recombinant, quadrIvalent,injectable, prese rvative free 06/05/2020 02:44:00 PM EDT completed eCW1 ([facility]) influenza, recombinant, quadrIvalent,injectable, prese rvative free 06/05/2020 02:44:00 PM EDT completed eCW1 ([facility]) influenza, recombinant, quadrIvalent,injectable, prese rvative free 06/05/2020 02:44:00 PM EDT completed eCW1 ([facility]) influenza, recombinant, quadrIvalent,injectable, prese rvative free 06/05/2020 02:44:00 PM EDT completed eCW1 ([facility]) influenza, recombinant, quadrIvalent,injectable, prese rvative free 06/05/2020 02:44:00 PM EDT completed eCW1 ([facility]) influenza, recombinant, quadrIvalent,injectable, prese rvative free 06/05/2020 02:44:00 PM EDT completed eCW1 ([facility]) influenza, recombinant, quadrIvalent,injectable, prese rvative free 06/05/2020 02:44:00 PM EDT completed eCW1 ([facility]) influenza, recombinant, quadrIvalent,injectable, prese rvative free 06/05/2020 02:44:00 PM EDT completed eCW1 ([facility]) influenza, recombinant, quadrIvalent,injectable, prese rvative free 06/05/2020 02:44:00 PM EDT completed eCW1 ([facility]) influenza, recombinant, quadrIvalent,injectable, prese rvative free 06/05/2020 02:44:00 PM EDT completed eCW1 ([facility]) influenza, recombinant, quadrIvalent,injectable, prese rvative free 06/05/2020 02:44:00 PM EDT completed eCW1 ([facility]) influenza, recombinant, quadrIvalent,injectable, prese rvative free 06/05/2020 02:44:00 PM EDT completed eCW1 ([facility]) influenza, recombinant, quadrIvalent,injectable, prese rvative free 06/05/2020 02:44:00 PM EDT completed eCW1 ([facility]) influenza, recombinant, quadrIvalent,injectable, prese rvative free 06/05/2020 02:44:00 PM EDT completed eCW1 ([facility]) influenza, recombinant, quadrIvalent,injectable, prese rvative free 06/05/2020 02:44:00 PM EDT completed eCW1 ([facility]) influenza, recombinant, quadrIvalent,injectable, prese rvative free 06/05/2020 02:44:00 PM EDT completed eCW1 ([facility]) influenza, recombinant, quadrIvalent,injectable, prese rvative free 06/05/2020 02:44:00 PM EDT completed eCW1 ([facility]) influenza, recombinant, quadrIvalent,injectable, prese rvative free 06/05/2020 02:44:00 PM EDT completed eCW1 ([facility]) influenza, recombinant, quadrIvalent,injectable, prese rvative free 06/05/2020 02:44:00 PM EDT completed eCW1 ([facility]) influenza, recombinant, quadrIvalent,injectable, prese rvative free 06/05/2020 02:44:00 PM EDT completed eCW1 ([facility]) influenza, recombinant, quadrIvalent,injectable, prese rvative free 06/05/2020 02:44:00 PM EDT completed eCW1 ([facility]) influenza, recombinant, quadrIvalent,injectable, prese rvative free 06/05/2020 02:44:00 PM EDT completed eCW1 ([facility]) influenza, recombinant, quadrIvalent,injectable, prese rvative free 06/05/2020 02:44:00 PM EDT completed eCW1 ([facility]) influenza, recombinant, quadrIvalent,injectable, prese rvative free 06/05/2020 02:44:00 PM EDT completed eCW1 ([facility]) influenza, recombinant, quadrIvalent,injectable, prese rvative free 06/05/2020 02:44:00 PM EDT completed eCW1 ([facility]) influenza, recombinant, quadrIvalent,injectable, prese rvative free 06/05/2020 02:44:00 PM EDT completed eCW1 ([facility]) influenza, recombinant, quadrIvalent,injectable, prese rvative free 06/05/2020 02:44:00 PM EDT completed eCW1 ([facility]) influenza, recombinant, quadrIvalent,injectable, prese rvative free 06/05/2020 02:44:00 PM EDT completed eCW1 ([facility]) influenza, recombinant, quadrIvalent,injectable, prese rvative free 06/05/2020 02:44:00 PM EDT completed eCW1 ([facility]) influenza, recombinant, quadrIvalent,injectable, prese rvative free 06/05/2020 02:44:00 PM EDT completed eCW1 ([facility]) influenza, recombinant, quadrIvalent,injectable, prese rvative free 06/05/2020 02:44:00 PM EDT completed eCW1 ([facility]) influenza, recombinant, quadrIvalent,injectable, prese rvative free 06/05/2020 02:44:00 PM EDT completed eCW1 ([facility]) influenza, recombinant, quadrIvalent,injectable, prese rvative free 06/05/2020 02:44:00 PM EDT completed eCW1 ([facility]) influenza, recombinant, quadrIvalent,injectable, prese rvative free 06/05/2020 02:44:00 PM EDT completed eCW1 ([facility]) influenza, recombinant, quadrIvalent,injectable, prese rvative free 06/05/2020 02:44:00 PM EDT completed eCW1 ([facility]) influenza, recombinant, quadrIvalent,injectable, prese rvative free 06/05/2020 02:44:00 PM EDT completed eCW1 ([facility]) influenza, recombinant, quadrIvalent,injectable, prese rvative free 06/05/2020 02:44:00 PM EDT completed eCW1 ([facility]) influenza, recombinant, quadrIvalent,injectable, prese rvative free 06/05/2020 02:44:00 PM EDT completed eCW1 ([facility]) influenza, recombinant, quadrIvalent,injectable, prese rvative free 06/05/2020 02:44:00 PM EDT completed eCW1 ([facility]) influenza, recombinant, quadrIvalent,injectable, prese rvative free 06/05/2020 02:44:00 PM EDT completed eCW1 ([facility]) influenza, recombinant, quadrIvalent,injectable, prese rvative free 06/05/2020 02:44:00 PM EDT completed eCW1 ([facility]) influenza, recombinant, quadrIvalent,injectable, prese rvative free 06/05/2020 02:44:00 PM EDT completed eCW1 ([facility]) influenza, recombinant, quadrIvalent,injectable, prese rvative free 06/05/2020 02:44:00 PM EDT completed eCW1 ([facility]) influenza, recombinant, quadrIvalent,injectable, prese rvative free 06/05/2020 02:44:00 PM EDT completed eCW1 ([facility]) influenza, recombinant, quadrIvalent,injectable, prese rvative free 06/05/2020 02:44:00 PM EDT completed eCW1 ([facility]) influenza, recombinant, quadrIvalent,injectable, prese rvative free 06/05/2020 02:44:00 PM EDT completed eCW1 ([facility]) influenza, recombinant, quadrIvalent,injectable, prese rvative free 06/05/2020 02:44:00 PM EDT completed eCW1 ([facility]) Medications Medication Brand Name Start Date Product Form Dose Route Admi nistrative Instructions Pharmacy Instructions Status Indications Reaction Description Data Source(s) torsemide 5 MG Oral Tablet Torsemide 5 MG Torsemide 5 MG 01/20/2021 12:00:00 AM EDT 1.0 {tablet} active Torsemide 5 MG eCW1 ([facility]) torsemide 5 MG Oral Tablet Torsemide 5 MG Torsemide 5 MG 01/20/2021 12:00:00 AM EDT 1.0 {tablet} active Torsemide 5 MG eCW1 ([facility]) torsemide 5 MG Oral Tablet Torsemide 5 MG Torsemide 5 MG 01/20/2021 12:00:00 AM EDT 1.0 {tablet} active Torsemide 5 MG eCW1 ([facility]) torsemide 5 MG Oral Tablet Torsemide 5 MG Torsemide 5 MG 01/20/2021 12:00:00 AM EDT 1.0 {tablet} active Torsemide 5 MG eCW1 ([facility]) torsemide 5 MG Oral Tablet Torsemide 5 MG Torsemide 5 MG 01/20/2021 12:00:00 AM EDT 1.0 {tablet} active Torsemide 5 MG eCW1 ([facility]) torsemide 5 MG Oral Tablet Torsemide 5 MG Torsemide 5 MG 01/20/2021 12:00:00 AM EDT 1.0 {tablet} active Torsemide 5 MG eCW1 ([facility]) torsemide 5 MG Oral Tablet Torsemide 5 MG Torsemide 5 MG 01/20/2021 12:00:00 AM EDT 1.0 {tablet} active Torsemide 5 MG eCW1 ([facility]) torsemide 5 MG Oral Tablet Torsemide 5 MG Torsemide 5 MG 01/20/2021 12:00:00 AM EDT 1.0 {tablet} active Torsemide 5 MG eCW1 ([facility]) torsemide 5 MG Oral Tablet Torsemide 5 MG Torsemide 5 MG 01/20/2021 12:00:00 AM EDT 1.0 {tablet} active Torsemide 5 MG eCW1 ([facility]) torsemide 5 MG Oral Tablet Torsemide 5 MG Torsemide 5 MG 01/20/2021 12:00:00 AM EDT 1.0 {tablet} active Torsemide 5 MG eCW1 ([facility]) torsemide 5 MG Oral Tablet Torsemide 5 MG Torsemide 5 MG 01/20/2021 12:00:00 AM EDT 1.0 {tablet} active Torsemide 5 MG eCW1 ([facility]) torsemide 5 MG Oral Tablet Torsemide 5 MG Torsemide 5 MG 01/20/2021 12:00:00 AM EDT 1.0 {tablet} active Torsemide 5 MG eCW1 ([facility]) torsemide 5 MG Oral Tablet Torsemide 5 MG Torsemide 5 MG 01/20/2021 12:00:00 AM EDT 1.0 {tablet} active Torsemide 5 MG eCW1 ([facility]) torsemide 5 MG Oral Tablet Torsemide 5 MG Torsemide 5 MG 01/20/2021 12:00:00 AM EDT 1.0 {tablet} active Torsemide 5 MG eCW1 ([facility]) torsemide 5 MG Oral Tablet Torsemide 5 MG Torsemide 5 MG 01/20/2021 12:00:00 AM EDT 1.0 {tablet} active Torsemide 5 MG eCW1 ([facility]) torsemide 5 MG Oral Tablet Torsemide 5 MG Torsemide 5 MG 01/20/2021 12:00:00 AM EDT 1.0 {tablet} active Torsemide 5 MG eCW1 ([facility]) torsemide 5 MG Oral Tablet Torsemide 5 MG Torsemide 5 MG 01/20/2021 12:00:00 AM EDT 1.0 {tablet} active Torsemide 5 MG eCW1 ([facility]) torsemide 5 MG Oral Tablet Torsemide 5 MG Torsemide 5 MG 01/20/2021 12:00:00 AM EDT 1.0 {tablet} active Torsemide 5 MG eCW1 ([facility]) torsemide 5 MG Oral Tablet Torsemide 5 MG Torsemide 5 MG 01/20/2021 12:00:00 AM EDT 1.0 {tablet} active Torsemide 5 MG eCW1 ([facility]) torsemide 5 MG Oral Tablet Torsemide 5 MG Torsemide 5 MG 01/20/2021 12:00:00 AM EDT 1.0 {tablet} active Torsemide 5 MG eCW1 ([facility]) torsemide 5 MG Oral Tablet Torsemide 5 MG Torsemide 5 MG 01/20/2021 12:00:00 AM EDT 1.0 {tablet} active Torsemide 5 MG eCW1 ([facility]) torsemide 5 MG Oral Tablet Torsemide 5 MG Torsemide 5 MG 01/20/2021 12:00:00 AM EDT 1.0 {tablet} active Torsemide 5 MG eCW1 ([facility]) Ibuprofen 200 MG Oral Tablet Ibuprofen 200 mg Ibuprofen 200 mg 01/15/2021 12:00:00 AM EDT active Ibuprofe n 200 mg eCW1 ([facility]) Ibuprofen 200 MG Oral Tablet Ibuprofen 200 mg Ibuprofen 200 mg 01/15/2021 12:00:00 AM EDT active Ibuprofe n 200 mg eCW1 ([facility]) Ibuprofen 200 MG Oral Tablet Ibuprofen 200 mg Ibuprofen 200 mg 01/15/2021 12:00:00 AM EDT active e CW1 ([facility]) Ibuprofen 200 MG Oral Tablet Ibuprofen 200 mg Ibuprofen 200 mg 01/15/2021 12:00:00 AM EDT active Ibuprofe n 200 mg eCW1 ([facility]) Ibuprofen 200 MG Oral Tablet Ibuprofen 200 mg Ibuprofen 200 mg 01/15/2021 12:00:00 AM EDT active Ibuprofe n 200 mg eCW1 ([facility]) Ibuprofen 200 MG Oral Tablet Ibuprofen 200 mg Ibuprofen 200 mg 01/15/2021 12:00:00 AM EDT active Ibuprofe n 200 mg eCW1 ([facility]) Ibuprofen 200 MG Oral Tablet Ibuprofen 200 mg Ibuprofen 200 mg 01/15/2021 12:00:00 AM EDT active Ibuprofe n 200 mg eCW1 ([facility]) Ibuprofen 200 MG Oral Tablet Ibuprofen 200 mg Ibuprofen 200 mg 01/15/2021 12:00:00 AM EDT active Ibuprofe n 200 mg eCW1 ([facility]) Ibuprofen 200 MG Oral Tablet Ibuprofen 200 mg Ibuprofen 200 mg 01/15/2021 12:00:00 AM EDT active Ibuprofe n 200 mg eCW1 ([facility]) Ibuprofen 200 MG Oral Tablet Ibuprofen 200 mg Ibuprofen 200 mg 01/15/2021 12:00:00 AM EDT active Ibuprofe n 200 mg eCW1 ([facility]) Ibuprofen 200 MG Oral Tablet Ibuprofen 200 mg Ibuprofen 200 mg 01/15/2021 12:00:00 AM EDT active Ibuprofe n 200 mg eCW1 ([facility]) Ibuprofen 200 MG Oral Tablet Ibuprofen 200 mg Ibuprofen 200 mg 01/15/2021 12:00:00 AM EDT active Ibuprofe n 200 mg eCW1 ([facility]) Ibuprofen 200 MG Oral Tablet Ibuprofen 200 mg Ibuprofen 200 mg 01/15/2021 12:00:00 AM EDT active e CW1 ([facility]) Ibuprofen 200 MG Oral Tablet Ibuprofen 200 mg Ibuprofen 200 mg 01/15/2021 12:00:00 AM EDT active Ibuprofe n 200 mg eCW1 ([facility]) Ibuprofen 200 MG Oral Tablet Ibuprofen 200 mg Ibuprofen 200 mg 01/15/2021 12:00:00 AM EDT active Ibuprofe n 200 mg eCW1 ([facility]) Ibuprofen 200 MG Oral Tablet Ibuprofen 200 mg Ibuprofen 200 mg 01/15/2021 12:00:00 AM EDT active Ibuprofe n 200 mg eCW1 ([facility]) Ibuprofen 200 MG Oral Tablet Ibuprofen 200 mg Ibuprofen 200 mg 01/15/2021 12:00:00 AM EDT active Ibuprofe n 200 mg eCW1 ([facility]) Ibuprofen 200 MG Oral Tablet Ibuprofen 200 mg Ibuprofen 200 mg 01/15/2021 12:00:00 AM EDT active Ibuprofe n 200 mg eCW1 ([facility]) Ibuprofen 200 MG Oral Tablet Ibuprofen 200 mg Ibuprofen 200 mg 01/15/2021 12:00:00 AM EDT active Ibuprofe n 200 mg eCW1 ([facility]) Ibuprofen 200 MG Oral Tablet Ibuprofen 200 mg Ibuprofen 200 mg 01/15/2021 12:00:00 AM EDT active Ibuprofe n 200 mg eCW1 ([facility]) Ibuprofen 200 MG Oral Tablet Ibuprofen 200 mg Ibuprofen 200 mg 01/15/2021 12:00:00 AM EDT active Ibuprofe n 200 mg eCW1 ([facility]) Ibuprofen 200 MG Oral Tablet Ibuprofen 200 mg Ibuprofen 200 mg 01/15/2021 12:00:00 AM EDT active Ibuprofe n 200 mg eCW1 ([facility]) Ibuprofen 200 MG Oral Tablet Ibuprofen 200 mg Ibuprofen 200 mg 01/15/2021 12:00:00 AM EDT active Ibuprofe n 200 mg eCW1 ([facility]) Ibuprofen 200 MG Oral Tablet Ibuprofen 200 mg Ibuprofen 200 mg 01/15/2021 12:00:00 AM EDT active Ibuprofe n 200 mg eCW1 ([facility]) Ibuprofen 200 MG Oral Tablet Ibuprofen 200 mg Ibuprofen 200 mg 01/15/2021 12:00:00 AM EDT active Ibuprofe n 200 mg eCW1 ([facility]) Ibuprofen 200 MG Oral Tablet Ibuprofen 200 mg Ibuprofen 200 mg 01/15/2021 12:00:00 AM EDT active Ibuprofe n 200 mg eCW1 ([facility]) Ibuprofen 200 MG Oral Tablet Ibuprofen 200 mg Ibuprofen 200 mg 01/15/2021 12:00:00 AM EDT active Ibuprofe n 200 mg eCW1 ([facility]) Commode Bedside - Commode Bedside - 01/12/2021 12:00:00 AM EDT active Commode Bedside - eCW1 ([facility]) Commode Bedside - Commode Bedside - 01/12/2021 12:00:00 AM EDT active Commode Bedside - eCW1 ([facility]) celecoxib 200 MG Oral Capsule [Celebrex] Celebrex 200 MG Rosalee ebrex 200 MG 01/12/2021 12:00:00 AM EDT 1.0 {capsule_with_food} active Celebrex 200 MG eCW1 ([facility]) Commode Bedside - Commode Bedside - 01/12/2021 12:00:00 AM EDT active Commode Bedside - eCW1 ([facility]) Commode Bedside - Commode Bedside - 01/12/2021 12:00:00 AM EDT active Commode Bedside - eCW1 ([facility]) tramadol hydrochloride 50 MG Oral Tablet Tramadol HCl 50 MG Tramadol HCl 50 MG 01/12/2021 12:00:00 AM EDT 1.0 {tablet_as_needed} active Tramadol HCl 50 MG eCW1 ([facility]) Commode Bedside - Commode Bedside - 01/12/2021 12:00:00 AM EDT active Commode Bedside - eCW1 ([facility]) Commode Bedside - Commode Bedside - 01/12/2021 12:00:00 AM EDT active Commode Bedside - eCW1 ([facility]) Commode Bedside - Commode Bedside - 01/12/2021 12:00:00 AM EDT active eCW1 ([facility]) Commode Bedside - Commode Bedside - 01/12/2021 12:00:00 AM EDT active Commode Bedside - eCW1 ([facility]) Commode Bedside - Commode Bedside - 01/12/2021 12:00:00 AM EDT active Commode Bedside - eCW1 ([facility]) Commode Bedside - Commode Bedside - 01/12/2021 12:00:00 AM EDT active Commode Bedside - eCW1 ([facility]) Commode Bedside - Commode Bedside - 01/12/2021 12:00:00 AM EDT active Commode Bedside - eCW1 ([facility]) Commode Bedside - Commode Bedside - 01/12/2021 12:00:00 AM EDT active Commode Bedside - eCW1 ([facility]) Commode Bedside - Commode Bedside - 01/12/2021 12:00:00 AM EDT active Commode Bedside - eCW1 ([facility]) Commode Bedside - Commode Bedside - 01/12/2021 12:00:00 AM EDT active Commode Bedside - eCW1 ([facility]) Commode Bedside - Commode Bedside - 01/12/2021 12:00:00 AM EDT active Commode Bedside - eCW1 ([facility]) Commode Bedside - Commode Bedside - 01/12/2021 12:00:00 AM EDT active Commode Bedside - eCW1 ([facility]) Commode Bedside - Commode Bedside - 01/12/2021 12:00:00 AM EDT active Commode Bedside - eCW1 ([facility]) Commode Bedside - Commode Bedside - 01/12/2021 12:00:00 AM EDT active Commode Bedside - eCW1 ([facility]) Commode Bedside - Commode Bedside - 01/12/2021 12:00:00 AM EDT active Commode Bedside - eCW1 ([facility]) Commode Bedside - Commode Bedside - 01/12/2021 12:00:00 AM EDT active Commode Bedside - eCW1 ([facility]) Commode Bedside - Commode Bedside - 01/12/2021 12:00:00 AM EDT active Commode Bedside - eCW1 ([facility]) Commode Bedside - Commode Bedside - 01/12/2021 12:00:00 AM EDT active Commode Bedside - eCW1 ([facility]) Commode Bedside - Commode Bedside - 01/12/2021 12:00:00 AM EDT active Commode Bedside - eCW1 ([facility]) Commode Bedside - Commode Bedside - 01/12/2021 12:00:00 AM EDT active Commode Bedside - eCW1 ([facility]) Commode Bedside - Commode Bedside - 01/12/2021 12:00:00 AM EDT active Commode Bedside - eCW1 ([facility]) Commode Bedside - Commode Bedside - 01/12/2021 12:00:00 AM EDT active Commode Bedside - eCW1 ([facility]) Commode Bedside - Commode Bedside - 01/12/2021 12:00:00 AM EDT active eCW1 ([facility]) Commode Bedside - Commode Bedside - 01/12/2021 12:00:00 AM EDT active Commode Bedside - eCW1 ([facility]) Omeprazole 40 MG Delayed Release Oral Capsule Omeprazole 40 MG 09/22/2020 12:00:00 AM EST active Omeprazo le 40 MG eCW1 ([facility]) Omeprazole 40 MG Delayed Release Oral Capsule Omeprazole 40 MG 09/22/2020 12:00:00 AM EST active Omeprazo le 40 MG eCW1 ([facility]) Omeprazole 40 MG Delayed Release Oral Capsule Omeprazole 40 MG 09/22/2020 12:00:00 AM EST active Omeprazo le 40 MG eCW1 ([facility]) Omeprazole 40 MG Delayed Release Oral Capsule Omeprazole 40 MG 09/22/2020 12:00:00 AM EST active e CW1 ([facility]) Omeprazole 40 MG Delayed Release Oral Capsule Omeprazole 40 MG 09/22/2020 12:00:00 AM EST active Omeprazo le 40 MG eCW1 ([facility]) Omeprazole 40 MG Delayed Release Oral Capsule Omeprazole 40 MG 09/22/2020 12:00:00 AM EST active Omeprazo le 40 MG eCW1 ([facility]) Omeprazole 40 MG Delayed Release Oral Capsule Omeprazole 40 MG 09/22/2020 12:00:00 AM EST active Omeprazo le 40 MG eCW1 ([facility]) Omeprazole 40 MG Delayed Release Oral Capsule Omeprazole 40 MG 09/22/2020 12:00:00 AM EST active Omeprazo le 40 MG eCW1 ([facility]) Omeprazole 40 MG Delayed Release Oral Capsule Omeprazole 40 MG 09/22/2020 12:00:00 AM EST active Omeprazo le 40 MG eCW1 ([facility]) Omeprazole 40 MG Delayed Release Oral Capsule Omeprazole 40 MG 09/22/2020 12:00:00 AM EST active Omeprazo le 40 MG eCW1 ([facility]) Omeprazole 40 MG Delayed Release Oral Capsule Omeprazole 40 MG 09/22/2020 12:00:00 AM EST active Omeprazo le 40 MG eCW1 ([facility]) Omeprazole 40 MG Delayed Release Oral Capsule Omeprazole 40 MG 09/22/2020 12:00:00 AM EST active Omeprazo le 40 MG eCW1 ([facility]) Omeprazole 40 MG Delayed Release Oral Capsule Omeprazole 40 MG 09/22/2020 12:00:00 AM EST active Omeprazo le 40 MG eCW1 ([facility]) Omeprazole 40 MG Delayed Release Oral Capsule Omeprazole 40 MG 09/22/2020 12:00:00 AM EST active Omeprazo le 40 MG eCW1 ([facility]) Omeprazole 40 MG Delayed Release Oral Capsule Omeprazole 40 MG 09/22/2020 12:00:00 AM EST active Omeprazo le 40 MG eCW1 ([facility]) Omeprazole 40 MG Delayed Release Oral Capsule Omeprazole 40 MG 09/22/2020 12:00:00 AM EST active Omeprazo le 40 MG eCW1 ([facility]) Omeprazole 40 MG Delayed Release Oral Capsule Omeprazole 40 MG 09/22/2020 12:00:00 AM EST active Omeprazo le 40 MG eCW1 ([facility]) Omeprazole 40 MG Delayed Release Oral Capsule Omeprazole 40 MG 09/22/2020 12:00:00 AM EST active Omeprazo le 40 MG eCW1 ([facility]) Omeprazole 40 MG Delayed Release Oral Capsule Omeprazole 40 MG 09/22/2020 12:00:00 AM EST active Omeprazo le 40 MG eCW1 ([facility]) Omeprazole 40 MG Delayed Release Oral Capsule Omeprazole 40 MG 09/22/2020 12:00:00 AM EST active Omeprazo le 40 MG eCW1 ([facility]) Omeprazole 40 MG Delayed Release Oral Capsule Omeprazole 40 MG 09/22/2020 12:00:00 AM EST active Omeprazo le 40 MG eCW1 ([facility]) Omeprazole 40 MG Delayed Release Oral Capsule Omeprazole 40 MG 09/22/2020 12:00:00 AM EST active Omeprazo le 40 MG eCW1 ([facility]) Omeprazole 40 MG Delayed Release Oral Capsule Omeprazole 40 MG 09/22/2020 12:00:00 AM EST active Omeprazo le 40 MG eCW1 ([facility]) Omeprazole 40 MG Delayed Release Oral Capsule Omeprazole 40 MG 09/22/2020 12:00:00 AM EST active Omeprazo le 40 MG eCW1 ([facility]) Omeprazole 40 MG Delayed Release Oral Capsule Omeprazole 40 MG 09/22/2020 12:00:00 AM EST active Omeprazo le 40 MG eCW1 ([facility]) Omeprazole 40 MG Delayed Release Oral Capsule Omeprazole 40 MG 09/22/2020 12:00:00 AM EST active Omeprazo le 40 MG eCW1 ([facility]) Omeprazole 40 MG Delayed Release Oral Capsule Omeprazole 40 MG 09/22/2020 12:00:00 AM EST active Omeprazo le 40 MG eCW1 ([facility]) Omeprazole 40 MG Delayed Release Oral Capsule Omeprazole 40 MG 09/22/2020 12:00:00 AM EST active Omeprazo le 40 MG eCW1 ([facility]) Omeprazole 40 MG Delayed Release Oral Capsule Omeprazole 40 MG 09/22/2020 12:00:00 AM EST active Omeprazo le 40 MG eCW1 ([facility]) Omeprazole 40 MG Delayed Release Oral Capsule Omeprazole 40 MG 09/22/2020 12:00:00 AM EST active Omeprazo le 40 MG eCW1 ([facility]) Omeprazole 40 MG Delayed Release Oral Capsule Omeprazole 40 MG 09/22/2020 12:00:00 AM EST active Omeprazo le 40 MG eCW1 ([facility]) Omeprazole 40 MG Delayed Release Oral Capsule Omeprazole 40 MG 09/22/2020 12:00:00 AM EST active Omeprazo le 40 MG eCW1 ([facility]) Omeprazole 40 MG Delayed Release Oral Capsule Omeprazole 40 MG 09/22/2020 12:00:00 AM EST active Omeprazo le 40 MG eCW1 ([facility]) Omeprazole 40 MG Delayed Release Oral Capsule Omeprazole 40 MG 09/22/2020 12:00:00 AM EST active Omeprazo le 40 MG eCW1 ([facility]) Omeprazole 40 MG Delayed Release Oral Capsule Omeprazole 40 MG 09/22/2020 12:00:00 AM EST active Omeprazo le 40 MG eCW1 ([facility]) Omeprazole 40 MG Delayed Release Oral Capsule Omeprazole 40 MG 09/22/2020 12:00:00 AM EST active Omeprazo le 40 MG eCW1 ([facility]) Omeprazole 40 MG Delayed Release Oral Capsule Omeprazole 40 MG 09/22/2020 12:00:00 AM EST active Omeprazo le 40 MG eCW1 ([facility]) Omeprazole 40 MG Delayed Release Oral Capsule Omeprazole 40 MG 09/22/2020 12:00:00 AM EST active Omeprazo le 40 MG eCW1 ([facility]) Omeprazole 40 MG Delayed Release Oral Capsule Omeprazole 40 MG 09/22/2020 12:00:00 AM EST active Omeprazo le 40 MG eCW1 ([facility]) Omeprazole 40 MG Delayed Release Oral Capsule Omeprazole 40 MG 09/22/2020 12:00:00 AM EST active Omeprazo le 40 MG eCW1 ([facility]) Omeprazole 40 MG Delayed Release Oral Capsule Omeprazole 40 MG 09/22/2020 12:00:00 AM EST active e CW1 ([facility]) Hydroxyzine Hydrochloride 25 MG Oral Tablet HydrOXYzin e HCl 25 MG HydrOXYzine HCl 25 MG 09/18/2020 12:00:00 AM EST suspende d HydrOXYzine HCl 25 MG eCW1 ([facility]) Hydroxyzine Hydrochloride 25 MG Oral Tablet HydrOXYzin e HCl 25 MG HydrOXYzine HCl 25 MG 09/18/2020 12:00:00 AM EST suspende d HydrOXYzine HCl 25 MG eCW1 ([facility]) Hydroxyzine Hydrochloride 25 MG Oral Tablet HydrOXYzin e HCl 25 MG HydrOXYzine HCl 25 MG 09/18/2020 12:00:00 AM EST active HydrOXYzine HCl 25 MG eCW1 ([facility]) Hydroxyzine Hydrochloride 25 MG Oral Tablet HydrOXYzin e HCl 25 MG HydrOXYzine HCl 25 MG 09/18/2020 12:00:00 AM EST active HydrOXYzine HCl 25 MG eCW1 ([facility]) Hydroxyzine Hydrochloride 25 MG Oral Tablet HydrOXYzin e HCl 25 MG HydrOXYzine HCl 25 MG 09/18/2020 12:00:00 AM EST active HydrOXYzine HCl 25 MG eCW1 ([facility]) Hydroxyzine Hydrochloride 25 MG Oral Tablet HydrOXYzin e HCl 25 MG HydrOXYzine HCl 25 MG 09/18/2020 12:00:00 AM EST active HydrOXYzine HCl 25 MG eCW1 ([facility]) Hydroxyzine Hydrochloride 25 MG Oral Tablet HydrOXYzin e HCl 25 MG HydrOXYzine HCl 25 MG 09/18/2020 12:00:00 AM EST active HydrOXYzine HCl 25 MG eCW1 ([facility]) Hydroxyzine Hydrochloride 25 MG Oral Tablet HydrOXYzin e HCl 25 MG HydrOXYzine HCl 25 MG 09/18/2020 12:00:00 AM EST suspende d HydrOXYzine HCl 25 MG eCW1 ([facility]) Hydroxyzine Hydrochloride 25 MG Oral Tablet HydrOXYzin e HCl 25 MG HydrOXYzine HCl 25 MG 09/18/2020 12:00:00 AM EST active HydrOXYzine HCl 25 MG eCW1 ([facility]) Hydroxyzine Hydrochloride 25 MG Oral Tablet HydrOXYzin e HCl 25 MG HydrOXYzine HCl 25 MG 09/18/2020 12:00:00 AM EST suspende d HydrOXYzine HCl 25 MG eCW1 ([facility]) Hydroxyzine Hydrochloride 25 MG Oral Tablet HydrOXYzin e HCl 25 MG HydrOXYzine HCl 25 MG 09/18/2020 12:00:00 AM EST suspende d HydrOXYzine HCl 25 MG eCW1 ([facility]) Hydroxyzine Hydrochloride 25 MG Oral Tablet HydrOXYzin e HCl 25 MG HydrOXYzine HCl 25 MG 09/18/2020 12:00:00 AM EST active HydrOXYzine HCl 25 MG eCW1 ([facility]) Hydroxyzine Hydrochloride 25 MG Oral Tablet HydrOXYzin e HCl 25 MG HydrOXYzine HCl 25 MG 09/18/2020 12:00:00 AM EST active HydrOXYzine HCl 25 MG eCW1 ([facility]) Hydroxyzine Hydrochloride 25 MG Oral Tablet HydrOXYzin e HCl 25 MG HydrOXYzine HCl 25 MG 09/18/2020 12:00:00 AM EST active HydrOXYzine HCl 25 MG eCW1 ([facility]) Hydroxyzine Hydrochloride 25 MG Oral Tablet HydrOXYzin e HCl 25 MG HydrOXYzine HCl 25 MG 09/18/2020 12:00:00 AM EST suspende d HydrOXYzine HCl 25 MG eCW1 ([facility]) Morphine Sulfate 2 MG/ML Oral Solution Morphine Sulfat e 10 MG/5ML Morphine Sulfate 10 MG/5ML 06/12/2020 12:00:00 AM EDT 2.0 {ml_as_needed} suspended Morphine Sulfate 10 MG/5ML eCW1 ([facility]) Morphine Sulfate 2 MG/ML Oral Solution Morphine Sulfat e 10 MG/5ML Morphine Sulfate 10 MG/5ML 06/12/2020 12:00:00 AM EDT 2.0 {ml_as_needed} suspended Morphine Sulfate 10 MG/5ML eCW1 ([facility]) Morphine Sulfate 2 MG/ML Oral Solution Morphine Sulfat e 10 MG/5ML Morphine Sulfate 10 MG/5ML 06/12/2020 12:00:00 AM EDT 2.0 {ml_as_needed} suspended Morphine Sulfate 10 MG/5ML eCW1 ([facility]) Morphine Sulfate 2 MG/ML Oral Solution Morphine Sulfat e 10 MG/5ML Morphine Sulfate 10 MG/5ML 06/12/2020 12:00:00 AM EDT 2.0 {ml_as_needed} suspended Morphine Sulfate 10 MG/5ML eCW1 ([facility]) Morphine Sulfate 2 MG/ML Oral Solution Morphine Sulfat e 10 MG/5ML Morphine Sulfate 10 MG/5ML 06/12/2020 12:00:00 AM EDT 2.0 {ml_as_needed} active Morphine Sulfate 10 MG/5ML eCW1 ([facility]) Morphine Sulfate 2 MG/ML Oral Solution Morphine Sulfat e 10 MG/5ML Morphine Sulfate 10 MG/5ML 06/12/2020 12:00:00 AM EDT 2.0 {ml_as_needed} active Morphine Sulfate 10 MG/5ML eCW1 ([facility]) Morphine Sulfate 2 MG/ML Oral Solution Morphine Sulfat e 10 MG/5ML Morphine Sulfate 10 MG/5ML 06/12/2020 12:00:00 AM EDT 2.0 {ml_as_needed} suspended Morphine Sulfate 10 MG/5ML eCW1 ([facility]) Morphine Sulfate 2 MG/ML Oral Solution Morphine Sulfat e 10 MG/5ML Morphine Sulfate 10 MG/5ML 06/12/2020 12:00:00 AM EDT 2.0 {ml_as_needed} suspended Morphine Sulfate 10 MG/5ML eCW1 ([facility]) Morphine Sulfate 2 MG/ML Oral Solution Morphine Sulfat e 10 MG/5ML Morphine Sulfate 10 MG/5ML 06/12/2020 12:00:00 AM EDT 2.0 {ml_as_needed} suspended Morphine Sulfate 10 MG/5ML eCW1 ([facility]) Morphine Sulfate 2 MG/ML Oral Solution Morphine Sulfat e 10 MG/5ML Morphine Sulfate 10 MG/5ML 06/12/2020 12:00:00 AM EDT 2.0 {ml_as_needed} suspended Morphine Sulfate 10 MG/5ML eCW1 ([facility]) Morphine Sulfate 2 MG/ML Oral Solution Morphine Sulfat e 10 MG/5ML Morphine Sulfate 10 MG/5ML 06/12/2020 12:00:00 AM EDT 2.0 {ml_as_needed} suspended Morphine Sulfate 10 MG/5ML eCW1 ([facility]) Docusate Sodium 50 MG / sennosides, CUSTODIAL 8.6 MG Oral Ta blet Senna S 8.6-50 MG Senna S 8.6-50 MG 06/10/2020 12:00:00 AM EDT active Senna S 8.6-50 MG eCW1 ([facility]) Docusate Sodium 50 MG / sennosides, CUSTODIAL 8.6 MG Oral Ta blet Senna S 8.6-50 MG Senna S 8.6-50 MG 06/10/2020 12:00:00 AM EDT active Senna S 8.6-50 MG eCW1 ([facility]) Docusate Sodium 50 MG / sennosides, CUSTODIAL 8.6 MG Oral Ta blet Senna S 8.6-50 MG Senna S 8.6-50 MG 06/10/2020 12:00:00 AM EDT active Senna S 8.6-50 MG eCW1 ([facility]) Docusate Sodium 50 MG / sennosides, CUSTODIAL 8.6 MG Oral Ta blet Senna S 8.6-50 MG Senna S 8.6-50 MG 06/10/2020 12:00:00 AM EDT active Senna S 8.6-50 MG eCW1 ([facility]) Docusate Sodium 50 MG / sennosides, CUSTODIAL 8.6 MG Oral Ta blet Senna S 8.6-50 MG Senna S 8.6-50 MG 06/10/2020 12:00:00 AM EDT active Senna S 8.6-50 MG eCW1 ([facility]) Docusate Sodium 50 MG / sennosides, CUSTODIAL 8.6 MG Oral Ta blet Senna S 8.6-50 MG Senna S 8.6-50 MG 06/10/2020 12:00:00 AM EDT active Senna S 8.6-50 MG eCW1 ([facility]) Docusate Sodium 50 MG / sennosides, CUSTODIAL 8.6 MG Oral Ta blet Senna S 8.6-50 MG Senna S 8.6-50 MG 06/10/2020 12:00:00 AM EDT active Senna S 8.6-50 MG eCW1 ([facility]) Docusate Sodium 50 MG / sennosides, CUSTODIAL 8.6 MG Oral Ta blet Senna S 8.6-50 MG Senna S 8.6-50 MG 06/10/2020 12:00:00 AM EDT active Senna S 8.6-50 MG eCW1 ([facility]) Docusate Sodium 50 MG / sennosides, CUSTODIAL 8.6 MG Oral Ta blet Senna S 8.6-50 MG Senna S 8.6-50 MG 06/10/2020 12:00:00 AM EDT active Senna S 8.6-50 MG eCW1 ([facility]) Docusate Sodium 50 MG / sennosides, CUSTODIAL 8.6 MG Oral Ta blet Senna S 8.6-50 MG Senna S 8.6-50 MG 06/10/2020 12:00:00 AM EDT active Senna S 8.6-50 MG eCW1 ([facility]) Docusate Sodium 50 MG / sennosides, CUSTODIAL 8.6 MG Oral Ta blet Senna S 8.6-50 MG Senna S 8.6-50 MG 06/10/2020 12:00:00 AM EDT active Senna S 8.6-50 MG eCW1 ([facility]) Morphine Sulfate 4 MG/ML Oral Solution Morphine Sulfat e 20 MG/5ML Morphine Sulfate 20 MG/5ML 06/10/2020 12:00:00 AM EDT 1.0 {ml_as_needed} active Morphine Sulfate 20 MG/5ML eCW1 ([facility]) Docusate Sodium 50 MG / sennosides, CUSTODIAL 8.6 MG Oral Ta blet Senna S 8.6-50 MG Senna S 8.6-50 MG 06/10/2020 12:00:00 AM EDT active Senna S 8.6-50 MG eCW1 ([facility]) Insurance Providers Payer name Policy type / Coverage type Policy ID Covered constitution party ID Covered constitution party's relationship to [place] Policy [place] Plan Information Medicare Natl Gov't Servi Medicare Primary [id number] Self [id number] Medicare C [id number] SELF [id number] MEDICARE [id number] SP [id number] MEDICARE A [id number] Self [id number] Medicare C [id number] SELF [id number] DME Jurisdiction A [facility] C [id number] SELF [id number] Medicaid [facility] S D [id number] SELF [id number] Medicaid [facility] S D [id number] SELF [id number] MEDICAID M [id number] Self [id number] MEDICAID [id number] SP [id number] Medicare C [id number] SELF [id number] DME Jurisdiction A [facility] C [id number] SELF [id number] MEDICAID [id number] SP [id number] ANSI-Medicaid [id number] ANSI-Medicare Part B [id number] ANSI-Medicare Part B [id number] ANSI-Medicaid [id number] ANSI-Medicaid [id number] ANSI-Medicare Part B [id number] MEDICAID [id number] SP [id number] ANSI-Medicare Part B [id number] ANSI-Medicaid [id number] ANSI-Medicare Part B [id number] ANSI-Medicaid [id number] ANSI-Medicare Part B [id number] ANSI-Medicaid [id number] ANSI-Medicaid [id number] ANSI-Medicare Part B [id number] ANSI-Medicaid [id number] ANSI-Medicare Part B [id number] ANSI-Medicare Part B [id number] ANSI-Medicaid [id number] ANSI-Medicare Part B [id number] ANSI-Medicaid [id number] ANSI-Medicare Part B [id number] ANSI-Medicaid [id number] ANSI-Medicaid [id number] ANSI-Medicare Part B [id number] ANSI-Medicaid [id number] ANSI-Medicare Part B [id number] ANSI-Medicaid [id number] ANSI-Medicare Part B [id number] ANSI-Medicaid [id number] ANSI-Medicare Part B [id number] ANSI-Medicaid [id number] ANSI-Medicare Part B [id number] ANSI-Medicare Part B [id number] ANSI-Medicaid [id number] ANSI-Medicaid [id number] ANSI-Medicare Part B [id number] ANSI-Medicaid [id number] ANSI-Medicare Part B [id number] ANSI-Medicaid [id number] ANSI-Medicare Part B [id number] ANSI-Medicare Part B [id number] ANSI-Medicaid [id number] ANSI-Medicaid [id number] ANSI-Medicare Part B [id number] ANSI-Medicaid [id number] ANSI-Medicare Part B [id number] ANSI-Medicaid [id number] ANSI-Medicare Part B [id number] ANSI-Medicaid [id number] ANSI-Medicare Part B [id number] ANSI-Medicare Part B [id number] ANSI-Medicaid [id number] ANSI-Medicaid [id number] ANSI-Medicare Part B [id number] ANSI-Medicare Part B [id number] ANSI-Medicaid [id number] ANSI-Medicaid [id number] ANSI-Medicare Part B [id number] ANSI-Medicare Part B [id number] ANSI-Medicaid [id number] ANSI-Medicare Part B [id number] ANSI-Medicaid [id number] ANSI-Medicaid [id number] ANSI-Medicare Part B [id number] ANSI-Medicare Part B [id number] ANSI-Medicaid [id number] ANSI-Medicaid [id number] ANSI-Medicare Part B [id number] ANSI-Medicaid [id number] ANSI-Medicare Part B [id number] MEDICARE [id number] SP [id number] MEDICARE [id number] SP [id number] VNA HOMECARE OPTIONS O [id number] S [id number] MEDICARE C [id number] S [id number] [place] [id number] [place] [id number] M [id number] MEDICARE [id number] SP [id number] MEDICAID -O/P [id number] MEDICARE PART A -O/P [id number] EMEDNY [id number] SP [id number] MEDICARE C [id number] S [id number] MEDICAID M [id number] S [id number] [facility] O [id number] S [id number] MEDICARE PART A -O/P [id number] 18 [id number] [facility]-Medicare Part B [id number] [facility]-Medicaid [id number] [facility] [id number] [facility] [id number] Problems, Conditions, and Diagnoses Code Display Name Description Problem Type Effective Dates Data Source(s) Q00799 Presence of unspecified artificial hip j oint Presence of unspecified artificial hip joint Diagnosis 05/30/2021 11:06:00 AM EDT [facility] I509 Heart failure, unspecified Heart failure, unspecified Diagnosis 05/30/2021 11:06:[address] [facility] T97209 Unspecified asthma, uncomplicated Unspecified as thma, uncomplicated Diagnosis 05/30/2021 11:06:[address] 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 D508 Other iron deficiency anemias Other iron deficiency an emias Diagnosis 05/30/2021 11:06:[address] [facility] R42 Dizziness and giddiness Dizziness and giddiness Diagno sis 05/30/2021 11:06:[address] [facility] M19.079 [id number] Arthritis of foot Problem 01/15/2021 12:00:0 0 AM EDT eCW1 ([facility]) R27.0 96738274 Ataxia Problem 01/12/2021 12:00:00 AM ED T eCW1 ([facility]) M19.072 [id number] Arthritis of left foot Problem 0 01/12/2021 12:00:00 AM EDT eCW1 ([facility]) L29.9 774409758 Chronic pruritus Problem 09/18/2020 12:00:00 AM EST eCW1 ([facility]) Z12.11 [id number] Colon cancer screening Problem 09/18/2020 12 :00:00 AM EST eCW1 ([facility]) R63.4 88534920 Weight loss Problem 09/18/2020 12:00:[address] eCW1 ([facility]) N81.6 4875632 Rectocele Problem 06/25/2020 12:00:00 AM ES T eCW1 ([facility]) Surgeries/Procedures Procedure Description Date Indications Data Source(s) FINE NEEDLE ASPIRATION W/O IMAGING GUIDANCE 06/03/2021 12:00:00 AM EDT eCW1 ([facility]) FINE NEEDLE ASPIRATION W/O IMAGING GUIDANCE 05/13/2021 12:00:00 AM EDT eCW1 ([facility]) Medication: 2% Lidocaine intradermal 05/13/2021 12:00: 00 AM EDT eCW1 ([facility]) FINE NEEDLE ASPIRATION W/O IMAGING GUIDANCE 04/22/2021 12:00:00 AM EDT eCW1 ([facility]) FINE NEEDLE ASPIRATION W/O IMAGING GUIDANCE 04/01/2021 12:00:00 AM EDT eCW1 ([facility]) Medication: Silver Nitrate Stick topically 04/01/2021 12:00:00 AM EDT eCW1 ([facility]) FINE NEEDLE ASPIRATION W/O IMAGING GUIDANCE 03/11/2021 12:00:00 AM EDT eCW1 ([facility]) FINE NEEDLE ASPIRATION W/O IMAGING GUIDANCE 02/18/2021 12:00:00 AM EDT eCW1 ([facility]) Medication: Silver Nitrate Stick topically 02/10/2021 12:00:00 AM EDT eCW1 ([facility]) FINE NEEDLE ASPIRATION W/O IMAGING GUIDANCE 02/10/2021 12:00:00 AM EDT eCW1 ([facility]) FINE NEEDLE ASPIRATION W/O IMAGING GUIDANCE 02/03/2021 12:00:00 AM EDT eCW1 ([facility]) FINE NEEDLE ASPIRATION W/O IMAGING GUIDANCE 12/24/2020 12:00:00 AM EDT eCW1 ([facility]) FINE NEEDLE ASPIRATION W/O IMAGING GUIDANCE 12/03/2020 12:00:00 AM EDT eCW1 ([facility]) FINE NEEDLE ASPIRATION W/O IMAGING GUIDANCE 11/12/2020 12:00:00 AM EDT eCW1 ([facility]) FINE NEEDLE ASPIRATION W/O IMAGING GUIDANCE 10/22/2020 12:00:00 AM EST eCW1 ([facility]) FINE NEEDLE ASPIRATION W/O IMAGING GUIDANCE 10/01/2020 12:00:00 AM EST eCW1 ([facility]) FINE NEEDLE ASPIRATION W/O IMAGING GUIDANCE 09/10/2020 12:00:00 AM EST eCW1 ([facility]) FINE NEEDLE ASPIRATION W/O IMAGING GUIDANCE 06/16/2020 12:00:00 AM EDT eCW1 ([facility]) FINE NEEDLE ASPIRATION W/O IMAGING GUIDANCE 05/26/2020 12:00:00 AM EDT eCW1 ([facility]) Results ID Date Data Source [id number] 06/02/2021 07:46:00 AM EDT [facility] [address] [place] [address] RESPIRATORY CARE REPORT ==== ---------NAME------- NUMBER SEX AGE ADMIT DISC. XRAY# F/C DANIEL PHILLIPS [id number] F 85 05/30/21 05/30/21 [id number] MB4 E/R DATE OF : 1935 M/R# [id number] PH#: [phone] TR-03 LOCATION: EMERGENCY DEPT EKG 33294 COMP LETE:05/30/21 14:25 [facility] [address] PHYSICIAN: TORI Lopez Name Value Range Interpretation Code Description Data Ladi rce(s) Supporting Document(s) ID Date Data Source [id number] 06/01/2021 02:02:00 PM EDT [facility] [address] [place] [address] PHONE: [phone] FAX: [phone] Name .................. : GUME PHILLIPS Acct Number.................. : [id number] ROOM. ................. : TR-03 Number ................... : [id number] Stay type ............. : E/R Discharge Date......... ... : 05/30/21 Admit Date ......... : 05/30/21 Admit Phys .................... : TORI Lopez Date of ....... : 1935 Family Phys ................... : NO PCP Phone .................. : [phone] Age ................................ : 85 Film# .................. .:[id number] Sex ................................. : F Unsigned transcriptions are preliminary reports and do not represent a medical or legal document CT HEAD W/O CONTRAST 98591 COMPLETE:05/30/21 16:23 [place] 24922 Reason(s): Vertigo/Dizziness CT BRAIN WITHOUT IV CONTRAST INDICATION: Vertigo, dizziness COMPARISON: None CONTRAST: None Preliminary report for this exam was provided by [facility] . One or more of the following [...] postoperative sinus changes. Page 1 of 2 [place] [address] PHONE: FAX: [phone] Name .................. : GUME PHILLIPS Acct Number.................. : [id number] ROOM. ................. : TR-03 MR Number ................... : [id number] Stay type ............. : E/R Discharge Date......... ... : 05/30/21 Admit Date ......... : 05/30/21 Admit Phys .................... : TORI Lopez Date of ....... : 1935 Family Phys ................... : NO PCP Phone .................. : [phone] Age ................................ : 85 Film# .................. .:[id number] Sex ................................. : F Unsigned transcriptions are preliminary reports and do not represent a medical or legal document CT HEAD W/O CONTRAST 17471 COMPLETE:05/30/21 16:23 [place] 41617 Reason(s): Vertigo/Dizziness Electronically Reviewed and Signed By Gunnar Bray MD , 06/01/21 14:02, SCB Transcribe Initials: DZ , Transcribe Date: 05/30/21 22:12, Dictation Date: Copy for: EMERGENCY DEPT via modem Copy for: 710 MED REC DISCHARGED Page 2 of 2 Name Value Range Interpretation Code Description Data Ladi rce(s) Supporting Document(s) ID Date Data Source [id number] 06/01/2021 01:58:00 PM EDT [facility] [address] [place] [address] PHONE: [phone] FAX: [phone] Name .................. : GUME PHILLIPS Acct Number.................. : [id number] ROOM. ................. : TR-03 MR Number ................... : [id number] Stay type ............. : E/R Discharge Date......... ... : 05/30/21 Admit Date ......... : 05/30/21 Admit Phys .................... : TORI Lopez Date of ....... : 1935 Family Phys ................... : NO PCP Phone .................. : [phone] Age ................................ : 85 Film# .................. .:[id number] Sex ................................. : F Unsigned transcriptions are preliminary reports and do not represent a medical or legal document CHEST PORTABLE [id number] COMPLETE:05/30/21 16:23 [place] 83049 Reason(s): Shortness of Breath PORTABLE CHEST SINGLE [...] hemidiaphragm. Electronically Reviewed and Signed By Gunnar Bray MD , 06/01/21 13:58, SCB Transcribe Initials: SHY , Transcribe Date: 05/30/21 22:10, Dictation Date: Copy for: EMERGENCY DEPT via modem Copy for: 710 MED REC DISCHARGED Page 1 of 1 Name Value Range Interpretation Code Description Data Ladi rce(s) Supporting Document(s) ID Date Data Source [id number] 05/30/2021 11:06:[address] [facility] [address] [facility] Emergency Department [address] [place] [address] Phone #: ext- [phone] 05/30/2021 11:04 Patient: [...] Ranjana Perez Jack ; Deborah Perez R.N.(Oxygen?(No)) RLeonaNLeona Reason for Study: Shortness of BreathCT Head W/O Cont STAT 11:24 05/30/2021 Ack'd: 11:27 11:41 Ana,(Oxygen?(No)) Justin Purcell ; Deborah Perez R.N., R.N. Reason for Study: Vertigo/DizzinessMEDICATION/IV/DRIP/FLUID ORDERSOrder Description Priority Entered Acknowledged InitialedGENERAL ORDERSOrder Description Priority Entered Acknowledged In itialed [address] [facility] Emergency Department [address] [place] [address] Phone #: [phone]- [phone] 05/30/2021 11:04 Patient: JACQUELINE DUNAWAY Sex: F : 1935 Age: 85yEKG 11:24 05/30/2021 11:27 Tori Perez Jack ; Deborah Jones[Electronically signed by Deborah Perez R.N. (15:22 05/30/2021)][Electronically signed by Justin Purcell (15:57 05/30/2021)][Electronically locked by Deborah Perez R.N. (15:22 05/30/2021)] Name Value Range Interpretation Code Description Data Ladi rce(s) Supporting Document(s) ID Date Data Source [id number] 05/30/2021 11:06:[address] [facility] [address] [facility] Emergency Department [address] [place] [address] Phone #: ext- [phone] 05/30/2021 11:04 Patient: [...] Value Range Interpretation Code Description Data Ladi [facility](s) Supporting Document(s) ID Date Data Source [id number] 05/30/2021 11:06:[address] [facility] [address] [facility] Emergency Department [address] [place] [address] Phone #: ext- [phone] 05/30/2021 11:04 Patient: JACQUELINE DUNAWAY Sex: F : 1935 Age: 85yWeight: 57.2 kgHeight/Length: 65 inBMI: 21ALLERGIES: PulmicortDate/Time Medication Administered Medication Ordered Name Value Range Interpretation Code Description Data Ladi rce(s) Supporting Document(s) ID Date Data Source [id number] 05/30/2021 11:06:[address] [facility] [address] [facility] Emergency Department [address] [place] [address] Phone #: ext- [phone] 05/30/2021 11:04 Patient: [...] about: All medicines you take, including prescription, edrj-tja-mgurpai, herbs, and supplements Any other symptoms you have [address] [facility] Emergency Department [address] [place] [address] Phone #: ext- [phone] 05/30/2021 11:04 Patient: [...] side of the face [address] [facility] Emergency Department [address] [place] [address] Phone #: ext- [phone] 05/30/2021 11:04 Patient: JACQUELINE DUNAWAY Sex: F : 1935 Age: 85y Blood in vomit or stool (black or red color) Shortness of breath Feeling that your heart is fluttering or beating fast or hard (palpitations) Passing out or seizure Trouble walking or speaking [phone] [employer] [place] [address], [place] [address]. All rights reserved. This information is not [...] to find out the [address] [facility] Emergency Department [address] [place] [address] Phone #: ext- [phone] 05/30/2021 11:04 Patient: JACQUELINE DUNAWAY Sex: F : 1935 Age: 85yexact cause of your anemia. If you had testing done today, it may take several days to get all of theresults. You can follow up with your own healthcare provider to get the results.Call [phone] or get immediate medical care if any of the following occur: Shortness of breath or chest pain Dizziness or fainting gets worse Vomiting blood or passing red or black-colored stool [phone] [employer]. [address] [place] [address], [place] [address]. All rights reserved. This information is not intended as asubstitute for professional medical care. Always follow your healthcare professional's instructions.Heart PalpitationsPalpitations are the feeling that your heart is beating hard, fast, or irregular. Some describe it as"pounding," "flip-flopping in the chest," or "skipped beats." Palpitations may occur in someone withheart disease. But they can also occur in a healthy person. [address] [facility] Emergency Department [address] [place] [address] Phone #: ext- [phone] 05/30/2021 11:04 Patient: JACQUELINE DUNAWAY Sex: F : 1935 Age: 85yHeart-related causes: Heart rhythm problem (arrhythmia) Heart valve disease Disease of the heart muscle (cardiomyopathy) Coronary artery disease High blood eoppnszxZdr-rbmns-hfsarnh causes: Certain medicines such as asthma inhalers [...] Tell your doctor about any prescription or opbk-ygq-bfdwczd or herbal medicines you take.Follow-up care Follow up with your doctor, or as advised.Call 911This is the fastest and safest way to get to the emergency department. The paramedics can also starttreatment on the way to the hospital, if needed.Don't wait until your symptoms are severe to call 911. These are reasons to call 911: Chest pain Shortness of breath [address] [facility] Emergency Department [address] [place] [address] Phone #: ext- [phone] 05/30/2021 11:04 Patient: [...] normal, or aredifferent from your past palpitations. [phone] [employer]. [address] [place] [address], [place] [address]. All rights reserved. This information is not intended as asubstitute for professional medical care. Always follow your healthcare professional's instructions. You have been given the following additional information: Dizziness, Uncertain Cause Anemia, Type Not Specified (Adult) Palpitations(Electronically signed by Justin Purcell 05/30/2021 15:57) Name Value Range Interpretation Code Description Data Ladi rce(s) Supporting Document(s) ID Date Data Source [id number] 05/30/2021 11:06:[address] [facility] 1 Clinical Report - Nurses 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 SEPSIS SCREEN NEGATIVE. No suspected or confirmedsigns of infection present.GLA OW COMA SCORE: 15- eyes open- spontaneous (4); best verbal response- oriented (5); bestmotor response- obeys commands (6). --11:15 05/30/21 Ava Carrington R.N.11:07 05/30/21. BP: 148/90. MAP: 109. HR: 82. RR: 18. O2 saturation: 97% on room air. Temp: 97.8 F(oral). Pain level now: 0/10. --11:15 05/30/21 Ava Carrington R.N.Weight: 57.2 kg [...] Carrington R.N.PROBLEMS: 2 Clinical Report - Nurses [facility] Emergency Department [address] [place] [address] Phone #: ext- [phone] 05/30/2021 11:04 Patient: [...] risk assessment completed. No skin integrity riskidentified. --11:05/30/21 Ava Carrington R.N.FAMILY HX:(non- contributory). --11:30 05/30/21 Justin Purcell.InterventionsIdentification band on patient. --11:05/30/21 Ava Carrington R.N. 3 Clinical Report - Nurses [facility] Emergency Department [address] [place] [address] Phone #: ext- [phone] 05/30/2021 11:04 Patient: [...] is warm and dry. Skin is pale. --11:05/30/21 Deborah Perez R.N.NURSING PROGRESS NOTES11:10 05/30/2021 Site #1 started prior to arrival by EMS via IV in the left forearm with an 20g angiocath,with aseptic technique and good blood return. --11:22 05/30/21 Deborah Perez R.N. late entry - 11:11 05/30/21. padded products inspector trimmer, NIBP monitor and pulse oximeter placed on patient; pyrometer operator- Lead II; monitor alarms on; monitor strip [...] to CT by stretcher with mask and radiology transcriptionist. --11:42 05/30/21 Deborah Perez R.N. Patient returned from CT by stretcher with mask and radiology transcriptionist. --11:50 05/30/21 Deborah Perez R.N. Rounding: Pain: [...] unchanged, NAD). 4 Clinical Report - Nurses [facility] Emergency Department [address] [place] [address] Phone #: ext- [phone] 05/30/2021 11:04 Patient: [...] Patient verbalized understanding. Written instructions provided in Belgian. The patient was discharged by the physician. [...] paper copy for full list of VS). --15:22 05/30/21 Deborah Perez R.N. 14:00 05/30/2021 Site #1 removed upon discharge. Bandage applied (2x2 and tape, pt tolerated well, clean dry and intact upon d/c.). --15:22 05/30/21 Deborah Perez R.N. 5 Clinical Report - Nurses [facility] Emergency Department [address] [place] [address] Phone #: ext- [phone] 05/30/2021 11:04 Patient: JACQUELINE DUNAWAY Sex: F : 1935 Age: 85yLocked/Released at 05/30/2021 15:22 by Deborah Perez R.N. Name Value Range Interpretation Code Description Data Ladi rce(s) Supporting Document(s) ID Date Data Source [id number] 05/30/2021 11:06:[address] [facility] 1 Clinical Report - Physicians/Mid Levels [facility] Emergency Department [address] [place] [address] Phone #: ext- [phone] 05/30/2021 11:04 Patient: [...] get any answers from her PCP or Yazdanism. No new medications, palpitations or chest pain. [...] daily. 2 Clinical Report - Physicians/Mid Levels [facility] Emergency Department [address] [place] [address] Phone #: ext- [phone] 05/30/2021 11:04 Patient: [...] been interpreted contemporaneously byme. Interpr etation time: 11:10 05/30/2021.CT Head: No acute changes. There is atrophy is present. No intracranial mass or infarction. The studywas interpreted by the radiologist.Laboratory Tests: Occult Blood Stool Diagnostic 1 slide: (ZOLTAN: 05/30/2021 14:20) ( MsgRcvd 05/30/2021 14:49) Final results 3 Clinical Report - Physicians/Mid Levels [facility] Emergency Department [address] [place] [address] Phone #: [phone]- [phone] 05/30/2021 11:04 Patient: JACQUELINE DUNAWAY Sex: F : 1935 Age: 85y Test Result Flag Units (Reference) OCCULT BLOOD NEGATIVE (NORMAL: NEGAT OCCULT BLOOD REENTER NEGATIVE (NORMAL: NEGAT { HEMOCCULT LOT # [id number] ){ LOT EXP [id number] ){ PROCEDURAL CONTROL POS/NEG VALID)Direct Heath: (ZOLTAN: [...] Male GFR Interprentation 20-49 yrs >60 mL/min Ofjuaf38-10 yrs >56 mL/min Normal 60-69 yrs >49 mL/min Normal 70-79yrs>42 mL/min Normal 80 and above >35 mL/min Normal Female GFRInterpretation 20-39 yrs >60 mL/min Normal 40-49 yrs >58 mL/minNormal 50- 59 yrs >51 mL/min Normal 60-69 yrs >45 mL/min Vpsssr12-92 yrs >39 mL/min Normal 80 and above >32 mL/min NormalCBC w Diff: (ZOLTAN: 05/30/2021 12:12) ( MsgRcvd 05/30/2021 12:43) Final results Test Result Flag Units (Reference) CBC W/AUTOMATED DIFF COMPLETE BLOOD COUNT WBC 4.3 10/uL (4.2 - 11.0) 4 Clinical Report - Physicians/Mid Levels [facility] Emergency Department [address] [place] [address] Phone #: ext- [phone] 05/30/2021 11:04 Patient: [...] Type and Screen: (ZOLTAN: 05/30/2021 12:12) ( [facility] 05/30/2021 14:38) Final results Test Result Flag Units (Reference) ABO GROUP O RH TYPE POSITIVE AB SCREEN POSITIVE A (NORMAL: NEGAT { ABO/RH REENTER O POSITIVE{ AB SCREEN RE-ENTER POSITIVE Troponin-T: (ZOLTAN: 05/30/2021 12:12) ( [facility] 05/30/2021 13:24) Final results Test Result Flag [...] stable. 5 Clinical Report - Physicians/Mid Levels [facility] Emergency Department [address] [place] [address] Phone #: ext- [phone] 05/30/2021 11:04 Patient: JACQUELINE DUNAWAY Sex: F [...] rce(s) Supporting Document(s) ID Date Data Source [id number] 05/30/2021 02:49:[address] [facility] Name Value Range Interpretation Code Description Data Ladi rce(s) Supporting Document(s) OCCULT BLOOD NEGATIVE NORMAL: NEGATIVE [facility] OCCULT BLOOD REENTER NEGATIVE NORMAL: NEGATIVE [facility] { HEMOCCULT LOT # [id number] ){ LOT EXP DATE 01-19-22 ){ PROCEDURAL CONTROL POS/NEG VALID ) ID Date Data Source [id number] 06/02/2021 10:35:[address] [facility] Name Value Range Interpretation Code Description Data Ladi rce(s) Supporting Document(s) Blood group antibodies identified in Serum or Plasma Anti-Fy(a) Wu [facility] XXX blood group Ab [Titer] in Serum or Plasma by Antihuman globulin [address] [facility] If a numerical titer result has been rep orted, please note that thisresult is the reciprocal value of titer results formerly reported as1:2,1:4, 1:8, etc. These results are now reported as 2, 4, 8, etc.[employer] has recommended this changein titer reporting formats to simply reflect the reciprocal value ofthe titer. ID Date Data Source [id number] 05/30/2021 03:49:[address] [facility] Name Value Range Interpretation Code Description Data Ladi rce(s) Supporting Document(s) Direct antiglobulin test.IgG specific re agent [Interpretation] on Red Blood Cells POSITIVE NORMAL: NEGATIVE [facility] { DIR HEATH RE-ENTER POSITIVE (NORMAL: NEGATIVE ) ID Date Data Source [id number] 05/30/2021 02:37:00 PM EDT [facility] Value Range Interpretation Code Description Data Ladi rce(s) Supporting Document(s) ABO group [Type] in Blood [facility] Rh [Type] in Blood POSITIVE [facility] AB SCREEN POSITIVE NORMAL: NEGATIVE A [facility] { ABO/RH REENTER O POSITIVE{ AB SCREEN RE-ENTER POSITIVE ID Date Data Source [id number] 05/30/2021 01:24:[address] [facility] Name Value Range Interpretation Code Description Data Ladi rce(s) Supporting Document(s) TROPONIN T 0.02 NG/ML 0.00 - 0.10 [facility] TROPONIN T0.1 ng/ml Recommended as the c linical threshold value forTroponin T. ID Date Data Source [id number] 05/30/2021 01:24:[address] [facility] Name Value Range Interpretation Code Description Data Ladi rce(s) Supporting Document(s) COMPREHENSIVE METABOLIC PANEL [facility] COMPREHENSIVE METABOLIC PANEL Sodium [Moles/volume] in Serum or Plasma 140 mEq/L 134 - 153 [facility] Potassium [Moles/volume] in Serum or Plasma 4.5 mEq/L 3.6 - 5.0 [facility] Chloride [Moles/volume] in Serum or Plasma 102 mEq/L 98 - 107 [facility] Carbon dioxide, total [Moles/volume] in Serum or Plasma 27 MEQ/L 22 - 30 [facility] Glucose [Mass/volume] in Serum or Plasma 95 MG/DL 70 - 99 [facility] BUN 15 MG/DL 7 - 21 [facility] Creatinine [Mass/volume] in Serum or Plasma 0.7 MG/DL 0.7 - 1.5 [facility] BUN/CREAT 21 8 - 27 [facility] Protein [Mass/volume] in Serum or Plasma 6.9 G/DL 6.3 - 8.2 [facility] Albumin [Mass/volume] in Serum or Plasma 3.2 G/DL 3.9 - 5.[address] [facility] Globulin [Mass/volume] in Serum by calculation 3.7 GM/DL 2.4 - 3.[address] [facility] A/G RATIO 0.9 0.8 - 2.0 [facility] Calcium [Mass/volume] in Serum or Plasma 9.2 MG/DL 8.4 - 10.2 [facility] Bilirubin.total [Mass/volume] in Serum or Plasma <0.7 MG/DL 0.2 - 1.3 [facility] Alkaline phosphatase [Enzymatic activity/volume] in Serum or Plasma 77 U/L 38 - 126 [facility] Aspartate aminotransferase [Enzymatic activity/volume] in Serum or Plasma 13 U/L 5 - 40 [facility] Alanine aminotransferase [Enzymatic activity/volume] in Seru m or Plasma 5 U/L 7 - [address] [facility] Anion gap 3 in Serum or Plasma 11.0 mmol/L 8.0 - 16.0 [facility] AGE 85 yrs [facility] NON-AA GFR >60 mL/min [facility] ital AFR AMER GFR >60 [facility] Male GFR In terprentation [...] >32 mL/min Normal ID Date Data Source [id number] 05/30/2021 01:12:[address] [facility] Name Value Range Interpretation Code Description Data Ladi rce(s) Supporting Document(s) Magnesium [Mass/volume] in Serum or Plasma 1.7 MG/DL 1.7 - 2.2 [facility] ID Date Data Source [id number] 05/30/2021 12:43:[address] [facility] Name Value Range Interpretation Code Description Data Ladi rce(s) Supporting Document(s) CBC W/AUTOMATED DIFF [facility] COMPLETE BLOOD COUNT Leukocytes [#/volume] in Blood by Automated count 4.3 10^3/uL 4.2 - [address] [facility] Erythrocytes [#/volume] in Blood by Automated count 3.89 10^6/uL 4. 20 - 5.[address] [facility] Hemoglobin [Mass/volume] in Blood 8.8 g/dL 12.0 - 16.[address] [facility] Hematocrit [Volume Fraction] of Blood by Automated count 29.1 % 3 7.0 - 47.[address] [facility] Erythrocyte mean corpuscular volume [Entitic volume] by Auto mated count 74.8 fL 81.0 - [address] [facility] Erythrocyte mean corpuscular hemoglobin [Entitic mass] by Automated count 22.6 pg 27.0 - 34.[address] [facility] Erythrocyte mean corpuscular hemoglobin concentration [Mass/volume] by Automated count 30.2 g/dL 31.0 - 36.[address] [facility] Erythrocyte distribution width [Ratio] by Automated count 17.9 % 11.5 - 14.[address] [facility] Platelets [#/volume] in Blood by Automated count 415 10^3/uL 150 - [address] [facility] Platelet mean volume [Entitic volume] in Blood by Automated count 9.9 fL 7.4 - 10.4 [facility] Neutrophils/100 leukocytes in Blood by Automated count 79.1 % 37. 0 - 80.0 [facility] Lymphocytes/100 leukocytes in Blood by Manual count 10.1 % 25.0 - 40.[address] [facility] Monocytes/100 leukocytes in Blood by Automated count 8.0 % 3.0 - 8.0 [facility] Eosinophils/100 leukocytes in Blood by Automated count 1.4 % 0.0 - 7.0 [facility] Basophils/100 leukocytes in Blood by Automated count 0.9 % 0.0 - 2.5 [facility] %IG 0.5 % 0.0 - 0.0 H [facility] %NR[facility] [#/volume] in Blood by Automated count 3.38 10^3/uL 2.00 - 6.90 [facility] Lymphocytes [#/volume] in Blood by Automated count 0.43 10^3/uL 0.60 - 3.[address] [facility] Monocytes [#/volume] in Blood by Automated count 0.34 10^3/uL 0.00 - 0.90 [facility] Eosinophils [#/volume] in Blood by Automated count 0.06 10^3/uL 0.00 - 0.70 [facility] Basophils [#/volume] in Blood by Automated count 0.04 10^3/uL 0.00 - 0.20 [facility] #IG 0.02 10^3/uL 0.00 - 0.10 [facility] #NRBC 0.00 10^3/uL 0.00 - 0.00 [facility] MANUAL DIFF NOT INDICATED [facility] RBC MORPH NOT INDICATED [facility] ID Date Data Source WOUND CULTURE 02/03/2021 12:00:00 AM EDT eCW1 ([facility]) Name Value Range Interpretation Code Description Data Ladi rce(s) Supporting Document(s) FULL REPORT IN LAB NOTES (eCW and [facility]). WOUND CULTURE eCW1 ([facility]) ID Date Data Source TSH 01/19/2021 12:00:00 AM EDT eCW1 ([facility]) Name Value Range Interpretation Code Description Data Ladi rce(s) Supporting Document(s) 8.570 0.358-3.740 THYROID STIMULATING HORM ONE eCW1 ([facility]) THYROID STIMULATING HORMONE ID Date Data Source Reticulocyte Count Sysmex 01/19/2021 12:00:00 AM EDT eCW1 ([facility]) Name Value Range Interpretation Code Description Data Ladi rce(s) Supporting Document(s) 1.4 0.5-1.5 RETICULOCYTE % eCW1 ([facility]) ID Date Data Source FERRITIN 01/19/2021 12:00:00 AM EDT eCW1 ([facility]) Name Value Range Interpretation Code Description Data Ladi rce(s) Supporting Document(s) 37 8-252 FERRITIN eCW1 ([facility]) FERRITIN ID Date Data Source Comprehensive Metabolic Profile (CMP) 01/19/2021 12:00:00 AM EDT eCW1 ([facility]) Name Value Range Interpretation Code Description Data Ladi rce(s) Supporting Document(s) 24 7-18 BLOOD UREA NITROGEN eCW1 ([facility]) 0.68 0.55-1.30 CREATININE FOR GFR eCW1 ([facility]) 156 70-100 GLUCOSE, FASTING eCW1 ([facility]) 4.3 3.5-5.1 POTASSIUM SERUM eCW1 ([facility]) 104 98-107 CHLORIDE LEVEL eCW1 ([facility]) 138 136-145 SODIUM LEVEL eCW1 ([facility]) > 60.0 >32 GLOMERULAR FILTRATION RATE eCW 1 ([facility]) 8.6 8.8-10.2 CALCIUM LEVEL eCW1 ([facility]) 27 21-32 CARBON DIOXIDE LEVEL eCW1 ([facility]) 13 7-37 AST/SGOT eCW1 ([facility]) 0.4 0.2-1.0 BILIRUBIN,TOTAL eCW1 ([facility]) 13 12-78 ALT/SGPT eCW1 ([facility]) 94 45-117 ALKALINE PHOSPHATASE eCW1 ([facility]) 7.1 6.4-8.2 TOTAL PROTEIN eCW1 ([facility]) 0.5 1.2-2.2 ALBUMIN/GLOBULIN RATIO eCW1 ([facility]) 2.5 3.2-5.2 ALBUMIN eCW1 ([facility]) ID Date Data Source CBC with Differential 01/19/2021 12:00:00 AM EDT eCW1 ([facility]) Name Value Range Interpretation Code Description Data Ladi rce(s) Supporting Document(s) 5.8 4.0-10.0 WHITE BLOOD COUNT eCW1 ([facility]) 10.1 12.0-15.5 HEMOGLOBIN eCW1 ([facility]) 30.7 36.0-47.0 HEMATOCRIT eCW1 ([facility]) 3.88 4.00-5.40 RED BLOOD COUNT eCW1 ([facility]) 26.0 27.0-33.0 MEAN CORPUSCULAR HEMOGLOB IN eCW1 ([facility]) 79.1 80.0-96.0 MEAN CORPUSCULAR VOLUME e CW1 ([facility]) 32.9 32.0-36.5 MEAN CORPUSCULAR HGB CONC eCW1 ([facility]) 18.4 11.5-14.5 RED CELL DISTRIBUTION WID TH eCW1 ([facility]) 358 150-450 PLATELET COUNT, AUTOMATED eCW1 ([facility]) 7.8 2.0-8.0 MONO % eCW1 ([facility]) 15.5 24.0-44.0 LYMPH % eCW1 ([facility]) 73.1 36.0-66.0 NEUTROPHILS % eCW1 ([facility]) 0.7 0.0-1.0 BASO % eCW1 ([facility]) 2.4 0.0-3.0 EOS % eCW1 ([facility]) 4.2 1.5-8.5 NEUTROPHILS # eCW1 ([facility]) 0.9 1.5-5.0 LYMPH # eCW1 ([facility]) 0.1 0.0-0.5 EOS # eCW1 ([facility]) 0.5 0.0-0.8 MONO # eCW1 ([facility]) 0.0 0.0-0.2 BASO # eCW1 ([facility]) ID Date Data Source NT-PRO BNP 01/19/2021 12:00:00 AM EDT eCW1 ([facility]) Name Value Range Interpretation Code Description Data Ladi rce(s) Supporting Document(s) 2338 <450 NT-PRO BNP eCW1 ([facility]) ID Date Data Source FREE T4 BY DIALYSIS DIRECT 06/17/2020 05:43:42 AM EDT eCW1 ( [facility]) Name Value Range Interpretation Code Description Data Ladi rce(s) Supporting Document(s) 1.6 eCW1 ([facility]) ID Date Data Source RBC FOLATE PROFILE 06/17/2020 05:43:27 AM EDT eCW1 ([facility]) Name Value Range Interpretation Code Description Data Ladi rce(s) Supporting Document(s) 36.2 HEMATOCRIT eCW1 ([facility]) 707 RBC FOLATE eCW1 ([facility]) ID Date Data Source [id number] 07/02/2020 08:47:52 AM EST [facility] Jacqueline Singleton: 1935Provider: Livia [...] RATE 06/12/2020 03:07:47 AM EDT eC W1 ([facility]) Name Value Range Interpretation Code Description Data Ladi rce(s) Supporting Document(s) 77 ERYTHROCYTE SEDIMENTATION RATE eCW1 ([facility]) ERYTHROCYTE SEDIMENTATION RATE ID Date Data Source CBC - Complete Blood Count 06/12/2020 03:07:42 AM EDT eCW1 ( [facility]) Name Value Range Interpretation Code Description Data Ladi rce(s) Supporting Document(s) 4.53 eCW1 ([facility]) 10.7 eCW1 ([facility]) 6.6 eCW1 ([facility]) 29.6 eCW1 ([facility]) 23.6 eCW1 ([facility]) 79.9 eCW1 ([facility]) 36.2 eCW1 ([facility]) 393 eCW1 ([facility]) 21.5 eCW1 ([facility]) ID Date Data Source C REACTIVE PROTEIN QUANTITATIV (At [facility]) 06/10/2020 08:02 :45 AM EDT eCW1 ([facility]) Name Value Range Interpretation Code Description Data Ladi rce(s) Supporting Document(s) 11.10 C REACTIVE PROTEIN QUANTI TATIV eCW1 ([facility]) C REACTIVE PROTEIN QUANTITATIV ID Date Data Source VITAMIN D 25-HYDROXY 06/10/2020 08:02:32 AM EDT eCW1 ([facility]) Name Value Range Interpretation Code Description Data Ladi rce(s) Supporting Document(s) 45.9 TOTAL 25(OH) VITAMIN D eCW1 ([facility]) TOTAL 25(OH) VITAMIN D ID Date Data Source FREE T4 & TSH PANEL 06/10/2020 08:02:29 AM EDT eCW1 ([facility]) Name Value Range Interpretation Code Description Data Ladi rce(s) Supporting Document(s) 1.13 FREE T4 eCW1 ([facility]) 14.200 THYROID STIMULATING HORMONE eC W1 ([facility]) ID Date Data Source PTH INTACT 06/10/2020 08:02:20 AM EDT eCW1 ([facility]) Name Value Range Interpretation Code Description Data Ladi rce(s) Supporting Document(s) 41.5 PTH INTACT eCW1 ([facility]) PTH INTACT ID Date Data Source VITAMIN B12 LEVEL 06/10/2020 08:02:18 AM EDT eCW1 ([facility]) Name Value Range Interpretation Code Description Data Ladi rce(s) Supporting Document(s) 508 VITAMIN B12 LEVEL eCW1 ([facility]) ID Date Data Source [id number] 05/30/2020 12:00:00 AM EDT [facility] Maurilio Chris MD Patient Name: [facility]OU[facility]AS [facility] 1935[facility] [address] Date of Exam: 05/30/2020PH#: Fax: [phone] EXAM: CT LOWER EXTREMITY W/O CONTRASTCLINICAL INFORMATION: Pain and swelling. Patient has a history of acutaneous abscess.Low dose 64 slice helical scanning through the right hip was obtained using1 mm increments and reconstructed in both coronal and sagittal planes. 3Dreconstructions were also obtained. [facility].The latest prior dedicated right hip CT [...] compared to the prior exam.Accredited by the [employer] in [place].NGA Moseley/Ines baptiste for referring JACQUELINE DUNAWAY to our office. Electronically Signed - KAYCE JUARES DO 06/02/20 10:24 Name Value Range Interpretation Code Description Data Ladi rce(s) Supporting Document(s) Procedure Social History Code Duration Value Status Description Data Source(s ) Smoking 06/16/2021 12:00:00 AM EDT Never Smoker completed Never S moker eCW1 ([facility]) Smoking 06/06/2021 12:00:00 AM EDT Never Smoker completed Never S moker eCW1 ([facility]) Smoking 06/03/2021 12:00:00 AM EDT Never Smoker completed Never S moker eCW1 ([facility]) Smoking 05/13/2021 12:00:00 AM EDT Never Smoker completed Never S moker eCW1 ([facility]) Smoking 05/13/2021 12:00:00 AM EDT Never Smoker completed Never S moker eCW1 ([facility]) Smoking 04/22/2021 12:00:00 AM EDT Never Smoker completed Never S moker eCW1 ([facility]) Smoking 04/22/2021 12:00:00 AM EDT Never Smoker completed Never S moker eCW1 ([facility]) Smoking 04/22/2021 12:00:00 AM EDT Never Smoker completed Never S moker eCW1 ([facility]) Smoking 04/01/2021 12:00:00 AM EDT Never Smoker completed Never S moker eCW1 ([facility]) Smoking 03/17/2021 12:00:00 AM EDT Never Smoker completed Never S moker eCW1 ([facility]) Smoking 03/17/2021 12:00:00 AM EDT Never Smoker completed Never S moker eCW1 ([facility]) Smoking 02/18/2021 12:00:00 AM EDT Never Smoker completed Never S moker eCW1 ([facility]) Smoking 02/18/2021 12:00:00 AM EDT Never Smoker completed Never S moker eCW1 ([facility]) Smoking 02/10/2021 12:00:00 AM EDT Never Smoker completed Never S moker eCW1 ([facility]) Smoking 02/10/2021 12:00:00 AM EDT Never Smoker completed Never S moker eCW1 ([facility]) Smoking 02/10/2021 12:00:00 AM EDT Never Smoker completed Never S moker eCW1 ([facility]) Smoking 02/10/2021 12:00:00 AM EDT Never Smoker completed Never S moker eCW1 ([facility]) Smoking 02/03/2021 12:00:00 AM EDT Never Smoker completed Never S moker eCW1 ([facility]) Smoking 02/03/2021 12:00:00 AM EDT Never Smoker completed Never S moker eCW1 ([facility]) Smoking 01/15/2021 12:00:00 AM EDT Never Smoker completed Never S moker eCW1 ([facility]) Smoking 01/15/2021 12:00:00 AM EDT Never Smoker completed Never S moker eCW1 ([facility]) Smoking 01/15/2021 12:00:00 AM EDT Never Smoker completed Never S moker eCW1 ([facility]) Smoking 01/15/2021 12:00:00 AM EDT Never Smoker completed Never S moker eCW1 ([facility]) Smoking 01/15/2021 12:00:00 AM EDT Never Smoker completed Never S moker eCW1 ([facility]) Smoking 01/15/2021 12:00:00 AM EDT Never Smoker completed Never S moker eCW1 ([facility]) Smoking 01/15/2021 12:00:00 AM EDT Never Smoker completed Never S moker eCW1 ([facility]) Smoking 01/15/2021 12:00:00 AM EDT Never Smoker completed Never S moker eCW1 ([facility]) Smoking 01/14/2021 12:00:00 AM EDT Never Smoker completed Never S moker eCW1 ([facility]) Smoking 12/24/2020 12:00:00 AM EDT Never Smoker completed Never S moker eCW1 ([facility]) Smoking 12/24/2020 12:00:00 AM EDT Never Smoker completed Never S moker eCW1 ([facility]) Smoking 12/03/2020 12:00:00 AM EDT Never Smoker completed Never S moker eCW1 ([facility]) Smoking 12/03/2020 12:00:00 AM EDT Never Smoker completed Never S moker eCW1 ([facility]) Smoking 11/18/2020 12:00:00 AM EDT Never Smoker completed Never S moker eCW1 ([facility]) Smoking 11/12/2020 12:00:00 AM EDT Never Smoker completed Never S moker eCW1 ([facility]) Smoking 10/22/2020 12:00:00 AM EST Never Smoker completed Never S moker eCW1 ([facility]) Smoking 10/22/2020 12:00:00 AM EST Never Smoker completed Never S moker eCW1 ([facility]) Smoking 10/01/2020 12:00:00 AM EST Never Smoker completed Never S moker eCW1 ([facility]) Smoking 09/18/2020 12:00:00 AM EST Never Smoker completed Never S moker eCW1 ([facility]) Smoking 09/18/2020 12:00:00 AM EST Never Smoker completed Never S moker eCW1 ([facility]) Smoking 09/18/2020 12:00:00 AM EST Never Smoker completed Never S moker eCW1 ([facility]) Smoking 09/18/2020 12:00:00 AM EST Never Smoker completed Never S moker eCW1 ([facility]) Smoking 09/18/2020 12:00:00 AM EST Never Smoker completed Never S moker eCW1 ([facility]) Smoking 09/10/2020 12:00:00 AM EST Never Smoker completed Never S moker eCW1 ([facility]) Smoking 08/27/2020 12:00:00 AM EST Never Smoker completed Never S moker eCW1 ([facility]) Smoking 08/27/2020 12:00:00 AM EST Never Smoker completed Never S moker eCW1 ([facility]) Smoking 08/27/2020 12:00:00 AM EST Never Smoker completed Never S moker eCW1 ([facility]) Smoking 07/14/2020 12:00:00 AM EST Never Smoker completed Never S moker eCW1 ([facility]) Smoking 07/14/2020 12:00:00 AM EST Never Smoker completed Never S moker eCW1 ([facility]) Smoking 06/25/2020 12:00:00 AM EST Never Smoker completed Never S moker eCW1 ([facility]) Smoking 06/25/2020 12:00:00 AM EST Never Smoker completed Never S moker eCW1 ([facility]) Smoking 06/25/2020 12:00:00 AM EST Never Smoker completed Never S moker eCW1 ([facility]) Smoking 06/16/2020 12:00:00 AM EDT Never Smoker completed Never S moker eCW1 ([facility]) Smoking 06/10/2020 12:00:00 AM EDT Never Smoker completed Never S moker eCW1 ([facility]) Smoking 06/10/2020 12:00:00 AM EDT Never Smoker completed Never S moker eCW1 ([facility]) Smoking 05/26/2020 12:00:00 AM EDT Never Smoker completed Never S moker eCW1 ([facility]) Smoking 05/26/2020 12:00:00 AM EDT Never Smoker completed Never S moker eCW1 ([facility]) Smoking 05/26/2020 12:00:00 AM EDT Never Smoker completed Never S moker eCW1 ([facility]) Vital Signs ID Date Data Source UNK Name Value Range Interpretation Code Description Data Source(s) Body weight 119 [lb_av] 119 [lb_av] eCW1 ([facility]) Body height 66 [in_i] 66 [in_i] eCW1 ([facility]) Body mass index (BMI) [Ratio] 19.21 kg/m2 19.21 kg/m2 eCW1 ([facility]) Systolic blood pressure 100 mm[Hg] 100 mm[Hg] e CW1 ([facility]) Diastolic blood pressure 60 mm[Hg] 60 mm[Hg] eCW1 ([facility]) Body temperature 97.1 [degF] 97.1 [degF] eCW1 ( [facility]) Diastolic blood pressure 66 mm[Hg] 66 mm[Hg] eCW1 ([facility]) Body weight 129 [lb_av] 129 [lb_av] eCW1 ([facility]) Body height 66 [in_i] 66 [in_i] eCW1 ([facility]) Body mass index (BMI) [Ratio] 20.82 kg/m2 20.82 kg/m2 eCW1 ([facility]) Heart rate 101 /min 101 /min eCW1 ([facility]) Respiratory rate 17 /min 17 /min eCW1 [facility] Systolic blood pressure 127 mm[Hg] 127 mm[Hg] e CW1 ([facility]) Body weight 129 [lb_av] 129 [lb_av] eCW1 ([facility]) Body height 66 [in_i] 66 [in_i] eCW1 ([facility]) Body mass index (BMI) [Ratio] 20.82 kg/m2 20.82 kg/m2 eCW1 ([facility]) Heart rate 50 /min 50 /min eCW1 ([facility]) Respiratory rate 18 /min 18 /min eCW1 ([facility]) Body temperature 98.5 [degF] 98.5 [degF] eCW1 ( [facility]) Body weight 129.3 [lb_av] 129.3 [lb_av] eCW1 ([facility]) Body weight 58.65 kg 58.65 kg eCW1 ([facility]) Body height 66 [in_i] 66 [in_i] eCW1 ([facility]) Body mass index (BMI) [Ratio] 20.87 kg/m2 20.87 kg/m2 eCW1 ([facility]) Heart rate 67 /min 67 /min eCW1 ([facility]) Respiratory rate 20 /min 20 /min eCW1 ([facility]) Body temperature 97.9 [degF] 97.9 [degF] eCW1 ( [facility]) Systolic blood pressure 136 mm[Hg] 136 mm[Hg] e CW1 ([facility]) Diastolic blood pressure 58 mm[Hg] 58 mm[Hg] eCW1 ([facility]) Body weight 127.5 [lb_av] 127.5 [lb_av] eCW1 ([facility]) Body height 66 [in_i] 66 [in_i] eCW1 ([facility]) Heart rate 55 /min 55 /min eCW1 ([facility]) Body mass index (BMI) [Ratio] 20.58 kg/m2 20.58 kg/m2 eCW1 ([facility]) Systolic blood pressure 130 mm[Hg] 130 mm[Hg] e CW1 ([facility]) Body temperature 97 [degF] 97 [degF] eCW1 ([facility]) Diastolic blood pressure 62 mm[Hg] 62 mm[Hg] eCW1 ([facility]) Respiratory rate 19 /min 19 /min eCW1 ([facility]) Body weight 127.4 [lb_av] 127.4 [lb_av] eCW1 ([facility]) Body height 66 [in_i] 66 [in_i] eCW1 ([facility]) Body mass index (BMI) [Ratio] 20.56 kg/m2 20.56 kg/m2 eCW1 ([facility]) Systolic blood pressure 134 mm[Hg] 134 mm[Hg] e CW1 ([facility]) Diastolic blood pressure 64 mm[Hg] 64 mm[Hg] eCW1 ([facility]) Body weight 124 [lb_av] 124 [lb_av] eCW1 ([facility]) Body weight kg eCW1 ([facility] [facility] height 66 [in_i] 66 [in_i] eCW1 ([facility]) Body mass index (BMI) [Ratio] 20.01 kg/m2 20.01 kg/m2 eCW1 ([facility]) Heart rate 87 /min 87 /min eCW1 ([facility]) Respiratory rate 18 /min 18 /min eCW1 [facility] Body temperature 98.4 [degF] 98.4 [degF] eCW1 ( [facility]) Systolic blood pressure 132 mm[Hg] 132 mm[Hg] e CW1 ([facility]) Diastolic blood pressure 82 mm[Hg] 82 mm[Hg] eCW1 ([facility]) Body weight 124 [lb_av] 124 [lb_av] eCW1 ([facility]) Body weight kg eCW1 ([facility]) Body height 66 [in_i] 66 [in_i] eCW1 ([facility]) Body mass index (BMI) [Ratio] 20.01 kg/m2 20.01 kg/m2 eCW1 ([facility]) Heart rate 56 /min 56 /min eCW1 ([facility]) Respiratory rate 17 /min 17 /min eCW1 ([facility]) Body temperature 97.9 [degF] 97.9 [degF] eCW1 ( [facility]) Respiratory rate 16 /min 16 /min eCW1 ([facility]) Diastolic blood pressure 75 mm[Hg] 75 mm[Hg] eCW1 ([facility]) Body temperature 95.9 [degF] 95.9 [degF] eCW1 ( [facility]) Body weight 124 [lb_av] 124 [lb_av] eCW1 ([facility]) Systolic blood pressure 180 mm[Hg] 180 mm[Hg] e CW1 ([facility]) Body weight kg eCW1 ([facility]) Body mass index (BMI) [Ratio] 20.01 kg/m2 20.01 kg/m2 eCW1 ([facility]) Body height 66 [in_i] 66 [in_i] eCW1 ([facility]) Heart rate 54 /min 54 /min eCW1 ([facility]) Body weight 124 [lb_av] 124 [lb_av] eCW1 ([facility]) Body weight kg eCW1 ([facility]) Body height 66 [in_i] 66 [in_i] eCW1 ([facility]) Body mass index (BMI) [Ratio] 20.01 kg/m2 20.01 kg/m2 eCW1 ([facility]) Heart rate 64 /min 64 /min eCW1 ([facility]) Respiratory rate 18 /min 18 /min eCW1 ([facility]) Body temperature 98.3 [degF] 98.3 [degF] eCW1 ( [facility]) Systolic blood pressure 167 mm[Hg] 167 mm[Hg] e CW1 ([facility]) Diastolic blood pressure 74 mm[Hg] 74 mm[Hg] eCW1 ([facility]) Body weight [lb_av] eCW1 ([facility]) Body weight kg eCW1 ([facility]) Body height 66 [in_i] 66 [in_i] eCW1 ([facility]) Body mass index (BMI) [Ratio] 20.01 kg/m2 20.01 kg/m2 eCW1 ([facility]) Heart rate 41 /min 41 /min eCW1 ([facility]) Respiratory rate 20 /min 20 /min eCW1 ([facility]) Body temperature 98.6 [degF] 98.6 [degF] eCW1 ( [facility]) Systolic blood pressure 142 mm[Hg] 142 mm[Hg] e CW1 ([facility]) Diastolic blood pressure 60 mm[Hg] 60 mm[Hg] eCW1 ([facility]) Body weight [lb_av] eCW1 ([facility]) Body weight kg eCW1 ([facility]) Body height 66 [in_i] 66 [in_i] eCW1 ([facility]) Body mass index (BMI) [Ratio] 20.01 kg/m2 20.01 kg/m2 eCW1 ([facility]) Heart rate 41 /min 41 /min eCW1 ([facility]) Respiratory rate 20 /min 20 /min eCW1 ([facility]) Body temperature 98.6 [degF] 98.6 [degF] eCW1 ( [facility]) Systolic blood pressure 142 mm[Hg] 142 mm[Hg] e CW1 ([facility]) Diastolic blood pressure 60 mm[Hg] 60 mm[Hg] eCW1 ([facility]) Body weight 124 [lb_av] 124 [lb_av] eCW1 ([facility]) Body weight kg eCW1 ([facility]) Body height 66 [in_i] 66 [in_i] eCW1 ([facility]) Body mass index (BMI) [Ratio] 20.01 kg/m2 20.01 kg/m2 eCW1 ([facility]) Heart rate 42 /min 42 /min eCW1 ([facility]) Respiratory rate 18 /min 18 /min eCW1 ([facility]) Body temperature 98.1 [degF] 98.1 [degF] eCW1 ( [facility]) Systolic blood pressure 140 mm[Hg] 140 mm[Hg] e CW1 ([facility]) Diastolic blood pressure 60 mm[Hg] 60 mm[Hg] eCW1 ([facility]) Body mass index (BMI) [Ratio] 20.01 kg/m2 20.01 kg/m2 eCW1 ([facility]) Body weight [lb_av] eCW1 ([facility]) Body height 66 [in_i] 66 [in_i] eCW1 ([facility]) Heart rate 66 /min 66 /min eCW1 ([facility]) Respiratory rate 18 /min 18 /min eCW1 ([facility]) Body temperature 97.6 [degF] 97.6 [degF] eCW1 ( [facility]) Systolic blood pressure 132 mm[Hg] 132 mm[Hg] e CW1 ([facility]) Diastolic blood pressure 66 mm[Hg] 66 mm[Hg] eCW1 ([facility]) Body weight 124 [lb_av] 124 [lb_av] eCW1 ([facility]) Diastolic blood pressure 64 mm[Hg] 64 mm[Hg] eCW1 ([facility]) Systolic blood pressure 133 mm[Hg] 133 mm[Hg] e CW1 ([facility]) Body weight kg eCW1 ([facility]) Body height 66 [in_i] 66 [in_i] eCW1 ([facility]) Body mass index (BMI) [Ratio] 20.01 kg/m2 20.01 kg/m2 eCW1 ([facility]) Heart rate 56 /min 56 /min eCW1 ([facility]) Respiratory rate 18 /min 18 /min eCW1 ([facility]) Body temperature 97.5 [degF] 97.5 [degF] eCW1 ( [facility]) Body weight 124 [lb_av] 124 [lb_av] eCW1 ([facility]) Body weight kg eCW1 ([facility]) Body height 66 [in_i] 66 [in_i] eCW1 ([facility]) Body mass index (BMI) [Ratio] 20.01 kg/m2 20.01 kg/m2 eCW1 ([facility]) Heart rate 59 /min 59 /min eCW1 ([facility]) Respiratory rate 17 /min 17 /min eCW1 ([facility]) Body temperature 98.3 [degF] 98.3 [degF] eCW1 ( [facility]) Systolic blood pressure 154 mm[Hg] 154 mm[Hg] e CW1 ([facility]) Diastolic blood pressure 67 mm[Hg] 67 mm[Hg] eCW1 ([facility]) Body weight 124 [lb_av] 124 [lb_av] eCW1 ([facility]) Body weight 56.25 kg 56.25 kg eCW1 ([facility]) Body height 66 [in_i] 66 [in_i] eCW1 ([facility]) Body mass index (BMI) [Ratio] 20.01 kg/m2 20.01 kg/m2 eCW1 ([facility]) Systolic blood pressure 160 mm[Hg] 160 mm[Hg] e CW1 ([facility]) Diastolic blood pressure 58 mm[Hg] 58 mm[Hg] eCW1 ([facility]) Body weight 124 [lb_av] 124 [lb_av] eCW1 ([facility]) Body weight kg eCW1 ([facility]) Body height 66 [in_i] 66 [in_i] eCW1 ([facility]) Body mass index (BMI) [Ratio] 20.01 kg/m2 20.01 kg/m2 eCW1 ([facility]) Heart rate 82 /min 82 /min eCW1 ([facility]) Respiratory rate 18 /min 18 /min eCW1 ([facility]) Body temperature 98.1 [degF] 98.1 [degF] eCW1 ( [facility]) Body weight 124 [lb_av] 124 [lb_av] eCW1 ([facility]) Body height 66 [in_i] 66 [in_i] eCW1 ([facility]) Body mass index (BMI) [Ratio] 20.01 kg/m2 20.01 kg/m2 eCW1 ([facility]) Systolic blood pressure 154 mm[Hg] 154 mm[Hg] e CW1 ([facility]) Diastolic blood pressure 79 mm[Hg] 79 mm[Hg] eCW1 ([facility]) Body temperature 98.1 [degF] 98.1 [degF] eCW1 ( [facility]) Systolic blood pressure 152 mm[Hg] 152 mm[Hg] e CW1 ([facility]) Diastolic blood pressure 64 mm[Hg] 64 mm[Hg] eCW1 ([facility]) Body weight 124 [lb_av] 124 [lb_av] eCW1 ([facility]) Body weight kg eCW1 ([facility]) Body height 66 [in_i] 66 [in_i] eCW1 ([facility]) Body mass index (BMI) [Ratio] 20.01 kg/m2 20.01 kg/m2 eCW1 ([facility]) Heart rate 56 /min 56 /min eCW1 ([facility]) Respiratory rate 18 /min 18 /min eCW1 ([facility]) Heart rate 72 /min 72 /min eCW1 ([facility]) Body height 66 [in_i] 66 [in_i] eCW1 ([facility]) Body weight 124.6 [lb_av] 124.6 [lb_av] eCW1 ([facility]) Respiratory rate 20 /min 20 /min eCW1 ([facility]) Systolic blood pressure 140 mm[Hg] 140 mm[Hg] e CW1 ([facility]) Body temperature 97.1 [degF] 97.1 [degF] eCW1 ( [facility]) Diastolic blood pressure 60 mm[Hg] 60 mm[Hg] eCW1 ([facility]) Body mass index (BMI) [Ratio] 20.11 kg/m2 20.11 kg/m2 eCW1 ([facility]) Body weight 122 [lb_av] 122 [lb_av] eCW1 ([facility]) Body weight kg eCW1 ([facility]) Body height 66 [in_i] 66 [in_i] eCW1 ([facility]) Body mass index (BMI) [Ratio] 19.69 kg/m2 19.69 kg/m2 eCW1 ([facility]) Heart rate 51 /min 51 /min eCW1 ([facility]) Respiratory rate 18 /min 18 /min eCW1 ([facility]) Body temperature 97.3 [degF] 97.3 [degF] eCW1 ( [facility]) Systolic blood pressure 157 mm[Hg] 157 mm[Hg] e CW1 ([facility]) Diastolic blood pressure 70 mm[Hg] 70 mm[Hg] eCW1 ([facility]) Body weight 122 [lb_av] 122 [lb_av] eCW1 ([facility]) Body height 66 [in_i] 66 [in_i] eCW1 ([facility]) Body mass index (BMI) [Ratio] 19.69 kg/m2 19.69 kg/m2 eCW1 ([facility]) Heart rate 84 /min 84 /min eCW1 ([facility]) Respiratory rate 18 /min 18 /min eCW1 ([facility]) Body temperature 95.7 [degF] 95.7 [degF] eCW1 ( [facility]) Systolic blood pressure 161 mm[Hg] 161 mm[Hg] e CW1 ([facility]) Diastolic blood pressure 81 mm[Hg] 81 mm[Hg] eCW1 ([facility]) Body weight 122 [lb_av] 122 [lb_av] eCW1 ([facility]) Body height 66 [in_i] 66 [in_i] eCW1 ([facility]) Diastolic blood pressure 86 mm[Hg] 86 mm[Hg] eCW1 ([facility]) Body mass index (BMI) [Ratio] 19.69 kg/m2 19.69 kg/m2 eCW1 ([facility]) Heart rate 67 /min 67 /min eCW1 ([facility]) Respiratory rate 18 /min 18 /min eCW1 ([facility]) Body temperature 97.6 [degF] 97.6 [degF] eCW1 ( [facility]) Systolic blood pressure 166 mm[Hg] 166 mm[Hg] e CW1 ([facility]) Body mass index (BMI) [Ratio] 20.17 kg/m2 20.17 kg/m2 eCW1 ([facility]) Systolic blood pressure 126 mm[Hg] 126 mm[Hg] e CW1 ([facility]) Diastolic blood pressure 78 mm[Hg] 78 mm[Hg] eCW1 ([facility]) Body weight 125 [lb_av] 125 [lb_av] eCW1 ([facility]) Body weight 56.7 kg 56.7 kg eCW1 ([facility]) Body height 66 [in_i] 66 [in_i] eCW1 ([facility]) Body weight 125 [lb_av] 125 [lb_av] eCW1 ([facility]) Body weight kg eCW1 ([facility]) Body height 66 [in_i] 66 [in_i] eCW1 ([facility]) Body mass index (BMI) [Ratio] 20.17 kg/m2 20.17 kg/m2 eCW1 ([facility]) Heart rate 75 /min 75 /min eCW1 ([facility]) Respiratory rate 16 /min 16 /min eCW1 ([facility]) Body temperature 96.6 [degF] 96.6 [degF] eCW1 ( [facility]) Systolic blood pressure 138 mm[Hg] 138 mm[Hg] e CW1 ([facility]) Diastolic blood pressure 70 mm[Hg] 70 mm[Hg] eCW1 ([facility]) Body weight 125.0 [lb_av] 125.0 [lb_av] eCW1 ([facility]) Body mass index (BMI) [Ratio] 20.17 kg/m2 20.17 kg/m2 eCW1 ([facility]) Heart rate 843 /min 843 /min eCW1 ([facility]) Respiratory rate 20 /min 20 /min eCW1 ([facility]) Body temperature 98.3 [degF] 98.3 [degF] eCW1 ( [facility]) Systolic blood pressure 118 mm[Hg] 118 mm[Hg] e CW1 ([facility]) Diastolic blood pressure 62 mm[Hg] 62 mm[Hg] eCW1 ([facility]) Body height 66 [in_i] 66 [in_i] eCW1 ([facility]) Body weight 131 [lb_av] 131 [lb_av] eCW1 ([facility]) Body weight kg eCW1 ([facility]) Body height 66 [in_i] 66 [in_i] eCW1 ([facility]) Body mass index (BMI) [Ratio] 21.14 kg/m2 21.14 kg/m2 eCW1 ([facility]) Heart rate 95 /min 95 /min eCW1 ([facility]) Respiratory rate 20 /min 20 /min eCW1 ([facility]) Body temperature 97.1 [degF] 97.1 [degF] eCW1 ( [facility]) Systolic blood pressure 177 mm[Hg] 177 mm[Hg] e CW1 ([facility]) Diastolic blood pressure 73 mm[Hg] 73 mm[Hg] eCW1 ([facility]) Patient Treatment Plan of Care Planned Activity Planned Date Details Description Data Source (s) torsemide 5 MG Oral Tablet 01/20/2021 12:00:00 AM EDT eCW1 ([facility]) torsemide 5 MG Oral Tablet 01/20/2021 12:00:00 AM EDT eCW1 ([facility]) torsemide 5 MG Oral Tablet 01/20/2021 12:00:00 AM EDT eCW1 ([facility]) Ibuprofen 200 MG Oral Tablet 01/15/2021 12:00:00 AM EDT eCW1 ([facility]) Ibuprofen 200 MG Oral Tablet 01/15/2021 12:00:00 AM EDT eCW1 ([facility]) Ibuprofen 200 MG Oral Tablet 01/15/2021 12:00:00 AM EDT eCW1 ([facility]) Ibuprofen 200 MG Oral Tablet 01/15/2021 12:00:00 AM EDT eCW1 ([facility]) Ibuprofen 200 MG Oral Tablet 01/15/2021 12:00:00 AM EDT eCW1 ([facility]) Ibuprofen 200 MG Oral Tablet 01/15/2021 12:00:00 AM EDT eCW1 ([facility]) Ibuprofen 200 MG Oral Tablet 01/15/2021 12:00:00 AM EDT eCW1 ([facility]) Ibuprofen 200 MG Oral Tablet 01/15/2021 12:00:00 AM EDT eCW1 ([facility]) Commode Bedside - 01/12/2021 12:00:00 AM EDT eCW1 ([facility]) Commode Bedside - 01/12/2021 12:00:00 AM EDT eCW1 ([facility]) Commode Bedside - 01/12/2021 12:00:00 AM EDT eCW1 ([facility]) Commode Bedside - 01/12/2021 12:00:00 AM EDT eCW1 ([facility]) Commode Bedside - 01/12/2021 12:00:00 AM EDT eCW1 ([facility]) Commode Bedside - 01/12/2021 12:00:00 AM EDT eCW1 ([facility]) Commode Bedside - 01/12/2021 12:00:00 AM EDT eCW1 ([facility]) Commode Bedside - 01/12/2021 12:00:00 AM EDT eCW1 ([facility]) Omeprazole 40 MG Delayed Release Oral Capsule 09/22/2020 12:00:00 A M EST eCW1 ([facility]) Omeprazole 40 MG Delayed Release Oral Capsule 09/22/2020 12:00:00 A M EST eCW1 ([facility]) Omeprazole 40 MG Delayed Release Oral Capsule 09/22/2020 12:00:00 A M EST eCW1 ([facility]) Omeprazole 40 MG Delayed Release Oral Capsule 09/22/2020 12:00:00 A M EST eCW1 ([facility]) Omeprazole 40 MG Delayed Release Oral Capsule 09/22/2020 12:00:00 A M EST eCW1 ([facility]) Omeprazole 40 MG Delayed Release Oral Capsule 09/22/2020 12:00:00 A M EST eCW1 ([facility]) Omeprazole 40 MG Delayed Release Oral Capsule 09/22/2020 12:00:00 A M EST eCW1 ([facility]) Omeprazole 40 MG Delayed Release Oral Capsule 09/22/2020 12:00:00 A M EST eCW1 ([facility]) Omeprazole 40 MG Delayed Release Oral Capsule 09/22/2020 12:00:00 A M EST eCW1 ([facility]) Omeprazole 40 MG Delayed Release Oral Capsule 09/22/2020 12:00:00 A M EST eCW1 ([facility]) Omeprazole 40 MG Delayed Release Oral Capsule 09/22/2020 12:00:00 A M EST eCW1 ([facility]) Omeprazole 40 MG Delayed Release Oral Capsule 09/22/2020 12:00:00 A M EST eCW1 ([facility]) Hydroxyzine Hydrochloride 25 MG Oral Tablet 09/18/2020 12:00:00 AM EST eCW1 ([facility]) Hydroxyzine Hydrochloride 25 MG Oral Tablet 09/18/2020 12:00:00 AM EST eCW1 ([facility]) Hydroxyzine Hydrochloride 25 MG Oral Tablet 09/18/2020 12:00:00 AM EST eCW1 ([facility]) Hydroxyzine Hydrochloride 25 MG Oral Tablet 09/18/2020 12:00:00 AM EST eCW1 ([facility]) Hydroxyzine Hydrochloride 25 MG Oral Tablet 09/18/2020 12:00:00 AM EST eCW1 ([facility]) Morphine Sulfate 2 MG/ML Oral Solution 06/12/2020 12:00:00 AM EDT eCW1 ([facility]) Docusate Sodium 50 MG / sennosides, CUSTODIAL 8.6 MG Oral Ta blet 06/10/2020 12:00:00 AM EDT eCW1 ([facility]) Docusate Sodium 50 MG / sennosides, CUSTODIAL 8.6 MG Oral Ta blet 06/10/2020 12:00:00 AM EDT eCW1 ([facility]) Morphine Sulfate 4 MG/ML Oral Solution 06/10/2020 12:00:00 AM EDT eCW1 ([facility])
[2021-06-20 20:35] LABS: ALT/SGPT 11 U/L (12-78); BILIRUBIN,DIRECT 0.1 MG/DL (0.0-0.2); BILIRUBIN,TOTAL 0.3 MG/DL (0.2-1.0); BLOOD UREA NITROGEN 19 MG/DL (7-18); C REACTIVE PROTEIN QUANTITATIV 8.34 MG/DL (0.00-0.30); CALCIUM LEVEL 8.2 MG/DL (8.8-10.2); CARBON DIOXIDE LEVEL 29 MEQ/L (21-32); CHLORIDE LEVEL 105 MEQ/L (98-107); CK-MB VALUE MASS 1.5 NG/ML (<3.6); CPK CREATINE PHOSPHOKINASE 24 U/L (26-192); CREATININE FOR GFR 0.74 MG/DL (0.55-1.30); GLOMERULAR FILTRATION RATE > 60.0 (>32); GLUCOSE, FASTING 136 MG/DL (70-100); MAGNESIUM LEVEL 1.5 MG/DL (1.8-2.4); MB/CK RELATIVE INDEX 6.25 (< OR =4); NT-PRO BNP 1704 PG/ML (<450); POTASSIUM SERUM 4.4 MEQ/L (3.5-5.1); SODIUM LEVEL 137 MEQ/L (136-145); TOTAL PROTEIN 6.5 GM/DL (6.4-8.2); TROPONIN I < 0.02 NG/ML (< 0.10)
[2021-06-20] MEDS ORDERED: MAG SULF 1GM/100ML (MAG RUN) 1 GM in IV 1 EA IV ONE (21:00)
[2021-06-21] MEDS ORDERED: MAALOX 30 ML SUSP *UDC PO PRN (00:10)
[2021-06-21] MEDS ORDERED: ACETAMINOPHEN TAB 650MG DOSE (2X325MG) PO PRN (00:10)
[2021-06-21] MEDS ORDERED: MOM 30ML SUSPENSION UDC PO PRN (00:10)
--- NOTE | 2021-06-21 00:13 | HPEPDOC ---
[facility] Medical History & Physical Date of Admission Jun 21, 2021 Date of Service: Jun 21, 2021 Primary Care Physician: Biju Ch M.D. Attending Physician: SUNG MARIE MD History and Physical TIME OF SERVICE: 103AM CHIEF COMPLAINT: not feeling well HISTORY OF PRESENT ILLNESS: is an 85 yr old F who came to the hospital w c/o not feeling well for 2 months which has caused her to spend most of her days in bed.. Specifically she has been feeling nauseous but not vomiting, and feels like she has episode where she is floating away without feeling dizzy or passing out. Last night she had an episode that was so severe that she thought that she was going to so she came to the ER for evaluation. 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 She doesnt smoke. ALLERGIES: Please see below. HOME MEDICATIONS: Please see below. PHYSICAL EXAMINATION: Vital Signs Date Time Temp Pulse Resp B/P (MAP) Pulse Ox O2 Delivery O2 Flow Rate FiO2 06/20/21 19:26 187/84 (118) 06/20/21 19:31 93 97 06/20/21 19:31 98.0 19 Room Air GENERAL APPEARANCE: well-nourished and developed/ appears anxious and teary HEENT: EOMI / MMM&P CARDIOVASCULAR: having frequent skipped beats/NMRG LUNGS: CTAB on RA ABDOMEN: contour flat/ soft & NT w palpation MUSCULOSKELETAL: NCAT INTEGUMENT: she is slightly pale NEUROLOGICAL: CN 2-12 grossly intact / speech not dysarthric PSYCHIATRIC: A&O / able to understand and follow all commands LABORATORY DATA: IMAGING: Chest xray IMPRESSION: No acute infiltrates. CT head IMPRESSION: 1. There is mild diffuse cerebellar atrophy. 2. There is mild age related parenchymal volume loss. White matter changes are demonstrated in the subcortical, centrum semiovale and periventricular white matter c onsistent with chronic age related small vessel ischemic changes. 3. The degree of ventricular dilatation is normal for age and/or degree of atrophy present. 4. No acute intracranial findings. MICROBIOLOGY: Respiratory panel negative ECG: sinus rhythm w frequent PVCs in a pattern of bigeminy ASSESSMENT: is an 85 yr old w a hx of ACOSTA, Hypothyroidism, Osteopenia & Small vessel ischemic disease who is admitted for evaluation of PVCs i/s/o hypomagnesemia. PLAN: 1 PVCs -possibly 2/2 hypomagnesemia Plan: telemetry / replete Mag / f/u Echo (last Echo was done in 2006) 2 Hypomagnesemia Plan: replete Mag 3 Mental distress from concern for something impending or anticipated -possibly due to palpitations vs anxiety vs pheochromocytoma Plan: because she has had accelerated HTN w SBP in the 180s we will screen for pheochromocytoma with plasma free metanephrines and catecholamines 4 Uncontrolled HTN -There may be a component of anxiety, but because she has had at least 1 reading with a SBP >180 she needs to be started on an anti-HTN -based on the results of the SPRINT trail looking at BP in adults >75 yrs that was published in 2017 her target SBP is 120 Plan: amlodipine / her PCP may consider out pt referral for an ambulatory blood pressure monitor 5 Hypothyroidism Plan: levothyroxine 6 Osteopenia Plan: Ca w vitamin D DVT px w lovenox Disposition: home after more than 2 midnights stay Home Medications Scheduled Calcium Carbonate/Vitamin D3 (Calcium 500-Vit D3 400 Tablet) 1 Tab Tab, 1 TAB PO BID Doxycycline Monohydrate (Doxycycline) 100 Mg Cap, 100 MG PO BID Fluticasone Propionate (Flovent Hfa) 220 Mcg/Act Aer, 2 PUFFS INH BID Lactose-Reduced Food (Ensure Liquid) 237 Ml Liquid, 237 ML PO BID Levothyroxine Sodium (Synthroid) 88 Mcg Tab, 88 MCG PO DAILY Omeprazole (Omeprazole) 40 Mg Capsule.dr, 40 MG PO DAILY Polyethylene Glycol 3350 (Miralax) 119 Gm Powder, 17 GRAM PO DAILY HOLD FOR DIARRHEA takes mid morning Salmeterol (Serevent Diskus) 28 Puff/Inhaler Aerp, 1 PUFF INH BID Sennosides (Senna) 8.6 Mg Tablet, 2 TAB PO QHS Scheduled PRN Albuterol Sulfate (Proair Hfa) 108 Mcg/Act Aer, 2 PUFFS INH Q4H PRN for SOB/WHEEZING Allergies Coded Allergies: montelukast (Verified Allergy, Unknown, UNKNOWN REACTION, 06/20/21) Corticosteroids (Glucocorticoids) (Verified Adverse Reaction, Intermediate, INCREASED HR, 06/20/21) Penicillins (Verified Adverse Reaction, Intermediate, YEAST INFECTION, 06/20/21) TAPE (Verified Adverse Reaction, Intermediate, BLISTERING, PRURITIS, 06/20/21) hydrocodone (Verified Adverse Reaction, Intermediate, SUICIDAL, 06/20/21) zoledronic acid (Verified Adverse Reaction, Intermediate, INCREASED BP, 06/20/21) codeine (Verified Adverse Reaction, Mild, HEADACHE, 06/20/21) budesonide (Verified Adverse Reaction, Unknown, INCREASED HR, 06/20/21) A-FIB/CHADSVASC A-FIB History Current/History of A-Fib/PAF?: No Current PO Anticoag Therapy: No SUNG MARIE MD Jun 21, 2021 00:13
--- OUTSIDE RECORDS SUMMARY | 2021-06-21 00:34 | CCD ---
Author Author [facility] Organization [facility] Address Unknown Phone Unavailable Care Team Providers Care Chemistry Teacher Name Role Phone NO, PCP Unavailable Unavailable [...] Unavailable Unavailable DimaCaren shelton MD Unavailable Unavailable DimaCaern shelton MD Unavailable Unavailable DimaCaren shelton MD [...] is protected by Article 27-F of the [place] Public Health law. If you continue you may have access to information: Regarding HIV / AIDS; Provided by facilities licensed or operated by the [facility] Office of Mental Health; or Provided by the [facility] Office for People With Developmental Disabilities. If such information is present, then the following [facility] mandated warning applies: This information has been [...] law may result in a fine or mcc sentence or both. A general authorization for the release of medical or other information is NOT sufficient authorization for further disc losure. Family History Family Member Name Family Member Gender Family Member Status Date o f Status Description Data Source(s) Unknown Male Encounters Encounter Providers Location Date Indications Data Source(s ) [place] [address] [facility] [address] 06/16/2021 12:00:00 AM EDT eCW1 ([facility]) ([id number]) For Template [place] [address] [place] [address] 06/03/2021 12:00:00 AM EDT eCW1 ([facility]) Unknown [address] [facility] [address] 06/03/2021 12:00:00 AM EDT eCW1 ([facility]) Emergency Attender: Justin Purcell MDConsultant: PCP NO 05/30/2021 11:06:00 AM EDT - 05/30/2021 02:14:00 PM EDT [facility] Patient discharged. Unknown [address] [facility] [address] 05/21/2021 12:00:00 AM EDT eCW1 ([facility]) ([id number]) For [facility] [place] [address] [place] [address] 05/13/2021 12:00:00 AM EDT eCW1 ([facility]) Unknown [address] [facility] [address] 05/06/2021 12:00:00 AM EDT eCW1 ([facility]) Unknown [address] [facility] [place] [address] 04/29/2021 12:00:00 AM EDT eCW1 ([facility]) Outpatient [address] [facility] [address] 04/22/2021 12:00:00 AM EDT eCW1 ([facility]) ([id number]) For [facility] [place] [address] [place] [address] 04/01/2021 12:00:00 AM EDT eCW1 ([facility]) Outpatient [address] [facility] [place] [address] 03/19/2021 12:00:00 AM EDT eCW1 ([facility]) ([id number]) For [facility] [place] [address] [place] [address] 03/11/2021 12:00:00 AM EDT eCW1 ([facility]) Unknown [address] [facility], [facility] [address] 02/24/2021 12:00:00 AM EDT eCW1 ([facility]) ([id number]) For [facility] [place] [address] [place] [address] 02/18/2021 12:00:00 AM EDT eCW1 ([facility]) Unknown [address] [facility] [address] 02/13/2021 12:00:00 AM EDT eCW1 ([facility]) Unknown [address] [facility] [address] 02/13/2021 12:00:00 AM EDT eCW1 ([facility]) ([id number]) For [facility] [place] [address] [place] [address] 02/10/2021 12:00:00 AM EDT eCW1 ([facility]) Unknown [address] [facility] [address] 02/04/2021 12:00:00 AM EDT eCW1 ([facility]) ([id number]) Est New Patient 60 [address] [place] [address] 02/03/2021 12:00:00 AM EDT eCW1 ([facility]) Unknown [address] [facility] [place] [address] 02/03/2021 12:00:00 AM EDT eCW1 ([facility]) Unknown [address] [facility] [place] [address] 02/02/2021 12:00:00 AM EDT eCW1 ([facility]) Unknown [address] [facility] [place] [address] 01/20/2021 12:00:00 AM EDT eCW1 ([facility]) Unknown [address] [facility] [address] 01/16/2021 12:00:00 AM EDT eCW1 ([facility]) Unknown [address] [facility] [address] 01/16/2021 12:00:00 AM EDT eCW1 ([facility]) Unknown [address] [facility] [address] 01/16/2021 12:00:00 AM EDT eCW1 ([facility]) Outpatient [address] [facility] [address] 01/15/2021 12:00:00 AM EDT eCW1 ([facility]) ([id number]) For [facility] [place] [address] [place] [address] 01/14/2021 12:00:00 AM EDT eCW1 ([facility]) Office Visit, Est Pt., Level 3 PC [address] [place] [address] 01/12/2021 12:00:00 AM EDT eCW1 ([facility]) Unknown [address] [facility] [address] 01/09/2021 12:00:00 AM EDT eCW1 ([facility]) ([id number]) For [place] [address] [place] [address] 12/24/2020 12:00:00 AM EDT eCW1 ([facility]) ([id number]) For [place] [address] [place] [address] 12/03/2020 12:00:00 AM EDT eCW1 ([facility]) Unknown [address] [facility] [address] 12/03/2020 12:00:00 AM EDT eCW1 ([facility]) ([id number]) 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 [address] [place] [address] 11/18/2020 12:00:00 AM EDT eCW1 ([facility]) ([id number]) For [employer] [place] [address] [place] [address] 11/12/2020 12:00:00 AM EDT eCW1 ([facility]) Unknown [address] [facility] [place] [address] 10/27/2020 12:00:00 AM EST eCW1 ([facility]) ([id number]) For [place] [address] [place] [address] 10/22/2020 12:00:00 AM EST eCW1 ([facility]) ([id number]) For [facility] [place] [address] [place] [address] 10/01/2020 12:00:00 AM EST eCW1 ([facility]) Unknown [address] [facility] [address] 09/29/2020 12:00:00 AM EST eCW1 ([facility]) Unknown [address] [facility] [place] [address] 09/24/2020 12:00:00 AM EST eCW1 ([facility]) Unknown [address] [facility] [place] [address] 09/22/2020 12:00:00 AM EST eCW1 ([facility]) Unknown [address] [facility] [address] 09/19/2020 12:00:00 AM EST eCW1 ([facility]) Outpatient [address] [facility] [place] [address] 09/18/2020 12:00:00 AM EST eCW1 ([facility]) ([id number]) For [place] [address] [place] [address] 09/10/2020 12:00:00 AM EST eCW1 ([facility]) Unknown [address] [facility] [address] 08/28/2020 12:00:00 AM EST eCW1 ([facility]) ([id number]) Est New Patient 60 [address] [place] [address] 08/27/2020 12:00:00 AM EST eCW1 ([facility]) Unknown [address] [facility] [address] 08/27/2020 12:00:00 AM EST eCW1 ([facility]) ([id number]) Est New Patient 60 [address] [place] [address] 07/14/2020 12:00:00 AM EST eCW1 ([facility]) Unknown [address] [facility] [address] 07/09/2020 12:00:00 AM EST eCW1 ([facility]) Outpatient Attender: Antonio HAWLEYeferrer: Biju Ch MD 07/02/2020 08:47:52 AM EST [facility] Visit, Est Pt., Level 3 PC [address] [place] [address] 06/25/2020 12:00:00 AM EST eCW1 ([facility]) ([id number]) For [place] [address] [place] [address] 06/16/2020 12:00:00 AM EDT eCW1 ([facility]) Unknown [address] [facility] [address] 06/11/2020 12:00:00 AM EDT eCW1 ([facility]) Unknown [address] [facility] [address] 06/10/2020 12:00:00 AM EDT eCW1 ([facility]) Outpatient [address] [facility] [address] 06/10/2020 12:00:00 AM EDT eCW1 ([facility]) [place] [address] [facility] [address] 06/04/2020 12:00:00 AM EDT eCW1 ([facility]) [place] [address] [facility] [address] 05/30/2020 12:00:00 AM EDT eCW1 ([facility]) [place] [address] [facility] [address] 05/26/2020 12:00:00 AM EDT eCW1 ([facility]) [facility] [address] [place] [address] 05/07/2020 12:00:00 AM EDT eCW1 ([facility]) Immunizations Vaccine Date Status Description Data Source(s) COVID-19 VACCINE Dilan 11/07/2020 12:00:00 AM EDT completed [facility] Vaccine Series Complete: YESThis Data wa s Submitted to [facility]. influenza, recombinant, quadrIvalent,injectable, prese rvative free 06/05/2020 02:44:00 PM EDT completed eCW1 ([facility]) influenza, recombinant, quadrIvalent,injectable, prese rvative free 06/05/2020 02:44:00 PM EDT completed eCW1 ([facility]) influenza, recombinant, quadrIvalent,injectable, prese rvative free 06/05/2020 02:44:00 PM EDT completed eCW1 ([facility]) influenza, recombinant, quadrIvalent,injectable, prese rvative free 06/05/2020 02:44:00 PM EDT completed eCW1 ([facility]) influenza, recombinant, quadrIvalent,injectable, prese rvative free 06/05/2020 02:44:00 PM EDT completed eCW1 ([facility]) influenza, recombinant, quadrIvalent,injectable, prese rvative free 06/05/2020 02:44:00 PM EDT completed eCW1 ([facility]) influenza, recombinant, quadrIvalent,injectable, prese rvative free 06/05/2020 02:44:00 PM EDT completed eCW1 ([facility]) influenza, recombinant, quadrIvalent,injectable, prese rvative free 06/05/2020 02:44:00 PM EDT completed eCW1 ([facility]) influenza, recombinant, quadrIvalent,injectable, prese rvative free 06/05/2020 02:44:00 PM EDT completed eCW1 ([facility]) influenza, recombinant, quadrIvalent,injectable, prese rvative free 06/05/2020 02:44:00 PM EDT completed eCW1 ([facility]) influenza, recombinant, quadrIvalent,injectable, prese rvative free 06/05/2020 02:44:00 PM EDT completed eCW1 ([facility]) influenza, recombinant, quadrIvalent,injectable, prese rvative free 06/05/2020 02:44:00 PM EDT completed eCW1 ([facility]) influenza, recombinant, quadrIvalent,injectable, prese rvative free 06/05/2020 02:44:00 PM EDT completed eCW1 ([facility]) influenza, recombinant, quadrIvalent,injectable, prese rvative free 06/05/2020 02:44:00 PM EDT completed eCW1 ([facility]) influenza, recombinant, quadrIvalent,injectable, prese rvative free 06/05/2020 02:44:00 PM EDT completed eCW1 ([facility]) influenza, recombinant, quadrIvalent,injectable, prese rvative free 06/05/2020 02:44:00 PM EDT completed eCW1 ([facility]) influenza, recombinant, quadrIvalent,injectable, prese rvative free 06/05/2020 02:44:00 PM EDT completed eCW1 ([facility]) influenza, recombinant, quadrIvalent,injectable, prese rvative free 06/05/2020 02:44:00 PM EDT completed eCW1 ([facility]) influenza, recombinant, quadrIvalent,injectable, prese rvative free 06/05/2020 02:44:00 PM EDT completed eCW1 ([facility]) influenza, recombinant, quadrIvalent,injectable, prese rvative free 06/05/2020 02:44:00 PM EDT completed eCW1 ([facility]) influenza, recombinant, quadrIvalent,injectable, prese rvative free 06/05/2020 02:44:00 PM EDT completed eCW1 ([facility]) influenza, recombinant, quadrIvalent,injectable, prese rvative free 06/05/2020 02:44:00 PM EDT completed eCW1 ([facility]) influenza, recombinant, quadrIvalent,injectable, prese rvative free 06/05/2020 02:44:00 PM EDT completed eCW1 ([facility]) influenza, recombinant, quadrIvalent,injectable, prese rvative free 06/05/2020 02:44:00 PM EDT completed eCW1 ([facility]) influenza, recombinant, quadrIvalent,injectable, prese rvative free 06/05/2020 02:44:00 PM EDT completed eCW1 ([facility]) influenza, recombinant, quadrIvalent,injectable, prese rvative free 06/05/2020 02:44:00 PM EDT completed eCW1 ([facility]) influenza, recombinant, quadrIvalent,injectable, prese rvative free 06/05/2020 02:44:00 PM EDT completed eCW1 ([facility]) influenza, recombinant, quadrIvalent,injectable, prese rvative free 06/05/2020 02:44:00 PM EDT completed eCW1 ([facility]) influenza, recombinant, quadrIvalent,injectable, prese rvative free 06/05/2020 02:44:00 PM EDT completed eCW1 ([facility]) influenza, recombinant, quadrIvalent,injectable, prese rvative free 06/05/2020 02:44:00 PM EDT completed eCW1 ([facility]) influenza, recombinant, quadrIvalent,injectable, prese rvative free 06/05/2020 02:44:00 PM EDT completed eCW1 ([facility]) influenza, recombinant, quadrIvalent,injectable, prese rvative free 06/05/2020 02:44:00 PM EDT completed eCW1 ([facility]) influenza, recombinant, quadrIvalent,injectable, prese rvative free 06/05/2020 02:44:00 PM EDT completed eCW1 ([facility]) influenza, recombinant, quadrIvalent,injectable, prese rvative free 06/05/2020 02:44:00 PM EDT completed eCW1 ([facility]) influenza, recombinant, quadrIvalent,injectable, prese rvative free 06/05/2020 02:44:00 PM EDT completed eCW1 ([facility]) influenza, recombinant, quadrIvalent,injectable, prese rvative free 06/05/2020 02:44:00 PM EDT completed eCW1 ([facility]) influenza, recombinant, quadrIvalent,injectable, prese rvative free 06/05/2020 02:44:00 PM EDT completed eCW1 ([facility]) influenza, recombinant, quadrIvalent,injectable, prese rvative free 06/05/2020 02:44:00 PM EDT completed eCW1 ([facility]) influenza, recombinant, quadrIvalent,injectable, prese rvative free 06/05/2020 02:44:00 PM EDT completed eCW1 ([facility]) influenza, recombinant, quadrIvalent,injectable, prese rvative free 06/05/2020 02:44:00 PM EDT completed eCW1 ([facility]) influenza, recombinant, quadrIvalent,injectable, prese rvative free 06/05/2020 02:44:00 PM EDT completed eCW1 ([facility]) influenza, recombinant, quadrIvalent,injectable, prese rvative free 06/05/2020 02:44:00 PM EDT completed eCW1 ([facility]) influenza, recombinant, quadrIvalent,injectable, prese rvative free 06/05/2020 02:44:00 PM EDT completed eCW1 ([facility]) influenza, recombinant, quadrIvalent,injectable, prese rvative free 06/05/2020 02:44:00 PM EDT completed eCW1 ([facility]) influenza, recombinant, quadrIvalent,injectable, prese rvative free 06/05/2020 02:44:00 PM EDT completed eCW1 ([facility]) influenza, recombinant, quadrIvalent,injectable, prese rvative free 06/05/2020 02:44:00 PM EDT completed eCW1 ([facility]) influenza, recombinant, quadrIvalent,injectable, prese rvative free 06/05/2020 02:44:00 PM EDT completed eCW1 ([facility]) influenza, recombinant, quadrIvalent,injectable, prese rvative free 06/05/2020 02:44:00 PM EDT completed eCW1 ([facility]) influenza, recombinant, quadrIvalent,injectable, prese rvative free 06/05/2020 02:44:00 PM EDT completed eCW1 ([facility]) influenza, recombinant, quadrIvalent,injectable, prese rvative free 06/05/2020 02:44:00 PM EDT completed eCW1 ([facility]) influenza, recombinant, quadrIvalent,injectable, prese rvative free 06/05/2020 02:44:00 PM EDT completed eCW1 ([facility]) influenza, recombinant, quadrIvalent,injectable, prese rvative free 06/05/2020 02:44:00 PM EDT completed eCW1 ([facility]) influenza, recombinant, quadrIvalent,injectable, prese rvative free 06/05/2020 02:44:00 PM EDT completed eCW1 ([facility]) influenza, recombinant, quadrIvalent,injectable, prese rvative free 06/05/2020 02:44:00 PM EDT completed eCW1 ([facility]) Medications Medication Brand Name Start Date Product Form Dose Route Admi nistrative Instructions Pharmacy Instructions Status Indications Reaction Description Data Source(s) torsemide 5 MG Oral Tablet Torsemide 5 MG Torsemide 5 MG 01/20/2021 12:00:00 AM EDT 1.0 {tablet} active Torsemide 5 MG eCW1 ([facility]) torsemide 5 MG Oral Tablet Torsemide 5 MG Torsemide 5 MG 01/20/2021 12:00:00 AM EDT 1.0 {tablet} active Torsemide 5 MG eCW1 ([facility]) torsemide 5 MG Oral Tablet Torsemide 5 MG Torsemide 5 MG 01/20/2021 12:00:00 AM EDT 1.0 {tablet} active Torsemide 5 MG eCW1 ([facility]) torsemide 5 MG Oral Tablet Torsemide 5 MG Torsemide 5 MG 01/20/2021 12:00:00 AM EDT 1.0 {tablet} active Torsemide 5 MG eCW1 ([facility]) torsemide 5 MG Oral Tablet Torsemide 5 MG Torsemide 5 MG 01/20/2021 12:00:00 AM EDT 1.0 {tablet} active Torsemide 5 MG eCW1 ([facility]) torsemide 5 MG Oral Tablet Torsemide 5 MG Torsemide 5 MG 01/20/2021 12:00:00 AM EDT 1.0 {tablet} active Torsemide 5 MG eCW1 ([facility]) torsemide 5 MG Oral Tablet Torsemide 5 MG Torsemide 5 MG 01/20/2021 12:00:00 AM EDT 1.0 {tablet} active Torsemide 5 MG eCW1 ([facility]) torsemide 5 MG Oral Tablet Torsemide 5 MG Torsemide 5 MG 01/20/2021 12:00:00 AM EDT 1.0 {tablet} active Torsemide 5 MG eCW1 ([facility]) torsemide 5 MG Oral Tablet Torsemide 5 MG Torsemide 5 MG 01/20/2021 12:00:00 AM EDT 1.0 {tablet} active Torsemide 5 MG eCW1 ([facility]) torsemide 5 MG Oral Tablet Torsemide 5 MG Torsemide 5 MG 01/20/2021 12:00:00 AM EDT 1.0 {tablet} active Torsemide 5 MG eCW1 ([facility]) torsemide 5 MG Oral Tablet Torsemide 5 MG Torsemide 5 MG 01/20/2021 12:00:00 AM EDT 1.0 {tablet} active Torsemide 5 MG eCW1 ([facility]) torsemide 5 MG Oral Tablet Torsemide 5 MG Torsemide 5 MG 01/20/2021 12:00:00 AM EDT 1.0 {tablet} active Torsemide 5 MG eCW1 ([facility]) torsemide 5 MG Oral Tablet Torsemide 5 MG Torsemide 5 MG 01/20/2021 12:00:00 AM EDT 1.0 {tablet} active Torsemide 5 MG eCW1 ([facility]) torsemide 5 MG Oral Tablet Torsemide 5 MG Torsemide 5 MG 01/20/2021 12:00:00 AM EDT 1.0 {tablet} active Torsemide 5 MG eCW1 ([facility]) torsemide 5 MG Oral Tablet Torsemide 5 MG Torsemide 5 MG 01/20/2021 12:00:00 AM EDT 1.0 {tablet} active Torsemide 5 MG eCW1 ([facility]) torsemide 5 MG Oral Tablet Torsemide 5 MG Torsemide 5 MG 01/20/2021 12:00:00 AM EDT 1.0 {tablet} active Torsemide 5 MG eCW1 ([facility]) torsemide 5 MG Oral Tablet Torsemide 5 MG Torsemide 5 MG 01/20/2021 12:00:00 AM EDT 1.0 {tablet} active Torsemide 5 MG eCW1 ([facility]) torsemide 5 MG Oral Tablet Torsemide 5 MG Torsemide 5 MG 01/20/2021 12:00:00 AM EDT 1.0 {tablet} active Torsemide 5 MG eCW1 ([facility]) torsemide 5 MG Oral Tablet Torsemide 5 MG Torsemide 5 MG 01/20/2021 12:00:00 AM EDT 1.0 {tablet} active Torsemide 5 MG eCW1 ([facility]) torsemide 5 MG Oral Tablet Torsemide 5 MG Torsemide 5 MG 01/20/2021 12:00:00 AM EDT 1.0 {tablet} active Torsemide 5 MG eCW1 ([facility]) torsemide 5 MG Oral Tablet Torsemide 5 MG Torsemide 5 MG 01/20/2021 12:00:00 AM EDT 1.0 {tablet} active Torsemide 5 MG eCW1 ([facility]) torsemide 5 MG Oral Tablet Torsemide 5 MG Torsemide 5 MG 01/20/2021 12:00:00 AM EDT 1.0 {tablet} active Torsemide 5 MG eCW1 ([facility]) Ibuprofen 200 MG Oral Tablet Ibuprofen 200 mg Ibuprofen 200 mg 01/15/2021 12:00:00 AM EDT active Ibuprofe n 200 mg eCW1 ([facility]) Ibuprofen 200 MG Oral Tablet Ibuprofen 200 mg Ibuprofen 200 mg 01/15/2021 12:00:00 AM EDT active Ibuprofe n 200 mg eCW1 ([facility]) Ibuprofen 200 MG Oral Tablet Ibuprofen 200 mg Ibuprofen 200 mg 01/15/2021 12:00:00 AM EDT active e CW1 ([facility]) Ibuprofen 200 MG Oral Tablet Ibuprofen 200 mg Ibuprofen 200 mg 01/15/2021 12:00:00 AM EDT active Ibuprofe n 200 mg eCW1 ([facility]) Ibuprofen 200 MG Oral Tablet Ibuprofen 200 mg Ibuprofen 200 mg 01/15/2021 12:00:00 AM EDT active Ibuprofe n 200 mg eCW1 ([facility]) Ibuprofen 200 MG Oral Tablet Ibuprofen 200 mg Ibuprofen 200 mg 01/15/2021 12:00:00 AM EDT active Ibuprofe n 200 mg eCW1 ([facility]) Ibuprofen 200 MG Oral Tablet Ibuprofen 200 mg Ibuprofen 200 mg 01/15/2021 12:00:00 AM EDT active Ibuprofe n 200 mg eCW1 ([facility]) Ibuprofen 200 MG Oral Tablet Ibuprofen 200 mg Ibuprofen 200 mg 01/15/2021 12:00:00 AM EDT active Ibuprofe n 200 mg eCW1 ([facility]) Ibuprofen 200 MG Oral Tablet Ibuprofen 200 mg Ibuprofen 200 mg 01/15/2021 12:00:00 AM EDT active Ibuprofe n 200 mg eCW1 ([facility]) Ibuprofen 200 MG Oral Tablet Ibuprofen 200 mg Ibuprofen 200 mg 01/15/2021 12:00:00 AM EDT active Ibuprofe n 200 mg eCW1 ([facility]) Ibuprofen 200 MG Oral Tablet Ibuprofen 200 mg Ibuprofen 200 mg 01/15/2021 12:00:00 AM EDT active Ibuprofe n 200 mg eCW1 ([facility]) Ibuprofen 200 MG Oral Tablet Ibuprofen 200 mg Ibuprofen 200 mg 01/15/2021 12:00:00 AM EDT active Ibuprofe n 200 mg eCW1 ([facility]) Ibuprofen 200 MG Oral Tablet Ibuprofen 200 mg Ibuprofen 200 mg 01/15/2021 12:00:00 AM EDT active e CW1 ([facility]) Ibuprofen 200 MG Oral Tablet Ibuprofen 200 mg Ibuprofen 200 mg 01/15/2021 12:00:00 AM EDT active Ibuprofe n 200 mg eCW1 ([facility]) Ibuprofen 200 MG Oral Tablet Ibuprofen 200 mg Ibuprofen 200 mg 01/15/2021 12:00:00 AM EDT active Ibuprofe n 200 mg eCW1 ([facility]) Ibuprofen 200 MG Oral Tablet Ibuprofen 200 mg Ibuprofen 200 mg 01/15/2021 12:00:00 AM EDT active Ibuprofe n 200 mg eCW1 ([facility]) Ibuprofen 200 MG Oral Tablet Ibuprofen 200 mg Ibuprofen 200 mg 01/15/2021 12:00:00 AM EDT active Ibuprofe n 200 mg eCW1 ([facility]) Ibuprofen 200 MG Oral Tablet Ibuprofen 200 mg Ibuprofen 200 mg 01/15/2021 12:00:00 AM EDT active Ibuprofe n 200 mg eCW1 ([facility]) Ibuprofen 200 MG Oral Tablet Ibuprofen 200 mg Ibuprofen 200 mg 01/15/2021 12:00:00 AM EDT active Ibuprofe n 200 mg eCW1 ([facility]) Ibuprofen 200 MG Oral Tablet Ibuprofen 200 mg Ibuprofen 200 mg 01/15/2021 12:00:00 AM EDT active Ibuprofe n 200 mg eCW1 ([facility]) Ibuprofen 200 MG Oral Tablet Ibuprofen 200 mg Ibuprofen 200 mg 01/15/2021 12:00:00 AM EDT active Ibuprofe n 200 mg eCW1 ([facility]) Ibuprofen 200 MG Oral Tablet Ibuprofen 200 mg Ibuprofen 200 mg 01/15/2021 12:00:00 AM EDT active Ibuprofe n 200 mg eCW1 ([facility]) Ibuprofen 200 MG Oral Tablet Ibuprofen 200 mg Ibuprofen 200 mg 01/15/2021 12:00:00 AM EDT active Ibuprofe n 200 mg eCW1 ([facility]) Ibuprofen 200 MG Oral Tablet Ibuprofen 200 mg Ibuprofen 200 mg 01/15/2021 12:00:00 AM EDT active Ibuprofe n 200 mg eCW1 ([facility]) Ibuprofen 200 MG Oral Tablet Ibuprofen 200 mg Ibuprofen 200 mg 01/15/2021 12:00:00 AM EDT active Ibuprofe n 200 mg eCW1 ([facility]) Ibuprofen 200 MG Oral Tablet Ibuprofen 200 mg Ibuprofen 200 mg 01/15/2021 12:00:00 AM EDT active Ibuprofe n 200 mg eCW1 ([facility]) Ibuprofen 200 MG Oral Tablet Ibuprofen 200 mg Ibuprofen 200 mg 01/15/2021 12:00:00 AM EDT active Ibuprofe n 200 mg eCW1 ([facility]) Commode Bedside - Commode Bedside - 01/12/2021 12:00:00 AM EDT active Commode Bedside - eCW1 ([facility]) Commode Bedside - Commode Bedside - 01/12/2021 12:00:00 AM EDT active Commode Bedside - eCW1 ([facility]) celecoxib 200 MG Oral Capsule [Celebrex] Celebrex 200 MG Rosalee ebrex 200 MG 01/12/2021 12:00:00 AM EDT 1.0 {capsule_with_food} active Celebrex 200 MG eCW1 ([facility]) Commode Bedside - Commode Bedside - 01/12/2021 12:00:00 AM EDT active Commode Bedside - eCW1 ([facility]) Commode Bedside - Commode Bedside - 01/12/2021 12:00:00 AM EDT active Commode Bedside - eCW1 ([facility]) tramadol hydrochloride 50 MG Oral Tablet Tramadol HCl 50 MG Tramadol HCl 50 MG 01/12/2021 12:00:00 AM EDT 1.0 {tablet_as_needed} active Tramadol HCl 50 MG eCW1 ([facility]) Commode Bedside - Commode Bedside - 01/12/2021 12:00:00 AM EDT active Commode Bedside - eCW1 ([facility]) Commode Bedside - Commode Bedside - 01/12/2021 12:00:00 AM EDT active Commode Bedside - eCW1 ([facility]) Commode Bedside - Commode Bedside - 01/12/2021 12:00:00 AM EDT active eCW1 ([facility]) Commode Bedside - Commode Bedside - 01/12/2021 12:00:00 AM EDT active Commode Bedside - eCW1 ([facility]) Commode Bedside - Commode Bedside - 01/12/2021 12:00:00 AM EDT active Commode Bedside - eCW1 ([facility]) Commode Bedside - Commode Bedside - 01/12/2021 12:00:00 AM EDT active Commode Bedside - eCW1 ([facility]) Commode Bedside - Commode Bedside - 01/12/2021 12:00:00 AM EDT active Commode Bedside - eCW1 ([facility]) Commode Bedside - Commode Bedside - 01/12/2021 12:00:00 AM EDT active Commode Bedside - eCW1 ([facility]) Commode Bedside - Commode Bedside - 01/12/2021 12:00:00 AM EDT active Commode Bedside - eCW1 ([facility]) Commode Bedside - Commode Bedside - 01/12/2021 12:00:00 AM EDT active Commode Bedside - eCW1 ([facility]) Commode Bedside - Commode Bedside - 01/12/2021 12:00:00 AM EDT active Commode Bedside - eCW1 ([facility]) Commode Bedside - Commode Bedside - 01/12/2021 12:00:00 AM EDT active Commode Bedside - eCW1 ([facility]) Commode Bedside - Commode Bedside - 01/12/2021 12:00:00 AM EDT active Commode Bedside - eCW1 ([facility]) Commode Bedside - Commode Bedside - 01/12/2021 12:00:00 AM EDT active Commode Bedside - eCW1 ([facility]) Commode Bedside - Commode Bedside - 01/12/2021 12:00:00 AM EDT active Commode Bedside - eCW1 ([facility]) Commode Bedside - Commode Bedside - 01/12/2021 12:00:00 AM EDT active Commode Bedside - eCW1 ([facility]) Commode Bedside - Commode Bedside - 01/12/2021 12:00:00 AM EDT active Commode Bedside - eCW1 ([facility]) Commode Bedside - Commode Bedside - 01/12/2021 12:00:00 AM EDT active Commode Bedside - eCW1 ([facility]) Commode Bedside - Commode Bedside - 01/12/2021 12:00:00 AM EDT active Commode Bedside - eCW1 ([facility]) Commode Bedside - Commode Bedside - 01/12/2021 12:00:00 AM EDT active Commode Bedside - eCW1 ([facility]) Commode Bedside - Commode Bedside - 01/12/2021 12:00:00 AM EDT active Commode Bedside - eCW1 ([facility]) Commode Bedside - Commode Bedside - 01/12/2021 12:00:00 AM EDT active Commode Bedside - eCW1 ([facility]) Commode Bedside - Commode Bedside - 01/12/2021 12:00:00 AM EDT active eCW1 ([facility]) Commode Bedside - Commode Bedside - 01/12/2021 12:00:00 AM EDT active Commode Bedside - eCW1 ([facility]) Omeprazole 40 MG Delayed Release Oral Capsule Omeprazole 40 MG 09/22/2020 12:00:00 AM EST active Omeprazo le 40 MG eCW1 ([facility]) Omeprazole 40 MG Delayed Release Oral Capsule Omeprazole 40 MG 09/22/2020 12:00:00 AM EST active Omeprazo le 40 MG eCW1 ([facility]) Omeprazole 40 MG Delayed Release Oral Capsule Omeprazole 40 MG 09/22/2020 12:00:00 AM EST active Omeprazo le 40 MG eCW1 ([facility]) Omeprazole 40 MG Delayed Release Oral Capsule Omeprazole 40 MG 09/22/2020 12:00:00 AM EST active e CW1 ([facility]) Omeprazole 40 MG Delayed Release Oral Capsule Omeprazole 40 MG 09/22/2020 12:00:00 AM EST active Omeprazo le 40 MG eCW1 ([facility]) Omeprazole 40 MG Delayed Release Oral Capsule Omeprazole 40 MG 09/22/2020 12:00:00 AM EST active Omeprazo le 40 MG eCW1 ([facility]) Omeprazole 40 MG Delayed Release Oral Capsule Omeprazole 40 MG 09/22/2020 12:00:00 AM EST active Omeprazo le 40 MG eCW1 ([facility]) Omeprazole 40 MG Delayed Release Oral Capsule Omeprazole 40 MG 09/22/2020 12:00:00 AM EST active Omeprazo le 40 MG eCW1 ([facility]) Omeprazole 40 MG Delayed Release Oral Capsule Omeprazole 40 MG 09/22/2020 12:00:00 AM EST active Omeprazo le 40 MG eCW1 ([facility]) Omeprazole 40 MG Delayed Release Oral Capsule Omeprazole 40 MG 09/22/2020 12:00:00 AM EST active Omeprazo le 40 MG eCW1 ([facility]) Omeprazole 40 MG Delayed Release Oral Capsule Omeprazole 40 MG 09/22/2020 12:00:00 AM EST active Omeprazo le 40 MG eCW1 ([facility]) Omeprazole 40 MG Delayed Release Oral Capsule Omeprazole 40 MG 09/22/2020 12:00:00 AM EST active Omeprazo le 40 MG eCW1 ([facility]) Omeprazole 40 MG Delayed Release Oral Capsule Omeprazole 40 MG 09/22/2020 12:00:00 AM EST active Omeprazo le 40 MG eCW1 ([facility]) Omeprazole 40 MG Delayed Release Oral Capsule Omeprazole 40 MG 09/22/2020 12:00:00 AM EST active Omeprazo le 40 MG eCW1 ([facility]) Omeprazole 40 MG Delayed Release Oral Capsule Omeprazole 40 MG 09/22/2020 12:00:00 AM EST active Omeprazo le 40 MG eCW1 ([facility]) Omeprazole 40 MG Delayed Release Oral Capsule Omeprazole 40 MG 09/22/2020 12:00:00 AM EST active Omeprazo le 40 MG eCW1 ([facility]) Omeprazole 40 MG Delayed Release Oral Capsule Omeprazole 40 MG 09/22/2020 12:00:00 AM EST active Omeprazo le 40 MG eCW1 ([facility]) Omeprazole 40 MG Delayed Release Oral Capsule Omeprazole 40 MG 09/22/2020 12:00:00 AM EST active Omeprazo le 40 MG eCW1 ([facility]) Omeprazole 40 MG Delayed Release Oral Capsule Omeprazole 40 MG 09/22/2020 12:00:00 AM EST active Omeprazo le 40 MG eCW1 ([facility]) Omeprazole 40 MG Delayed Release Oral Capsule Omeprazole 40 MG 09/22/2020 12:00:00 AM EST active Omeprazo le 40 MG eCW1 ([facility]) Omeprazole 40 MG Delayed Release Oral Capsule Omeprazole 40 MG 09/22/2020 12:00:00 AM EST active Omeprazo le 40 MG eCW1 ([facility]) Omeprazole 40 MG Delayed Release Oral Capsule Omeprazole 40 MG 09/22/2020 12:00:00 AM EST active Omeprazo le 40 MG eCW1 ([facility]) Omeprazole 40 MG Delayed Release Oral Capsule Omeprazole 40 MG 09/22/2020 12:00:00 AM EST active Omeprazo le 40 MG eCW1 ([facility]) Omeprazole 40 MG Delayed Release Oral Capsule Omeprazole 40 MG 09/22/2020 12:00:00 AM EST active Omeprazo le 40 MG eCW1 ([facility]) Omeprazole 40 MG Delayed Release Oral Capsule Omeprazole 40 MG 09/22/2020 12:00:00 AM EST active Omeprazo le 40 MG eCW1 ([facility]) Omeprazole 40 MG Delayed Release Oral Capsule Omeprazole 40 MG 09/22/2020 12:00:00 AM EST active Omeprazo le 40 MG eCW1 ([facility]) Omeprazole 40 MG Delayed Release Oral Capsule Omeprazole 40 MG 09/22/2020 12:00:00 AM EST active Omeprazo le 40 MG eCW1 ([facility]) Omeprazole 40 MG Delayed Release Oral Capsule Omeprazole 40 MG 09/22/2020 12:00:00 AM EST active Omeprazo le 40 MG eCW1 ([facility]) Omeprazole 40 MG Delayed Release Oral Capsule Omeprazole 40 MG 09/22/2020 12:00:00 AM EST active Omeprazo le 40 MG eCW1 ([facility]) Omeprazole 40 MG Delayed Release Oral Capsule Omeprazole 40 MG 09/22/2020 12:00:00 AM EST active Omeprazo le 40 MG eCW1 ([facility]) Omeprazole 40 MG Delayed Release Oral Capsule Omeprazole 40 MG 09/22/2020 12:00:00 AM EST active Omeprazo le 40 MG eCW1 ([facility]) Omeprazole 40 MG Delayed Release Oral Capsule Omeprazole 40 MG 09/22/2020 12:00:00 AM EST active Omeprazo le 40 MG eCW1 ([facility]) Omeprazole 40 MG Delayed Release Oral Capsule Omeprazole 40 MG 09/22/2020 12:00:00 AM EST active Omeprazo le 40 MG eCW1 ([facility]) Omeprazole 40 MG Delayed Release Oral Capsule Omeprazole 40 MG 09/22/2020 12:00:00 AM EST active Omeprazo le 40 MG eCW1 ([facility]) Omeprazole 40 MG Delayed Release Oral Capsule Omeprazole 40 MG 09/22/2020 12:00:00 AM EST active Omeprazo le 40 MG eCW1 ([facility]) Omeprazole 40 MG Delayed Release Oral Capsule Omeprazole 40 MG 09/22/2020 12:00:00 AM EST active Omeprazo le 40 MG eCW1 ([facility]) Omeprazole 40 MG Delayed Release Oral Capsule Omeprazole 40 MG 09/22/2020 12:00:00 AM EST active Omeprazo le 40 MG eCW1 ([facility]) Omeprazole 40 MG Delayed Release Oral Capsule Omeprazole 40 MG 09/22/2020 12:00:00 AM EST active Omeprazo le 40 MG eCW1 ([facility]) Omeprazole 40 MG Delayed Release Oral Capsule Omeprazole 40 MG 09/22/2020 12:00:00 AM EST active Omeprazo le 40 MG eCW1 ([facility]) Omeprazole 40 MG Delayed Release Oral Capsule Omeprazole 40 MG 09/22/2020 12:00:00 AM EST active Omeprazo le 40 MG eCW1 ([facility]) Omeprazole 40 MG Delayed Release Oral Capsule Omeprazole 40 MG 09/22/2020 12:00:00 AM EST active e CW1 ([facility]) Hydroxyzine Hydrochloride 25 MG Oral Tablet HydrOXYzin e HCl 25 MG HydrOXYzine HCl 25 MG 09/18/2020 12:00:00 AM EST suspende d HydrOXYzine HCl 25 MG eCW1 ([facility]) Hydroxyzine Hydrochloride 25 MG Oral Tablet HydrOXYzin e HCl 25 MG HydrOXYzine HCl 25 MG 09/18/2020 12:00:00 AM EST suspende d HydrOXYzine HCl 25 MG eCW1 ([facility]) Hydroxyzine Hydrochloride 25 MG Oral Tablet HydrOXYzin e HCl 25 MG HydrOXYzine HCl 25 MG 09/18/2020 12:00:00 AM EST active HydrOXYzine HCl 25 MG eCW1 ([facility]) Hydroxyzine Hydrochloride 25 MG Oral Tablet HydrOXYzin e HCl 25 MG HydrOXYzine HCl 25 MG 09/18/2020 12:00:00 AM EST active HydrOXYzine HCl 25 MG eCW1 ([facility]) Hydroxyzine Hydrochloride 25 MG Oral Tablet HydrOXYzin e HCl 25 MG HydrOXYzine HCl 25 MG 09/18/2020 12:00:00 AM EST active HydrOXYzine HCl 25 MG eCW1 ([facility]) Hydroxyzine Hydrochloride 25 MG Oral Tablet HydrOXYzin e HCl 25 MG HydrOXYzine HCl 25 MG 09/18/2020 12:00:00 AM EST active HydrOXYzine HCl 25 MG eCW1 ([facility]) Hydroxyzine Hydrochloride 25 MG Oral Tablet HydrOXYzin e HCl 25 MG HydrOXYzine HCl 25 MG 09/18/2020 12:00:00 AM EST active HydrOXYzine HCl 25 MG eCW1 ([facility]) Hydroxyzine Hydrochloride 25 MG Oral Tablet HydrOXYzin e HCl 25 MG HydrOXYzine HCl 25 MG 09/18/2020 12:00:00 AM EST suspende d HydrOXYzine HCl 25 MG eCW1 ([facility]) Hydroxyzine Hydrochloride 25 MG Oral Tablet HydrOXYzin e HCl 25 MG HydrOXYzine HCl 25 MG 09/18/2020 12:00:00 AM EST active HydrOXYzine HCl 25 MG eCW1 ([facility]) Hydroxyzine Hydrochloride 25 MG Oral Tablet HydrOXYzin e HCl 25 MG HydrOXYzine HCl 25 MG 09/18/2020 12:00:00 AM EST suspende d HydrOXYzine HCl 25 MG eCW1 ([facility]) Hydroxyzine Hydrochloride 25 MG Oral Tablet HydrOXYzin e HCl 25 MG HydrOXYzine HCl 25 MG 09/18/2020 12:00:00 AM EST suspende d HydrOXYzine HCl 25 MG eCW1 ([facility]) Hydroxyzine Hydrochloride 25 MG Oral Tablet HydrOXYzin e HCl 25 MG HydrOXYzine HCl 25 MG 09/18/2020 12:00:00 AM EST active HydrOXYzine HCl 25 MG eCW1 ([facility]) Hydroxyzine Hydrochloride 25 MG Oral Tablet HydrOXYzin e HCl 25 MG HydrOXYzine HCl 25 MG 09/18/2020 12:00:00 AM EST active HydrOXYzine HCl 25 MG eCW1 ([facility]) Hydroxyzine Hydrochloride 25 MG Oral Tablet HydrOXYzin e HCl 25 MG HydrOXYzine HCl 25 MG 09/18/2020 12:00:00 AM EST active HydrOXYzine HCl 25 MG eCW1 ([facility]) Hydroxyzine Hydrochloride 25 MG Oral Tablet HydrOXYzin e HCl 25 MG HydrOXYzine HCl 25 MG 09/18/2020 12:00:00 AM EST suspende d HydrOXYzine HCl 25 MG eCW1 ([facility]) Morphine Sulfate 2 MG/ML Oral Solution Morphine Sulfat e 10 MG/5ML Morphine Sulfate 10 MG/5ML 06/12/2020 12:00:00 AM EDT 2.0 {ml_as_needed} suspended Morphine Sulfate 10 MG/5ML eCW1 ([facility]) Morphine Sulfate 2 MG/ML Oral Solution Morphine Sulfat e 10 MG/5ML Morphine Sulfate 10 MG/5ML 06/12/2020 12:00:00 AM EDT 2.0 {ml_as_needed} suspended Morphine Sulfate 10 MG/5ML eCW1 ([facility]) Morphine Sulfate 2 MG/ML Oral Solution Morphine Sulfat e 10 MG/5ML Morphine Sulfate 10 MG/5ML 06/12/2020 12:00:00 AM EDT 2.0 {ml_as_needed} suspended Morphine Sulfate 10 MG/5ML eCW1 ([facility]) Morphine Sulfate 2 MG/ML Oral Solution Morphine Sulfat e 10 MG/5ML Morphine Sulfate 10 MG/5ML 06/12/2020 12:00:00 AM EDT 2.0 {ml_as_needed} suspended Morphine Sulfate 10 MG/5ML eCW1 ([facility]) Morphine Sulfate 2 MG/ML Oral Solution Morphine Sulfat e 10 MG/5ML Morphine Sulfate 10 MG/5ML 06/12/2020 12:00:00 AM EDT 2.0 {ml_as_needed} active Morphine Sulfate 10 MG/5ML eCW1 ([facility]) Morphine Sulfate 2 MG/ML Oral Solution Morphine Sulfat e 10 MG/5ML Morphine Sulfate 10 MG/5ML 06/12/2020 12:00:00 AM EDT 2.0 {ml_as_needed} active Morphine Sulfate 10 MG/5ML eCW1 ([facility]) Morphine Sulfate 2 MG/ML Oral Solution Morphine Sulfat e 10 MG/5ML Morphine Sulfate 10 MG/5ML 06/12/2020 12:00:00 AM EDT 2.0 {ml_as_needed} suspended Morphine Sulfate 10 MG/5ML eCW1 ([facility]) Morphine Sulfate 2 MG/ML Oral Solution Morphine Sulfat e 10 MG/5ML Morphine Sulfate 10 MG/5ML 06/12/2020 12:00:00 AM EDT 2.0 {ml_as_needed} suspended Morphine Sulfate 10 MG/5ML eCW1 ([facility]) Morphine Sulfate 2 MG/ML Oral Solution Morphine Sulfat e 10 MG/5ML Morphine Sulfate 10 MG/5ML 06/12/2020 12:00:00 AM EDT 2.0 {ml_as_needed} suspended Morphine Sulfate 10 MG/5ML eCW1 ([facility]) Morphine Sulfate 2 MG/ML Oral Solution Morphine Sulfat e 10 MG/5ML Morphine Sulfate 10 MG/5ML 06/12/2020 12:00:00 AM EDT 2.0 {ml_as_needed} suspended Morphine Sulfate 10 MG/5ML eCW1 ([facility]) Morphine Sulfate 2 MG/ML Oral Solution Morphine Sulfat e 10 MG/5ML Morphine Sulfate 10 MG/5ML 06/12/2020 12:00:00 AM EDT 2.0 {ml_as_needed} suspended Morphine Sulfate 10 MG/5ML eCW1 ([facility]) Docusate Sodium 50 MG / sennosides, HALF-WAY 8.6 MG Oral Ta blet Senna S 8.6-50 MG Senna S 8.6-50 MG 06/10/2020 12:00:00 AM EDT active Senna S 8.6-50 MG eCW1 ([facility]) Docusate Sodium 50 MG / sennosides, HALF-WAY 8.6 MG Oral Ta blet Senna S 8.6-50 MG Senna S 8.6-50 MG 06/10/2020 12:00:00 AM EDT active Senna S 8.6-50 MG eCW1 ([facility]) Docusate Sodium 50 MG / sennosides, HALF-WAY 8.6 MG Oral Ta blet Senna S 8.6-50 MG Senna S 8.6-50 MG 06/10/2020 12:00:00 AM EDT active Senna S 8.6-50 MG eCW1 ([facility]) Docusate Sodium 50 MG / sennosides, HALF-WAY 8.6 MG Oral Ta blet Senna S 8.6-50 MG Senna S 8.6-50 MG 06/10/2020 12:00:00 AM EDT active Senna S 8.6-50 MG eCW1 ([facility]) Docusate Sodium 50 MG / sennosides, HALF-WAY 8.6 MG Oral Ta blet Senna S 8.6-50 MG Senna S 8.6-50 MG 06/10/2020 12:00:00 AM EDT active Senna S 8.6-50 MG eCW1 ([facility]) Docusate Sodium 50 MG / sennosides, HALF-WAY 8.6 MG Oral Ta blet Senna S 8.6-50 MG Senna S 8.6-50 MG 06/10/2020 12:00:00 AM EDT active Senna S 8.6-50 MG eCW1 ([facility]) Docusate Sodium 50 MG / sennosides, HALF-WAY 8.6 MG Oral Ta blet Senna S 8.6-50 MG Senna S 8.6-50 MG 06/10/2020 12:00:00 AM EDT active Senna S 8.6-50 MG eCW1 ([facility]) Docusate Sodium 50 MG / sennosides, HALF-WAY 8.6 MG Oral Ta blet Senna S 8.6-50 MG Senna S 8.6-50 MG 06/10/2020 12:00:00 AM EDT active Senna S 8.6-50 MG eCW1 ([facility]) Docusate Sodium 50 MG / sennosides, HALF-WAY 8.6 MG Oral Ta blet Senna S 8.6-50 MG Senna S 8.6-50 MG 06/10/2020 12:00:00 AM EDT active Senna S 8.6-50 MG eCW1 ([facility]) Docusate Sodium 50 MG / sennosides, HALF-WAY 8.6 MG Oral Ta blet Senna S 8.6-50 MG Senna S 8.6-50 MG 06/10/2020 12:00:00 AM EDT active Senna S 8.6-50 MG eCW1 ([facility]) Docusate Sodium 50 MG / sennosides, HALF-WAY 8.6 MG Oral Ta blet Senna S 8.6-50 MG Senna S 8.6-50 MG 06/10/2020 12:00:00 AM EDT active Senna S 8.6-50 MG eCW1 ([facility]) Morphine Sulfate 4 MG/ML Oral Solution Morphine Sulfat e 20 MG/5ML Morphine Sulfate 20 MG/5ML 06/10/2020 12:00:00 AM EDT 1.0 {ml_as_needed} active Morphine Sulfate 20 MG/5ML eCW1 ([facility]) Docusate Sodium 50 MG / sennosides, HALF-WAY 8.6 MG Oral Ta blet Senna S 8.6-50 MG Senna S 8.6-50 MG 06/10/2020 12:00:00 AM EDT active Senna S 8.6-50 MG eCW1 ([facility]) Insurance Providers Payer name Policy type / Coverage type Policy ID Covered green party ID Covered green party's relationship to [place] Policy [place] Plan Information Medicare Natl Gov't Servi Medicare Primary [id number] Self [id number] Medicare C [id number] SELF [id number] MEDICARE [id number] SP [id number] MEDICARE A [id number] Self [id number] Medicare C [id number] SELF [id number] DME Jurisdiction A [facility] C [id number] SELF [id number] Medicaid [facility] S D [id number] SELF [id number] Medicaid [facility] S D [id number] SELF [id number] MEDICAID M [id number] Self [id number] MEDICAID [id number] SP [id number] Medicare C [id number] SELF [id number] DME Jurisdiction A [facility] C [id number] SELF [id number] MEDICAID [id number] SP [id number] ANSI-Medicaid [id number] ANSI-Medicare Part B [id number] ANSI-Medicare Part B [id number] ANSI-Medicaid [id number] ANSI-Medicaid [id number] ANSI-Medicare Part B [id number] MEDICAID [id number] SP [id number] ANSI-Medicare Part B [id number] ANSI-Medicaid [id number] ANSI-Medicare Part B [id number] ANSI-Medicaid [id number] ANSI-Medicare Part B [id number] ANSI-Medicaid [id number] ANSI-Medicaid [id number] ANSI-Medicare Part B [id number] ANSI-Medicaid [id number] ANSI-Medicare Part B [id number] ANSI-Medicare Part B [id number] ANSI-Medicaid [id number] ANSI-Medicare Part B [id number] ANSI-Medicaid [id number] ANSI-Medicare Part B [id number] ANSI-Medicaid [id number] ANSI-Medicaid [id number] ANSI-Medicare Part B [id number] ANSI-Medicaid [id number] ANSI-Medicare Part B [id number] ANSI-Medicaid [id number] ANSI-Medicare Part B [id number] ANSI-Medicaid [id number] ANSI-Medicare Part B [id number] ANSI-Medicaid [id number] ANSI-Medicare Part B [id number] ANSI-Medicare Part B [id number] ANSI-Medicaid [id number] ANSI-Medicaid [id number] ANSI-Medicare Part B [id number] ANSI-Medicaid [id number] ANSI-Medicare Part B [id number] ANSI-Medicaid [id number] ANSI-Medicare Part B [id number] ANSI-Medicare Part B [id number] ANSI-Medicaid [id number] ANSI-Medicaid [id number] ANSI-Medicare Part B [id number] ANSI-Medicaid [id number] ANSI-Medicare Part B [id number] ANSI-Medicaid [id number] ANSI-Medicare Part B [id number] ANSI-Medicaid [id number] ANSI-Medicare Part B [id number] ANSI-Medicare Part B [id number] ANSI-Medicaid [id number] ANSI-Medicaid [id number] ANSI-Medicare Part B [id number] ANSI-Medicare Part B [id number] ANSI-Medicaid [id number] ANSI-Medicaid [id number] ANSI-Medicare Part B [id number] ANSI-Medicare Part B [id number] ANSI-Medicaid [id number] ANSI-Medicare Part B [id number] ANSI-Medicaid [id number] ANSI-Medicaid [id number] ANSI-Medicare Part B [id number] ANSI-Medicare Part B [id number] ANSI-Medicaid [id number] ANSI-Medicaid [id number] ANSI-Medicare Part B [id number] ANSI-Medicaid [id number] ANSI-Medicare Part B [id number] MEDICARE [id number] SP [id number] MEDICARE [id number] SP [id number] VNA HOMECARE OPTIONS O [id number] S [id number] MEDICARE C [id number] S [id number] [place] [id number] [place] [id number] SP [id number] M [id number] MEDICARE [id number] SP [id number] MEDICAID -O/P [id number] MEDICARE PART A -O/P [id number] 18 [id number] [place] [id number] SP [id number] MEDICARE C [id number] S [id number] MEDICAID M [id number] S [id number] [facility] O [id number] S [id number] MEDICARE PART A -O/P [id number] 18 [id number] [facility]-Medicare Part B [id number] [facility]-Medicaid [id number] [facility] [id number] [facility] [id number] Problems, Conditions, and Diagnoses Code Display Name Description Problem Type Effective Dates Data Source(s) Y62668 Presence of unspecified artificial hip j oint Presence of unspecified artificial hip joint Diagnosis 05/30/2021 11:06:00 AM EDT [facility] I509 Heart failure, unspecified Heart failure, unspecified Diagnosis 05/30/2021 11:06:00 AM EDT [facility] M46087 Unspecified asthma, uncomplicated Unspecified as thma, uncomplicated Diagnosis 05/30/2021 11:06:00 AM EDT [facility] 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 Diagnosis 05/30/2021 11:06:00 AM EDT [facility] D508 Other iron deficiency anemias Other iron deficiency an emias Diagnosis 05/30/2021 11:06:00 AM EDT [facility] R42 Dizziness and giddiness Dizziness and giddiness Diagno sis 05/30/2021 11:06:00 AM EDT [facility] M19.079 [id number] Arthritis of foot Problem 01/15/2021 12:00:0 0 AM EDT eCW1 ([facility]) R27.0 24017618 Ataxia Problem 01/12/2021 12:00:00 AM ED T eCW1 ([facility]) M19.072 [id number] Arthritis of left foot Problem 0 01/12/2021 12:00:00 AM EDT eCW1 ([facility]) L29.9 255556267 Chronic pruritus Problem 09/18/2020 12:00:00 AM EST eCW1 ([facility]) Z12.11 556115370 Colon cancer screening Problem 09/18/2020 12 :00:00 AM EST eCW1 ([facility]) R63.4 70367669 Weight loss Problem 09/18/2020 12:00:[address] eCW1 ([facility]) N81.6 4321105 Rectocele Problem 06/25/2020 12:00:00 AM ES T eCW1 ([facility]) Surgeries/Procedures Procedure Description Date Indications Data Source(s) FINE NEEDLE ASPIRATION W/O IMAGING GUIDANCE 06/03/2021 12:00:00 AM EDT eCW1 ([facility]) FINE NEEDLE ASPIRATION W/O IMAGING GUIDANCE 05/13/2021 12:00:00 AM EDT eCW1 ([facility]) Medication: 2% Lidocaine intradermal 05/13/2021 12:00: 00 AM EDT eCW1 ([facility]) FINE NEEDLE ASPIRATION W/O IMAGING GUIDANCE 04/22/2021 12:00:00 AM EDT eCW1 ([facility]) FINE NEEDLE ASPIRATION W/O IMAGING GUIDANCE 04/01/2021 12:00:00 AM EDT eCW1 ([facility]) Medication: Silver Nitrate Stick topically 04/01/2021 12:00:00 AM EDT eCW1 ([facility]) FINE NEEDLE ASPIRATION W/O IMAGING GUIDANCE 03/11/2021 12:00:00 AM EDT eCW1 ([facility]) FINE NEEDLE ASPIRATION W/O IMAGING GUIDANCE 02/18/2021 12:00:00 AM EDT eCW1 ([facility]) Medication: Silver Nitrate Stick topically 02/10/2021 12:00:00 AM EDT eCW1 ([facility]) FINE NEEDLE ASPIRATION W/O IMAGING GUIDANCE 02/10/2021 12:00:00 AM EDT eCW1 ([facility]) FINE NEEDLE ASPIRATION W/O IMAGING GUIDANCE 02/03/2021 12:00:00 AM EDT eCW1 ([facility]) FINE NEEDLE ASPIRATION W/O IMAGING GUIDANCE 12/24/2020 12:00:00 AM EDT eCW1 ([facility]) FINE NEEDLE ASPIRATION W/O IMAGING GUIDANCE 12/03/2020 12:00:00 AM EDT eCW1 ([facility]) FINE NEEDLE ASPIRATION W/O IMAGING GUIDANCE 11/12/2020 12:00:00 AM EDT eCW1 ([facility]) FINE NEEDLE ASPIRATION W/O IMAGING GUIDANCE 10/22/2020 12:00:00 AM EST eCW1 ([facility]) FINE NEEDLE ASPIRATION W/O IMAGING GUIDANCE 10/01/2020 12:00:00 AM EST eCW1 ([facility]) FINE NEEDLE ASPIRATION W/O IMAGING GUIDANCE 09/10/2020 12:00:00 AM EST eCW1 ([facility]) FINE NEEDLE ASPIRATION W/O IMAGING GUIDANCE 06/16/2020 12:00:00 AM EDT eCW1 ([facility]) FINE NEEDLE ASPIRATION W/O IMAGING GUIDANCE 05/26/2020 12:00:00 AM EDT eCW1 ([facility]) Results ID Date Data Source [id number] 06/02/2021 07:46:00 AM EDT [facility] [address] [place] [address] RESPIRATORY CARE REPORT ==== ---------NAME------- NUMBER SEX AGE ADMIT DISC. XRAY# F/C DANIEL PHILLIPS [id number] F 85 05/30/21 05/30/21 [id number] MB4 E/R DATE OF : 1935 M/R# [id number] PH#: [phone] TR-03 LOCATION: EMERGENCY DEPT EKG 54352 COMP LETE:05/30/21 14:25 [facility] [address] PHYSICIAN: TORI Lopez Name Value Range Interpretation Code Description Data Ladi rce(s) Supporting Document(s) ID Date Data Source [id number] 06/01/2021 02:02:00 PM EDT [facility] [address] [place] [address] PHONE: [phone] FAX: [phone] Name .................. : GUME PHILLIPS Acct Number.................. : [id number] ROOM. ................. : TR-03 Number ................... : [id number] Stay type ............. : E/R Discharge Date......... ... : 05/30/21 Admit Date ......... : 05/30/21 Admit Phys .................... : TORI Lopez Date of ....... : 1935 Family Phys ................... : NO PCP Phone .................. : [phone] Age ................................ : 85 Film# .................. .:[id number] Sex ................................. : F Unsigned transcriptions are preliminary reports and do not represent a medical or legal document CT HEAD W/O CONTRAST 54645 COMPLETE:05/30/21 16:23 [place] 24112 Reason(s): Vertigo/Dizziness CT BRAIN WITHOUT IV CONTRAST INDICATION: Vertigo, dizziness COMPARISON: None CONTRAST: None Preliminary report for this exam was provided by [facility] . One or more of the following [...] postoperative sinus changes. Page 1 of 2 [place] [address] PHONE: FAX: [phone] Name .................. : GUME PHILLIPS Acct Number.................. : [id number] ROOM. ................. : TR-03 MR Number ................... : [id number] Stay type ............. : E/R Discharge Date......... ... : 05/30/21 Admit Date ......... : 05/30/21 Admit Phys .................... : TORI Lopez Date of ....... : 1935 Family Phys ................... : NO PCP Phone .................. : [phone] Age ................................ : 85 Film# .................. .:[id number] Sex ................................. : F Unsigned transcriptions are preliminary reports and do not represent a medical or legal document CT HEAD W/O CONTRAST 30885 COMPLETE:05/30/21 16:23 [place] 37917 Reason(s): Vertigo/Dizziness Electronically Reviewed and Signed By Gunnar Bray MD , 06/01/21 14:02, SCB Transcribe Initials: DZ , Transcribe Date: 05/30/21 22:12, Dictation Date: Copy for: EMERGENCY DEPT via modem Copy for: 710 MED REC DISCHARGED Page 2 of 2 Name Value Range Interpretation Code Description Data Ladi rce(s) Supporting Document(s) ID Date Data Source [id number] 06/01/2021 01:58:00 PM EDT [facility] [address] [place] [address] PHONE: [phone] FAX: [phone] Name .................. : GUME PHILLIPS Acct Number.................. : [id number] ROOM. ................. : TR-03 MR Number ................... : [id number] Stay type ............. : E/R Discharge Date......... ... : 05/30/21 Admit Date ......... : 05/30/21 Admit Phys .................... : TORI Lopez Date of ....... : 1935 Family Phys ................... : NO PCP Phone .................. : [phone] Age ................................ : 85 Film# .................. .:[id number] Sex ................................. : F Unsigned transcriptions are preliminary reports and do not represent a medical or legal document CHEST PORTABLE 74778 COMPLETE:05/30/21 16:23 [place] 25742 Reason(s): Shortness of Breath PORTABLE CHEST SINGLE [...] rce(s) Supporting Document(s) ID Date Data Source [id number] 05/30/2021 11:06:00 AM EDT [facility] 1 OrderSheet [facility] Emergency Department [address] [place] [address] Phone #: ext- [phone] 05/30/2021 11:04 Patient: [...] Priority Entered Acknowledged In itialed 2 OrderSheet [facility] Emergency Department [address] [place] [address] Phone #: pbq- [phone] 05/30/2021 11:04 Patient: JACQUELINE DUNAWAY Sex: F : 1935 Age: 85yEKG 11:24 05/30/2021 11:27 Tori Perez Jack ; Deborah Jones[Electronically signed by Deborah Perez R.N. (15:22 05/30/2021)][Electronically signed by Justin Purcell (15:57 05/30/2021)][Electronically locked by Deborah Perez R.N. (15:22 05/30/2021)] Name Value Range Interpretation Code Description Data Ladi rce(s) Supporting Document(s) ID Date Data Source [id number] 05/30/2021 11:06:00 AM EDT [facility] 1 Medication Reconciliation Report [facility] Emergency Department [address] [place] [address] Phone #: ext- [phone] 05/30/2021 11:04 Patient: [...] Value Range Interpretation Code Description Data Ladi [facility](s) Supporting Document(s) ID Date Data Source [id number] 05/30/2021 11:06:00 AM EDT [facility] 1 Medication Administration Record [facility] Emergency Department [address] [place] [address] Phone #: ext- [phone] 05/30/2021 11:04 Patient: JACQUELINE DUNAWAY Sex: F : 1935 Age: 85yWeight: 57.2 kgHeight/Length: 65 inBMI: 21ALLERGIES: PulmicortDate/Time Medication Administered Medication Ordered Name Value Range Interpretation Code Description Data Ladi rce(s) Supporting Document(s) ID Date Data Source [id number] 05/30/2021 11:06:00 AM EDT [facility] 1 General Instructions [facility] Emergency Department [address] [place] [address] Phone #: ext- [phone] 05/30/2021 11:04 Patient: [...] about: All medicines you take, including prescription, kmkv-efy-ameqach, herbs, and supplements Any other symptoms you have 2 General Instructions [facility] Emergency Department [address] [place] [address] Phone #: ext- [phone] 05/30/2021 11:04 Patient: [...] side of the face 3 General Instructions [facility] Emergency Department [address] [place] [address] Phone #: ext- [phone] 05/30/2021 11:04 Patient: JACQUELINE DUNAWAY Sex: F : 1935 Age: 85y Blood in vomit or stool (black or red color) Shortness of breath Feeling that your heart is fluttering or beating fast or hard (palpitations) Passing out or seizure Trouble walking or speaking 4921-[address] [employer] [place] [address], [place] [address]. All rights reserved. This information is not [...] to find out the 4 General Instructions [facility] Emergency Department [address] [place] [address] Phone #: ext- [phone] 05/30/2021 11:04 Patient: JACQUELINE DUNAWAY Sex: F : 1935 Age: 85yexact cause of your anemia. If you had testing done today, it may take several days to get all of theresults. You can follow up with your own healthcare provider to get the results.[facility] or get immediate medical care if any of the following occur: Shortness of breath or chest pain Dizziness or fainting gets worse Vomiting blood or passing red or black-colored stool 7900-7508 [employer]. [address] [place] [address], [place] [address]. All rights reserved. This information is not intended as asubstitute for professional medical care. Always follow your healthcare professional's instructions.Heart PalpitationsPalpitations are the feeling that your heart is beating hard, fast, or irregular. Some describe it as"pounding," "flip-flopping in the chest," or "skipped beats." Palpitations may occur in someone withheart disease. But they can also occur in a healthy person. 5 General Instructions [facility] Emergency Department [address] [place] [address] Phone #: ext- [phone] 05/30/2021 11:04 Patient: JACQUELINE DUNAWAY Sex: F : 1935 Age: 85yHeart-related causes: Heart rhythm problem (arrhythmia) Heart valve disease Disease of the heart muscle (cardiomyopathy) Coronary artery disease High blood spujlamnDzp-livpl-dqgzlyy causes: Certain medicines such as asthma inhalers [...] Tell your doctor about any prescription or jmpp-dmq-emvmdxg or herbal medicines you take.Follow-up care Follow up with your doctor, or as advised.Call 911This is the fastest and safest way to get to the emergency department. The paramedics can also starttreatment on the way to the hospital, if needed.Don't wait until your symptoms are severe to call 911. These are reasons to call 911: Chest pain Shortness of breath 6 General Instructions [facility] Emergency Department [address] [place] [address] Phone #: ext- [phone] 05/30/2021 11:04 Patient: [...] normal, or aredifferent from your past palpitations. 4946-4381 [employer]. [address] [place] [address], [place] [address]. All rights reserved. This information is not intended as asubstitute for professional medical care. Always follow your healthcare professional's instructions. You have been given the following additional information: Dizziness, Uncertain Cause Anemia, Type Not Specified (Adult) Palpitations(Electronically signed by Justin Purcell 05/30/2021 15:57) Name Value Range Interpretation Code Description Data Ladi rce(s) Supporting Document(s) ID Date Data Source [id number] 05/30/2021 11:06:00 AM EDT [facility] 1 Clinical Report - Nurses [facility] Emergency Department [address] [place] [address] Phone #: inv- [phone] 05/30/2021 11:04 Patient: JACQUELINE DUNAWAY Sex: F [...] She has had nausea and trouble walking.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 SEPSIS SCREEN NEGATIVE. No suspected or confirmedsigns of infection present.GLA OW COMA SCORE: 15- eyes open- spontaneous (4); best verbal response- oriented (5); bestmotor response- obeys commands (6). --11:15 05/30/21 Ava Carrington R.N.11:07 05/30/21. BP: 148/90. MAP: 109. HR: 82. RR: 18. O2 saturation: 97% on room air. Temp: 97.8 F(oral). Pain level now: 0/10. --11:15 05/30/21 Aav Carrington R.N.Weight: 57.2 kg measured. Height/Length: 65 [...] Carrington R.N.PROBLEMS: 2 Clinical Report - Nurses [facility] Emergency Department [address] [place] [address] Phone #: ext- [phone] 05/30/2021 11:04 Patient: [...] Carrington R.N. 3 Clinical Report - Nurses [facility] Emergency Department [address] [place] [address] Phone #: ext- [phone] 05/30/2021 11:04 Patient: [...] Perez R.N. late entry - 11:11 05/30/21. court recording monitor, NIBP monitor and pulse oximeter placed on patient; monitoring analyst- Lead II; monitor alarms on; monitor strip [...] CT by stretcher with mask and radiology scheduler. --11:42 05/30/21 Deborah Perez R.N. Patient returned from CT by stretcher with mask and radiology scheduler. --11:50 05/30/21 Deborah Perez R.N. Rounding: Pain: [...] unchanged, NAD). 4 Clinical Report - Nurses [facility] Emergency Department [address] [place] [address] Phone #: ext- [phone] 05/30/2021 11:04 Patient: [...] Patient verbalized understanding. Written instructions provided in [place]. The patient was discharged by the physician. [...] Perez R.N. 5 Clinical Report - Nurses [facility] Emergency Department [address] [place] [address] Phone #: ext- [phone] 05/30/2021 11:04 Patient: JACQUELINE DUNAWAY Sex: F : 1935 Age: 85yLocked/Released at 05/30/2021 15:22 by Deborah Perez R.N. Name Value Range Interpretation Code Description Data Ladi rce(s) Supporting Document(s) ID Date Data Source [id number] 05/30/2021 11:06:00 AM EDT [facility] 1 Clinical Report - Physicians/Mid Levels [facility] Emergency Department [address] [place] [address] Phone #: ext- [phone] 05/30/2021 11:04 Patient: [...] get any answers from her PCP or Yarsani. No new medications, palpitations or chest pain. [...] daily. 2 Clinical Report - Physicians/Mid Levels [facility] Emergency Department [address] [place] [address] Phone #: ext- [phone] 05/30/2021 11:04 Patient: [...] results 3 Clinical Report - Physicians/Mid Levels [facility] Emergency Department [address] [place] [address] Phone #: toa- [phone] 05/30/2021 11:04 Patient: JACQUELINE DUNAWAY Sex: F : 1935 Age: 85y Test Result Flag Units (Reference) OCCULT BLOOD NEGATIVE (NORMAL: NEGAT OCCULT BLOOD REENTER NEGATIVE (NORMAL: NEGAT { HEMOCCULT LOT # [id number] ){ LOT EXP [id number] ){ PROCEDURAL CONTROL POS/NEG VALID)Direct Heath: (ZOLTAN: [...] Male GFR Interprentation 20-49 yrs >60 mL/min Gnptxp98-69 yrs >56 mL/min Normal 60-69 yrs >49 mL/min Normal 70-79yrs>42 mL/min Normal 80 and above >35 mL/min Normal Female GFRInterpretation 20-39 yrs >60 mL/min Normal 40-49 yrs >58 mL/minNormal 50- 59 yrs >51 mL/min Normal 60-69 yrs >45 mL/min Sqnyhx91-30 yrs >39 mL/min Normal 80 and above >32 mL/min NormalCBC w Diff: (ZOLTAN: 05/30/2021 12:12) ( MsgRcvd 05/30/2021 12:43) Final results Test Result Flag Units (Reference) CBC W/AUTOMATED DIFF COMPLETE BLOOD COUNT WBC 4.3 10/uL (4.2 - 11.0) 4 Clinical Report - Physicians/Mid Levels [facility] Emergency Department [address] [place] [address] Phone #: ext- [phone] 05/30/2021 11:04 Patient: [...] Type and Screen: (ZOLTAN: 05/30/2021 12:12) ( [facility] 05/30/2021 14:38) Final results Test Result Flag Units (Reference) ABO GROUP O RH TYPE POSITIVE AB SCREEN POSITIVE A (NORMAL: NEGAT { ABO/RH REENTER O POSITIVE{ AB SCREEN RE-ENTER POSITIVE Troponin-T: (ZOLTAN: 05/30/2021 12:12) ( [facility] 05/30/2021 13:24) Final results Test Result [...] stable. 5 Clinical Report - Physicians/Mid Levels [facility] Emergency Department [address] [place] [address] Phone #: ext- [phone] 05/30/2021 11:04 Patient: JACQUELINE DUNAWAY Sex: F [...] rce(s) Supporting Document(s) ID Date Data Source [id number] 05/30/2021 02:49:00 PM EDT [facility] Name Value Range Interpretation Code Description Data Ladi rce(s) Supporting Document(s) OCCULT BLOOD NEGATIVE NORMAL: NEGATIVE [facility] OCCULT BLOOD REENTER NEGATIVE NORMAL: NEGATIVE [facility] { HEMOCCULT LOT # [id number] ){ LOT EXP DATE 01-19-22 ){ PROCEDURAL CONTROL POS/NEG VALID ) ID Date Data Source [id number] 06/02/2021 10:35:00 AM EDT [facility] Name Value Range Interpretation Code Description Data Ladi rce(s) Supporting Document(s) Blood group antibodies identified in Serum or Plasma Anti-Fy(a) Wu [facility] XXX blood group Ab [Titer] in Serum or Plasma by Antihuman globulin 1 6 NA [facility] If a numerical titer result has been rep orted, please note that thisresult is the reciprocal value of titer results formerly reported as1:2,1:4, 1:8, etc. These results are now reported as 2, 4, 8, etc.The [place] [employer] has recommended this changein titer reporting formats to simply reflect the reciprocal value ofthe titer. ID Date Data Source [id number] 05/30/2021 03:49:00 PM EDT [facility] Name Value Range Interpretation Code Description Data Ladi rce(s) Supporting Document(s) Direct antiglobulin test.IgG specific re agent [Interpretation] on Red Blood Cells POSITIVE NORMAL: NEGATIVE [facility] { DIR HEATH RE-ENTER POSITIVE (NORMAL: NEGATIVE ) ID Date Data Source [id number] 05/30/2021 02:37:00 PM EDT [facility] Value Range Interpretation Code Description Data Ladi rce(s) Supporting Document(s) ABO group [Type] in Blood O [facility] Rh [Type] in Blood POSITIVE [facility] AB SCREEN POSITIVE NORMAL: NEGATIVE A [facility] { ABO/RH REENTER O POSITIVE{ AB SCREEN RE-ENTER POSITIVE ID Date Data Source [id number] 05/30/2021 01:24:00 PM EDT [facility] Name Value Range Interpretation Code Description Data Ladi rce(s) Supporting Document(s) TROPONIN T 0.02 NG/ML 0.00 - 0.10 [facility] TROPONIN T0.1 ng/ml Recommended as the c linical threshold value forTroponin T. ID Date Data Source [id number] 05/30/2021 01:24:00 PM EDT [facility] Name Value Range Interpretation Code Description Data Ladi rce(s) Supporting Document(s) COMPREHENSIVE METABOLIC PANEL [facility] COMPREHENSIVE METABOLIC PANEL Sodium [Moles/volume] in Serum or Plasma 140 mEq/L 134 - 153 [facility] Potassium [Moles/volume] in Serum or Plasma 4.5 mEq/L 3.6 - 5.0 [facility] Chloride [Moles/volume] in Serum or Plasma 102 mEq/L 98 - 107 [facility] Carbon dioxide, total [Moles/volume] in Serum or Plasma 27 MEQ/L 22 - 30 [facility] Glucose [Mass/volume] in Serum or Plasma 95 MG/DL 70 - 99 [facility] BUN 15 MG/DL 7 - 21 [facility] Creatinine [Mass/volume] in Serum or Plasma 0.7 MG/DL 0.7 - 1.5 [facility] BUN/CREAT 21 8 - 27 [facility] Protein [Mass/volume] in Serum or Plasma 6.9 G/DL 6.3 - 8.2 [facility] Albumin [Mass/volume] in Serum or Plasma 3.2 G/DL 3.9 - 5.0 L [facility] Globulin [Mass/volume] in Serum by calculation 3.7 GM/DL 2.4 - 3.2 H [facility] A/G RATIO 0.9 0.8 - 2.0 [facility] Calcium [Mass/volume] in Serum or Plasma 9.2 MG/DL 8.4 - 10.2 [facility] Bilirubin.total [Mass/volume] in Serum or Plasma <0.7 MG/DL 0.2 - 1.3 [facility] Alkaline phosphatase [Enzymatic activity/volume] in Serum or Plasma 77 U/L 38 - 126 [facility] Aspartate aminotransferase [Enzymatic activity/volume] in Serum or Plasma 13 U/L 5 - 40 [facility] Alanine aminotransferase [Enzymatic activity/volume] in Seru m or Plasma 5 U/L 7 - 56 L [facility] Anion gap 3 in Serum or Plasma 11.0 mmol/L 8.0 - 16.0 [facility] AGE [address] [facility] NON-AA GFR >60 mL/min [facility] ital AFR AMER GFR >60 [facility] Male GFR In terprentation 20-49 [...] >32 mL/min Normal ID Date Data Source [id number] 05/30/2021 01:12:00 PM EDT [facility] Name Value Range Interpretation Code Description Data Ladi rce(s) Supporting Document(s) Magnesium [Mass/volume] in Serum or Plasma 1.7 MG/DL 1.7 - 2.2 [facility] ID Date Data Source [id number] 05/30/2021 12:43:00 PM EDT [facility] Name Value Range Interpretation Code Description Data Ladi rce(s) Supporting Document(s) CBC W/AUTOMATED DIFF [facility] COMPLETE BLOOD COUNT Leukocytes [#/volume] in Blood by Automated count 4.3 10^3/uL 4.2 - 1 1.0 [facility] Erythrocytes [#/volume] in Blood by Automated count 3.89 10^6/uL 4. 20 - 5.40 L [facility] Hemoglobin [Mass/volume] in Blood 8.8 g/dL 12.0 - 16.0 L [facility] Hematocrit [Volume Fraction] of Blood by Automated count 29.1 % 3 7.0 - 47.0 L [facility] Erythrocyte mean corpuscular volume [Entitic volume] by Auto mated count 74.8 fL 81.0 - 101 L [facility] Erythrocyte mean corpuscular hemoglobin [Entitic mass] by Automated count 22.6 pg 27.0 - 34.0 L [facility] Erythrocyte mean corpuscular hemoglobin concentration [Mass/volume] by Automated count 30.2 g/dL 31.0 - 36.0 L [facility] Erythrocyte distribution width [Ratio] by Automated count 17.9 % 11.5 - 14.5 H [facility] Platelets [#/volume] in Blood by Automated count 415 10^3/uL 150 - 45 0 [facility] Platelet mean volume [Entitic volume] in Blood by Automated count 9.9 fL 7.4 - 10.4 [facility] Neutrophils/100 leukocytes in Blood by Automated count 79.1 % 37. 0 - 80.0 [facility] Lymphocytes/100 leukocytes in Blood by Manual count 10.1 % 25.0 - 40.0 L [facility] Monocytes/100 leukocytes in Blood by Automated count 8.0 % 3.0 - 8.0 [facility] Eosinophils/100 leukocytes in Blood by Automated count 1.4 % 0.0 - 7.0 [facility] Basophils/100 leukocytes in Blood by Automated count 0.9 % 0.0 - 2.5 [facility] %IG 0.5 % 0.0 - 0.[address] [facility] %NRBC 0.0 % 0.0 [facility] Neutrophils [#/volume] in Blood by Automated count 3.38 10^3/uL 2.00 - 6.90 [facility] Lymphocytes [#/volume] in Blood by Automated count 0.43 10^3/uL 0.60 - 3.40 L [facility] Monocytes [#/volume] in Blood by Automated count 0.34 10^3/uL 0.00 - 0.90 [facility] Eosinophils [#/volume] in Blood by Automated count 0.06 10^3/uL 0.00 - 0.70 [facility] Basophils [#/volume] in Blood by Automated count 0.04 10^3/uL 0.00 - 0.20 [facility] #IG 0.02 10^3/uL 0.00 - 0.10 [facility] #NRBC 0.00 10^3/uL 0.00 - 0.00 [facility] MANUAL DIFF NOT INDICATED [facility] RBC MORPH NOT INDICATED [facility] ID Date Data Source WOUND CULTURE 02/03/2021 12:00:00 AM EDT eCW1 ([facility]ly [facility]) Name Value Range Interpretation Code Description Data Ladi rce(s) Supporting Document(s) FULL REPORT IN LAB NOTES (eCW and [facility]). WOUND CULTURE eCW1 ([facility]) ID Date Data Source TSH 01/19/2021 12:00:00 AM EDT eCW1 ([facility]ly [facility]) Name Value Range Interpretation Code Description Data Ladi rce(s) Supporting Document(s) 8.570 0.358-3.740 THYROID STIMULATING HORM ONE eCW1 ([facility]) THYROID STIMULATING HORMONE ID Date Data Source Reticulocyte Count [employer]mex 01/19/2021 12:00:00 AM EDT eCW1 ([facility]) Name Value Range Interpretation Code Description Data Ladi rce(s) Supporting Document(s) 1.4 0.5-1.5 RETICULOCYTE % eCW1 ([facility]) ID Date Data Source FERRITIN 01/19/2021 12:00:00 AM EDT eCW1 ([facility]ly [facility]) Name Value Range Interpretation Code Description Data Ladi rce(s) Supporting Document(s) 37 8-252 FERRITIN eCW1 ([facility]) FERRITIN ID Date Data Source Comprehensive Metabolic Profile (CMP) 01/19/2021 12:00:00 AM EDT eCW1 ([facility]) Name Value Range Interpretation Code Description Data Ladi rce(s) Supporting Document(s) 24 7-18 BLOOD UREA NITROGEN eCW1 ([facility]) 0.68 0.55-1.30 CREATININE FOR GFR eCW1 ([facility]) 156 70-100 GLUCOSE, FASTING eCW1 ([facility]) 4.3 3.5-5.1 POTASSIUM SERUM eCW1 ([facility]) 104 98-107 CHLORIDE LEVEL eCW1 ([facility]) 138 136-145 SODIUM LEVEL eCW1 ([facility]) > 60.0 >32 GLOMERULAR FILTRATION RATE eCW 1 ([facility]) 8.6 8.8-10.2 CALCIUM LEVEL eCW1 ([facility]) 27 21-32 CARBON DIOXIDE LEVEL eCW1 (Count includes the [facility]) 13 7-37 AST/SGOT eCW1 ([facility]) 0.4 0.2-1.0 BILIRUBIN,TOTAL eCW1 ([facility]) 13 12-78 ALT/SGPT eCW1 ([facility]) 94 45-117 ALKALINE PHOSPHATASE eCW1 (Count includes the [facility]) 7.1 6.4-8.2 TOTAL PROTEIN eCW1 ([facility]) 0.5 1.2-2.2 ALBUMIN/GLOBULIN RATIO eCW1 ([facility]) 2.5 3.2-5.2 ALBUMIN eCW1 ([facility]) ID Date Data Source CBC with Differential 01/19/2021 12:00:00 AM EDT eCW1 ([facility]) Name Value Range Interpretation Code Description Data Ladi rce(s) Supporting Document(s) 5.8 4.0-10.0 WHITE BLOOD COUNT eCW1 ([facility]) 10.1 12.0-15.5 HEMOGLOBIN eCW1 ([facility]) 30.7 36.0-47.0 HEMATOCRIT eCW1 ([facility]) 3.88 4.00-5.40 RED BLOOD COUNT eCW1 ([facility]) 26.0 27.0-33.0 MEAN CORPUSCULAR HEMOGLOB IN eCW1 ([facility]) 79.1 80.0-96.0 MEAN CORPUSCULAR VOLUME e CW1 ([facility]) 32.9 32.0-36.5 MEAN CORPUSCULAR HGB CONC eCW1 ([facility]) 18.4 11.5-14.5 RED CELL DISTRIBUTION WID TH eCW1 ([facility]) 358 150-450 PLATELET COUNT, AUTOMATED eCW1 ([facility]) 7.8 2.0-8.0 MONO % eCW1 ([facility]) 15.5 24.0-44.0 LYMPH % eCW1 ([facility]) 73.1 36.0-66.0 NEUTROPHILS % eCW1 ([facility]) 0.7 0.0-1.0 BASO % eCW1 ([facility]) 2.4 0.0-3.0 EOS % eCW1 ([facility]) 4.2 1.5-8.5 NEUTROPHILS # eCW1 ([facility]) 0.9 1.5-5.0 LYMPH # eCW1 ([facility]) 0.1 0.0-0.5 EOS # eCW1 ([facility]) 0.5 0.0-0.8 MONO # eCW1 ([facility]) 0.0 0.0-0.2 BASO # eCW1 ([facility]) ID Date Data Source NT-PRO BNP 01/19/2021 12:00:00 AM EDT eCW1 ([facility]) Name Value Range Interpretation Code Description Data Ladi rce(s) Supporting Document(s) 2338 <450 NT-PRO BNP eCW1 ([facility]) ID Date Data Source FREE T4 BY DIALYSIS DIRECT 06/17/2020 05:43:42 AM EDT eCW1 ( [facility]) Name Value Range Interpretation Code Description Data Ladi rce(s) Supporting Document(s) 1.6 eCW1 ([facility]) ID Date Data Source RBC FOLATE PROFILE 06/17/2020 05:43:27 AM EDT eCW1 ([facility]) Name Value Range Interpretation Code Description Data Ladi rce(s) Supporting Document(s) 36.2 HEMATOCRIT eCW1 ([facility]) 707 RBC FOLATE eCW1 ([facility]) ID Date Data Source [id number] 07/02/2020 08:47:52 AM EST [facility] Jacqueline Singleton: 1935Provider: Livia [...] RATE 06/12/2020 03:07:47 AM EDT eC W1 ([facility]) Name Value Range Interpretation Code Description Data Ladi rce(s) Supporting Document(s) 77 ERYTHROCYTE SEDIMENTATION RATE eCW1 ([facility]) ERYTHROCYTE SEDIMENTATION RATE ID Date Data Source CBC - Complete Blood Count 06/12/2020 03:07:42 AM EDT eCW1 ( [facility]) Name Value Range Interpretation Code Description Data Ladi rce(s) Supporting Document(s) 4.53 eCW1 ([facility]) 10.7 eCW1 ([facility]) 6.6 eCW1 ([facility]) 29.6 eCW1 ([facility]) 23.6 eCW1 ([facility]) 79.9 eCW1 ([facility]) 36.2 eCW1 ([facility]) 393 eCW1 ([facility]) 21.5 eCW1 ([facility]) ID Date Data Source C REACTIVE PROTEIN QUANTITATIV (At [facility]) 06/10/2020 08:02 :45 AM EDT eCW1 ([facility]) Name Value Range Interpretation Code Description Data Ladi rce(s) Supporting Document(s) 11.10 C REACTIVE PROTEIN QUANTI TATIV eCW1 ([facility]) C REACTIVE PROTEIN QUANTITATIV ID Date Data Source VITAMIN D 25-HYDROXY 06/10/2020 08:02:32 AM EDT eCW1 ([facility]) Name Value Range Interpretation Code Description Data Ladi rce(s) Supporting Document(s) 45.9 TOTAL 25(OH) VITAMIN D eCW1 ([facility]) TOTAL 25(OH) VITAMIN D ID Date Data Source FREE T4 & TSH PANEL 06/10/2020 08:02:29 AM EDT eCW1 ([facility]) Name Value Range Interpretation Code Description Data Ladi rce(s) Supporting Document(s) 1.13 FREE T4 eCW1 ([facility]) 14.200 THYROID STIMULATING HORMONE eC W1 ([facility]) ID Date Data Source PTH INTACT 06/10/2020 08:02:20 AM EDT eCW1 ([facility]) Name Value Range Interpretation Code Description Data Ladi rce(s) Supporting Document(s) 41.5 PTH INTACT eCW1 ([facility]) PTH INTACT ID Date Data Source VITAMIN B12 LEVEL 06/10/2020 08:02:18 AM EDT eCW1 ([facility]) Name Value Range Interpretation Code Description Data Ladi rce(s) Supporting Document(s) 508 VITAMIN B12 LEVEL eCW1 ([facility]) ID Date Data Source [id number] 05/30/2020 12:00:00 AM EDT [facility] Maurilio Chris MD Patient Name: [facility]AS [facility] 1935[facility] [place] [address] Date of Exam: 05/30/2020PH#: Fax: [phone] EXAM: CT LOWER EXTREMITY W/O CONTRASTCLINICAL INFORMATION: Pain and swelling. Patient has a history of acutaneous abscess.Low dose 64 slice helical scanning through the right hip was obtained using1 mm increments and reconstructed in both coronal and sagittal planes. 3Dreconstructions were also obtained. Post processing [email or web address].The latest prior dedicated right hip CT [...] compared to the prior exam.Accredited by the [place] in [place].NGA Moseley/Ines baptiste for referring JACQUELINE DUNAWAY to our office. Electronically Signed - KAYCE JUARES DO 06/02/20 10:24 Name Value Range Interpretation Code Description Data Ladi rce(s) Supporting Document(s) Procedure Social History Code Duration Value Status Description Data Source(s ) Smoking 06/16/2021 12:00:00 AM EDT Never Smoker completed Never S moker eCW1 ([facility]) Smoking 06/06/2021 12:00:00 AM EDT Never Smoker completed Never S moker eCW1 ([facility]) Smoking 06/03/2021 12:00:00 AM EDT Never Smoker completed Never S moker eCW1 ([facility]) Smoking 05/13/2021 12:00:00 AM EDT Never Smoker completed Never S moker eCW1 ([facility]) Smoking 05/13/2021 12:00:00 AM EDT Never Smoker completed Never S moker eCW1 ([facility]) Smoking 04/22/2021 12:00:00 AM EDT Never Smoker completed Never S moker eCW1 ([facility]) Smoking 04/22/2021 12:00:00 AM EDT Never Smoker completed Never S moker eCW1 ([facility]) Smoking 04/22/2021 12:00:00 AM EDT Never Smoker completed Never S moker eCW1 ([facility]) Smoking 04/01/2021 12:00:00 AM EDT Never Smoker completed Never S moker eCW1 ([facility]) Smoking 03/17/2021 12:00:00 AM EDT Never Smoker completed Never S moker eCW1 ([facility]) Smoking 03/17/2021 12:00:00 AM EDT Never Smoker completed Never S moker eCW1 ([facility]) Smoking 02/18/2021 12:00:00 AM EDT Never Smoker completed Never S moker eCW1 ([facility]) Smoking 02/18/2021 12:00:00 AM EDT Never Smoker completed Never S moker eCW1 ([facility]) Smoking 02/10/2021 12:00:00 AM EDT Never Smoker completed Never S moker eCW1 ([facility]) Smoking 02/10/2021 12:00:00 AM EDT Never Smoker completed Never S moker eCW1 ([facility]) Smoking 02/10/2021 12:00:00 AM EDT Never Smoker completed Never S moker eCW1 ([facility]) Smoking 02/10/2021 12:00:00 AM EDT Never Smoker completed Never S moker eCW1 ([facility]) Smoking 02/03/2021 12:00:00 AM EDT Never Smoker completed Never S moker eCW1 ([facility]) Smoking 02/03/2021 12:00:00 AM EDT Never Smoker completed Never S moker eCW1 ([facility]) Smoking 01/15/2021 12:00:00 AM EDT Never Smoker completed Never S moker eCW1 ([facility]) Smoking 01/15/2021 12:00:00 AM EDT Never Smoker completed Never S moker eCW1 ([facility]) Smoking 01/15/2021 12:00:00 AM EDT Never Smoker completed Never S moker eCW1 ([facility]) Smoking 01/15/2021 12:00:00 AM EDT Never Smoker completed Never S moker eCW1 ([facility]) Smoking 01/15/2021 12:00:00 AM EDT Never Smoker completed Never S moker eCW1 ([facility]) Smoking 01/15/2021 12:00:00 AM EDT Never Smoker completed Never S moker eCW1 ([facility]) Smoking 01/15/2021 12:00:00 AM EDT Never Smoker completed Never S moker eCW1 ([facility]) Smoking 01/15/2021 12:00:00 AM EDT Never Smoker completed Never S moker eCW1 ([facility]) Smoking 01/14/2021 12:00:00 AM EDT Never Smoker completed Never S moker eCW1 ([facility]) Smoking 12/24/2020 12:00:00 AM EDT Never Smoker completed Never S moker eCW1 ([facility]) Smoking 12/24/2020 12:00:00 AM EDT Never Smoker completed Never S moker eCW1 ([facility]) Smoking 12/03/2020 12:00:00 AM EDT Never Smoker completed Never S moker eCW1 ([facility]) Smoking 12/03/2020 12:00:00 AM EDT Never Smoker completed Never S moker eCW1 ([facility]) Smoking 11/18/2020 12:00:00 AM EDT Never Smoker completed Never S moker eCW1 ([facility]) Smoking 11/12/2020 12:00:00 AM EDT Never Smoker completed Never S moker eCW1 ([facility]) Smoking 10/22/2020 12:00:00 AM EST Never Smoker completed Never S moker eCW1 ([facility]) Smoking 10/22/2020 12:00:00 AM EST Never Smoker completed Never S moker eCW1 ([facility]) Smoking 10/01/2020 12:00:00 AM EST Never Smoker completed Never S moker eCW1 ([facility]) Smoking 09/18/2020 12:00:00 AM EST Never Smoker completed Never S moker eCW1 ([facility]) Smoking 09/18/2020 12:00:00 AM EST Never Smoker completed Never S moker eCW1 ([facility]) Smoking 09/18/2020 12:00:00 AM EST Never Smoker completed Never S moker eCW1 ([facility]) Smoking 09/18/2020 12:00:00 AM EST Never Smoker completed Never S moker eCW1 ([facility]) Smoking 09/18/2020 12:00:00 AM EST Never Smoker completed Never S moker eCW1 ([facility]) Smoking 09/10/2020 12:00:00 AM EST Never Smoker completed Never S moker eCW1 ([facility]) Smoking 08/27/2020 12:00:00 AM EST Never Smoker completed Never S moker eCW1 ([facility]) Smoking 08/27/2020 12:00:00 AM EST Never Smoker completed Never S moker eCW1 ([facility]) Smoking 08/27/2020 12:00:00 AM EST Never Smoker completed Never S moker eCW1 ([facility]) Smoking 07/14/2020 12:00:00 AM EST Never Smoker completed Never S moker eCW1 ([facility]) Smoking 07/14/2020 12:00:00 AM EST Never Smoker completed Never S moker eCW1 ([facility]) Smoking 06/25/2020 12:00:00 AM EST Never Smoker completed Never S moker eCW1 ([facility]) Smoking 06/25/2020 12:00:00 AM EST Never Smoker completed Never S moker eCW1 ([facility]) Smoking 06/25/2020 12:00:00 AM EST Never Smoker completed Never S moker eCW1 ([facility]) Smoking 06/16/2020 12:00:00 AM EDT Never Smoker completed Never S moker eCW1 ([facility]) Smoking 06/10/2020 12:00:00 AM EDT Never Smoker completed Never S moker eCW1 ([facility]) Smoking 06/10/2020 12:00:00 AM EDT Never Smoker completed Never S moker eCW1 ([facility]) Smoking 05/26/2020 12:00:00 AM EDT Never Smoker completed Never S moker eCW1 ([facility]) Smoking 05/26/2020 12:00:00 AM EDT Never Smoker completed Never S moker eCW1 ([facility]) Smoking 05/26/2020 12:00:00 AM EDT Never Smoker completed Never S moker eCW1 ([facility]) Vital Signs ID Date Data Source UNK Name Value Range Interpretation Code Description Data Source(s) Body weight 119 [lb_av] 119 [lb_av] eCW1 ([facility]) Body height 66 [in_i] 66 [in_i] eCW1 ([facility]) Body mass index (BMI) [Ratio] 19.21 kg/m2 19.21 kg/m2 eCW1 ([facility]) Systolic blood pressure 100 mm[Hg] 100 mm[Hg] e CW1 ([facility]) Diastolic blood pressure 60 mm[Hg] 60 mm[Hg] eCW1 ([facility]) Body temperature 97.1 [degF] 97.1 [degF] eCW1 ( [facility]) Body weight 129 [lb_av] 129 [lb_av] eCW1 ([facility]) Body height 66 [in_i] 66 [in_i] eCW1 ([facility]) Body mass index (BMI) [Ratio] 20.82 kg/m2 20.82 kg/m2 eCW1 ([facility]) Heart rate 101 /min 101 /min eCW1 ([facility]) Respiratory rate 17 /min 17 /min eCW1 ([facility]) Systolic blood pressure 127 mm[Hg] 127 mm[Hg] e CW1 ([facility]) Diastolic blood pressure 66 mm[Hg] 66 mm[Hg] eCW1 ([facility]) Body weight 129 [lb_av] 129 [lb_av] eCW1 ([facility]) Body height 66 [in_i] 66 [in_i] eCW1 ([facility]) Body mass index (BMI) [Ratio] 20.82 kg/m2 20.82 kg/m2 eCW1 ([facility]) Heart rate 50 /min 50 /min eCW1 ([facility]) Respiratory rate 18 /min 18 /min eCW1 ([facility]) Body temperature 98.5 [degF] 98.5 [degF] eCW1 ( [facility]) Body weight 129.3 [lb_av] 129.3 [lb_av] eCW1 ([facility]) Body weight 58.65 kg 58.65 kg eCW1 ([facility]) Body height 66 [in_i] 66 [in_i] eCW1 ([facility]) Body mass index (BMI) [Ratio] 20.87 kg/m2 20.87 kg/m2 eCW1 ([facility]) Heart rate 67 /min 67 /min eCW1 ([facility]) Respiratory rate 20 /min 20 /min eCW1 ([facility] [facility]) Body temperature 97.9 [degF] 97.9 [degF] eCW1 ( [facility]) Systolic blood pressure 136 mm[Hg] 136 mm[Hg] e CW1 ([facility]) Diastolic blood pressure 58 mm[Hg] 58 mm[Hg] eCW1 ([facility]) Body height 66 [in_i] 66 [in_i] eCW1 ([facility]) Systolic blood pressure 130 mm[Hg] 130 mm[Hg] e CW1 ([facility]) Heart rate 55 /min 55 /min eCW1 ([facility]) Body mass index (BMI) [Ratio] 20.58 kg/m2 20.58 kg/m2 eCW1 ([facility]) Body weight 127.5 [lb_av] 127.5 [lb_av] eCW1 ([facility]) Body temperature 97 [degF] 97 [degF] eCW1 ([facility]) Respiratory rate 19 /min 19 /min eCW1 ([facility]) Diastolic blood pressure 62 mm[Hg] 62 mm[Hg] eCW1 ([facility]) Body weight 127.4 [lb_av] 127.4 [lb_av] eCW1 ([facility]) Body height 66 [in_i] 66 [in_i] eCW1 ([facility]) Body mass index (BMI) [Ratio] 20.56 kg/m2 20.56 kg/m2 eCW1 ([facility]) Systolic blood pressure 134 mm[Hg] 134 mm[Hg] e CW1 ([facility]) Diastolic blood pressure 64 mm[Hg] 64 mm[Hg] eCW1 ([facility]) Body weight 124 [lb_av] 124 [lb_av] eCW1 ([facility]) Body weight kg eCW1 ([facility]) Body height 66 [in_i] 66 [in_i] eCW1 ([facility]) Body mass index (BMI) [Ratio] 20.01 kg/m2 20.01 kg/m2 eCW1 ([facility]) Heart rate 87 /min 87 /min eCW1 ([facility]) Respiratory rate 18 /min 18 /min eCW1 ([facility]) Body temperature 98.4 [degF] 98.4 [degF] eCW1 ( [facility]) Systolic blood pressure 132 mm[Hg] 132 mm[Hg] e CW1 ([facility]) Diastolic blood pressure 82 mm[Hg] 82 mm[Hg] eCW1 ([facility]) Body height 66 [in_i] 66 [in_i] eCW1 ([facility]) Body weight 124 [lb_av] 124 [lb_av] eCW1 ([facility]) Body weight kg eCW1 ([facility]) Body mass index (BMI) [Ratio] 20.01 kg/m2 20.01 kg/m2 eCW1 ([facility]) Heart rate 56 /min 56 /min eCW1 ([facility]) Respiratory rate 17 /min 17 /min eCW1 ([facility]) Body temperature 97.9 [degF] 97.9 [degF] eCW1 ( [facility]) Respiratory rate 16 /min 16 /min eCW1 ([facility]) Body temperature 95.9 [degF] 95.9 [degF] eCW1 ( [facility]) Systolic blood pressure 180 mm[Hg] 180 mm[Hg] e CW1 ([facility]) Diastolic blood pressure 75 mm[Hg] 75 mm[Hg] eCW1 ([facility]) Body height 66 [in_i] 66 [in_i] eCW1 ([facility]) Body weight kg eCW1 ([facility]) Heart rate 54 /min 54 /min eCW1 ([facility]) Body weight 124 [lb_av] 124 [lb_av] eCW1 ([facility]) Body mass index (BMI) [Ratio] 20.01 kg/m2 20.01 kg/m2 eCW1 ([facility]) Body weight 124 [lb_av] 124 [lb_av] eCW1 ([facility]) Body weight kg eCW1 ([facility]) Body height 66 [in_i] 66 [in_i] eCW1 ([facility]) Body mass index (BMI) [Ratio] 20.01 kg/m2 20.01 kg/m2 eCW1 ([facility]) Heart rate 64 /min 64 /min eCW1 ([facility]) Respiratory rate 18 /min 18 /min eCW1 ([facility]) Body temperature 98.3 [degF] 98.3 [degF] eCW1 ( [facility]) Systolic blood pressure 167 mm[Hg] 167 mm[Hg] e CW1 ([facility]) Diastolic blood pressure 74 mm[Hg] 74 mm[Hg] eCW1 ([facility]) Body weight kg eCW1 ([facility]) Body weight [lb_av] eCW1 ([facility]) Body height 66 [in_i] 66 [in_i] eCW1 ([facility]) Body mass index (BMI) [Ratio] 20.01 kg/m2 20.01 kg/m2 eCW1 ([facility]) Heart rate 41 /min 41 /min eCW1 ([facility]) Respiratory rate 20 /min 20 /min eCW1 ([facility]) Body temperature 98.6 [degF] 98.6 [degF] eCW1 ( [facility]) Systolic blood pressure 142 mm[Hg] 142 mm[Hg] e CW1 ([facility]) Diastolic blood pressure 60 mm[Hg] 60 mm[Hg] eCW1 ([facility]) Body weight [lb_av] eCW1 ([facility]) Body weight kg eCW1 ([facility]) Body height 66 [in_i] 66 [in_i] eCW1 ([facility]) Body mass index (BMI) [Ratio] 20.01 kg/m2 20.01 kg/m2 eCW1 ([facility]) Heart rate 41 /min 41 /min eCW1 ([facility]) Respiratory rate 20 /min 20 /min eCW1 ([facility]) Body temperature 98.6 [degF] 98.6 [degF] eCW1 ( [facility]) Systolic blood pressure 142 mm[Hg] 142 mm[Hg] e CW1 ([facility]) Diastolic blood pressure 60 mm[Hg] 60 mm[Hg] eCW1 ([facility]) Body weight 124 [lb_av] 124 [lb_av] eCW1 ([facility]) Body weight kg eCW1 ([facility]) Body height 66 [in_i] 66 [in_i] eCW1 ([facility]) Body mass index (BMI) [Ratio] 20.01 kg/m2 20.01 kg/m2 eCW1 ([facility]) Heart rate 42 /min 42 /min eCW1 ([facility]) Respiratory rate 18 /min 18 /min eCW1 ([facility]) Body temperature 98.1 [degF] 98.1 [degF] eCW1 ( [facility]) Systolic blood pressure 140 mm[Hg] 140 mm[Hg] e CW1 ([facility]) Diastolic blood pressure 60 mm[Hg] 60 mm[Hg] eCW1 ([facility]) Body mass index (BMI) [Ratio] 20.01 kg/m2 20.01 kg/m2 eCW1 ([facility]) Heart rate 66 /min 66 /min eCW1 ([facility]) Body weight [lb_av] eCW1 ([facility]) Respiratory rate 18 /min 18 /min eCW1 ([facility]) Body temperature 97.6 [degF] 97.6 [degF] eCW1 ( [facility]) Systolic blood pressure 132 mm[Hg] 132 mm[Hg] e CW1 ([facility]) Body height 66 [in_i] 66 [in_i] eCW1 ([facility]) Diastolic blood pressure 66 mm[Hg] 66 mm[Hg] eCW1 ([facility]) Body weight 124 [lb_av] 124 [lb_av] eCW1 ([facility]) Systolic blood pressure 133 mm[Hg] 133 mm[Hg] e CW1 ([facility]) Body weight kg eCW1 ([facility]) Body height 66 [in_i] 66 [in_i] eCW1 ([facility]) Body mass index (BMI) [Ratio] 20.01 kg/m2 20.01 kg/m2 eCW1 ([facility]) Heart rate 56 /min 56 /min eCW1 ([facility]) Respiratory rate 18 /min 18 /min eCW1 ([facility]) Body temperature 97.5 [degF] 97.5 [degF] eCW1 ( [facility]) Diastolic blood pressure 64 mm[Hg] 64 mm[Hg] eCW1 ([facility]) Body weight 124 [lb_av] 124 [lb_av] eCW1 ([facility]) Body weight kg eCW1 ([facility]) Body height 66 [in_i] 66 [in_i] eCW1 ([facility]) Body mass index (BMI) [Ratio] 20.01 kg/m2 20.01 kg/m2 eCW1 ([facility]) Heart rate 59 /min 59 /min eCW1 ([facility]) Respiratory rate 17 /min 17 /min eCW1 ([facility]) Body temperature 98.3 [degF] 98.3 [degF] eCW1 ( [facility]) Systolic blood pressure 154 mm[Hg] 154 mm[Hg] e CW1 ([facility]) Diastolic blood pressure 67 mm[Hg] 67 mm[Hg] eCW1 ([facility]) Body weight 124 [lb_av] 124 [lb_av] eCW1 ([facility]) Body weight 56.25 kg 56.25 kg eCW1 ([facility]) Body height 66 [in_i] 66 [in_i] eCW1 ([facility]) Body mass index (BMI) [Ratio] 20.01 kg/m2 20.01 kg/m2 eCW1 ([facility]) Systolic blood pressure 160 mm[Hg] 160 mm[Hg] e CW1 ([facility]) Diastolic blood pressure 58 mm[Hg] 58 mm[Hg] eCW1 ([facility]) Body weight 124 [lb_av] 124 [lb_av] eCW1 ([facility]) Body weight kg eCW1 ([facility]) Body height 66 [in_i] 66 [in_i] eCW1 ([facility]) Body mass index (BMI) [Ratio] 20.01 kg/m2 20.01 kg/m2 eCW1 ([facility]) Heart rate 82 /min 82 /min eCW1 ([facility]) Respiratory rate 18 /min 18 /min eCW1 ([facility]) Body temperature 98.1 [degF] 98.1 [degF] eCW1 ( [facility]) Body weight 124 [lb_av] 124 [lb_av] eCW1 ([facility]) Body height 66 [in_i] 66 [in_i] eCW1 ([facility]) Body mass index (BMI) [Ratio] 20.01 kg/m2 20.01 kg/m2 eCW1 ([facility]) Systolic blood pressure 154 mm[Hg] 154 mm[Hg] e CW1 ([facility]) Diastolic blood pressure 79 mm[Hg] 79 mm[Hg] eCW1 ([facility]) Body weight 124 [lb_av] 124 [lb_av] eCW1 ([facility]) Body temperature 98.1 [degF] 98.1 [degF] eCW1 ( [facility]) Systolic blood pressure 152 mm[Hg] 152 mm[Hg] e CW1 ([facility]) Diastolic blood pressure 64 mm[Hg] 64 mm[Hg] eCW1 ([facility]) Body weight kg eCW1 ([facility]) Body height 66 [in_i] 66 [in_i] eCW1 ([facility]) Body mass index (BMI) [Ratio] 20.01 kg/m2 20.01 kg/m2 eCW1 ([facility]) Heart rate 56 /min 56 /min eCW1 ([facility]) Respiratory rate 18 /min 18 /min eCW1 ([facility]) Heart rate 72 /min 72 /min eCW1 ([facility]) Body weight 124.6 [lb_av] 124.6 [lb_av] eCW1 ([facility]) Body mass index (BMI) [Ratio] 20.11 kg/m2 20.11 kg/m2 eCW1 ([facility]) Body height 66 [in_i] 66 [in_i] eCW1 ([facility]) Respiratory rate 20 /min 20 /min eCW1 ([facility]) Body temperature 97.1 [degF] 97.1 [degF] eCW1 ( [facility]) Systolic blood pressure 140 mm[Hg] 140 mm[Hg] e CW1 ([facility]) Diastolic blood pressure 60 mm[Hg] 60 mm[Hg] eCW1 ([facility]) Body weight 122 [lb_av] 122 [lb_av] eCW1 ([facility]) Body weight kg eCW1 ([facility]) Body height 66 [in_i] 66 [in_i] eCW1 ([facility]) Body mass index (BMI) [Ratio] 19.69 kg/m2 19.69 kg/m2 eCW1 ([facility]) Heart rate 51 /min 51 /min eCW1 ([facility]) Respiratory rate 18 /min 18 /min eCW1 ([facility]) Body temperature 97.3 [degF] 97.3 [degF] eCW1 ( [facility]) Systolic blood pressure 157 mm[Hg] 157 mm[Hg] e CW1 ([facility]) Diastolic blood pressure 70 mm[Hg] 70 mm[Hg] eCW1 ([facility]) Body weight 122 [lb_av] 122 [lb_av] eCW1 ([facility]) Body height 66 [in_i] 66 [in_i] eCW1 ([facility]) Body mass index (BMI) [Ratio] 19.69 kg/m2 19.69 kg/m2 eCW1 ([facility]) Heart rate 84 /min 84 /min eCW1 ([facility]) Respiratory rate 18 /min 18 /min eCW1 ([facility]) Body temperature 95.7 [degF] 95.7 [degF] eCW1 ( [facility]) Systolic blood pressure 161 mm[Hg] 161 mm[Hg] e CW1 ([facility]) Diastolic blood pressure 81 mm[Hg] 81 mm[Hg] eCW1 ([facility]) Diastolic blood pressure 86 mm[Hg] 86 mm[Hg] eCW1 ([facility]) Body weight 122 [lb_av] 122 [lb_av] eCW1 ([facility]) Body height 66 [in_i] 66 [in_i] eCW1 ([facility]) Body mass index (BMI) [Ratio] 19.69 kg/m2 19.69 kg/m2 eCW1 ([facility]) Heart rate 67 /min 67 /min eCW1 ([facility]) Respiratory rate 18 /min 18 /min eCW1 ([facility]) Body temperature 97.6 [degF] 97.6 [degF] eCW1 ( [facility]) Systolic blood pressure 166 mm[Hg] 166 mm[Hg] e CW1 ([facility]) Body weight 125 [lb_av] 125 [lb_av] eCW1 ([facility]) Body mass index (BMI) [Ratio] 20.17 kg/m2 20.17 kg/m2 eCW1 ([facility]) Systolic blood pressure 126 mm[Hg] 126 mm[Hg] e CW1 ([facility]) Body weight 56.7 kg 56.7 kg eCW1 ([facility]) Diastolic blood pressure 78 mm[Hg] 78 mm[Hg] eCW1 ([facility]) Body height 66 [in_i] 66 [in_i] eCW1 ([facility]) Body weight 125 [lb_av] 125 [lb_av] eCW1 ([facility]) Body weight kg eCW1 ([facility]) Body height 66 [in_i] 66 [in_i] eCW1 ([facility]) Body mass index (BMI) [Ratio] 20.17 kg/m2 20.17 kg/m2 eCW1 ([facility]) Heart rate 75 /min 75 /min eCW1 ([facility]) Respiratory rate 16 /min 16 /min eCW1 ([facility]) Body temperature 96.6 [degF] 96.6 [degF] eCW1 ( [facility]) Systolic blood pressure 138 mm[Hg] 138 mm[Hg] e CW1 ([facility]) Diastolic blood pressure 70 mm[Hg] 70 mm[Hg] eCW1 ([facility]) Body weight 125.0 [lb_av] 125.0 [lb_av] eCW1 ([facility]) Body mass index (BMI) [Ratio] 20.17 kg/m2 20.17 kg/m2 eCW1 ([facility]) Heart rate 843 /min 843 /min eCW1 ([facility]) Respiratory rate 20 /min 20 /min eCW1 ([facility]) Body temperature 98.3 [degF] 98.3 [degF] eCW1 ( [facility]) Body height 66 [in_i] 66 [in_i] eCW1 ([facility]) Systolic blood pressure 118 mm[Hg] 118 mm[Hg] e CW1 ([facility]) Diastolic blood pressure 62 mm[Hg] 62 mm[Hg] eCW1 ([facility]) Body weight 131 [lb_av] 131 [lb_av] eCW1 ([facility]) Body weight kg eCW1 ([facility]) Body height 66 [in_i] 66 [in_i] eCW1 ([facility]) Body mass index (BMI) [Ratio] 21.14 kg/m2 21.14 kg/m2 eCW1 ([facility]) Heart rate 95 /min 95 /min eCW1 ([facility]) Respiratory rate 20 /min 20 /min eCW1 ([facility]) Body temperature 97.1 [degF] 97.1 [degF] eCW1 ( [facility]) Systolic blood pressure 177 mm[Hg] 177 mm[Hg] e CW1 ([facility]) Diastolic blood pressure 73 mm[Hg] 73 mm[Hg] eCW1 ([facility]) Patient Treatment Plan of Care Planned Activity Planned Date Details Description Data Source (s) torsemide 5 MG Oral Tablet 01/20/2021 12:00:00 AM EDT eCW1 ([facility]) torsemide 5 MG Oral Tablet 01/20/2021 12:00:00 AM EDT eCW1 ([facility]) torsemide 5 MG Oral Tablet 01/20/2021 12:00:00 AM EDT eCW1 ([facility]) Ibuprofen 200 MG Oral Tablet 01/15/2021 12:00:00 AM EDT eCW1 ([facility]) Ibuprofen 200 MG Oral Tablet 01/15/2021 12:00:00 AM EDT eCW1 ([facility]) Ibuprofen 200 MG Oral Tablet 01/15/2021 12:00:00 AM EDT eCW1 ([facility]) Ibuprofen 200 MG Oral Tablet 01/15/2021 12:00:00 AM EDT eCW1 ([facility]) Ibuprofen 200 MG Oral Tablet 01/15/2021 12:00:00 AM EDT eCW1 ([facility]) Ibuprofen 200 MG Oral Tablet 01/15/2021 12:00:00 AM EDT eCW1 ([facility]) Ibuprofen 200 MG Oral Tablet 01/15/2021 12:00:00 AM EDT eCW1 ([facility]) Ibuprofen 200 MG Oral Tablet 01/15/2021 12:00:00 AM EDT eCW1 ([facility]) Commode Bedside - 01/12/2021 12:00:00 AM EDT eCW1 ([facility]) Commode Bedside - 01/12/2021 12:00:00 AM EDT eCW1 ([facility]) Commode Bedside - 01/12/2021 12:00:00 AM EDT eCW1 ([facility]) Commode Bedside - 01/12/2021 12:00:00 AM EDT eCW1 ([facility]) Commode Bedside - 01/12/2021 12:00:00 AM EDT eCW1 ([facility]) Commode Bedside - 01/12/2021 12:00:00 AM EDT eCW1 ([facility]) Commode Bedside - 01/12/2021 12:00:00 AM EDT eCW1 ([facility]) Commode Bedside - 01/12/2021 12:00:00 AM EDT eCW1 ([facility]) Omeprazole 40 MG Delayed Release Oral Capsule 09/22/2020 12:00:00 A M EST eCW1 ([facility]) Omeprazole 40 MG Delayed Release Oral Capsule 09/22/2020 12:00:00 A M EST eCW1 ([facility]) Omeprazole 40 MG Delayed Release Oral Capsule 09/22/2020 12:00:00 A M EST eCW1 ([facility]) Omeprazole 40 MG Delayed Release Oral Capsule 09/22/2020 12:00:00 A M EST eCW1 ([facility]) Omeprazole 40 MG Delayed Release Oral Capsule 09/22/2020 12:00:00 A M EST eCW1 ([facility]) Omeprazole 40 MG Delayed Release Oral Capsule 09/22/2020 12:00:00 A M EST eCW1 ([facility]) Omeprazole 40 MG Delayed Release Oral Capsule 09/22/2020 12:00:00 A M EST eCW1 ([facility]) Omeprazole 40 MG Delayed Release Oral Capsule 09/22/2020 12:00:00 A M EST eCW1 ([facility]) Omeprazole 40 MG Delayed Release Oral Capsule 09/22/2020 12:00:00 A M EST eCW1 ([facility]) Omeprazole 40 MG Delayed Release Oral Capsule 09/22/2020 12:00:00 A M EST eCW1 ([facility]) Omeprazole 40 MG Delayed Release Oral Capsule 09/22/2020 12:00:00 A M EST eCW1 ([facility]) Omeprazole 40 MG Delayed Release Oral Capsule 09/22/2020 12:00:00 A M EST eCW1 ([facility]) Hydroxyzine Hydrochloride 25 MG Oral Tablet 09/18/2020 12:00:00 AM EST eCW1 ([facility]) Hydroxyzine Hydrochloride 25 MG Oral Tablet 09/18/2020 12:00:00 AM EST eCW1 ([facility]) Hydroxyzine Hydrochloride 25 MG Oral Tablet 09/18/2020 12:00:00 AM EST eCW1 ([facility]) Hydroxyzine Hydrochloride 25 MG Oral Tablet 09/18/2020 12:00:00 AM EST eCW1 ([facility]) Hydroxyzine Hydrochloride 25 MG Oral Tablet 09/18/2020 12:00:00 AM EST eCW1 ([facility]) Morphine Sulfate 2 MG/ML Oral Solution 06/12/2020 12:00:00 AM EDT eCW1 ([facility]) Docusate Sodium 50 MG / sennosides, HALF-WAY 8.6 MG Oral Ta blet 06/10/2020 12:00:00 AM EDT eCW1 ([facility]) Docusate Sodium 50 MG / sennosides, HALF-WAY 8.6 MG Oral Ta blet 06/10/2020 12:00:00 AM EDT eCW1 ([facility]) Morphine Sulfate 4 MG/ML Oral Solution 06/10/2020 12:00:00 AM EDT eCW1 ([facility])
[2021-06-21] MEDS ORDERED: HOME MED LIST COMPLETE! XX SCH (00:45)
[2021-06-21] MEDS ORDERED: ALBUTEROL 90 MCG/ACT 8GM HFA INHALER INH PRN (04:35)
[2021-06-21] MEDS: LEVOTHYROXINE 88MCG TABLET (0.088 MG) PO SCH (06:00)
[2021-06-21] MEDS: SALMETEROL DISKUS 50MCG INHALER (SEREVENT) INH SCH ×2 (08:00→21:52)
[2021-06-21] MEDS: FLUTICASONE HFA 220 MCG 12 GM INHALER (FLOVENT) INH SCH (08:26)
[2021-06-21] MEDS: CALCIUM/VITAMIN D 500 MG TAB PO SCH ×3 (08:40→21:50)
[2021-06-21] MEDS: OMEPRAZOLE 20 MG CAP PO SCH (08:40)
[2021-06-21] MEDS: ENOXAPARIN 40MG/0.4ML SYRINGE (J1650 PER 10MG) SC SCH (08:40)
[2021-06-21] MEDS: MIRALAX *UNIT DOSE* 17GM PACKET PO SCH (08:41)
[2021-06-21 08:49] LABS: HEMATOCRIT 27.1 % (36.0-47.0); HEMOGLOBIN 8.3 g/dl (12.0-15.5); MEAN CORPUSCULAR HEMOGLOBIN 23.1 pg (27.0-33.0); MEAN CORPUSCULAR HGB CONC 30.6 g/dl (32.0-36.5); MEAN CORPUSCULAR VOLUME 75.3 fl (80.0-96.0); PLATELET COUNT, AUTOMATED 256 10^3/uL (150-450); WHITE BLOOD COUNT 4.2 10^3/uL (4.0-10.0)
[2021-06-21 09:30] VITALS: BP 153/68
[2021-06-21 09:51] LABS: ALBUMIN 1.8 GM/DL (3.2-5.2); ALT/SGPT 9 U/L (12-78); BILIRUBIN,TOTAL 0.5 MG/DL (0.2-1.0); BLOOD UREA NITROGEN 14 MG/DL (7-18); CALCIUM LEVEL 8.2 MG/DL (8.8-10.2); CARBON DIOXIDE LEVEL 29 MEQ/L (21-32); CHLORIDE LEVEL 109 MEQ/L (98-107); CREATININE FOR GFR 0.72 MG/DL (0.55-1.30); GLOMERULAR FILTRATION RATE > 60.0 (>32); GLUCOSE, FASTING 89 MG/DL (70-100); POTASSIUM SERUM 4.3 MEQ/L (3.5-5.1); SODIUM LEVEL 140 MEQ/L (136-145)
[2021-06-21 12:13] LABS: MAGNESIUM LEVEL 1.9 MG/DL (1.8-2.4)
[2021-06-21] MEDS: DOXYCYCLINE HYCLATE 100MG TABLET PO SCH (18:25)
[2021-06-21 20:49] VITALS: BP 134/82
[2021-06-21] MEDS ORDERED: SENNA 8.6 MG TAB (SENOKOT) PO SCH (21:00)
[2021-06-22] MEDS: DOXYCYCLINE HYCLATE 100MG TABLET PO SCH (05:38)
[2021-06-22] MEDS: LEVOTHYROXINE 88MCG TABLET (0.088 MG) PO SCH (05:38)
--- NOTE | 2021-06-22 05:40 | ECGEPIP ---
[facility] - ED Test Date: 2021-06-20 Pat Name: JACQUELINE DUNAWAY Department: Room: [place] [address] Gender: Female Clinical Studies Specialist: ANTONINA : [id number] Requested By: MALORIE Bill Order Number: [id number] Reading MD: Dale Herron Measurements Intervals [place] Rate: 92 P: 11 MA: 174 QRS: 62 QRSD: 84 T: 69 QT: 390 QTc: 482 Interpretive Statements Sinus rhythm with frequent premature ventricular complexes in a pattern of bigeminy SIMILAR TO 06/20/21 Electronically Signed on 06-22-2021 5:40:19 EDT by Dale Herron
[2021-06-22 06:00] VITALS: BP 137/65
[2021-06-22 06:56] LABS: HEMOGLOBIN 8.3 g/dl (12.0-15.5); MEAN CORPUSCULAR HEMOGLOBIN 22.1 pg (27.0-33.0); MEAN CORPUSCULAR HGB CONC 29.6 g/dl (32.0-36.5); MEAN CORPUSCULAR VOLUME 74.7 fl (80.0-96.0); PLATELET COUNT, AUTOMATED 265 10^3/uL (150-450); RED BLOOD COUNT 3.75 10^6/uL (4.00-5.40); WHITE BLOOD COUNT 4.8 10^3/uL (4.0-10.0)
[2021-06-22 07:27] LABS: BLOOD UREA NITROGEN 17 MG/DL (7-18); CALCIUM LEVEL 8.7 MG/DL (8.8-10.2); CARBON DIOXIDE LEVEL 29 MEQ/L (21-32); CHLORIDE LEVEL 104 MEQ/L (98-107); CREATININE FOR GFR 0.82 MG/DL (0.55-1.30); GLOMERULAR FILTRATION RATE > 60.0 (>32); GLUCOSE, FASTING 104 MG/DL (70-100); SODIUM LEVEL 136 MEQ/L (136-145)
[2021-06-22] MEDS: FLUTICASONE HFA 220 MCG 12 GM INHALER (FLOVENT) INH SCH (07:50)
[2021-06-22] MEDS: SALMETEROL DISKUS 50MCG INHALER (SEREVENT) INH SCH (07:50)
[2021-06-22] MEDS: MIRALAX *UNIT DOSE* 17GM PACKET PO SCH (08:47)
[2021-06-22] MEDS: ENOXAPARIN 40MG/0.4ML SYRINGE (J1650 PER 10MG) SC SCH (08:51)
[2021-06-22] MEDS: CALCIUM/VITAMIN D 500 MG TAB PO SCH ×2 (08:52→16:24)
[2021-06-22] MEDS: OMEPRAZOLE 20 MG CAP PO SCH (08:52)
[2021-06-22] MEDS ORDERED: FLUBLOK(EGG FREE)(QUAD)INFLUENZA VACC 0.5ML SYRINGE 18YRS & OLDER IM ONE (09:00)
[2021-06-22] MEDS ORDERED: AMLO25TA PO (10:04)
[2021-06-22 14:00] VITALS: BP 116/58
[2021-06-22] MEDS ORDERED: BISACODYL 10 MG SUPP PR ONE (15:00)
--- NOTE | 2021-06-22 15:07 | DS.PDOC ---
Discharge Summary General Date of Admission Jun 21, 2021 at 00:10 Date of Discharge 06/22/21 Discharge Summary PROCEDURES PERFORMED DURING STAY: [None]. DISCHARGE DIAGNOSES: #PVCs #hypomagnesemia #Uncontrolled HTN #Hypothyroidism # Osteopenia COMPLICATIONS/CHIEF COMPLAINT: Hypomagnesemia,Ventricular Ectopy. HISTORY OF PRESENT ILLNESS: is an 85 yr old F who came to the hospital w c/o not feeling well for 2 months which has caused her to spend most of her days in bed.. Specifically she has been feeling nauseous but not vomiting, and feels like she has episode where she is floating away without feeling dizzy or passing out. Last night she had an episode that was so severe that she thought that she was going to so she came to the ER for evaluation. #PVCs -likely 2/2 hypomagnesemia - no further events noted on tele - echo completed - f/u results as outpatient #Hypomagnesemia - repleted #Uncontrolled HTN - within normal linits #hypothyroidism - levothyroxine #Osteopenia DISCHARGE MEDICATIONS: Please see below. ALLERGIES: Please see below. PHYSICAL EXAMINATION ON DISCHARGE: Vital Signs: reviewed General: NAD, lying comfortably in bed HEENT: NC/AT, EOMI Neck: supple, no masses Chest: lungs CTA B/L Heart: +S1S2, RRR Abd: soft, NT, ND, +BS Ext: no edema Skin: no rashes MSK: full ROM at large joints Neuro: no gross focal deficits Psych: AAOx3 ACTIVITY: [As tolerated]. DISCHARGE INSTRUCTIONS: 1. Follow up PCP in 3-5 days 2. Follow up results of echocardiogram DISCHARGE CONDITION: [Stable]. TIME SPENT ON DISCHARGE: 35 minutes. Vital Signs/I&Os Vital Signs Date Time Temp Pulse Resp B/P (MAP) Pulse Ox O2 Delivery O2 Flow Rate FiO2 06/22/21 06:00 98.1 57 19 137/65 (89) 97 06/21/21 20:30 Room Air Laboratory Data Labs 24H Laboratory Tests 2 06/22/21 06:34: Nucleated Red Blood Cells % (auto) 0.0, Anion Gap 3L, Glomerular Filtration Rate > 60.0, Calcium Level 8.7L, Magnesium Level 2.0 CBC/BMP Laboratory Tests 06/22/21 06:34 Microbiology Microbiology 06/20/21 Blood Culture - Preliminary, Resulted No growth after 24 hours . All specim... 06/20/21 Respiratory Virus Panel (PCR) (AMAN) - Final, Complete 06/20/21 Blood Culture - Preliminary, Resulted No growth after 24 hours . All specim... Discharge Medications Scheduled Amlodipine Besylate (Amlodipine Besylate) 2.5 Mg Tablet, 2.5 MG PO DAILY Calcium Carbonate/Vitamin D3 (Calcium 500-Vit D3 400 Tablet) 1 Tab Tab, 1 TAB PO BID, (Reported) Doxycycline Monohydrate (Doxycycline) 100 Mg Cap, 100 MG PO BID, (Reported) Fluticasone Propionate (Flovent Hfa) 220 Mcg/Act Aer, 2 PUFFS INH BID, (Reported) Lactose-Reduced Food (Ensure Liquid) 237 Ml Liquid, 237 ML PO BID, (Reported) Levothyroxine Sodium (Synthroid) 88 Mcg Tab, 88 MCG PO DAILY, (Reported) Omeprazole (Omeprazole) 40 Mg Capsule.dr, 40 MG PO DAILY, (Reported) Polyethylene Glycol 3350 (Miralax) 119 Gm Powder, 17 GRAM PO DAILY, (Reported) HOLD FOR DIARRHEA takes mid morning Salmeterol (Serevent Diskus) 28 Puff/Inhaler Aerp, 1 PUFF INH BID, (Reported) Sennosides (Senna) 8.6 Mg Tablet, 2 TAB PO QHS, (Reported) Scheduled PRN Albuterol Sulfate (Proair Hfa) 108 Mcg/Act Aer, 2 PUFFS INH Q4H PRN for SOB/WHEEZING, (Reported) Allergies Coded Allergies: montelukast (Verified Allergy, Unknown, UNKNOWN REACTION, 06/20/21) Corticosteroids (Glucocorticoids) (Verified Adverse Reaction, Intermediate, INCREASED HR, 06/20/21) Penicillins (Verified Adverse Reaction, Intermediate, YEAST INFECTION, 06/20/21) TAPE (Verified Adverse Reaction, Intermediate, BLISTERING, PRURITIS, 06/20/21) hydrocodone (Verified Adverse Reaction, Intermediate, SUICIDAL, 06/20/21) zoledronic acid (Verified Adverse Reaction, Intermediate, INCREASED BP, 06/20/21) codeine (Verified Adverse Reaction, Mild, HEADACHE, 06/20/21) budesonide (Verified Adverse Reaction, Unknown, INCREASED HR, 06/20/21) LILLY LECHUGA MD Jun 22, 2021 15:07
--- NOTE | 2021-06-22 20:24 | ECHO ---
ECHOCARDIOGRAM DATE OF PROCEDURE: 06/22/2021 Age: 85 Gender: Female Height: 163 cm Weight: 54 kg REFERRING PHYSICIAN: Sera Longoria MD INDICATION: Cardiac dysrhythmia, abnormal EKG. MEASUREMENTS: IVS 1.1 cm LV 4.3 cm LVPW 1.1 cm LA 4.3 cm Aorta 3.3 cm IVC 1.3 cm DOPPLER MEASUREMENT Mitral E wave velocity 59 Mitral A wave velocity 77 E prime septal 8.2 E prime lateral 10.9 FINDINGS: This study is of good technical quality. Underlying sinus rhythm with frequent ventricular ectopy including episodes of ventricular bigeminy. Left ventricle is normal size. Normal LV systolic function with estimated EF around 60% to 65%. No segmental wall motion abnormalities are appreciated. Normal RV size and systolic function. Severe left atrial enlargement. Probably normal RA size. Aortic sclerosis, but no significant stenosis based on 2D imaging. Mild degenerative abnormalities of the mitral valve with mitral annular calcifications. Tricuspid and pulmonic valves are normal. No pericardial effusion is noted. Inferior vena cava is normal size and appropriately collapses with inspiration. Aortic root, visualized segment of ascending aorta, aortic arch, and abdominal aorta all appear normal. Doppler interrogation of the aortic valve reveals no significant stenosis or insufficiency. There is mild mitral and mild tricuspid insufficiency. Calculated pulmonary artery pressure is within normal limits. Trace pulmonic insufficiency is also seen. Mitral inflow pattern and tissue Doppler imaging of the mitral annulus revealed grade 1 diastolic dysfunction. CONCLUSION: 1. Study is of acceptable technical quality, underlying sinus rhythm with frequent PVCs including episodes of ventricular bigeminy. 2. Normal LV size with normal LV systolic function. Grade 1 diastolic dysfunction. 3. Normal RV size. 4. No significant valvular disease. 5. Normal central venous pressure and likely normal pulmonary artery pressure.
[2021-06-26 08:09] LABS: DOPAMINE PLASMA <30 pg/mL (0-48); EPINEPHRINE PLASMA 36 pg/mL (0-62); METANEPHRINE PLASMA 29.7 pg/mL (0.0-88.0); NOREPINEPHRINE PLASMA 612 pg/mL (0-874)
--- OUTSIDE RECORDS SUMMARY | 2021-06-30 09:53 | CCD ---
Author Author [facility] Organization [facility] [employer] [facility] Address Unknown Phone Unavailable Care Team Providers Care Community Health Advocate Name Role Phone Maurilio Chris Unavailable PROBLEMS Type Condition ICD9-CM Code [id number] Code Onset Dates Condition S tatus W/U Status Risk SNOMED Code Notes Problem Impingement syndrome, shoulder M75.40 Active confir med 639883000 Problem Fe deficiency anemia D50.9 Active confirmed 24478158 Problem Hip osteoarthritis M16.9 Active confirmed 2 02691907 Problem Hypothyroid E03.9 Active confirmed 39060865 Problem Asthma, mild persistent J45.30 Active confirmed 115435083 Problem Breast cancer screening Z12.39 Active confirmed 849536854 Problem Vitamin D deficiency E55.9 Active confirmed 70818662 Problem Physical deconditioning R53.81 Active confirmed 77601844953502 Problem Mixed incontinence N39.46 Active confirmed 4 51498719 Problem Mild protein-calorie malnutrition E44.1 Active confirmed 198406498 Problem Pessary maintenance Z46.89 Active confirmed 699784514 Problem Cystocele N81.10 Active confirmed 185964725 Problem 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 Active confirmed 9116487437890674 Problem IFG (impaired fasting glucose) R73.01 Active confir med 429376714 Problem Ataxia R27.0 Active confirmed 37654178 Problem Osteoporosis M81.0 Active confirmed 8411317 6 Problem 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 Active confirmed 944192220 Problem Weight loss R63.4 Active confirmed 11632613 Problem Colon cancer screening Z12.11 Active confirmed 379509894 Problem Chronic pruritus L29.9 Active confirmed 418 748992 Problem Arthritis of foot M19.079 Active confirmed 4 07465040 ALLERGIES Allergen (clinical drug ingredient) Drug/Non Drug Allergy do cumented on EMR Reaction Allergy Type Onset Date Status Penicillin (For Allergies Use Only) Pruritis Drug Allerg y Active Vicodin suicidial, depressed Drug Allergy Ac tive Adhesive rash/ hives Drug Allergy Active budesonide Budesonide(ND Code:[address]-95) palpitations Drug Aller gy Active Levaquin muscle spasms/weakness Drug Allergy Active Oxycodone itching Drug Allergy Active Cortisporin Palpitations Drug Allergy Active montelukast Singulair(ND Code:[address]-27) Flu like symptoms Drug Allergy Active codeine Codeine Sulfate(NDC Code:[address]-11) headaches Drug Al lergy Active zoledronic acid Reclast(ND Code:[address]-92) increases BP Drug All ergy Active ENCOUNTERS from 1934 to 2021-06-24 Encounter Location Date Provider Diagnosis [facility] [phone] [place] [address] May, Maurilio Chris Open wound of right hip, [...] Question Answer Notes Level of Education: College Amish: Question Answer Notes Amish No episcopalian beliefs that would impact health care. Alcohol [...] 66 in May, BMI 19.21 kg/m2 May, Heart Rate 50 /min May, Respiratory Rate 16 /min May, Temperature 98.2 degrees Fahrenheit May, Oximetry 100% May, Blood pressure systolic 162 mm Hg May, Blood pressure diastolic 85 mm Hg May, MEDICATIONS Medication SIG (Take, Route, Frequency, Duration) Notes Start Da te End Date Status Clobetasol Propionate 0.05 % 1 application to scalp Ex ternally every morning to scalp for 30 day(s) Active Combine ABD 5 1 pad 5x9 abd pad apply to r ight hip wound Once a day Dx: T84.51XA for 30 day(s) Sep, Active Voltaren 1 % as directed Transdermal Four times a day Active Sodium Chloride 0.9 % as directed Irrigation Right hip Once a day Dx: T84.51XA for 30 Days Sep, Active Polyethylene Glycol - 17 gm orally in 8 oz fluid every morning f or day(s) Active Omeprazole 40 MG 1 capsule 30 minutes before morning meal Orally Once a day for 90 day(s) Sep, Active Senna S 8.6-50 MG 1-2 tabs Orally QHS for 90 day(s) Active Torsemide 5 MG 1 tablet Orally every morning for 90 day(s) Jan, Active Vitamin D 50 MCG (2000 UT) 1 capsule Orally Once a day for 90 day(s) Active Salmeterol Xinafoate 50 MCG/DOSE 1 puff Inhalation Twice a day f or 90 day(s) Active Hypafix Tape 2"x10 yard - as directed Active Doxycycline Hyclate 100 MG 1 capsule Orally every 12 hrs for 90 day(s ) Active Ibuprofen 200 mg 1-2 tablets Orally bid for 30 Days December Active Gauze Pads 4 2 pad apply to right hip wou nd Once a day DX: T84.51XA for 30 day(s) Sep, Active Commode Bedside - as directed dx: R27.0 fax to [facility] December, Active Cyanocobalamin 100 MCG 1 tablet Orally Daily for 90 day(s) Active hydrOXYzine HCl 25 MG 1-2 tablets Orally at bedtime for 30 day(s) Active Flovent HFA 220 MCG/ACT 2 puffs Inhalation Twice a day for 90 day(s) Active ProAir HFA 108 (90 Base) MCG/ACT 2 puffs Inhalation 4 times a day as needed for 90 day(s) Active Estrace 0.1 MG/GM 0.5 gm Vaginal twice a week for 90 days Active Levothyroxine Sodium 88 MCG 1 tablet on an empty stoma ch in the morning Orally Once a day for 90 day(s) Active PROCEDURES from 1934 to 2021-06-24 Procedure Date Ordered Result Body Site Medication: 4% Lidocaine topical cream (Anecream) 5gm 2021-06-17 N/A RESULTS No Results REASON FOR VISIT [...] Next Appt Details 2 Weeks Reason: Provider Name:Biju Ch, 2021-07-01 0 1:00:00 PM, [address] [place] [address], , [place], [address], Provider Name:Biju Ch, 2021-07-02 0 9:45:00 AM, [address] [place] [address] , [place], [address], Provider Name:Maurilio Chris, 02:15:00 PM, [address], , [place], [address], Provider Name:Deborah Monroe, 2021-09-15 01:20:00 PM, [address] [facility], , [place], [address], Insurance Providers Payer Name Payer Address Payer Phone Insured Name Patient Relati onship to Insured Coverage Start Date Coverage End Date MEDICARE Part A and B [address] [facility] [id number] JACQUELINE DUNAWAY MEDICAID [employer] [address] [facility] [id number] JACQUELINE DUNAWAY self
--- OUTSIDE RECORDS SUMMARY | 2021-06-30 09:55 | CCD ---
Author Author [facility] Organization [facility] Address Unknown Phone Unavailable Care Team Providers Care Fruit Raiser Name Role Phone NO, PCP Unavailable Unavailable [...] Unavailable DimaCaren shelton MD Unavailable Unavailable DimaCaren hselton MD Unavailable Unavailable DimaCaren shelton MD Unavailable [...] is protected by Article 27-F of the [facility] Public Health law. If you continue you may have access to information: Regarding HIV / AIDS; Provided by facilities licensed or operated by the [facility] Office of Mental Health; or Provided by the [facility] Office for People With Developmental Disabilities. If such information is present, then the following [facility] mandated warning applies: This information has [...] law may result in a fine or fpc sentence or both. A general authorization for the release of medical or other information is NOT sufficient authorization for further disc losure. Family History Family Member Name Family Member Gender Family Member Status Date o f Status Description Data Source(s) Unknown Male Encounters Encounter Providers Location Date Indications Data Source(s ) ([id number]) For [facility] [address] [place] [address] 06/17/2021 12:00:00 AM EDT eCW1 ([facility]) Outpatient [address] [facility] [place] [address] 06/16/2021 12:00:00 AM EDT eCW1 ([facility]) ([id number]) [facility] [address] [place] [address] 06/03/2021 12:00:00 AM EDT eCW1 ([facility]) Unknown [address] [facility] [address] 06/03/2021 12:00:00 AM EDT [facility]CW1 [facility]) Emergency Attender: Justin Purcell MDConsultant: PCP NO 05/30/2021 11:06:00 AM EDT - 05/30/2021 02:14:00 PM EDT [facility] Patient discharged. Unknown [address] [facility] [place] [address] 05/21/2021 12:00:00 AM EDT eCW1 ([facility]) ([id number]) For [facility] [place] [address] 05/13/2021 12:00:00 AM EDT eCW1 ([facility]) Unknown [address] [facility] [place] [address] 05/06/2021 12:00:00 AM EDT eCW1 ([facility]) Unknown [address] [facility] [place] [address] 04/29/2021 12:00:00 AM EDT eCW1 ([facility]) Outpatient [address] [facility] [place] [address] 04/22/2021 12:00:00 AM EDT eCW1 ([facility]) ([id number]) [facility] [address] [place] [address] 04/01/2021 12:00:00 AM EDT eCW1 ([facility]) [place]patient [address] [facility] [address] 03/19/2021 12:00:00 AM EDT eCW1 ([facility]) ([id number]) [facility] [address] [place] [address] 03/11/2021 12:00:00 AM EDT eCW1 ([facility]) Unknown [address] [facility] [address] 02/24/2021 12:00:00 AM EDT eCW1 ([facility]) ([id number]) [facility] [address] [place] [address] 02/18/2021 12:00:00 AM EDT eCW1 ([facility]) Unknown [address] [facility] [address] 02/13/2021 12:00:00 AM EDT eCW1 ([facility]) Unknown [address] [facility] [address] 02/13/2021 12:00:00 AM EDT eCW1 ([facility]) ([id number]) [facility] [address] [place] [address] 02/10/2021 12:00:00 AM EDT eCW1 ([facility]) Unknown [address] [facility] [place] [address] 02/04/2021 12:00:00 AM EDT eCW1 ([facility]) ([id number]) Est New Patient 60 [address] [place] [address] 02/03/2021 12:00:00 AM EDT eCW1 ([facility]) Unknown [address] [facility] [place] [address] 02/03/2021 12:00:00 AM EDT eCW1 ([facility]) Unknown [address] [facility] [address] 02/02/2021 12:00:00 AM EDT eCW1 ([facility]) Unknown [address] [facility] [address] 01/20/2021 12:00:00 AM EDT eCW1 ([facility]) Unknown [address] [facility] [address] 01/16/2021 12:00:00 AM EDT eCW1 ([facility]) Unknown [address] [facility] [address] 01/16/2021 12:00:00 AM EDT eCW1 ([facility]) Unknown [address] [facility] [address] 01/16/2021 12:00:00 AM EDT eCW1 ([facility]) Outpatient [address] [facility], [facility] [address] 01/15/2021 12:00:00 AM EDT eCW1 ([facility]) ([id number]) For [facility] [address] [place] [address] 01/14/2021 12:00:00 AM EDT eCW1 ([facility]) Office Visit, Est Pt., Level 3 PC [address] [place] [address] 01/12/2021 12:00:00 AM EDT eCW1 ([facility]) Unknown [address] [facility] [address] 01/09/2021 12:00:00 AM EDT eCW1 ([facility]) ([id number]) For [facility] [address] [place] [address] 12/24/2020 12:00:00 AM EDT eCW1 ([facility]) ([id number]) [facility] [address] [place] [address] 12/03/2020 12:00:00 AM EDT eCW1 ([facility]) Unknown [address] [facility] [address] 12/03/2020 12:00:00 AM EDT eCW1 ([facility]) ([id number]) WCenter 30 min est rehab assistant [address] [place] [address] 11/18/2020 12:00:00 AM EDT eCW1 ([facility]) ([id number]) [facility] [address] [place] [address] 11/12/2020 12:00:00 AM EDT eCW1 ([facility]) Unknown [address] [facility] [place] [address] 10/27/2020 12:00:00 AM EST eCW1 ([facility]) ([id number]) [facility] [address] [place] [address] 10/22/2020 12:00:00 AM EST eCW1 ([facility]) ([id number]) [facility] [address] [place] [address] 10/01/2020 12:00:00 AM EST eCW1 ([facility]) Unknown [address] [facility] [address] 09/29/2020 12:00:00 AM EST eCW1 ([facility]) Unknown [address] [facility] [address] 09/24/2020 12:00:00 AM EST eCW1 ([facility] Unknown [address] [facility] [address] 09/22/2020 12:00:00 AM EST eCW1 ([facility]) Unknown [address] [facility] [address] 09/19/2020 12:00:00 AM EST eCW1 ([facility]) Outpatient [address] [facility] [address] 09/18/2020 12:00:00 AM EST eCW1 ([facility]) ([id number]) [facility] [address] [place] [address] 09/10/2020 12:00:00 AM EST eCW1 ([facility]) Unknown [address] [facility] [address] 08/28/2020 12:00:00 AM EST eCW1 ([facility]) ([id number]) Est New Patient 60 [address] [place] [address] 08/27/2020 12:00:00 AM EST eCW1 ([facility]) Unknown [address] [facility] [address] 08/27/2020 12:00:00 AM EST eCW1 ([facility]) ([id number]) Est New Patient 60 [address] [place] [address] 07/14/2020 12:00:00 AM EST eCW1 ([facility]) Unknown [address] [facility] [address] 07/09/2020 12:00:00 AM EST eCW1 ([facility]) Outpatient Attender: Antonio Perdomo MDReferrer: Biju Ch MD 07/02/2020 08:47:52 AM EST [facility] Office Visit, Est Pt., Level 3 PC [address] [place] [address] 06/25/2020 12:00:00 AM EST eCW1 ([facility]) ([id number]) For [facility] [address] [place] [address] 06/16/2020 12:00:00 AM EDT eCW1 ([facility]) Unknown [address] [facility] [address] 06/11/2020 12:00:00 AM EDT eCW1 ([facility]) Unknown [address] [facility] [address] 06/10/2020 12:00:00 AM EDT eCW1 ([facility]) Outpatient [address] [facility] [address] 06/10/2020 12:00:00 AM EDT eCW1 ([facility]) Unknown [address] [facility] [address] 06/04/2020 12:00:00 AM EDT eCW1 ([facility]) Unknown [address] [facility] [address] 05/30/2020 12:00:00 AM EDT eCW1 ([facility]) Outpatient [address] [facility] [address] 05/26/2020 12:00:00 AM EDT eCW1 ([facility]) [facility] [address] [place] [address] 05/07/2020 12:00:00 AM EDT eCW1 ([facility]) Immunizations Vaccine Date Status Description Data Source(s) COVID-19 VACCINE Dilan 11/07/2020 12:00:00 AM EDT completed [facility] Vaccine Series Complete: YESThis Data wa s Submitted to [facility] Via [facility]. influenza, recombinant, quadrIvalent,injectable, prese rvative free 06/05/2020 02:44:00 PM EDT completed eCW1 ([facility]) influenza, recombinant, quadrIvalent,injectable, prese rvative free 06/05/2020 02:44:00 PM EDT completed eCW1 ([facility]) influenza, recombinant, quadrIvalent,injectable, prese rvative free 06/05/2020 02:44:00 PM EDT completed eCW1 ([facility]) influenza, recombinant, quadrIvalent,injectable, prese rvative free 06/05/2020 02:44:00 PM EDT completed eCW1 ([facility]) influenza, recombinant, quadrIvalent,injectable, prese rvative free 06/05/2020 02:44:00 PM EDT completed eCW1 ([facility]) influenza, recombinant, quadrIvalent,injectable, prese rvative free 06/05/2020 02:44:00 PM EDT completed eCW1 ([facility]) influenza, recombinant, quadrIvalent,injectable, prese rvative free 06/05/2020 02:44:00 PM EDT completed eCW1 ([facility]) influenza, recombinant, quadrIvalent,injectable, prese rvative free 06/05/2020 02:44:00 PM EDT completed eCW1 ([facility]) influenza, recombinant, quadrIvalent,injectable, prese rvative free 06/05/2020 02:44:00 PM EDT completed eCW1 ([facility]) influenza, recombinant, quadrIvalent,injectable, prese rvative free 06/05/2020 02:44:00 PM EDT completed eCW1 ([facility]) influenza, recombinant, quadrIvalent,injectable, prese rvative free 06/05/2020 02:44:00 PM EDT completed eCW1 ([facility]) influenza, recombinant, quadrIvalent,injectable, prese rvative free 06/05/2020 02:44:00 PM EDT completed eCW1 ([facility]) influenza, recombinant, quadrIvalent,injectable, prese rvative free 06/05/2020 02:44:00 PM EDT completed eCW1 ([facility]) influenza, recombinant, quadrIvalent,injectable, prese rvative free 06/05/2020 02:44:00 PM EDT completed eCW1 ([facility]) influenza, recombinant, quadrIvalent,injectable, prese rvative free 06/05/2020 02:44:00 PM EDT completed eCW1 ([facility]) influenza, recombinant, quadrIvalent,injectable, prese rvative free 06/05/2020 02:44:00 PM EDT completed eCW1 ([facility]) influenza, recombinant, quadrIvalent,injectable, prese rvative free 06/05/2020 02:44:00 PM EDT completed eCW1 ([facility]) influenza, recombinant, quadrIvalent,injectable, prese rvative free 06/05/2020 02:44:00 PM EDT completed eCW1 ([facility]) influenza, recombinant, quadrIvalent,injectable, prese rvative free 06/05/2020 02:44:00 PM EDT completed eCW1 ([facility]) influenza, recombinant, quadrIvalent,injectable, prese rvative free 06/05/2020 02:44:00 PM EDT completed eCW1 ([facility]) influenza, recombinant, quadrIvalent,injectable, prese rvative free 06/05/2020 02:44:00 PM EDT completed eCW1 ([facility]) influenza, recombinant, quadrIvalent,injectable, prese rvative free 06/05/2020 02:44:00 PM EDT completed eCW1 ([facility]) influenza, recombinant, quadrIvalent,injectable, prese rvative free 06/05/2020 02:44:00 PM EDT completed eCW1 ([facility]) influenza, recombinant, quadrIvalent,injectable, prese rvative free 06/05/2020 02:44:00 PM EDT completed eCW1 ([facility]) influenza, recombinant, quadrIvalent,injectable, prese rvative free 06/05/2020 02:44:00 PM EDT completed eCW1 ([facility]) influenza, recombinant, quadrIvalent,injectable, prese rvative free 06/05/2020 02:44:00 PM EDT completed eCW1 ([facility]) influenza, recombinant, quadrIvalent,injectable, prese rvative free 06/05/2020 02:44:00 PM EDT completed eCW1 ([facility]) influenza, recombinant, quadrIvalent,injectable, prese rvative free 06/05/2020 02:44:00 PM EDT completed eCW1 ([facility]) influenza, recombinant, quadrIvalent,injectable, prese rvative free 06/05/2020 02:44:00 PM EDT completed eCW1 ([facility]) influenza, recombinant, quadrIvalent,injectable, prese rvative free 06/05/2020 02:44:00 PM EDT completed eCW1 ([facility]) influenza, recombinant, quadrIvalent,injectable, prese rvative free 06/05/2020 02:44:00 PM EDT completed eCW1 ([facility]) influenza, recombinant, quadrIvalent,injectable, prese rvative free 06/05/2020 02:44:00 PM EDT completed eCW1 ([facility]) influenza, recombinant, quadrIvalent,injectable, prese rvative free 06/05/2020 02:44:00 PM EDT completed eCW1 ([facility]) influenza, recombinant, quadrIvalent,injectable, prese rvative free 06/05/2020 02:44:00 PM EDT completed eCW1 ([facility]) influenza, recombinant, quadrIvalent,injectable, prese rvative free 06/05/2020 02:44:00 PM EDT completed eCW1 ([facility]) influenza, recombinant, quadrIvalent,injectable, prese rvative free 06/05/2020 02:44:00 PM EDT completed eCW1 ([facility]) influenza, recombinant, quadrIvalent,injectable, prese rvative free 06/05/2020 02:44:00 PM EDT completed eCW1 ([facility]) influenza, recombinant, quadrIvalent,injectable, prese rvative free 06/05/2020 02:44:00 PM EDT completed eCW1 ([facility]) influenza, recombinant, quadrIvalent,injectable, prese rvative free 06/05/2020 02:44:00 PM EDT completed eCW1 ([facility]) influenza, recombinant, quadrIvalent,injectable, prese rvative free 06/05/2020 02:44:00 PM EDT completed eCW1 ([facility]) influenza, recombinant, quadrIvalent,injectable, prese rvative free 06/05/2020 02:44:00 PM EDT completed eCW1 ([facility]) influenza, recombinant, quadrIvalent,injectable, prese rvative free 06/05/2020 02:44:00 PM EDT completed eCW1 ([facility]) influenza, recombinant, quadrIvalent,injectable, prese rvative free 06/05/2020 02:44:00 PM EDT completed eCW1 ([facility]) influenza, recombinant, quadrIvalent,injectable, prese rvative free 06/05/2020 02:44:00 PM EDT completed eCW1 ([facility]) influenza, recombinant, quadrIvalent,injectable, prese rvative free 06/05/2020 02:44:00 PM EDT completed eCW1 ([facility]) influenza, recombinant, quadrIvalent,injectable, prese rvative free 06/05/2020 02:44:00 PM EDT completed eCW1 ([facility]) influenza, recombinant, quadrIvalent,injectable, prese rvative free 06/05/2020 02:44:00 PM EDT completed eCW1 ([facility]) influenza, recombinant, quadrIvalent,injectable, prese rvative free 06/05/2020 02:44:00 PM EDT completed eCW1 ([facility]) influenza, recombinant, quadrIvalent,injectable, prese rvative free 06/05/2020 02:44:00 PM EDT completed eCW1 ([facility]) influenza, recombinant, quadrIvalent,injectable, prese rvative free 06/05/2020 02:44:00 PM EDT completed eCW1 ([facility]) influenza, recombinant, quadrIvalent,injectable, prese rvative free 06/05/2020 02:44:00 PM EDT completed eCW1 ([facility]) influenza, recombinant, quadrIvalent,injectable, prese rvative free 06/05/2020 02:44:00 PM EDT completed eCW1 ([facility]) influenza, recombinant, quadrIvalent,injectable, prese rvative free 06/05/2020 02:44:00 PM EDT completed eCW1 ([facility]) influenza, recombinant, quadrIvalent,injectable, prese rvative free 06/05/2020 02:44:00 PM EDT completed eCW1 ([facility]) influenza, recombinant, quadrIvalent,injectable, prese rvative free 06/05/2020 02:44:00 PM EDT completed eCW1 ([facility]) Medications Medication Brand Name Start Date Product Form Dose Route Admi nistrative Instructions Pharmacy Instructions Status Indications Reaction Description Data Source(s) torsemide 5 MG Oral Tablet Torsemide 5 MG Torsemide 5 MG 01/20/2021 12:00:00 AM EDT 1.0 {tablet} active Torsemide 5 MG eCW1 ([facility]) torsemide 5 MG Oral Tablet Torsemide 5 MG Torsemide 5 MG 01/20/2021 12:00:00 AM EDT 1.0 {tablet} active Torsemide 5 MG eCW1 ([facility]) torsemide 5 MG Oral Tablet Torsemide 5 MG Torsemide 5 MG 01/20/2021 12:00:00 AM EDT 1.0 {tablet} active Torsemide 5 MG eCW1 ([facility]) torsemide 5 MG Oral Tablet Torsemide 5 MG Torsemide 5 MG 01/20/2021 12:00:00 AM EDT 1.0 {tablet} active Torsemide 5 MG eCW1 ([facility]) torsemide 5 MG Oral Tablet Torsemide 5 MG Torsemide 5 MG 01/20/2021 12:00:00 AM EDT 1.0 {tablet} active Torsemide 5 MG eCW1 ([facility]) torsemide 5 MG Oral Tablet Torsemide 5 MG Torsemide 5 MG 01/20/2021 12:00:00 AM EDT 1.0 {tablet} active Torsemide 5 MG eCW1 ([facility]) torsemide 5 MG Oral Tablet Torsemide 5 MG Torsemide 5 MG 01/20/2021 12:00:00 AM EDT 1.0 {tablet} active Torsemide 5 MG eCW1 ([facility]) torsemide 5 MG Oral Tablet Torsemide 5 MG Torsemide 5 MG 01/20/2021 12:00:00 AM EDT 1.0 {tablet} active Torsemide 5 MG eCW1 ([facility]) torsemide 5 MG Oral Tablet Torsemide 5 MG Torsemide 5 MG 01/20/2021 12:00:00 AM EDT 1.0 {tablet} active Torsemide 5 MG eCW1 ([facility]) torsemide 5 MG Oral Tablet Torsemide 5 MG Torsemide 5 MG 01/20/2021 12:00:00 AM EDT 1.0 {tablet} active Torsemide 5 MG eCW1 ([facility]) torsemide 5 MG Oral Tablet Torsemide 5 MG Torsemide 5 MG 01/20/2021 12:00:00 AM EDT 1.0 {tablet} active Torsemide 5 MG eCW1 ([facility]) torsemide 5 MG Oral Tablet Torsemide 5 MG Torsemide 5 MG 01/20/2021 12:00:00 AM EDT 1.0 {tablet} active Torsemide 5 MG eCW1 ([facility]) torsemide 5 MG Oral Tablet Torsemide 5 MG Torsemide 5 MG 01/20/2021 12:00:00 AM EDT 1.0 {tablet} active Torsemide 5 MG eCW1 ([facility]) torsemide 5 MG Oral Tablet Torsemide 5 MG Torsemide 5 MG 01/20/2021 12:00:00 AM EDT 1.0 {tablet} active Torsemide 5 MG eCW1 ([facility]) torsemide 5 MG Oral Tablet Torsemide 5 MG Torsemide 5 MG 01/20/2021 12:00:00 AM EDT 1.0 {tablet} active Torsemide 5 MG eCW1 ([facility]) torsemide 5 MG Oral Tablet Torsemide 5 MG Torsemide 5 MG 01/20/2021 12:00:00 AM EDT 1.0 {tablet} active Torsemide 5 MG eCW1 ([facility]) torsemide 5 MG Oral Tablet Torsemide 5 MG Torsemide 5 MG 01/20/2021 12:00:00 AM EDT 1.0 {tablet} active Torsemide 5 MG eCW1 ([facility]) torsemide 5 MG Oral Tablet Torsemide 5 MG Torsemide 5 MG 01/20/2021 12:00:00 AM EDT 1.0 {tablet} active Torsemide 5 MG eCW1 ([facility]) torsemide 5 MG Oral Tablet Torsemide 5 MG Torsemide 5 MG 01/20/2021 12:00:00 AM EDT 1.0 {tablet} active Torsemide 5 MG eCW1 ([facility]) torsemide 5 MG Oral Tablet Torsemide 5 MG Torsemide 5 MG 01/20/2021 12:00:00 AM EDT 1.0 {tablet} active Torsemide 5 MG eCW1 ([facility]) torsemide 5 MG Oral Tablet Torsemide 5 MG Torsemide 5 MG 01/20/2021 12:00:00 AM EDT 1.0 {tablet} active Torsemide 5 MG eCW1 ([facility]) torsemide 5 MG Oral Tablet Torsemide 5 MG Torsemide 5 MG 01/20/2021 12:00:00 AM EDT 1.0 {tablet} active Torsemide 5 MG eCW1 ([facility]) torsemide 5 MG Oral Tablet Torsemide 5 MG Torsemide 5 MG 01/20/2021 12:00:00 AM EDT 1.0 {tablet} active Torsemide 5 MG eCW1 ([facility]) Ibuprofen 200 MG Oral Tablet Ibuprofen 200 mg Ibuprofen 200 mg 01/15/2021 12:00:00 AM EDT active Ibuprofe n 200 mg eCW1 ([facility]) Ibuprofen 200 MG Oral Tablet Ibuprofen 200 mg Ibuprofen 200 mg 01/15/2021 12:00:00 AM EDT active Ibuprofe n 200 mg eCW1 ([facility]) Ibuprofen 200 MG Oral Tablet Ibuprofen 200 mg Ibuprofen 200 mg 01/15/2021 12:00:00 AM EDT active e CW1 ([facility]) Ibuprofen 200 MG Oral Tablet Ibuprofen 200 mg Ibuprofen 200 mg 01/15/2021 12:00:00 AM EDT active Ibuprofe n 200 mg eCW1 ([facility]) Ibuprofen 200 MG Oral Tablet Ibuprofen 200 mg Ibuprofen 200 mg 01/15/2021 12:00:00 AM EDT active Ibuprofe n 200 mg eCW1 ([facility]) Ibuprofen 200 MG Oral Tablet Ibuprofen 200 mg Ibuprofen 200 mg 01/15/2021 12:00:00 AM EDT active Ibuprofe n 200 mg eCW1 ([facility]) Ibuprofen 200 MG Oral Tablet Ibuprofen 200 mg Ibuprofen 200 mg 01/15/2021 12:00:00 AM EDT active Ibuprofe n 200 mg eCW1 ([facility]) Ibuprofen 200 MG Oral Tablet Ibuprofen 200 mg Ibuprofen 200 mg 01/15/2021 12:00:00 AM EDT active Ibuprofe n 200 mg eCW1 ([facility]) Ibuprofen 200 MG Oral Tablet Ibuprofen 200 mg Ibuprofen 200 mg 01/15/2021 12:00:00 AM EDT active Ibuprofe n 200 mg eCW1 ([facility]) Ibuprofen 200 MG Oral Tablet Ibuprofen 200 mg Ibuprofen 200 mg 01/15/2021 12:00:00 AM EDT active Ibuprofe n 200 mg eCW1 ([facility]) Ibuprofen 200 MG Oral Tablet Ibuprofen 200 mg Ibuprofen 200 mg 01/15/2021 12:00:00 AM EDT active Ibuprofe n 200 mg eCW1 ([facility]) Ibuprofen 200 MG Oral Tablet Ibuprofen 200 mg Ibuprofen 200 mg 01/15/2021 12:00:00 AM EDT active Ibuprofe n 200 mg eCW1 ([facility]) Ibuprofen 200 MG Oral Tablet Ibuprofen 200 mg Ibuprofen 200 mg 01/15/2021 12:00:00 AM EDT active Ibuprofe n 200 mg eCW1 ([facility]) Ibuprofen 200 MG Oral Tablet Ibuprofen 200 mg Ibuprofen 200 mg 01/15/2021 12:00:00 AM EDT active e CW1 ([facility]) Ibuprofen 200 MG Oral Tablet Ibuprofen 200 mg Ibuprofen 200 mg 01/15/2021 12:00:00 AM EDT active Ibuprofe n 200 mg eCW1 ([facility]) Ibuprofen 200 MG Oral Tablet Ibuprofen 200 mg Ibuprofen 200 mg 01/15/2021 12:00:00 AM EDT active Ibuprofe n 200 mg eCW1 ([facility]) Ibuprofen 200 MG Oral Tablet Ibuprofen 200 mg Ibuprofen 200 mg 01/15/2021 12:00:00 AM EDT active Ibuprofe n 200 mg eCW1 ([facility]) Ibuprofen 200 MG Oral Tablet Ibuprofen 200 mg Ibuprofen 200 mg 01/15/2021 12:00:00 AM EDT active Ibuprofe n 200 mg eCW1 ([facility]) Ibuprofen 200 MG Oral Tablet Ibuprofen 200 mg Ibuprofen 200 mg 01/15/2021 12:00:00 AM EDT active Ibuprofe n 200 mg eCW1 ([facility]) Ibuprofen 200 MG Oral Tablet Ibuprofen 200 mg Ibuprofen 200 mg 01/15/2021 12:00:00 AM EDT active Ibuprofe n 200 mg eCW1 ([facility]) Ibuprofen 200 MG Oral Tablet Ibuprofen 200 mg Ibuprofen 200 mg 01/15/2021 12:00:00 AM EDT active Ibuprofe n 200 mg eCW1 ([facility] [facility]) Ibuprofen 200 MG Oral Tablet Ibuprofen 200 mg Ibuprofen 200 mg 01/15/2021 12:00:00 AM EDT active Ibuprofe n 200 mg eCW1 ([facility]) Ibuprofen 200 MG Oral Tablet Ibuprofen 200 mg Ibuprofen 200 mg 01/15/2021 12:00:00 AM EDT active Ibuprofe n 200 mg eCW1 ([facility]) Ibuprofen 200 MG Oral Tablet Ibuprofen 200 mg Ibuprofen 200 mg 01/15/2021 12:00:00 AM EDT active Ibuprofe n 200 mg eCW1 ([facility]) Ibuprofen 200 MG Oral Tablet Ibuprofen 200 mg Ibuprofen 200 mg 01/15/2021 12:00:00 AM EDT active Ibuprofe n 200 mg eCW1 ([facility]) Ibuprofen 200 MG Oral Tablet Ibuprofen 200 mg Ibuprofen 200 mg 01/15/2021 12:00:00 AM EDT active Ibuprofe n 200 mg eCW1 ([facility]) Ibuprofen 200 MG Oral Tablet Ibuprofen 200 mg Ibuprofen 200 mg 01/15/2021 12:00:00 AM EDT active Ibuprofe n 200 mg eCW1 ([facility]) Ibuprofen 200 MG Oral Tablet Ibuprofen 200 mg Ibuprofen 200 mg 01/15/2021 12:00:00 AM EDT active Ibuprofe n 200 mg eCW1 ([facility]) Commode Bedside - Commode Bedside - 01/12/2021 12:00:00 AM EDT active Commode Bedside - eCW1 ([facility]) Commode Bedside - Commode Bedside - 01/12/2021 12:00:00 AM EDT active Commode Bedside - eCW1 ([facility]) celecoxib 200 MG Oral Capsule [Celebrex] Celebrex 200 MG Rosalee ebrex 200 MG 01/12/2021 12:00:00 AM EDT 1.0 {capsule_with_food} active Celebrex 200 MG eCW1 ([facility]) Commode Bedside - Commode Bedside - 01/12/2021 12:00:00 AM EDT active Commode Bedside - eCW1 ([facility]) Commode Bedside - Commode Bedside - 01/12/2021 12:00:00 AM EDT active Commode Bedside - eCW1 ([facility]) tramadol hydrochloride 50 MG Oral Tablet Tramadol HCl 50 MG Tramadol HCl 50 MG 01/12/2021 12:00:00 AM EDT 1.0 {tablet_as_needed} active Tramadol HCl 50 MG eCW1 ([facility]) Commode Bedside - Commode Bedside - 01/12/2021 12:00:00 AM EDT active Commode Bedside - eCW1 ([facility]) Commode Bedside - Commode Bedside - 01/12/2021 12:00:00 AM EDT active Commode Bedside - eCW1 ([facility]) Commode Bedside - Commode Bedside - 01/12/2021 12:00:00 AM EDT active eCW1 ([facility]) Commode Bedside - Commode Bedside - 01/12/2021 12:00:00 AM EDT active Commode Bedside - eCW1 ([facility]) Commode Bedside - Commode Bedside - 01/12/2021 12:00:00 AM EDT active Commode Bedside - eCW1 ([facility]) Commode Bedside - Commode Bedside - 01/12/2021 12:00:00 AM EDT active Commode Bedside - eCW1 ([facility]) Commode Bedside - Commode Bedside - 01/12/2021 12:00:00 AM EDT active Commode Bedside - eCW1 ([facility]) Commode Bedside - Commode Bedside - 01/12/2021 12:00:00 AM EDT active Commode Bedside - eCW1 ([facility]) Commode Bedside - Commode Bedside - 01/12/2021 12:00:00 AM EDT active Commode Bedside - eCW1 ([facility]) Commode Bedside - Commode Bedside - 01/12/2021 12:00:00 AM EDT active Commode Bedside - eCW1 ([facility]) Commode Bedside - Commode Bedside - 01/12/2021 12:00:00 AM EDT active Commode Bedside - eCW1 ([facility]) Commode Bedside - Commode Bedside - 01/12/2021 12:00:00 AM EDT active Commode Bedside - eCW1 ([facility]) Commode Bedside - Commode Bedside - 01/12/2021 12:00:00 AM EDT active Commode Bedside - eCW1 ([facility]) Commode Bedside - Commode Bedside - 01/12/2021 12:00:00 AM EDT active Commode Bedside - eCW1 ([facility]) Commode Bedside - Commode Bedside - 01/12/2021 12:00:00 AM EDT active Commode Bedside - eCW1 ([facility]) Commode Bedside - Commode Bedside - 01/12/2021 12:00:00 AM EDT active Commode Bedside - eCW1 ([facility]) Commode Bedside - Commode Bedside - 01/12/2021 12:00:00 AM EDT active Commode Bedside - eCW1 ([facility]) Commode Bedside - Commode Bedside - 01/12/2021 12:00:00 AM EDT active Commode Bedside - eCW1 ([facility]) Commode Bedside - Commode Bedside - 01/12/2021 12:00:00 AM EDT active Commode Bedside - eCW1 ([facility]) Commode Bedside - Commode Bedside - 01/12/2021 12:00:00 AM EDT active Commode Bedside - eCW1 ([facility]) Commode Bedside - Commode Bedside - 01/12/2021 12:00:00 AM EDT active Commode Bedside - eCW1 ([facility]) Commode Bedside - Commode Bedside - 01/12/2021 12:00:00 AM EDT active Commode Bedside - eCW1 ([facility]) Commode Bedside - Commode Bedside - 01/12/2021 12:00:00 AM EDT active Commode Bedside - eCW1 ([facility]) Commode Bedside - Commode Bedside - 01/12/2021 12:00:00 AM EDT active eCW1 ([facility]) Commode Bedside - Commode Bedside - 01/12/2021 12:00:00 AM EDT active Commode Bedside - eCW1 ([facility]) Omeprazole 40 MG Delayed Release Oral Capsule Omeprazole 40 MG 09/22/2020 12:00:00 AM EST active Omeprazo le 40 MG eCW1 ([facility]) Omeprazole 40 MG Delayed Release Oral Capsule Omeprazole 40 MG 09/22/2020 12:00:00 AM EST active Omeprazo le 40 MG eCW1 ([facility]) Omeprazole 40 MG Delayed Release Oral Capsule Omeprazole 40 MG 09/22/2020 12:00:00 AM EST active Omeprazo le 40 MG eCW1 ([facility]) Omeprazole 40 MG Delayed Release Oral Capsule Omeprazole 40 MG 09/22/2020 12:00:00 AM EST active e CW1 ([facility]) Omeprazole 40 MG Delayed Release Oral Capsule Omeprazole 40 MG 09/22/2020 12:00:00 AM EST active Omeprazo le 40 MG eCW1 ([facility]) Omeprazole 40 MG Delayed Release Oral Capsule Omeprazole 40 MG 09/22/2020 12:00:00 AM EST active Omeprazo le 40 MG eCW1 ([facility]) Omeprazole 40 MG Delayed Release Oral Capsule Omeprazole 40 MG 09/22/2020 12:00:00 AM EST active Omeprazo le 40 MG eCW1 ([facility]) Omeprazole 40 MG Delayed Release Oral Capsule Omeprazole 40 MG 09/22/2020 12:00:00 AM EST active Omeprazo le 40 MG eCW1 ([facility]) Omeprazole 40 MG Delayed Release Oral Capsule Omeprazole 40 MG 09/22/2020 12:00:00 AM EST active Omeprazo le 40 MG eCW1 ([facility]) Omeprazole 40 MG Delayed Release Oral Capsule Omeprazole 40 MG 09/22/2020 12:00:00 AM EST active Omeprazo le 40 MG eCW1 ([facility]) Omeprazole 40 MG Delayed Release Oral Capsule Omeprazole 40 MG 09/22/2020 12:00:00 AM EST active Omeprazo le 40 MG eCW1 ([facility]) Omeprazole 40 MG Delayed Release Oral Capsule Omeprazole 40 MG 09/22/2020 12:00:00 AM EST active Omeprazo le 40 MG eCW1 ([facility]) Omeprazole 40 MG Delayed Release Oral Capsule Omeprazole 40 MG 09/22/2020 12:00:00 AM EST active Omeprazo le 40 MG eCW1 ([facility]) Omeprazole 40 MG Delayed Release Oral Capsule Omeprazole 40 MG 09/22/2020 12:00:00 AM EST active Omeprazo le 40 MG eCW1 ([facility]) Omeprazole 40 MG Delayed Release Oral Capsule Omeprazole 40 MG 09/22/2020 12:00:00 AM EST active Omeprazo le 40 MG eCW1 ([facility]) Omeprazole 40 MG Delayed Release Oral Capsule Omeprazole 40 MG 09/22/2020 12:00:00 AM EST active Omeprazo le 40 MG eCW1 ([facility]) Omeprazole 40 MG Delayed Release Oral Capsule Omeprazole 40 MG 09/22/2020 12:00:00 AM EST active Omeprazo le 40 MG eCW1 ([facility]) Omeprazole 40 MG Delayed Release Oral Capsule Omeprazole 40 MG 09/22/2020 12:00:00 AM EST active Omeprazo le 40 MG eCW1 ([facility]) Omeprazole 40 MG Delayed Release Oral Capsule Omeprazole 40 MG 09/22/2020 12:00:00 AM EST active Omeprazo le 40 MG eCW1 ([facility]) Omeprazole 40 MG Delayed Release Oral Capsule Omeprazole 40 MG 09/22/2020 12:00:00 AM EST active Omeprazo le 40 MG eCW1 ([facility]) Omeprazole 40 MG Delayed Release Oral Capsule Omeprazole 40 MG 09/22/2020 12:00:00 AM EST active Omeprazo le 40 MG eCW1 ([facility]) Omeprazole 40 MG Delayed Release Oral Capsule Omeprazole 40 MG 09/22/2020 12:00:00 AM EST active Omeprazo le 40 MG eCW1 ([facility]) Omeprazole 40 MG Delayed Release Oral Capsule Omeprazole 40 MG 09/22/2020 12:00:00 AM EST active Omeprazo le 40 MG eCW1 ([facility]) Omeprazole 40 MG Delayed Release Oral Capsule Omeprazole 40 MG 09/22/2020 12:00:00 AM EST active Omeprazo le 40 MG eCW1 ([facility]) Omeprazole 40 MG Delayed Release Oral Capsule Omeprazole 40 MG 09/22/2020 12:00:00 AM EST active Omeprazo le 40 MG eCW1 ([facility]) Omeprazole 40 MG Delayed Release Oral Capsule Omeprazole 40 MG 09/22/2020 12:00:00 AM EST active Omeprazo le 40 MG eCW1 ([facility]) Omeprazole 40 MG Delayed Release Oral Capsule Omeprazole 40 MG 09/22/2020 12:00:00 AM EST active Omeprazo le 40 MG eCW1 ([facility]) Omeprazole 40 MG Delayed Release Oral Capsule Omeprazole 40 MG 09/22/2020 12:00:00 AM EST active Omeprazo le 40 MG eCW1 ([facility]) Omeprazole 40 MG Delayed Release Oral Capsule Omeprazole 40 MG 09/22/2020 12:00:00 AM EST active Omeprazo le 40 MG eCW1 ([facility]) Omeprazole 40 MG Delayed Release Oral Capsule Omeprazole 40 MG 09/22/2020 12:00:00 AM EST active Omeprazo le 40 MG eCW1 ([facility]) Omeprazole 40 MG Delayed Release Oral Capsule Omeprazole 40 MG 09/22/2020 12:00:00 AM EST active Omeprazo le 40 MG eCW1 ([facility]) Omeprazole 40 MG Delayed Release Oral Capsule Omeprazole 40 MG 09/22/2020 12:00:00 AM EST active Omeprazo le 40 MG eCW1 ([facility]) Omeprazole 40 MG Delayed Release Oral Capsule Omeprazole 40 MG 09/22/2020 12:00:00 AM EST active Omeprazo le 40 MG eCW1 ([facility]) Omeprazole 40 MG Delayed Release Oral Capsule Omeprazole 40 MG 09/22/2020 12:00:00 AM EST active Omeprazo le 40 MG eCW1 ([facility]) Omeprazole 40 MG Delayed Release Oral Capsule Omeprazole 40 MG 09/22/2020 12:00:00 AM EST active Omeprazo le 40 MG eCW1 ([facility]) Omeprazole 40 MG Delayed Release Oral Capsule Omeprazole 40 MG 09/22/2020 12:00:00 AM EST active Omeprazo le 40 MG eCW1 ([facility]) Omeprazole 40 MG Delayed Release Oral Capsule Omeprazole 40 MG 09/22/2020 12:00:00 AM EST active Omeprazo le 40 MG eCW1 ([facility]) Omeprazole 40 MG Delayed Release Oral Capsule Omeprazole 40 MG 09/22/2020 12:00:00 AM EST active Omeprazo le 40 MG eCW1 ([facility]) Omeprazole 40 MG Delayed Release Oral Capsule Omeprazole 40 MG 09/22/2020 12:00:00 AM EST active Omeprazo le 40 MG eCW1 ([facility]) Omeprazole 40 MG Delayed Release Oral Capsule Omeprazole 40 MG 09/22/2020 12:00:00 AM EST active Omeprazo le 40 MG eCW1 ([facility]) Omeprazole 40 MG Delayed Release Oral Capsule Omeprazole 40 MG 09/22/2020 12:00:00 AM EST active Omeprazo le 40 MG eCW1 ([facility]) Omeprazole 40 MG Delayed Release Oral Capsule Omeprazole 40 MG 09/22/2020 12:00:00 AM EST active e CW1 ([facility]) Hydroxyzine Hydrochloride 25 MG Oral Tablet HydrOXYzin e HCl 25 MG HydrOXYzine HCl 25 MG 09/18/2020 12:00:00 AM EST suspende d HydrOXYzine HCl 25 MG eCW1 ([facility]) Hydroxyzine Hydrochloride 25 MG Oral Tablet HydrOXYzin e HCl 25 MG HydrOXYzine HCl 25 MG 09/18/2020 12:00:00 AM EST suspende d HydrOXYzine HCl 25 MG eCW1 ([facility]) Hydroxyzine Hydrochloride 25 MG Oral Tablet HydrOXYzin e HCl 25 MG HydrOXYzine HCl 25 MG 09/18/2020 12:00:00 AM EST active HydrOXYzine HCl 25 MG eCW1 ([facility]) Hydroxyzine Hydrochloride 25 MG Oral Tablet HydrOXYzin e HCl 25 MG HydrOXYzine HCl 25 MG 09/18/2020 12:00:00 AM EST active HydrOXYzine HCl 25 MG eCW1 ([facility]) Hydroxyzine Hydrochloride 25 MG Oral Tablet HydrOXYzin e HCl 25 MG HydrOXYzine HCl 25 MG 09/18/2020 12:00:00 AM EST active HydrOXYzine HCl 25 MG eCW1 ([facility]) Hydroxyzine Hydrochloride 25 MG Oral Tablet HydrOXYzin e HCl 25 MG HydrOXYzine HCl 25 MG 09/18/2020 12:00:00 AM EST active HydrOXYzine HCl 25 MG eCW1 ([facility]) Hydroxyzine Hydrochloride 25 MG Oral Tablet HydrOXYzin e HCl 25 MG HydrOXYzine HCl 25 MG 09/18/2020 12:00:00 AM EST active HydrOXYzine HCl 25 MG eCW1 ([facility]) Hydroxyzine Hydrochloride 25 MG Oral Tablet HydrOXYzin e HCl 25 MG HydrOXYzine HCl 25 MG 09/18/2020 12:00:00 AM EST suspende d HydrOXYzine HCl 25 MG eCW1 ([facility]) Hydroxyzine Hydrochloride 25 MG Oral Tablet HydrOXYzin e HCl 25 MG HydrOXYzine HCl 25 MG 09/18/2020 12:00:00 AM EST active HydrOXYzine HCl 25 MG eCW1 ([facility]) Hydroxyzine Hydrochloride 25 MG Oral Tablet HydrOXYzin e HCl 25 MG HydrOXYzine HCl 25 MG 09/18/2020 12:00:00 AM EST suspende d HydrOXYzine HCl 25 MG eCW1 ([facility]) Hydroxyzine Hydrochloride 25 MG Oral Tablet HydrOXYzin e HCl 25 MG HydrOXYzine HCl 25 MG 09/18/2020 12:00:00 AM EST suspende d HydrOXYzine HCl 25 MG eCW1 ([facility]) Hydroxyzine Hydrochloride 25 MG Oral Tablet HydrOXYzin e HCl 25 MG HydrOXYzine HCl 25 MG 09/18/2020 12:00:00 AM EST active HydrOXYzine HCl 25 MG eCW1 ([facility]) Hydroxyzine Hydrochloride 25 MG Oral Tablet HydrOXYzin e HCl 25 MG HydrOXYzine HCl 25 MG 09/18/2020 12:00:00 AM EST active HydrOXYzine HCl 25 MG eCW1 ([facility]) Hydroxyzine Hydrochloride 25 MG Oral Tablet HydrOXYzin e HCl 25 MG HydrOXYzine HCl 25 MG 09/18/2020 12:00:00 AM EST active HydrOXYzine HCl 25 MG eCW1 ([facility]) Hydroxyzine Hydrochloride 25 MG Oral Tablet HydrOXYzin e HCl 25 MG HydrOXYzine HCl 25 MG 09/18/2020 12:00:00 AM EST suspende d HydrOXYzine HCl 25 MG eCW1 ([facility]) Morphine Sulfate 2 MG/ML Oral Solution Morphine Sulfat e 10 MG/5ML Morphine Sulfate 10 MG/5ML 06/12/2020 12:00:00 AM EDT 2.0 {ml_as_needed} suspended Morphine Sulfate 10 MG/5ML eCW1 ([facility]) Morphine Sulfate 2 MG/ML Oral Solution Morphine Sulfat e 10 MG/5ML Morphine Sulfate 10 MG/5ML 06/12/2020 12:00:00 AM EDT 2.0 {ml_as_needed} suspended Morphine Sulfate 10 MG/5ML eCW1 ([facility]) Morphine Sulfate 2 MG/ML Oral Solution Morphine Sulfat e 10 MG/5ML Morphine Sulfate 10 MG/5ML 06/12/2020 12:00:00 AM EDT 2.0 {ml_as_needed} suspended Morphine Sulfate 10 MG/5ML eCW1 ([facility]) Morphine Sulfate 2 MG/ML Oral Solution Morphine Sulfat e 10 MG/5ML Morphine Sulfate 10 MG/5ML 06/12/2020 12:00:00 AM EDT 2.0 {ml_as_needed} suspended Morphine Sulfate 10 MG/5ML eCW1 ([facility]) Morphine Sulfate 2 MG/ML Oral Solution Morphine Sulfat e 10 MG/5ML Morphine Sulfate 10 MG/5ML 06/12/2020 12:00:00 AM EDT 2.0 {ml_as_needed} active Morphine Sulfate 10 MG/5ML eCW1 ([facility]) Morphine Sulfate 2 MG/ML Oral Solution Morphine Sulfat e 10 MG/5ML Morphine Sulfate 10 MG/5ML 06/12/2020 12:00:00 AM EDT 2.0 {ml_as_needed} active Morphine Sulfate 10 MG/5ML eCW1 ([facility]) Morphine Sulfate 2 MG/ML Oral Solution Morphine Sulfat e 10 MG/5ML Morphine Sulfate 10 MG/5ML 06/12/2020 12:00:00 AM EDT 2.0 {ml_as_needed} suspended Morphine Sulfate 10 MG/5ML eCW1 ([facility]) Morphine Sulfate 2 MG/ML Oral Solution Morphine Sulfat e 10 MG/5ML Morphine Sulfate 10 MG/5ML 06/12/2020 12:00:00 AM EDT 2.0 {ml_as_needed} suspended Morphine Sulfate 10 MG/5ML eCW1 ([facility]) Morphine Sulfate 2 MG/ML Oral Solution Morphine Sulfat e 10 MG/5ML Morphine Sulfate 10 MG/5ML 06/12/2020 12:00:00 AM EDT 2.0 {ml_as_needed} suspended Morphine Sulfate 10 MG/5ML eCW1 ([facility]) Morphine Sulfate 2 MG/ML Oral Solution Morphine Sulfat e 10 MG/5ML Morphine Sulfate 10 MG/5ML 06/12/2020 12:00:00 AM EDT 2.0 {ml_as_needed} suspended Morphine Sulfate 10 MG/5ML eCW1 ([facility]) Morphine Sulfate 2 MG/ML Oral Solution Morphine Sulfat e 10 MG/5ML Morphine Sulfate 10 MG/5ML 06/12/2020 12:00:00 AM EDT 2.0 {ml_as_needed} suspended Morphine Sulfate 10 MG/5ML eCW1 ([facility]) Docusate Sodium 50 MG / sennosides, LONG TERM 8.6 MG Oral Ta blet Senna S 8.6-50 MG Senna S 8.6-50 MG 06/10/2020 12:00:00 AM EDT active Senna S 8.6-50 MG eCW1 ([facility]) Docusate Sodium 50 MG / sennosides, LONG TERM 8.6 MG Oral Ta blet Senna S 8.6-50 MG Senna S 8.6-50 MG 06/10/2020 12:00:00 AM EDT active Senna S 8.6-50 MG eCW1 ([facility]) Docusate Sodium 50 MG / sennosides, LONG TERM 8.6 MG Oral Ta blet Senna S 8.6-50 MG Senna S 8.6-50 MG 06/10/2020 12:00:00 AM EDT active Senna S 8.6-50 MG eCW1 ([facility]) Docusate Sodium 50 MG / sennosides, LONG TERM 8.6 MG Oral Ta blet Senna S 8.6-50 MG Senna S 8.6-50 MG 06/10/2020 12:00:00 AM EDT active Senna S 8.6-50 MG eCW1 ([facility]) Docusate Sodium 50 MG / sennosides, LONG TERM 8.6 MG Oral Ta blet Senna S 8.6-50 MG Senna S 8.6-50 MG 06/10/2020 12:00:00 AM EDT active Senna S 8.6-50 MG eCW1 ([facility]) Docusate Sodium 50 MG / sennosides, LONG TERM 8.6 MG Oral Ta blet Senna S 8.6-50 MG Senna S 8.6-50 MG 06/10/2020 12:00:00 AM EDT active Senna S 8.6-50 MG eCW1 ([facility]) Docusate Sodium 50 MG / sennosides, LONG TERM 8.6 MG Oral Ta blet Senna S 8.6-50 MG Senna S 8.6-50 MG 06/10/2020 12:00:00 AM EDT active Senna S 8.6-50 MG eCW1 ([facility]) Docusate Sodium 50 MG / sennosides, LONG TERM 8.6 MG Oral Ta blet Senna S 8.6-50 MG Senna S 8.6-50 MG 06/10/2020 12:00:00 AM EDT active Senna S 8.6-50 MG eCW1 ([facility]) Docusate Sodium 50 MG / sennosides, LONG TERM 8.6 MG Oral Ta blet Senna S 8.6-50 MG Senna S 8.6-50 MG 06/10/2020 12:00:00 AM EDT active Senna S 8.6-50 MG eCW1 ([facility]) Docusate Sodium 50 MG / sennosides, LONG TERM 8.6 MG Oral Ta blet Senna S 8.6-50 MG Senna S 8.6-50 MG 06/10/2020 12:00:00 AM EDT active Senna S 8.6-50 MG eCW1 ([facility]) Docusate Sodium 50 MG / sennosides, LONG TERM 8.6 MG Oral Ta blet Senna S 8.6-50 MG Senna S 8.6-50 MG 06/10/2020 12:00:00 AM EDT active Senna S 8.6-50 MG eCW1 ([facility]) Morphine Sulfate 4 MG/ML Oral Solution Morphine Sulfat e 20 MG/5ML Morphine Sulfate 20 MG/5ML 06/10/2020 12:00:00 AM EDT 1.0 {ml_as_needed} active Morphine Sulfate 20 MG/5ML eCW1 ([facility]) Docusate Sodium 50 MG / sennosides, LONG TERM 8.6 MG Oral Ta blet Senna S 8.6-50 MG Senna S 8.6-50 MG 06/10/2020 12:00:00 AM EDT active Senna S 8.6-50 MG eCW1 ([facility]) Insurance Providers Payer name Policy type / Coverage type Policy ID Covered republican ID Covered republican's relationship to [place] Policy [place] Plan Information Medicare Natl Gov't Servi Medicare Primary [id number] Self [id number] Medicare C [id number] SELF [id number] MEDICARE [id number] SP [id number] MEDICARE A [id number] Self [id number] Medicare C [id number] SELF [id number] DME Jurisdiction A [facility] C [id number] SELF [id number] Medicaid [facility] S D [id number] SELF [id number] Medicaid [facility] S D [id number] SELF [id number] MEDICAID M [id number] Self [id number] MEDICAID [id number] Medicare C [id number] SELF [id number] DME Jurisdiction A NHIC C [id number] SELF [id number] MEDICAID [id number] SP [id number] ANSI-Medicaid [id number] ANSI-Medicare Part B [id number] ANSI-Medicare Part B [id number] ANSI-Medicaid [id number] ANSI-Medicaid [id number] ANSI-Medicare Part B [id number] MEDICAID [id number] SP [id number] ANSI-Medicare Part B [id number] ANSI-Medicaid [id number] ANSI-Medicare Part B [id number] ANSI-Medicaid [id number] ANSI-Medicare Part B [id number] ANSI-Medicaid [id number] ANSI-Medicaid [id number] ANSI-Medicare Part B [id number] ANSI-Medicaid [id number] ANSI-Medicare Part B [id number] ANSI-Medicare Part B [id number] ANSI-Medicaid [id number] ANSI-Medicare Part B [id number] ANSI-Medicaid [id number] ANSI-Medicare Part B [id number] ANSI-Medicaid [id number] ANSI-Medicaid [id number] ANSI-Medicare Part B [id number] ANSI-Medicaid [id number] ANSI-Medicare Part B [id number] ANSI-Medicaid [id number] ANSI-Medicare Part B [id number] ANSI-Medicaid [id number] ANSI-Medicare Part B [id number] ANSI-Medicaid [id number] ANSI-Medicare Part B [id number] ANSI-Medicare Part B [id number] ANSI-Medicaid [id number] ANSI-Medicaid [id number] ANSI-Medicare Part B [id number] ANSI-Medicaid [id number] ANSI-Medicare Part B [id number] ANSI-Medicaid [id number] ANSI-Medicare Part B [id number] ANSI-Medicare Part B [id number] ANSI-Medicaid [id number] ANSI-Medicaid [id number] ANSI-Medicare Part B [id number] ANSI-Medicaid [id number] ANSI-Medicare Part B [id number] ANSI-Medicaid [id number] ANSI-Medicare Part B [id number] ANSI-Medicaid [id number] ANSI-Medicare Part B [id number] ANSI-Medicare Part B [id number] ANSI-Medicaid [id number] ANSI-Medicaid [id number] ANSI-Medicare Part B [id number] ANSI-Medicare Part B [id number] ANSI-Medicaid [id number] ANSI-Medicaid [id number] ANSI-Medicare Part B [id number] ANSI-Medicare Part B [id number] ANSI-Medicaid [id number] ANSI-Medicare Part B [id number] ANSI-Medicaid [id number] ANSI-Medicaid [id number] ANSI-Medicare Part B [id number] ANSI-Medicare Part B [id number] ANSI-Medicaid [id number] ANSI-Medicaid [id number] ANSI-Medicare Part B [id number] ANSI-Medicaid [id number] ANSI-Medicare Part B [id number] MEDICARE [id number] SP [id number] MEDICARE [id number] SP [id number] VNA HOMECARE OPTIONS O [id number] S [id number] MEDICARE C [id number] S [id number] [place] [id number] Self [place] [id number] SP [id number] M [id number] MEDICARE [id number] SP [id number] MEDICAID -O/P [id number] MEDICARE PART A -O/P [id number] 18 [id number] [place] [id number] SP [id number] MEDICARE C [id number] S [id number] MEDICAID M [id number] S [id number] NGS [place] O [id number] S [id number] MEDICARE PART A -O/P [id number] 18 [id number] ANSI-Medicare Part B [id number] ANSI-Medicaid [id number] ANSI-Medicare Part B [id number] [facility]-Medicaid [id number] Problems, Conditions, and Diagnoses Code Display Name Description Problem Type Effective Dates Data Source(s) R73761 Presence of unspecified artificial hip j oint Presence of unspecified artificial hip joint Diagnosis 05/30/2021 11:06:00 AM EDT [facility] I509 Heart failure, unspecified Heart failure, unspecified Diagnosis 05/30/2021 11:06:00 AM EDT [facility] N12094 Unspecified asthma, uncomplicated Unspecified as thma, uncomplicated Diagnosis 05/30/2021 11:06:00 AM EDT [facility] 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 Diagnosis 05/30/2021 11:06:00 AM EDT [facility] D508 Other iron deficiency anemias Other iron deficiency an emias Diagnosis 05/30/2021 11:06:00 AM EDT [facility] R42 Dizziness and giddiness Dizziness and giddiness Diagno sis 05/30/2021 11:06:00 AM EDT [facility] M19.079 [id number] Arthritis of foot Problem 01/15/2021 12:00:0 0 AM EDT eCW1 ([facility]) R27.0 31372099 Ataxia Problem 01/12/2021 12:00:00 AM ED T eCW1 ([facility]) M19.072 [id number] Arthritis of left foot Problem 0 01/12/2021 12:00:00 AM EDT eCW1 ([facility]) L29.9 156709308 Chronic pruritus Problem 09/18/2020 12:00:00 AM EST eCW1 ([facility]) Z12.11 060130820 Colon cancer screening Problem 09/18/2020 12 :00:00 AM EST eCW1 ([facility]) R63.4 46290910 Weight loss Problem 09/18/2020 12:00:[address] eCW1 ([facility]) N81.6 9037357 Rectocele Problem 06/25/2020 12:00:00 AM ES T eCW1 ([facility]) Surgeries/Procedures Procedure Description Date Indications Data Source(s) FINE NEEDLE ASPIRATION W/O IMAGING GUIDANCE 06/17/2021 12:00:00 AM EDT eCW1 ([facility]) FINE NEEDLE ASPIRATION W/O IMAGING GUIDANCE 06/03/2021 12:00:00 AM EDT eCW1 ([facility]) FINE NEEDLE ASPIRATION W/O IMAGING GUIDANCE 05/13/2021 12:00:00 AM EDT eCW1 ([facility]) Medication: 2% Lidocaine intradermal 05/13/2021 12:00: 00 AM EDT eCW1 ([facility]) FINE NEEDLE ASPIRATION W/O IMAGING GUIDANCE 04/22/2021 12:00:00 AM EDT eCW1 ([facility]) FINE NEEDLE ASPIRATION W/O IMAGING GUIDANCE 04/01/2021 12:00:00 AM EDT eCW1 ([facility]) Medication: Silver Nitrate Stick topically 04/01/2021 12:00:00 AM EDT eCW1 ([facility]) FINE NEEDLE ASPIRATION W/O IMAGING GUIDANCE 03/11/2021 12:00:00 AM EDT eCW1 ([facility]) FINE NEEDLE ASPIRATION W/O IMAGING GUIDANCE 02/18/2021 12:00:00 AM EDT eCW1 ([facility]) Medication: Silver Nitrate Stick topically 02/10/2021 12:00:00 AM EDT eCW1 ([facility]) FINE NEEDLE ASPIRATION W/O IMAGING GUIDANCE 02/10/2021 12:00:00 AM EDT eCW1 ([facility]) FINE NEEDLE ASPIRATION W/O IMAGING GUIDANCE 02/03/2021 12:00:00 AM EDT eCW1 ([facility]) FINE NEEDLE ASPIRATION W/O IMAGING GUIDANCE 12/24/2020 12:00:00 AM EDT eCW1 ([facility]) FINE NEEDLE ASPIRATION W/O IMAGING GUIDANCE 12/03/2020 12:00:00 AM EDT eCW1 ([facility]) FINE NEEDLE ASPIRATION W/O IMAGING GUIDANCE 11/12/2020 12:00:00 AM EDT eCW1 ([facility]) FINE NEEDLE ASPIRATION W/O IMAGING GUIDANCE 10/22/2020 12:00:00 AM EST eCW1 ([facility]) FINE NEEDLE ASPIRATION W/O IMAGING GUIDANCE 10/01/2020 12:00:00 AM EST eCW1 ([facility]) FINE NEEDLE ASPIRATION W/O IMAGING GUIDANCE 09/10/2020 12:00:00 AM EST eCW1 ([facility]) FINE NEEDLE ASPIRATION W/O IMAGING GUIDANCE 06/16/2020 12:00:00 AM EDT eCW1 ([facility]) FINE NEEDLE ASPIRATION W/O IMAGING GUIDANCE 05/26/2020 12:00:00 AM EDT eCW1 ([facility]) Results ID Date Data Source [id number] 06/20/2021 07:41:00 PM EDT [facility] Name Value Range Interpretation Code Description Data Ladi rce(s) Supporting Document(s) SARS-CoV-2 (COVID 19) NEGATIVE - SARS-CoV-2 (COVID19) [facility] This lab was ordered by [facility] a nd reported by [facility]. ID Date Data Source [id number] 06/02/2021 07:46:00 AM EDT [facility] [address] [place] [address] RESPIRATORY CARE REPORT ==== ---------NAME------- NUMBER SEX AGE ADMIT DISC. XRAY# F/C TYPESMICHELINE PHILLIPS [id number] F 85 05/30/21 05/30/21 [id number] E/R DATE OF : 1935 M/R# [id number] #: [id number] TR-03 LOCATION[place] [address] COMP LETE:05/30/21 14:25 [facility] [address] PHYSICIAN: TORI Lopez Name Value Range Interpretation Code Description Data Ladi rce(s) Supporting Document(s) ID Date Data Source [id number] 06/01/2021 02:02:00 PM EDT [facility] [address] [place] [address] PHONE: [phone] FAX: [phone] Name .................. : GUME PHILLIPS Acct Number.................. : [id number] ROOM. ................. : TR-03 MR Number ................... : [id number] Stay type ............. : E/R Discharge Date......... ... : 05/30/21 Admit Date ......... : 05/30/21 Admit Phys .................... : TORI Lopez Date of ....... : 1935 Family Phys ................... : NO PCP Phone .................. : [phone] Age ................................ : 85 Film# .................. .:[id number] Sex ................................. : F Unsigned transcriptions are preliminary reports and do not represent a medical or legal document CT HEAD W/O CONTRAST [id number] COMPLETE:05/30/21 16:23 [place] [address]407 Reason(s): Vertigo/Dizziness CT BRAIN WITHOUT IV CONTRAST [...] postoperative sinus changes. Page 1 of 2 [place] [address] PHONE: FAX: [phone] Name .................. : GUME PHILLIPS Acct Number.................. : [id number] ROOM. ................. : TR-03 MR Number ................... : [id number] Stay type ............. : E/R Discharge Date......... ... : 05/30/21 Admit Date ......... : 05/30/21 Admit Phys .................... : TORI Lopez Date of ....... : 1935 Family Phys ................... : NO PCP Phone .................. : [phone] Age ................................ : 85 Film# .................. .:[id number] Sex ................................. : F Unsigned transcriptions are preliminary reports and do not represent a medical or legal document CT HEAD W/O CONTRAST [id number] COMPLETE:05/30/21 16:23 [place] [address] Reason(s): Vertigo/Dizziness Electronically Reviewed and Signed By Gunnar Bray MD , 06/01/21 14:02, SC[facility] Transcribe Initials: DZ , Transcribe Date: 05/30/21 22:12, Dictation Date: Copy for: EMERGENCY DEPT via modem Copy for: 710 MED REC DISCHARGED Page 2 of 2 Name Value Range Interpretation Code Description Data Ladi rce(s) Supporting Document(s) ID Date Data Source [id number] 06/01/2021 01:58:00 [place] [address] PHONE: [phone] FAX: [phone] Name .................. : GUME PHILLIPS Acct Number.................. : [id number] ROOM. ................. : TR-03 MR Number ................... : [id number] Stay type ............. : E/R Discharge Date......... ... : 05/30/21 Admit Date ......... : 05/30/21 Admit Phys .................... : TORI Lopez Date of ....... : 1935 Family Phys ................... : NO PCP Phone .................. : [phone] Age ................................ : 85 Film# .................. .:[id number] Sex ................................. : F Unsigned transcriptions are preliminary reports and do not represent a medical or legal document CHEST PORTABLE [id number] COMPLETE:05/30/21 16:23 [place] [address] Reason(s): Shortness of Breath PORTABLE CHEST SINGLE [...] rce(s) Supporting Document(s) ID Date Data Source [id number] 05/30/2021 11:06:00 AM EDT [facility] 1 OrderSheet [facility] Emergency Department [address] [place] [address] Phone #: ext- [phone] 05/30/2021 11:04 Patient: JACQUELINE DUNAWAY Sex: F : 1935 Age: 85yWEIGHT:57.2 kg (M) HEIGHT:65 inches (E) BMI:21.0ALLERGIES: PulmicortCHIEF COMPLAINT: dizzinessDIAGNOSIS: Anemia, Dizziness, Ventricular premature complexLAB ORDERSOrder Description Priority Entered Acknowledged InitialedCMP STAT 11:24 05/30 11:27 Tori Perez Jack ; Deborah JonesCBC w Diff STAT 11:24 05/30/2021 11:27 Tori Perez Jack ; Deborah JonesType and Screen STAT 11:24 05/30/2021 11:27 Tori Perez Jack ; Deborah JonesTroponin-T STAT 11:24 05/30/2021 11:27 Tori Perez Jack ; Deborah JonesMagnesium STAT 11:28 05/30/2021 11:29 Tori Perez Jack ; Deborah JonesOccult Blood Stool 14:10 05/30/2021 14:15 Carrington,Diagnostic 1 slide Justin Purcell ; Ava JonesDIAGNOSTIC STUDY ORDERSOrder Description Priority Entered Acknowledged InitialedChest Portable 1 STAT 11:24 05/30/2021 Ack'd: 11:27 11:31 Ranjana Perez Jack ; Deborah Perez R.N.(Oxygen?(No)) R.NLeona Reason for Study: Shortness of BreathCT Head W/O Cont STAT 11:24 05/30/2021 Ack'd: 11:27 11:41 Ana(Oxygen?(No)) Justin Purcell ; Deborah Perez R.N. R.NLeona Reason for Study: Vertigo/DizzinessMEDICATION/IV/DRIP/FLUID ORDERSOrder Description Priority Entered Acknowledged InitialedGENERAL ORDERSOrder Description Priority Entered Acknowledged In itialed 2 OrderSheet [facility] Emergency Department [address] [place] [address] Phone #: jjy- [phone] 05/30/2021 11:04 Patient: JACQUELINE DUNAWAY Sex: F : 1935 Age: 85yEKG 11:24 05/30/2021 11:27 Tori Perez Jack ; Deborah Jones[Electronically signed by Deborah Perez R.N. (15:22 05/30/2021)][Electronically signed by Justin Purcell (15:57 05/30/2021)][Electronically locked by Deborah Perez R.N. (15:05/30/2021)] Name Value Range Interpretation Code Description Data Ladi rce(s) Supporting Document(s) ID Date Data Source [id number] 05/30/2021 11:06:00 AM EDT [facility] 1 Medication Reconciliation Report [facility] Emergency Department [address] [place] [address] Phone #: ext- [phone] 05/30/2021 11:04 Patient: [...] rce(s) Supporting Document(s) ID Date Data Source [id number] 05/30/2021 11:06:00 AM EDT [facility] 1 Medication Administration Record [facility] Emergency Department [address] [place] [address] Phone #: ext- [phone] 05/30/2021 11:04 Patient: JACQUELINE DUNAWAY Sex: F : 1935 Age: 85yWeight: 57.2 kgHeight/Length: 65 inBMI: 21ALLERGIES: PulmicortDate/Time Medication Administered Medication Ordered Name Value Range Interpretation Code Description Data Ladi e(s) Supporting Document(s) ID Date Data Source [id number] 05/30/2021 11:06:00 AM EDT [facility] 1 General Instructions [facility] Emergency Department [address] [place] [address] Phone #: ext- [phone] 05/30/2021 11:04 Patient: JACQUELINE DUNAWAY Sex: F [...] about: All medicines you take, including prescription, hndf-iws-soiveew, herbs, and supplements Any other symptoms you have 2 General Instructions [facility] Emergency Department [address] [place] [address] Phone #: ext- [phone] 05/30/2021 11:04 Patient: [...] side of the face 3 General Instructions [facility] Emergency Department [address] [place] [address] Phone #: ext- [phone] 05/30/2021 11:04 Patient: JACQUELINE DUNAWAY Sex: F : 1935 Age: 85y Blood in vomit or stool (black or red color) Shortness of breath Feeling that your heart is fluttering or beating fast or hard (palpitations) Passing out or seizure Trouble walking or speaking [phone] [place] [address]. All rights reserved. This information is not [...] to find out the 4 General Instructions [facility] Emergency Department [address] [place] [address] Phone #: ext- [phone] 05/30/2021 11:04 Patient: JACQUELINE DUNAWAY Sex: F : 1935 Age: 85yexact cause of your anemia. If you had testing done today, it may take several days to get all of theresults. You can follow up with your own healthcare provider to get the results.Call [phone] or get immediate medical care if any of the following occur: Shortness of breath or chest pain Dizziness or fainting gets worse Vomiting blood or passing red or black-colored stool [phone] [place] [address]. All rights reserved. This information is not intended as asubstitute for professional medical care. Always follow your healthcare professional's instructions.Heart PalpitationsPalpitations are the feeling that your heart is beating hard, fast, or irregular. Some describe it as"pounding," "flip-flopping in the chest," or "skipped beats." Palpitations may occur in someone withheart disease. But they can also occur in a healthy person. 5 General Instructions [facility] Emergency Department [address] [place] [address] Phone #: ext- [phone] 05/30/2021 11:04 Patient: JACQUELINE DUNAWAY Sex: F : 1935 Age: 85yHeart-related causes: Heart rhythm problem (arrhythmia) Heart valve disease Disease of the heart muscle (cardiomyopathy) Coronary artery disease High blood ikqrdhwqShy-rjnwn-afovvgp causes: Certain medicines such as asthma inhalers [...] Tell your doctor about any prescription or tygd-gba-mukakdh or herbal medicines you take.Follow-up care Follow up with your doctor, or as advised.Call 911This is the fastest and safest way to get to the emergency department. The paramedics can also starttreatment on the way to the hospital, if needed.Don't wait until your symptoms are severe to call 911. These are reasons to call 911: Chest pain Shortness of breath 6 General Instructions [facility] Emergency Department [address] [place] [address] Phone #: ext- [phone] 05/30/2021 11:04 Patient: [...] normal, or aredifferent from your past palpitations. [phone] [employer]. [address] [place] [address]. All rights reserved. This information is not intended as asubstitute for professional medical care. Always follow your healthcare professional's instructions. You have been given the following additional information: Dizziness, Uncertain Cause Anemia, Type Not Specified (Adult) Palpitations(Electronically signed by Justin Purcell 05/30/2021 15:57) Name Value Range Interpretation Code Description Data Ladi rce(s) Supporting Document(s) ID Date Data Source [id number] 05/30/2021 11:06:00 AM EDT [facility] 1 Clinical Report - Nurses [facility] Emergency Department [address] [place] [address] Phone #: ext- [phone] 05/30/2021 11:04 Patient: JACQUELINE DUNAWAY Sex: F : 1935 Age: 85yTRIAGEArrived by EMS. Historian: EMS and patient. Unaccompanied.Triage time: 11:07 05/30/2021. Acuity: LEVEL 3.Chief Complaint: DIZZINESS.Alert. No acute distress.This started 3 weeks ago. ( EMS noted several PVCs on the way here. Pt took Zofran this am with n mirelaffect. Pt has taken Doxy for the last 5 yrs. Pt has had dizziness for 3 weeks. Pts heart rate has variedfrom 42-135 today during vital signs with home health aide. Pt contacted her PCP on regarding this.Pt feels nausea but doesn't want to vomit.). She has had nausea and trouble walking.Treatment [employer]:None.SEPSIS SCREEN: SIRS SCREEN NEGATIVE. SEPSIS SCREEN NEGATIVE. No suspected or confirmedsigns of infection present.[facility] SCORE: 15- eyes open- spontaneous (4); best verbal response- oriented (5); bestmotor response- obeys commands (6). --11:15 05/30/21 Ava Carrington R.N.11:07 05/30/21. BP: 148/90. MAP: 109. HR: 82. RR: 18. O2 saturation: 97% on room air. Temp: 97.8 F(oral). Pain level now: 010. --11:15 05/30/21 Ava Carrington R.N.Weight: 57.2 kg [...] Carrington R.N.PROBLEMS: 2 Clinical Report - Nurses [facility] Emergency Department [address] [place] [address] Phone #: ext- [phone] 05/30/2021 11:04 Patient: JACQUELINE DUNAWAY [facility]#: [id number] Sex: F : 1935 Age: 85yAsthma.Infected hip [...] --11:30 05/30/21 Justin Purcell.InterventionsIdentification band on patient. --11:15 05/30/21 Ava Carrington R.N. 3 Clinical Report - Nurses [facility] Emergency Department [address] [place] [address] Phone #: ext- [phone] 05/30/2021 11:04 Patient: [...] Perez R.N. late entry - 11:11 05/30/21. color television console monitor, NIBP monitor and pulse oximeter placed on patient; secured entrance monitor- Lead II; monitor alarms on; monitor strip [...] CT by stretcher with mask and radiology services manager. --11:42 05/30/21 Deborah Perez R.N. Patient returned from CT by stretcher with mask and radiology services manager. --11:50 05/30/21 Deborah Perez R.N. Rounding: Pain: [...] unchanged, NAD). 4 Clinical Report - Nurses [facility] Emergency Department [address] [place] [address] Phone #: ext- [phone] 05/30/2021 11:04 Patient: JACQUELINE DUNAWAY Sex: F [...] states feels the same. ( stool for guiac obtained by ). --15:21 21 Deborah Perez R.N.DISPOSITION / DISCHARGE Departure time: late entry - 14:14 05/30/2021. Condition at departure: improved and stable. No learning barriers present. Discharge instructions provided and reviewed with the patient. Reviewed warnings (please see paper copy). Patient verbalized understanding. Written instructions provided in Spanish. The patient was discharged by the physician. She was discharged home and accompanied by family. She left in a wheelchair and via private vehicle. Family member driving (daughter). --15:22 05/30/21 Deborah Perez R.N. 14:14 05/30/21. BP: 137/74. [...] Perez R.N. 5 Clinical Report - Nurses [facility] Emergency Department [address] [place] [address] Phone #: ext- [phone] 05/30/2021 11:04 [id number] Sex: F : 1935 Age: 85yLocked/Released at 05/30/2021 15:22 by Deborah Perez R.N. Name Value Range Interpretation Code Description Data Ladi rce(s) Supporting Document(s) ID Date Data Source [id number] 05/30/2021 11:06:00 AM EDT [facility] 1 Clinical Report - Physicians/Mid Levels [facility] Emergency Department [address] [place] [address] Phone #: ext- [phone] 05/30/2021 11:04 Patient: [...] get any answers from her PCP or Religious. No new medications, palpitations or chest pain. [...] daily. 2 Clinical Report - Physicians/Mid Levels [facility] Emergency Department [address] [place] [address] Phone #: ext- [phone] 05/30/2021 11:04 Patient: JACQUELINE DUNAWAY Sex: F [...] results 3 Clinical Report - Physicians/Mid Levels [facility] Emergency Department [address] [place] [address] Phone #: [phone] nqo- [phone] 05/30/2021 11:04 Patient: JACQUELINE DUNAWAY Sex: F : 1935 Age: 85y Test Result Flag Units (Reference) OCCULT BLOOD NEGATIVE (NORMAL: NEGAT OCCULT BLOOD REENTER NEGATIVE (NORMAL: NEGAT { HEMOCCULT LOT # [id number] ){ LOT EXP [id number] ){ PROCEDURAL CONTROL POS/NEG VALID)Direct Heath: (ZOLTAN: [...] Male GFR Interprentation 20-49 yrs >60 mL/min Ghjahs14-07 yrs >56 mL/min Normal 60-69 yrs >49 mL/min Normal 70-79yrs>42 mL/min Normal 80 and above >35 mL/min Normal Female GFRInterpretation 20-39 yrs >60 mL/min Normal 40-49 yrs >58 mL/minNormal 50- 59 yrs >51 mL/min Normal 60-69 yrs >45 mL/min Mbdzgx64-60 yrs >39 mL/min Normal 80 and above >32 mL/min NormalCBC w Diff: (ZOLTAN: 05/30/2021 12:12) ( MsgRcvd 05/30/2021 12:43) Final results Test Result Flag Units (Reference) CBC W/AUTOMATED DIFF COMPLETE BLOOD COUNT WBC 4.3 10/uL (4.2 - 11.0) 4 Clinical Report - Physicians/Mid Levels [facility] Emergency Department [address] [place] [address] Phone #: [phone] 05/30/2021 11:04 Patient: [...] Type and Screen: (ZOLTAN: 05/30/2021 12:12) ( [facility] [place] 05/30/2021 14:38) Final results Test Result Flag Units (Reference) ABO GROUP O RH TYPE POSITIVE AB SCREEN POSITIVE A (NORMAL: NEGAT { ABO/RH REENTER O POSITIVE{ AB SCREEN RE-ENTER POSITIVE Troponin-T: (ZOLTAN: 05/30/2021 12:12) ( [facility]/30/2021 13:24) Final results Test Result Flag [...] stable. 5 Clinical Report - Physicians/Mid Levels [facility] Emergency Department [address] [place] [address] Phone #: [phone] 05/30/2021 11:04 Patient: JACQUELINE DUNAWAY Sex: F [...] rce(s) Supporting Document(s) ID Date Data Source [id number] 05/30/2021 02:49:00 PM EDT [facility] Name Value Range Interpretation Code Description Data [facility] rce(s) Supporting Document(s) OCCULT BLOOD NEGATIVE NORMAL: NEGATIVE [facility] OCCULT BLOOD REENTER NEGATIVE NORMAL: NEGATIVE [facility] { HEMOCCULT LOT # [id number] ){ LOT EXP DATE 01-19-22 ){ PROCEDURAL CONTROL POS/NEG VALID ) ID Date Data Source [id number] 06/02/2021 10:35:00 AM [facility] Name Value Range Interpretation Code Description Data [facility] rce(s) Supporting Document(s) Blood group antibodies identified in Serum or Plasma Anti-Fy(a) Wu [facility] XXX blood group Ab [Titer] in Serum or Plasma by Antihuman globulin 1 6 NA [facility] If a numerical titer result has been rep orted, please note that thisresult is the reciprocal value of titer results formerly reported as1:2,1:4, 1:8, etc. These results are now reported as 2, 4, 8, etc.The [employer] has recommended this changein titer reporting formats to simply reflect the reciprocal value ofthe titer. ID Date Data Source [id number] 05/30/2021 03:49:00 PM EDT [facility] Name Value Range Interpretation Code Description Data Ladi rce(s) Supporting Document(s) Direct antiglobulin test.IgG specific re agent [Interpretation] on Red Blood Cells POSITIVE NORMAL: NEGATIVE [facility] { DIR HEATH RE-ENTER POSITIVE (NORMAL: NEGATIVE ) ID Date Data Source [id number] 05/30/2021 02:37:00 PM EDT [facility] Name Value Range Interpretation Code Description Data Ladi rce(s) Supporting Document(s) ABO group [Type] in Blood O [facility] Rh [Type] in Blood POSITIVE [facility] AB SCREEN POSITIVE NORMAL: NEGATIVE A [facility] { ABO/RH REENTER O POSITIVE{ AB SCREEN RE-ENTER POSITIVE ID Date Data Source [id number] 05/30/2021 01:24:00 PM EDT [facility] Name Value Range Interpretation Code Description Data Ladi rce(s) Supporting Document(s) TROPONIN T 0.02 NG/ML 0.00 - 0.10 [facility] spital TROPONIN T0.1 ng/ml Recommended as the c linical threshold value forTroponin T. ID Date Data Source [id number] 05/30/2021 01:24:00 PM EDT [facility] Name Value Range Interpretation Code Description Data Ladi rce(s) Supporting Document(s) COMPREHENSIVE METABOLIC PANEL [facility] COMPREHENSIVE METABOLIC PANEL Sodium [Moles/volume] in Serum or Plasma 140 mEq/L 134 - 153 [facility] Potassium [Moles/volume] in Serum or Plasma 4.5 mEq/L 3.6 - 5.0 [facility] Chloride [Moles/volume] in Serum or Plasma 102 mEq/L 98 - 107 [facility] Carbon dioxide, total [Moles/volume] in Serum or Plasma 27 MEQ/L 22 - 30 [facility] Glucose [Mass/volume] in Serum or Plasma 95 MG/DL 70 - 99 [facility] BUN 15 MG/DL 7 - 21 [facility] Creatinine [Mass/volume] in Serum or Plasma 0.7 MG/DL 0.7 - 1.5 [facility] BUN/CREAT 21 8 - 27 [facility] Protein [Mass/volume] in Serum or Plasma 6.9 G/DL 6.3 - 8.2 [facility] Albumin [Mass/volume] in Serum or Plasma 3.2 G/DL 3.9 - 5.0 L [facility] Globulin [Mass/volume] in Serum by calculation 3.7 GM/DL 2.4 - 3.2 H [facility] A/G RATIO 0.9 0.8 - 2.0 [facility] al Calcium [Mass/volume] in Serum or Plasma 9.2 MG/DL 8.4 - 10.2 [facility] Bilirubin.total [Mass/volume] in Serum or Plasma <0.7 MG/DL 0.2 - 1.3 [facility] Alkaline phosphatase [Enzymatic activity/volume] in Serum or Plasma 77 U/L 38 - 126 [facility] Aspartate aminotransferase [Enzymatic activity/volume] in Serum or Plasma 13 U/L 5 - 40 [facility] Alanine aminotransferase [Enzymatic activity/volume] in Seru m or Plasma 5 U/L 7 - 56 L [facility] Anion gap 3 in Serum or Plasma 11.0 mmol/L 8.0 - 16.0 [facility] AGE 85 yrs [facility] NON-AA GFR >60 mL/min [facility] ital AFR AMER GFR >60 [facility] Male GFR In terprentation 20-49 [...] >32 mL/min Normal ID Date Data Source [id number] 05/30/2021 01:12:00 PM EDT [facility] Name Value Range Interpretation Code Description Data Ladi rce(s) Supporting Document(s) Magnesium [Mass/volume] in Serum or Plasma 1.7 MG/DL 1.7 - 2.2 [facility] ID Date Data Source [id number] 05/30/2021 12:43:00 PM EDT [facility] Name Value Range Interpretation Code Description Data Ladi rce(s) Supporting Document(s) CBC W/AUTOMATED DIFF [facility] COMPLETE BLOOD COUNT Leukocytes [#/volume] in Blood by Automated count 4.3 10^3/uL 4.2 - 1 1.0 [facility] Erythrocytes [#/volume] in Blood by Automated count 3.89 10^6/uL 4. 20 - 5.40 L [facility] Hemoglobin [Mass/volume] in Blood 8.8 g/dL 12.0 - 16.0 L [facility] Hematocrit [Volume Fraction] of Blood by Automated count 29.1 % 3 7.0 - 47.0 L [facility] Erythrocyte mean corpuscular volume [Entitic volume] by Auto mated count 74.8 fL 81.0 - 101 L [facility] Erythrocyte mean corpuscular hemoglobin [Entitic mass] by Automated count 22.6 pg 27.0 - 34.0 L [facility] Erythrocyte mean corpuscular hemoglobin concentration [Mass/volume] by Automated count 30.2 g/dL 31.0 - 36.0 L [facility] Erythrocyte distribution width [Ratio] by Automated count 17.9 % 11.5 - 14.5 H [facility] Platelets [#/volume] in Blood by Automated count 415 10^3/uL 150 - 45 0 [facility] Platelet mean volume [Entitic volume] in Blood by Automated count 9.9 fL 7.4 - 10.4 [facility] Neutrophils/100 leukocytes in Blood by Automated count 79.1 % 37. 0 - 80.0 [facility] Lymphocytes/100 leukocytes in Blood by Manual count 10.1 % 25.0 - 40.0 L [facility] Monocytes/100 leukocytes in Blood by Automated count 8.0 % 3.0 - 8.0 [facility] Eosinophils/100 leukocytes in Blood by Automated count 1.4 % 0.0 - 7.0 [facility] Basophils/100 leukocytes in Blood by Automated count 0.9 % 0.0 - 2.5 [facility] %IG 0.5 % 0.0 - 0.0 H [facility] %NRBC 0.0 % 0.0 - 0.0 [facility] Neutrophils [#/volume] in Blood by Automated count 3.38 10^3/uL 2.00 - 6.90 [facility] Lymphocytes [#/volume] in Blood by Automated count 0.43 10^3/uL 0.60 - 3.40 L [facility] Monocytes [#/volume] in Blood by Automated count 0.34 10^3/uL 0.00 - 0.90 [facility] Eosinophils [#/volume] in Blood by Automated count 0.06 10^3/uL 0.00 - 0.70 [facility] Basophils [#/volume] in Blood by Automated count 0.04 10^3/uL 0.00 - 0.20 [facility] #IG 0.02 10^3/uL 0.00 - 0.10 [facility] #NRBC 0.00 10^3/uL 0.00 - 0.00 [facility] MANUAL DIFF NOT INDICATED [facility] RBC MORPH NOT INDICATED [facility] ID Date Data Source WOUND CULTURE 02/03/2021 12:00:00 AM EDT eCW1 ([facility]) Name Value Range Interpretation Code Description Data Ladi rce(s) Supporting Document(s) FULL REPORT IN LAB NOTES (eCW and [facility]). WOUND CULTURE eCW1 ([facility]) ID Date Data Source TSH 01/19/2021 12:00:00 AM EDT eCW1 ([facility]) Name Value Range Interpretation Code Description Data Ladi rce(s) Supporting Document(s) 8.570 0.358-3.740 THYROID STIMULATING HORM ONE eCW1 ([facility]) THYROID STIMULATING HORMONE ID Date Data Source Reticulocyte Count Sysmex 01/19/2021 12:00:00 AM EDT eCW1 ([facility]) Name Value Range Interpretation Code Description Data Ladi rce(s) Supporting Document(s) 1.4 0.5-1.5 RETICULOCYTE % eCW1 ([facility]) ID Date Data Source FERRITIN 01/19/2021 12:00:00 AM EDT eCW1 ([facility]) Name Value Range Interpretation Code Description Data Ladi rce(s) Supporting Document(s) 37 8-252 FERRITIN eCW1 ([facility]) FERRITIN ID Date Data Source Comprehensive Metabolic Profile (CMP) 01/19/2021 12:00:00 AM EDT eCW1 ([facility]) Name Value Range Interpretation Code Description Data Ladi rce(s) Supporting Document(s) 24 7-18 BLOOD UREA NITROGEN eCW1 ([facility]) 0.68 0.55-1.30 CREATININE FOR GFR eCW1 ([facility]) 156 70-100 GLUCOSE, FASTING eCW1 ([facility]) 4.3 3.5-5.1 POTASSIUM SERUM eCW1 ([facility]) 104 98-107 CHLORIDE LEVEL eCW1 ([facility]) 138 136-145 SODIUM LEVEL eCW1 ([facility]) > 60.0 >32 GLOMERULAR FILTRATION RATE eCW 1 ([facility]) 8.6 8.8-10.2 CALCIUM LEVEL eCW1 ([facility]) 27 21-32 CARBON DIOXIDE LEVEL eCW1 ([facility]) 13 7-37 AST/SGOT eCW1 ([facility]) 0.4 0.2-1.0 BILIRUBIN,TOTAL eCW1 ([facility]) 13 12-78 ALT/SGPT eCW1 ([facility]) 94 45-117 ALKALINE PHOSPHATASE eCW1 ([facility]) 7.1 6.4-8.2 TOTAL PROTEIN eCW1 ([facility]) 0.5 1.2-2.2 ALBUMIN/GLOBULIN RATIO eCW1 ([facility]) 2.5 3.2-5.2 ALBUMIN eCW1 ([facility]) ID Date Data Source CBC with Differential 01/19/2021 12:00:00 AM EDT eCW1 ([facility]) Name Value Range Interpretation Code Description Data Ladi rce(s) Supporting Document(s) 5.8 4.0-10.0 WHITE BLOOD COUNT eCW1 ([facility]) 10.1 12.0-15.5 HEMOGLOBIN eCW1 ([facility]) 30.7 36.0-47.0 HEMATOCRIT eCW1 ([facility]) 3.88 4.00-5.40 RED BLOOD COUNT eCW1 ([facility]) 26.0 27.0-33.0 MEAN CORPUSCULAR HEMOGLOB IN eCW1 ([facility]) 79.1 80.0-96.0 MEAN CORPUSCULAR VOLUME e CW1 ([facility]) 32.9 32.0-36.5 MEAN CORPUSCULAR HGB CONC eCW1 ([facility]) 18.4 11.5-14.5 RED CELL DISTRIBUTION WID TH eCW1 ([facility]) 358 150-450 PLATELET COUNT, AUTOMATED eCW1 ([facility]) 7.8 2.0-8.0 MONO % eCW1 ([facility]) 15.5 24.0-44.0 LYMPH % eCW1 ([facility]) 73.1 36.0-66.0 NEUTROPHILS % eCW1 ([facility]) 0.7 0.0-1.0 BASO % eCW1 ([facility]) 2.4 0.0-3.0 EOS % eCW1 ([facility]) 4.2 1.5-8.5 NEUTROPHILS # eCW1 ([facility]) 0.9 1.5-5.0 LYMPH # eCW1 ([facility]) 0.1 0.0-0.5 EOS # eCW1 ([facility]) 0.5 0.0-0.8 MONO # eCW1 ([facility]) 0.0 0.0-0.2 BASO # eCW1 ([facility]) ID Date Data Source NT-PRO BNP 01/19/2021 12:00:00 AM EDT eCW1 ([facility]) Name Value Range Interpretation Code Description Data Ladi rce(s) Supporting Document(s) 2338 <450 NT-PRO BNP eCW1 ([facility]) ID Date Data Source FREE T4 BY DIALYSIS DIRECT 06/17/2020 05:43:42 AM EDT eCW1 ( [facility]) Name Value Range Interpretation Code Description Data Ladi rce(s) Supporting Document(s) 1.6 eCW1 ([facility]) ID Date Data Source RBC FOLATE PROFILE 06/17/2020 05:43:27 AM EDT eCW1 ([facility]) Name Value Range Interpretation Code Description Data Ladi rce(s) Supporting Document(s) 36.2 HEMATOCRIT eCW1 ([facility]) 707 RBC FOLATE eCW1 ([facility]) ID Date Data Source [id number] 07/02/2020 08:47:52 AM EST [facility]qu[facility] Singleton: 1935Provider: Livia [...] RATE 06/12/2020 03:07:47 AM EDT eC W1 ([facility]) Name Value Range Interpretation Code Description Data Ladi rce(s) Supporting Document(s) 77 ERYTHROCYTE SEDIMENTATION RATE eCW1 ([facility]) ERYTHROCYTE SEDIMENTATION RATE ID Date Data Source CBC - Complete Blood Count 06/12/2020 03:07:42 AM EDT eCW1 ( [facility]) Name Value Range Interpretation Code Description Data Ladi rce(s) Supporting Document(s) 4.53 eCW1 ([facility]) 10.7 eCW1 ([facility]) 6.6 eCW1 ([facility]) 29.6 eCW1 ([facility]) 23.6 eCW1 ([facility]) 79.9 eCW1 ([facility]) 36.2 eCW1 ([facility]) 393 eCW1 ([facility]) 21.5 eCW1 ([facility]) ID Date Data Source C REACTIVE PROTEIN QUANTITATIV (At [facility]) 06/10/2020 08:02 :45 AM EDT eCW1 ([facility]) Name Value Range Interpretation Code Description Data Ladi rce(s) Supporting Document(s) 11.10 C REACTIVE PROTEIN QUANTI TATIV eCW1 ([facility]) C REACTIVE PROTEIN QUANTITATIV ID Date Data Source VITAMIN D 25-HYDROXY 06/10/2020 08:02:32 AM EDT eCW1 ([facility]) Name Value Range Interpretation Code Description Data Ladi rce(s) Supporting Document(s) 45.9 TOTAL 25(OH) VITAMIN D eCW1 ([facility]) TOTAL 25(OH) VITAMIN D ID Date Data Source FREE T4 & TSH PANEL 06/10/2020 08:02:29 AM EDT eCW1 ([facility]) Name Value Range Interpretation Code Description Data Ladi rce(s) Supporting Document(s) 1.13 FREE T4 eCW1 ([facility]) 14.200 THYROID STIMULATING HORMONE eC W1 ([facility]) ID Date Data Source PTH INTACT 06/10/2020 08:02:20 AM EDT eCW1 ([facility]) Name Value Range Interpretation Code Description Data Ladi rce(s) Supporting Document(s) 41.5 PTH INTACT eCW1 ([facility]) PTH INTACT ID Date Data Source VITAMIN B12 LEVEL 06/10/2020 08:02:18 AM EDT eCW1 ([facility]) Name Value Range Interpretation Code Description Data Ladi rce(s) Supporting Document(s) 508 VITAMIN B12 LEVEL eCW1 ([facility]) ID Date Data Source [id number] 05/30/2020 12:00:00 AM EDT [facility] Maurilio Chris MD Patient Name: DOUGLAS DUNAWAY Date of : 1935[place] [address] Date of Exam: 05/30/2020#: Fax: [phone] EXAM: CT LOWER EXTREMITY W/O CONTRASTCLINICAL INFORMATION: Pain and swelling. Patient has a history of acutaneous abscess.Low dose 64 slice helical scanning through the right hip was obtained using1 mm increments and reconstructed in both coronal and sagittal planes. 3Dreconstructions were also obtained. Post processing was performed at [employer] workstation.The latest prior dedicated right hip CT [...] compared to the prior exam.Accredited by the [employer] in [place].NGA Moseley/Ines you for referring JACQUELINE DUNAWAY to our office. Electronically Signed - KAYCE JUARES DO 06/02/20 10:24 Name Value Range Interpretation Code Description Data Ladi rce(s) Supporting Document(s) Procedure Social History Code Duration Value Status Description Data Source(s ) Smoking 06/17/2021 12:00:00 AM EDT Never Smoker completed Never S moker eCW1 ([facility]) Smoking 06/16/2021 12:00:00 AM EDT Never Smoker completed Never S moker eCW1 ([facility]) Smoking 06/06/2021 12:00:00 AM EDT Never Smoker completed Never S moker eCW1 ([facility]) Smoking 06/03/2021 12:00:00 AM EDT Never Smoker completed Never S moker eCW1 ([facility]) Smoking 05/13/2021 12:00:00 AM EDT Never Smoker completed Never S moker eCW1 ([facility]) Smoking 05/13/2021 12:00:00 AM EDT Never Smoker completed Never S moker eCW1 ([facility]) Smoking 04/22/2021 12:00:00 AM EDT Never Smoker completed Never S moker eCW1 ([facility]) Smoking 04/22/2021 12:00:00 AM EDT Never Smoker completed Never S moker eCW1 ([facility]) Smoking 04/22/2021 12:00:00 AM EDT Never Smoker completed Never S moker eCW1 ([facility]) Smoking 04/01/2021 12:00:00 AM EDT Never Smoker completed Never S moker eCW1 ([facility]) Smoking 03/17/2021 12:00:00 AM EDT Never Smoker completed Never S moker eCW1 ([facility]) Smoking 03/17/2021 12:00:00 AM EDT Never Smoker completed Never S moker eCW1 ([facility]) Smoking 02/18/2021 12:00:00 AM EDT Never Smoker completed Never S moker eCW1 ([facility]) Smoking 02/18/2021 12:00:00 AM EDT Never Smoker completed Never S moker eCW1 ([facility]) Smoking 02/10/2021 12:00:00 AM EDT Never Smoker completed Never S moker eCW1 ([facility]) Smoking 02/10/2021 12:00:00 AM EDT Never Smoker completed Never S moker eCW1 ([facility]) Smoking 02/10/2021 12:00:00 AM EDT Never Smoker completed Never S moker eCW1 ([facility]) Smoking 02/10/2021 12:00:00 AM EDT Never Smoker completed Never S moker eCW1 ([facility]) Smoking 02/03/2021 12:00:00 AM EDT Never Smoker completed Never S moker eCW1 ([facility]) Smoking 02/03/2021 12:00:00 AM EDT Never Smoker completed Never S moker eCW1 ([facility]) Smoking 01/15/2021 12:00:00 AM EDT Never Smoker completed Never S moker eCW1 ([facility]) Smoking 01/15/2021 12:00:00 AM EDT Never Smoker completed Never S moker eCW1 ([facility]) Smoking 01/15/2021 12:00:00 AM EDT Never Smoker completed Never S moker eCW1 ([facility]) Smoking 01/15/2021 12:00:00 AM EDT Never Smoker completed Never S moker eCW1 ([facility]) Smoking 01/15/2021 12:00:00 AM EDT Never Smoker completed Never S moker eCW1 ([facility]) Smoking 01/15/2021 12:00:00 AM EDT Never Smoker completed Never S moker eCW1 ([facility]) Smoking 01/15/2021 12:00:00 AM EDT Never Smoker completed Never S moker eCW1 ([facility]) Smoking 01/15/2021 12:00:00 AM EDT Never Smoker completed Never S moker eCW1 ([facility]) Smoking 01/14/2021 12:00:00 AM EDT Never Smoker completed Never S moker eCW1 ([facility]) Smoking 12/24/2020 12:00:00 AM EDT Never Smoker completed Never S moker eCW1 ([facility]) Smoking 12/24/2020 12:00:00 AM EDT Never Smoker completed Never S moker eCW1 ([facility]) Smoking 12/03/2020 12:00:00 AM EDT Never Smoker completed Never S moker eCW1 ([facility]) Smoking 12/03/2020 12:00:00 AM EDT Never Smoker completed Never S moker eCW1 ([facility]) Smoking 11/18/2020 12:00:00 AM EDT Never Smoker completed Never S moker eCW1 ([facility]) Smoking 11/12/2020 12:00:00 AM EDT Never Smoker completed Never S moker eCW1 ([facility]) Smoking 10/22/2020 12:00:00 AM EST Never Smoker completed Never S moker eCW1 ([facility]) Smoking 10/22/2020 12:00:00 AM EST Never Smoker completed Never S moker eCW1 ([facility]) Smoking 10/01/2020 12:00:00 AM EST Never Smoker completed Never S moker eCW1 ([facility]) Smoking 09/18/2020 12:00:00 AM EST Never Smoker completed Never S moker eCW1 ([facility]) Smoking 09/18/2020 12:00:00 AM EST Never Smoker completed Never S moker eCW1 ([facility]) Smoking 09/18/2020 12:00:00 AM EST Never Smoker completed Never S moker eCW1 ([facility]) Smoking 09/18/2020 12:00:00 AM EST Never Smoker completed Never S moker eCW1 ([facility]) Smoking 09/18/2020 12:00:00 AM EST Never Smoker completed Never S moker eCW1 ([facility]) Smoking 09/10/2020 12:00:00 AM EST Never Smoker completed Never S moker eCW1 ([facility]) Smoking 08/27/2020 12:00:00 AM EST Never Smoker completed Never S moker eCW1 ([facility]) Smoking 08/27/2020 12:00:00 AM EST Never Smoker completed Never S moker eCW1 ([facility]) Smoking 08/27/2020 12:00:00 AM EST Never Smoker completed Never S moker eCW1 ([facility]) Smoking 07/14/2020 12:00:00 AM EST Never Smoker completed Never S moker eCW1 ([facility]) Smoking 07/14/2020 12:00:00 AM EST Never Smoker completed Never S moker eCW1 ([facility]) Smoking 06/25/2020 12:00:00 AM EST Never Smoker completed Never S moker eCW1 ([facility]) Smoking 06/25/2020 12:00:00 AM EST Never Smoker completed Never S moker eCW1 ([facility]) Smoking 06/25/2020 12:00:00 AM EST Never Smoker completed Never S moker eCW1 ([facility]) Smoking 06/16/2020 12:00:00 AM EDT Never Smoker completed Never S moker eCW1 ([facility]) Smoking 06/10/2020 12:00:00 AM EDT Never Smoker completed Never S moker eCW1 ([facility]) Smoking 06/10/2020 12:00:00 AM EDT Never Smoker completed Never S moker eCW1 ([facility]) Smoking 05/26/2020 12:00:00 AM EDT Never Smoker completed Never S moker eCW1 ([facility]) Smoking 05/26/2020 12:00:00 AM EDT Never Smoker completed Never S moker eCW1 ([facility]) Smoking 05/26/2020 12:00:00 AM EDT Never Smoker completed Never S moker eCW1 ([facility]) Vital Signs ID Date Data Source UNK Name Value Range Interpretation Code Description Data Source(s) Body weight 119 [lb_av] 119 [lb_av] eCW1 ([facility]) Body height 66 [in_i] 66 [in_i] eCW1 ([facility]) Body mass index (BMI) [Ratio] 19.21 kg/m2 19.21 kg/m2 eCW1 ([facility]) Heart rate 50 /min 50 /min eCW1 ([facility]) Respiratory rate 16 /min 16 /min eCW1 ([facility]) Body temperature 98.2 [degF] 98.2 [degF] eCW1 ( [facility]) Systolic blood pressure 162 mm[Hg] 162 mm[Hg] e CW1 ([facility]) Diastolic blood pressure 85 mm[Hg] 85 mm[Hg] eCW1 ([facility]) Body weight 119 [lb_av] 119 [lb_av] eCW1 ([facility]) Body height 66 [in_i] 66 [in_i] eCW1 ([facility]) Body mass index (BMI) [Ratio] 19.21 kg/m2 19.21 kg/m2 eCW1 ([facility]) Systolic blood pressure 100 mm[Hg] 100 mm[Hg] e CW1 ([facility]) Diastolic blood pressure 60 mm[Hg] 60 mm[Hg] eCW1 ([facility]) Body temperature 97.1 [degF] 97.1 [degF] eCW1 ( [facility]) Body weight 129 [lb_av] 129 [lb_av] eCW1 ([facility]) Body height 66 [in_i] 66 [in_i] eCW1 ([facility]) Body mass index (BMI) [Ratio] 20.82 kg/m2 20.82 kg/m2 eCW1 ([facility]) Heart rate 101 /min 101 /min eCW1 ([facility]) Respiratory rate 17 /min 17 /min eCW1 ([facility]) Systolic blood pressure 127 mm[Hg] 127 mm[Hg] e CW1 ([facility]) Diastolic blood pressure 66 mm[Hg] 66 mm[Hg] eCW1 ([facility]) Body weight 129 [lb_av] 129 [lb_av] eCW1 ([facility]) Body height 66 [in_i] 66 [in_i] eCW1 ([facility]) Body mass index (BMI) [Ratio] 20.82 kg/m2 20.82 kg/m2 eCW1 ([facility]) Heart rate 50 /min 50 /min eCW1 ([facility]) Respiratory rate 18 /min 18 /min eCW1 ([facility]) Body temperature 98.5 [degF] 98.5 [degF] eCW1 ( [facility]) Body weight 129.3 [lb_av] 129.3 [lb_av] eCW1 ([facility]) Body weight 58.65 kg 58.65 kg eCW1 ([facility]) Body height 66 [in_i] 66 [in_i] eCW1 ([facility]) Body mass index (BMI) [Ratio] 20.87 kg/m2 20.87 kg/m2 eCW1 ([facility]) Heart rate 67 /min 67 /min eCW1 ([facility]) Respiratory rate 20 /min 20 /min eCW1 ([facility]) Body temperature 97.9 [degF] 97.9 [degF] eCW1 ( [facility]) Systolic blood pressure 136 mm[Hg] 136 mm[Hg] e CW1 ([facility]) Diastolic blood pressure 58 mm[Hg] 58 mm[Hg] eCW1 ([facility]) Systolic blood pressure 130 mm[Hg] 130 mm[Hg] e CW1 ([facility]) Body mass index (BMI) [Ratio] 20.58 kg/m2 20.58 kg/m2 eCW1 ([facility]) Body weight 127.5 [lb_av] 127.5 [lb_av] eCW1 ([facility]) Heart rate 55 /min 55 /min eCW1 ([facility]) Respiratory rate 19 /min 19 /min eCW1 ([facility]) Body temperature 97 [degF] 97 [degF] eCW1 ([facility]) Diastolic blood pressure 62 mm[Hg] 62 mm[Hg] eCW1 ([facility]) Body height 66 [in_i] 66 [in_i] eCW1 ([facility]) Body weight 127.4 [lb_av] 127.4 [lb_av] eCW1 ([facility]) Body height 66 [in_i] 66 [in_i] eCW1 ([facility]) Body mass index (BMI) [Ratio] 20.56 kg/m2 20.56 kg/m2 eCW1 ([facility]) Systolic blood pressure 134 mm[Hg] 134 mm[Hg] e CW1 ([facility]) Diastolic blood pressure 64 mm[Hg] 64 mm[Hg] eCW1 ([facility]) Respiratory rate 18 /min 18 /min eCW1 ([facility]) Body weight 124 [lb_av] 124 [lb_av] eCW1 ([facility]) Body weight kg eCW1 ([facility]) Body height 66 [in_i] 66 [in_i] eCW1 ([facility]) Body mass index (BMI) [Ratio] 20.01 kg/m2 20.01 kg/m2 eCW1 ([facility]) Heart rate 87 /min 87 /min eCW1 ([facility]) Body temperature 98.4 [degF] 98.4 [degF] eCW1 ( [facility]) Systolic blood pressure 132 mm[Hg] 132 mm[Hg] e CW1 ([facility]) Diastolic blood pressure 82 mm[Hg] 82 mm[Hg] eCW1 ([facility]) Body weight 124 [lb_av] 124 [lb_av] eCW1 ([facility]) Body height 66 [in_i] 66 [in_i] eCW1 ([facility]) Body mass index (BMI) [Ratio] 20.01 kg/m2 20.01 kg/m2 eCW1 ([facility]) Heart rate 56 /min 56 /min eCW1 ([facility]) Respiratory rate 17 /min 17 /min eCW1 ([facility]) Body temperature 97.9 [degF] 97.9 [degF] eCW1 ( [facility]) Body weight kg eCW1 ([facility]) Respiratory rate 16 /min 16 /min eCW1 ([facility]) Diastolic blood pressure 75 mm[Hg] 75 mm[Hg] eCW1 ([facility]) Body weight 124 [lb_av] 124 [lb_av] eCW1 ([facility]) Body weight kg eCW1 ([facility]) Body height 66 [in_i] 66 [in_i] eCW1 ([facility]) Body mass index (BMI) [Ratio] 20.01 kg/m2 20.01 kg/m2 eCW1 ([facility]) Heart rate 54 /min 54 /min eCW1 ([facility]) Systolic blood pressure 180 mm[Hg] 180 mm[Hg] e CW1 ([facility]) Body temperature 95.9 [degF] 95.9 [degF] eCW1 ( [facility]) Body weight 124 [lb_av] 124 [lb_av] eCW1 ([facility]) Body weight kg eCW1 ([facility]) Body height 66 [in_i] 66 [in_i] eCW1 ([facility]) Body mass index (BMI) [Ratio] 20.01 kg/m2 20.01 kg/m2 eCW1 ([facility]) Heart rate 64 /min 64 /min eCW1 ([facility]) Respiratory rate 18 /min 18 /min eCW1 ([facility]) Body temperature 98.3 [degF] 98.3 [degF] eCW1 ( [facility]) Systolic blood pressure 167 mm[Hg] 167 mm[Hg] e CW1 ([facility]) Diastolic blood pressure 74 mm[Hg] 74 mm[Hg] eCW1 ([facility]) Body weight kg eCW1 ([facility]) Body weight [lb_av] eCW1 ([facility]) Body height 66 [in_i] 66 [in_i] eCW1 ([facility]) Body mass index (BMI) [Ratio] 20.01 kg/m2 20.01 kg/m2 eCW1 ([facility]) Heart rate 41 /min 41 /min eCW1 ([facility]) Respiratory rate 20 /min 20 /min eCW1 ([facility]) Body temperature 98.6 [degF] 98.6 [degF] eCW1 ( [facility]) Systolic blood pressure 142 mm[Hg] 142 mm[Hg] e CW1 ([facility]) Diastolic blood pressure 60 mm[Hg] 60 mm[Hg] eCW1 ([facility]) Body weight [lb_av] eCW1 ([facility]) Body weight kg eCW1 ([facility]) Body height 66 [in_i] 66 [in_i] eCW1 ([facility]) Body mass index (BMI) [Ratio] 20.01 kg/m2 20.01 kg/m2 eCW1 ([facility]) Heart rate 41 /min 41 /min eCW1 ([facility]) Respiratory rate 20 /min 20 /min eCW1 ([facility]) Body temperature 98.6 [degF] 98.6 [degF] eCW1 ( [facility]) Systolic blood pressure 142 mm[Hg] 142 mm[Hg] e CW1 ([facility]) Diastolic blood pressure 60 mm[Hg] 60 mm[Hg] eCW1 ([facility]) Body weight 124 [lb_av] 124 [lb_av] eCW1 ([facility]) Body weight kg eCW1 ([facility]) Body height 66 [in_i] 66 [in_i] eCW1 ([facility]) Body mass index (BMI) [Ratio] 20.01 kg/m2 20.01 kg/m2 eCW1 ([facility]) Heart rate 42 /min 42 /min eCW1 ([facility]) Respiratory rate 18 /min 18 /min eCW1 ([facility]) Body temperature 98.1 [degF] 98.1 [degF] eCW1 ( [facility]) Systolic blood pressure 140 mm[Hg] 140 mm[Hg] e CW1 ([facility]) Diastolic blood pressure 60 mm[Hg] 60 mm[Hg] eCW1 ([facility]) Body mass index (BMI) [Ratio] 20.01 kg/m2 20.01 kg/m2 eCW1 ([facility]) Heart rate 66 /min 66 /min eCW1 ([facility]) Respiratory rate 18 /min 18 /min eCW1 ([facility]) Body temperature 97.6 [degF] 97.6 [degF] eCW1 ( [facility]) Systolic blood pressure 132 mm[Hg] 132 mm[Hg] e CW1 ([facility]) Diastolic blood pressure 66 mm[Hg] 66 mm[Hg] eCW1 ([facility]) Body weight [lb_av] eCW1 ([facility]) Body height 66 [in_i] 66 [in_i] eCW1 ([facility]) Systolic blood pressure 133 mm[Hg] 133 mm[Hg] e CW1 ([facility]) Body weight kg eCW1 ([facility]) Body height 66 [in_i] 66 [in_i] eCW1 ([facility]) Body mass index (BMI) [Ratio] 20.01 kg/m2 20.01 kg/m2 eCW1 ([facility]) Heart rate 56 /min 56 /min eCW1 ([facility]) Respiratory rate 18 /min 18 /min eCW1 ([facility]) Body temperature 97.5 [degF] 97.5 [degF] eCW1 ( [facility]) Body weight 124 [lb_av] 124 [lb_av] eCW1 ([facility]) Diastolic blood pressure 64 mm[Hg] 64 mm[Hg] eCW1 ([facility]) Body weight 124 [lb_av] 124 [lb_av] eCW1 ([facility]) Body weight kg eCW1 ([facility]) Body height 66 [in_i] 66 [in_i] eCW1 ([facility]) Body mass index (BMI) [Ratio] 20.01 kg/m2 20.01 kg/m2 eCW1 ([facility]) Heart rate 59 /min 59 /min eCW1 ([facility]) Respiratory rate 17 /min 17 /min eCW1 ([facility]) Body temperature 98.3 [degF] 98.3 [degF] eCW1 ( [facility]) Systolic blood pressure 154 mm[Hg] 154 mm[Hg] e CW1 ([facility]) Diastolic blood pressure 67 mm[Hg] 67 mm[Hg] eCW1 ([facility]) Body weight 124 [lb_av] 124 [lb_av] eCW1 ([facility]) Body weight 56.25 kg 56.25 kg eCW1 ([facility]) Body height 66 [in_i] 66 [in_i] eCW1 ([facility]) Body mass index (BMI) [Ratio] 20.01 kg/m2 20.01 kg/m2 eCW1 ([facility]) Systolic blood pressure 160 mm[Hg] 160 mm[Hg] e CW1 ([facility]) Diastolic blood pressure 58 mm[Hg] 58 mm[Hg] eCW1 ([facility]) Body weight 124 [lb_av] 124 [lb_av] eCW1 ([facility]) Body weight kg eCW1 ([facility]) Body height 66 [in_i] 66 [in_i] eCW1 ([facility]) Body mass index (BMI) [Ratio] 20.01 kg/m2 20.01 kg/m2 eCW1 ([facility]) Heart rate 82 /min 82 /min eCW1 ([facility]) Respiratory rate 18 /min 18 /min eCW1 ([facility]) Body temperature 98.1 [degF] 98.1 [degF] eCW1 ( [facility]) Body weight 124 [lb_av] 124 [lb_av] eCW1 ([facility]) Body height 66 [in_i] 66 [in_i] eCW1 ([facility]) Body mass index (BMI) [Ratio] 20.01 kg/m2 20.01 kg/m2 eCW1 ([facility]) Systolic blood pressure 154 mm[Hg] 154 mm[Hg] e CW1 ([facility]) Diastolic blood pressure 79 mm[Hg] 79 mm[Hg] eCW1 ([facility]) Body temperature 98.1 [degF] 98.1 [degF] eCW1 ( [facility]) Body weight 124 [lb_av] 124 [lb_av] eCW1 ([facility]) Body weight kg eCW1 ([facility]) Body height 66 [in_i] 66 [in_i] eCW1 ([facility]) Body mass index (BMI) [Ratio] 20.01 kg/m2 20.01 kg/m2 eCW1 ([facility]) Systolic blood pressure 152 mm[Hg] 152 mm[Hg] e CW1 ([facility]) Heart rate 56 /min 56 /min eCW1 ([facility]) Respiratory rate 18 /min 18 /min eCW1 ([facility]) Diastolic blood pressure 64 mm[Hg] 64 mm[Hg] eCW1 ([facility]) Body mass index (BMI) [Ratio] 20.11 kg/m2 20.11 kg/m2 eCW1 ([facility]) Heart rate 72 /min 72 /min eCW1 ([facility]) Body height 66 [in_i] 66 [in_i] eCW1 ([facility]) Respiratory rate 20 /min 20 /min eCW1 ([facility]) Body temperature 97.1 [degF] 97.1 [degF] eCW1 ( [facility]) Systolic blood pressure 140 mm[Hg] 140 mm[Hg] e CW1 ([facility]) Diastolic blood pressure 60 mm[Hg] 60 mm[Hg] eCW1 ([facility]) Body weight 124.6 [lb_av] 124.6 [lb_av] eCW1 ([facility]) Body weight 122 [lb_av] 122 [lb_av] eCW1 ([facility]) Body weight kg eCW1 ([facility]) Body height 66 [in_i] 66 [in_i] eCW1 ([facility]) Body mass index (BMI) [Ratio] 19.69 kg/m2 19.69 kg/m2 eCW1 ([facility]) Heart rate 51 /min 51 /min eCW1 ([facility]) Respiratory rate 18 /min 18 /min eCW1 ([facility]) Body temperature 97.3 [degF] 97.3 [degF] eCW1 ( [facility]) Systolic blood pressure 157 mm[Hg] 157 mm[Hg] e CW1 ([facility]) Diastolic blood pressure 70 mm[Hg] 70 mm[Hg] eCW1 ([facility]) Body weight 122 [lb_av] 122 [lb_av] eCW1 ([facility]) Body height 66 [in_i] 66 [in_i] eCW1 ([facility]) Body mass index (BMI) [Ratio] 19.69 kg/m2 19.69 kg/m2 eCW1 ([facility]) Heart rate 84 /min 84 /min eCW1 ([facility]) Respiratory rate 18 /min 18 /min eCW1 ([facility]) Body temperature 95.7 [degF] 95.7 [degF] eCW1 ( [facility]) Systolic blood pressure 161 mm[Hg] 161 mm[Hg] e CW1 ([facility]) Diastolic blood pressure 81 mm[Hg] 81 mm[Hg] eCW1 ([facility]) Body weight 122 [lb_av] 122 [lb_av] eCW1 ([facility]) Body height 66 [in_i] 66 [in_i] eCW1 ([facility]) Body mass index (BMI) [Ratio] 19.69 kg/m2 19.69 kg/m2 eCW1 ([facility]) Heart rate 67 /min 67 /min eCW1 ([facility]) Respiratory rate 18 /min 18 /min eCW1 ([facility]) Body temperature 97.6 [degF] 97.6 [degF] eCW1 ( [facility]) Systolic blood pressure 166 mm[Hg] 166 mm[Hg] e CW1 ([facility]) Diastolic blood pressure 86 mm[Hg] 86 mm[Hg] eCW1 ([facility]) Body mass index (BMI) [Ratio] 20.17 kg/m2 20.17 kg/m2 eCW1 ([facility]) Body weight 125 [lb_av] 125 [lb_av] eCW1 ([facility]) Body weight 56.7 kg 56.7 kg eCW1 ([facility]) Body height 66 [in_i] 66 [in_i] eCW1 ([facility]) Systolic blood pressure 126 mm[Hg] 126 mm[Hg] e CW1 ([facility]) Diastolic blood pressure 78 mm[Hg] 78 mm[Hg] eCW1 ([facility]) Body weight 125 [lb_av] 125 [lb_av] eCW1 ([facility]) Body weight kg eCW1 ([facility]) Body height 66 [in_i] 66 [in_i] eCW1 ([facility]) Body mass index (BMI) [Ratio] 20.17 kg/m2 20.17 kg/m2 eCW1 ([facility]) Heart rate 75 /min 75 /min eCW1 ([facility]) Respiratory rate 16 /min 16 /min eCW1 ([facility]) Body temperature 96.6 [degF] 96.6 [degF] eCW1 ( [facility]) Systolic blood pressure 138 mm[Hg] 138 mm[Hg] e CW1 ([facility]) Diastolic blood pressure 70 mm[Hg] 70 mm[Hg] eCW1 ([facility]) Body mass index (BMI) [Ratio] 20.17 kg/m2 20.17 kg/m2 eCW1 ([facility]) Body weight 125.0 [lb_av] 125.0 [lb_av] eCW1 ([facility]) Body height 66 [in_i] 66 [in_i] eCW1 ([facility]) Heart rate 843 /min 843 /min eCW1 ([facility]) Respiratory rate 20 /min 20 /min eCW1 ([facility]) Body temperature 98.3 [degF] 98.3 [degF] eCW1 ( [facility]) Systolic blood pressure 118 mm[Hg] 118 mm[Hg] e CW1 ([facility]) Diastolic blood pressure 62 mm[Hg] 62 mm[Hg] eCW1 ([facility]) Body weight 131 [lb_av] 131 [lb_av] eCW1 ([facility]) Body weight kg eCW1 ([facility]) Body height 66 [in_i] 66 [in_i] eCW1 ([facility]) Body mass index (BMI) [Ratio] 21.14 kg/m2 21.14 kg/m2 eCW1 ([facility]) Heart rate 95 /min 95 /min eCW1 ([facility]) Respiratory rate 20 /min 20 /min eCW1 ([facility]) Body temperature 97.1 [degF] 97.1 [degF] eCW1 ( [facility]) Systolic blood pressure 177 mm[Hg] 177 mm[Hg] e CW1 ([facility]) Diastolic blood pressure 73 mm[Hg] 73 mm[Hg] eCW1 ([facility]) Patient Treatment Plan of Care Planned Activity Planned Date Details Description Data Source (s) torsemide 5 MG Oral Tablet 01/20/2021 12:00:00 AM EDT eCW1 ([facility]) torsemide 5 MG Oral Tablet 01/20/2021 12:00:00 AM EDT eCW1 ([facility]) torsemide 5 MG Oral Tablet 01/20/2021 12:00:00 AM EDT eCW1 ([facility]) Ibuprofen 200 MG Oral Tablet 01/15/2021 12:00:00 AM EDT eCW1 ([facility]) Ibuprofen 200 MG Oral Tablet 01/15/2021 12:00:00 AM EDT eCW1 ([facility]) Ibuprofen 200 MG Oral Tablet 01/15/2021 12:00:00 AM EDT eCW1 ([facility]) Ibuprofen 200 MG Oral Tablet 01/15/2021 12:00:00 AM EDT eCW1 ([facility]) Ibuprofen 200 MG Oral Tablet 01/15/2021 12:00:00 AM EDT eCW1 ([facility]) Ibuprofen 200 MG Oral Tablet 01/15/2021 12:00:00 AM EDT eCW1 ([facility]) Ibuprofen 200 MG Oral Tablet 01/15/2021 12:00:00 AM EDT eCW1 ([facility]) Ibuprofen 200 MG Oral Tablet 01/15/2021 12:00:00 AM EDT eCW1 ([facility]) Commode Bedside - 01/12/2021 12:00:00 AM EDT eCW1 ([facility]) Commode Bedside - 01/12/2021 12:00:00 AM EDT eCW1 ([facility]) Commode Bedside - 01/12/2021 12:00:00 AM EDT eCW1 ([facility]) Commode Bedside - 01/12/2021 12:00:00 AM EDT eCW1 ([facility]) Commode Bedside - 01/12/2021 12:00:00 AM EDT eCW1 ([facility]) Commode Bedside - 01/12/2021 12:00:00 AM EDT eCW1 ([facility]) Commode Bedside - 01/12/2021 12:00:00 AM EDT eCW1 ([facility]) Commode Bedside - 01/12/2021 12:00:00 AM EDT eCW1 ([facility]) Omeprazole 40 MG Delayed Release Oral Capsule 09/22/2020 12:00:00 A M EST eCW1 ([facility]) Omeprazole 40 MG Delayed Release Oral Capsule 09/22/2020 12:00:00 A M EST eCW1 ([facility]) Omeprazole 40 MG Delayed Release Oral Capsule 09/22/2020 12:00:00 A M EST eCW1 ([facility]) Omeprazole 40 MG Delayed Release Oral Capsule 09/22/2020 12:00:00 A M EST eCW1 ([facility]) Omeprazole 40 MG Delayed Release Oral Capsule 09/22/2020 12:00:00 A M EST eCW1 ([facility]) Omeprazole 40 MG Delayed Release Oral Capsule 09/22/2020 12:00:00 A M EST eCW1 ([facility]) Omeprazole 40 MG Delayed Release Oral Capsule 09/22/2020 12:00:00 A M EST eCW1 ([facility]) Omeprazole 40 MG Delayed Release Oral Capsule 09/22/2020 12:00:00 A M EST eCW1 ([facility]) Omeprazole 40 MG Delayed Release Oral Capsule 09/22/2020 12:00:00 A M EST eCW1 ([facility]) Omeprazole 40 MG Delayed Release Oral Capsule 09/22/2020 12:00:00 A M EST eCW1 ([facility]) Omeprazole 40 MG Delayed Release Oral Capsule 09/22/2020 12:00:00 A M EST eCW1 ([facility]) Omeprazole 40 MG Delayed Release Oral Capsule 09/22/2020 12:00:00 A M EST eCW1 ([facility]) Hydroxyzine Hydrochloride 25 MG Oral Tablet 09/18/2020 12:00:00 AM EST eCW1 ([facility]) Hydroxyzine Hydrochloride 25 MG Oral Tablet 09/18/2020 12:00:00 AM EST eCW1 ([facility]) Hydroxyzine Hydrochloride 25 MG Oral Tablet 09/18/2020 12:00:00 AM EST eCW1 ([facility]) Hydroxyzine Hydrochloride 25 MG Oral Tablet 09/18/2020 12:00:00 AM EST eCW1 ([facility]) Hydroxyzine Hydrochloride 25 MG Oral Tablet 09/18/2020 12:00:00 AM EST eCW1 ([facility]) Morphine Sulfate 2 MG/ML Oral Solution 06/12/2020 12:00:00 AM EDT eCW1 ([facility]) Docusate Sodium 50 MG / sennosides, LONG TERM 8.6 MG Oral Ta blet 06/10/2020 12:00:00 AM EDT eCW1 ([facility]) Docusate Sodium 50 MG / sennosides, LONG TERM 8.6 MG Oral Ta blet 06/10/2020 12:00:00 AM EDT eCW1 ([facility]) Morphine Sulfate 4 MG/ML Oral Solution 06/10/2020 12:00:00 AM EDT eCW1 ([facility])
== END 2021-06-22 17:24 | disposition home or self-care (01) ==
LOC: M ED 19:16 → M ED INP 19:17 → UNDOADMOB 06-21 00:10 → ENRESERV 06-21 19:21 → M ED INP 06-21 20:41 → M MSPAV 06-21 20:41 → UNDODISOB 06-22 17:24 → M ED INP 06-30 09:47 → M MSPAV 06-30 09:47
PROVIDERS: ADMIT Internal Medicine; ATTEND Internal Medicine
DX: I49.3 Ventricular premature depolarization (principal); E83.42 Hypomagnesemia; I10 Essential (primary) hypertension; E03.9 Hypothyroidism, unspecified; F41.9 Anxiety disorder, unspecified; M85.9 Disorder of bone density and structure, unspecified; Z79.899 Other long term (current) drug therapy; D50.9 Iron deficiency anemia, unspecified; R73.03 Prediabetes; K44.9 Diaphragmatic hernia without obstruction or gangrene; Z88.0 Allergy status to penicillin; Z88.5 Allergy status to narcotic agent; Z88.8 Allergy status to other drugs, medicaments and biological substances
CPT/HCPCS: 36415; 70450; 71045; 80048; 80053; 80076; 82383; 82550; 82553; 83605; 83735; 83835; 83880; 84443; 84484; 85025; 85027; 85610; 85652; 85730; 86140; 87040; 87798; 90682; 93005; 93041; 93306; 94640; 94760; 96365; 96372; 96375; 97161; 97530; 99285; G0008; G0378; J1650; J3475

== ENCOUNTER → 2021-07-03 | Outpatient (REF) | payer MEDICARE, MEDICAID ==
[~2021-07-03] MED LIST changes: +AMLO25TA PO
[2021-07-03 15:56] LABS: HEMATOCRIT 23.8 % (36.0-47.0)
[2021-07-03 16:23] LABS: BASO % 0.5 % (0.0-1.0); EOS # 0.1 10^3/uL (0.0-0.5); EOS % 0.9 % (0.0-3.0); HEMATOCRIT 28.3 % (36.0-47.0); HEMOGLOBIN 8.5 g/dl (12.0-15.5); LYMPH # 0.7 10^3/uL (1.5-5.0); LYMPH % 10.8 % (24.0-44.0); MEAN CORPUSCULAR HEMOGLOBIN 22.7 pg (27.0-33.0); MEAN CORPUSCULAR VOLUME 75.5 fl (80.0-96.0); MONO # 0.6 10^3/uL (0.0-0.8); MONO % 9.7 % (2.0-8.0); NEUTROPHILS # 4.9 10^3/uL (1.5-8.5); NEUTROPHILS % 77.8 % (36.0-66.0); PLATELET COUNT, AUTOMATED 366 10^3/uL (150-450); RED BLOOD COUNT 3.75 10^6/uL (4.00-5.40); WHITE BLOOD COUNT 6.3 10^3/uL (4.0-10.0)
[2021-07-03 16:32] LABS: ALBUMIN 2.2 GM/DL (3.2-5.2); ALT/SGPT 12 U/L (12-78); BILIRUBIN,TOTAL 0.4 MG/DL (0.2-1.0); BLOOD UREA NITROGEN 19 MG/DL (7-18); CALCIUM LEVEL 8.6 MG/DL (8.8-10.2); CARBON DIOXIDE LEVEL 26 MEQ/L (21-32); CHLORIDE LEVEL 101 MEQ/L (98-107); CREATININE FOR GFR 0.84 MG/DL (0.55-1.30); FERRITIN 41 NG/ML (8-252); GLOMERULAR FILTRATION RATE > 60.0 (>32); GLUCOSE, FASTING 137 MG/DL (70-100); NT-PRO BNP 3431 PG/ML (<450); POTASSIUM SERUM 4.4 MEQ/L (3.5-5.1); SODIUM LEVEL 134 MEQ/L (136-145)
[2021-07-03 16:34] LABS: VITAMIN B12 LEVEL 613 PG/ML (247-911)
== END ==
LOC: M SFHCPLAZ 15:00
PROVIDERS: ATTEND Family Medicine
DX: I50.32 Chronic diastolic (congestive) heart failure (principal)

== ENCOUNTER 2021-07-13 12:12 | Outpatient (CLI) | payer MEDICARE, MEDICAID ==
[~2021-07-13] VITALS: Ht 165.1 cm; Wt 56.4 kg
[~2021-07-13 12:12] MED LIST changes: +ALBUTEROL SULFATE 2.5 MG/0.5 ML INH NEB SOLN INH PRN; +EPINEPHrine INJ 1 MG/ML 1ML AMP IM PRN; +diphenhydrAMINE 50MG/ML VIAL (J1200) IV PRN; +methylPREDNISolone 125MG 2ML VIAL IV PRN
[2021-07-13] MEDS ORDERED: NS 1,000 ML IV SCH (12:30)
[2021-07-13] MEDS ORDERED: FERRIC CARBOXYMALTOSE INJ 750 MG, VIAL MATE ADAPTER 1 EACH in NS 250 ML IV ONE (12:30)
[2021-07-13 12:33] VITALS: BP 132/76
[2021-07-13 13:30] VITALS: BP 149/67
[2021-07-13 14:22] VITALS: BP 153/68
== END 2021-07-13 14:25 | disposition home or self-care (01) ==
LOC: M INFU 12:12
PROVIDERS: ATTEND Family Medicine
DX: D50.9 Iron deficiency anemia, unspecified (principal); Z88.0 Allergy status to penicillin; Z88.8 Allergy status to other drugs, medicaments and biological substances
CPT/HCPCS: 96365; 96366; J1439

== ENCOUNTER → 2021-12-15 | Outpatient (REF) | payer MEDICARE, MEDICAID ==
[~2021-12-15] MED LIST changes: -ALBUTEROL SULFATE 2.5 MG/0.5 ML INH NEB SOLN INH PRN; -EPINEPHrine INJ 1 MG/ML 1ML AMP IM PRN; -diphenhydrAMINE 50MG/ML VIAL (J1200) IV PRN; -methylPREDNISolone 125MG 2ML VIAL IV PRN
[2021-12-15 12:23] LABS: BASO # 0.1 10^3/uL (0.0-0.2); BASO % 1.1 % (0.0-1.0); EOS # 0.1 10^3/uL (0.0-0.5); HEMATOCRIT 32.4 % (36.0-47.0); HEMOGLOBIN 9.9 g/dl (12.0-15.5); LYMPH # 0.9 10^3/uL (1.5-5.0); LYMPH % 19.3 % (24.0-44.0); MEAN CORPUSCULAR HEMOGLOBIN 25.4 pg (27.0-33.0); MEAN CORPUSCULAR HGB CONC 30.6 g/dl (32.0-36.5); MEAN CORPUSCULAR VOLUME 83.1 fl (80.0-96.0); MONO # 0.4 10^3/uL (0.0-0.8); MONO % 8.7 % (2.0-8.0); NEUTROPHILS # 3.1 10^3/uL (1.5-8.5); NEUTROPHILS % 68.5 % (36.0-66.0); PLATELET COUNT, AUTOMATED 437 10^3/uL (150-450); WHITE BLOOD COUNT 4.5 10^3/uL (4.0-10.0)
[2021-12-15 12:28] LABS: ALBUMIN 2.6 GM/DL (3.2-5.2); ALT/SGPT 11 U/L (12-78); BILIRUBIN,TOTAL 0.4 MG/DL (0.2-1.0); BLOOD UREA NITROGEN 22 MG/DL (7-18); CALCIUM LEVEL 9.5 MG/DL (8.8-10.2); CARBON DIOXIDE LEVEL 27 MEQ/L (21-32); CHLORIDE LEVEL 105 MEQ/L (98-107); CREATININE FOR GFR 0.73 MG/DL (0.55-1.30); FERRITIN 104 NG/ML (8-252); FREE T4 1.13 NG/DL (0.76-1.46); GLOMERULAR FILTRATION RATE > 60.0 (>32); GLUCOSE, FASTING 120 MG/DL (70-100); MAGNESIUM LEVEL 1.9 MG/DL (1.8-2.4); NT-PRO BNP 2258 PG/ML (<450); POTASSIUM SERUM 4.7 MEQ/L (3.5-5.1); SODIUM LEVEL 137 MEQ/L (136-145); TOTAL PROTEIN 7.2 GM/DL (6.4-8.2)
== END ==
LOC: M LAB REF 11:39
PROVIDERS: ATTEND Family Medicine
DX: I50.32 Chronic diastolic (congestive) heart failure (principal); D50.9 Iron deficiency anemia, unspecified; E03.9 Hypothyroidism, unspecified

== ENCOUNTER → 2022-05-26 | Outpatient (REF) | payer MEDICARE, MEDICAID ==
[~2022-05-26] MED LIST changes: -ASMA110A INH; +MOME110A INH
[2022-05-26 19:09] LABS: BASO # 0.1 10^3/uL (0.0-0.2); EOS # 0.1 10^3/uL (0.0-0.5); EOS % 2.1 % (0.0-3.0); HEMATOCRIT 29.1 % (36.0-47.0); HEMOGLOBIN 8.6 g/dl (12.0-15.5); LYMPH # 0.7 10^3/uL (1.5-5.0); LYMPH % 14.5 % (24.0-44.0); MEAN CORPUSCULAR HGB CONC 29.6 g/dl (32.0-36.5); MEAN CORPUSCULAR VOLUME 81.1 fl (80.0-96.0); MONO # 0.5 10^3/uL (0.0-0.8); MONO % 10.3 % (2.0-8.0); NEUTROPHILS # 3.5 10^3/uL (1.5-8.5); NEUTROPHILS % 71.7 % (36.0-66.0); PLATELET COUNT, AUTOMATED 406 10^3/uL (150-450); RED BLOOD COUNT 3.59 10^6/uL (4.00-5.40); WHITE BLOOD COUNT 4.8 10^3/uL (4.0-10.0)
[2022-05-26 19:14] LABS: ALBUMIN 2.1 GM/DL (3.2-5.2); ALT/SGPT 12 U/L (12-78); BILIRUBIN,TOTAL 0.5 MG/DL (0.2-1.0); BLOOD UREA NITROGEN 21 MG/DL (7-18); CALCIUM LEVEL 8.2 MG/DL (8.8-10.2); CARBON DIOXIDE LEVEL 24 MEQ/L (21-32); CHLORIDE LEVEL 105 MEQ/L (98-107); CREATININE FOR GFR 0.75 MG/DL (0.55-1.30); GLOMERULAR FILTRATION RATE > 60.0 (>32); GLUCOSE, FASTING 129 MG/DL (70-100); IRON (FE) 14 UG/DL (50-170); MAGNESIUM LEVEL 1.8 MG/DL (1.8-2.4); NT-PRO BNP 4197 PG/ML (<450); PERCENT SATURATION 9.3 % (13.2-45.0); POTASSIUM SERUM 4.5 MEQ/L (3.5-5.1); SODIUM LEVEL 135 MEQ/L (136-145); TOTAL IRON BINDING CAPACITY 150 UG/DL (250-450); TOTAL PROTEIN 6.9 GM/DL (6.4-8.2); URIC ACID 4.6 MG/DL (2.6-6.0)
[2022-05-28 15:23] LABS: VITAMIN B12 LEVEL 171 PG/ML (247-911)
== END ==
LOC: M LAB REF 17:35
PROVIDERS: ATTEND Physician Assistant
DX: R11.0 Nausea (principal); M79.675 Pain in left toe(s); D50.9 Iron deficiency anemia, unspecified; E53.8 Deficiency of other specified B group vitamins; E03.9 Hypothyroidism, unspecified

== ENCOUNTER → 2022-06-02 | Outpatient (CLI) | payer MEDICARE, MEDICAID | LOC: M WHC 15:40 | PROVIDERS: ATTEND Physician Assistant | DX: Z12.31 Encounter for screening mammogram for malignant neoplasm of breast (principal) ==

== ENCOUNTER → 2022-09-23 | Outpatient (CLI) | payer MEDICARE, MEDICAID ==
[~2022-09-23] MED LIST changes: +CIPR-250 PO; +CYAN100050 PO; +CYAN1000VL IM; -DOXY-350 PO; +DOXY-444 PO; +IBUP200T46 PO; +LEVO100T5 PO; +PRED10TA2 PO; +PRED20TA PO; +PROA1AER2 INH; +RISATAB3 PO; +ROPI0.253 PO; +SENN-186 PO; -SENN-80 PO; +SUCR1TA PO; +TIOT18INH INH
[2022-09-23 17:56] LABS: BASO % 0.9 % (0.0-1.0); EOS # 0.1 10^3/uL (0.0-0.5); EOS % 2.9 % (0.0-3.0); HEMATOCRIT 27.2 % (36.0-47.0); LYMPH # 0.7 10^3/uL (1.5-5.0); LYMPH % 15.8 % (24.0-44.0); MEAN CORPUSCULAR HEMOGLOBIN 22.9 pg (27.0-33.0); MEAN CORPUSCULAR HGB CONC 29.4 g/dl (32.0-36.5); MEAN CORPUSCULAR VOLUME 77.9 fl (80.0-96.0); MONO # 0.4 10^3/uL (0.0-0.8); MONO % 9.4 % (2.0-8.0); NEUTROPHILS # 3.2 10^3/uL (1.5-8.5); NEUTROPHILS % 70.8 % (36.0-66.0); PLATELET COUNT, AUTOMATED 450 10^3/uL (150-450); RED BLOOD COUNT 3.49 10^6/uL (4.00-5.40); WHITE BLOOD COUNT 4.5 10^3/uL (4.0-10.0)
[2022-09-23 22:53] LABS: FREE T4 1.07 NG/DL (0.89-1.76); THYROID STIMULATING HORMONE 6.668 uIU/ML (0.55-4.78); VITAMIN B12 LEVEL 454 PG/ML (211-911)
[2022-09-23 23:09] LABS: ALBUMIN 2.2 G/DL (3.2-5.2); ALKALINE PHOSPHATASE 78 U/L (46-116); ALT/SGPT < 9 U/L (7.0-40); AST/SGOT 16 U/L (<34); BILIRUBIN,TOTAL 0.4 MG/DL (0.3-1.2); BLOOD UREA NITROGEN 21 MG/DL (9-23); CALCIUM LEVEL 8.6 MG/DL (8.3-10.6); CARBON DIOXIDE LEVEL 26 MMOL/L (20-31); CHLORIDE LEVEL 102 MMOL/L (98-107); CREATININE FOR GFR 0.67 MG/DL (0.55-1.30); GLOMERULAR FILTRATION RATE > 60.0 (>32); GLUCOSE, FASTING 89 MG/DL (74-106); IRON (FE) 9 UG/DL (50-170); PERCENT SATURATION 4.4 % (13.2-45.0); POTASSIUM SERUM 4.6 MMOL/L (3.5-5.1); SODIUM LEVEL 136 MMOL/L (136-145); TOTAL IRON BINDING CAPACITY 203 UG/DL (250-425); TOTAL PROTEIN 7.3 G/DL (5.7-8.2)
== END ==
LOC: M PLALAB 15:16
PROVIDERS: ATTEND Physician Assistant
DX: D50.9 Iron deficiency anemia, unspecified (principal); E53.8 Deficiency of other specified B group vitamins; E03.9 Hypothyroidism, unspecified

== ENCOUNTER 2022-10-21 08:14 | Inpatient (IN) | payer MEDICARE, MEDICAID ==
[~2022-10-21] VITALS: Ht 167.6 cm; Wt 50.7 kg
[~2022-10-21 08:14] MED LIST changes: -CIPR-250 PO; -CYAN100050 PO; -CYAN1000VL IM; -IBUP200T46 PO; -LEVO100T5 PO; -PRED10TA2 PO; -PRED20TA PO; -PROA1AER2 INH; -RISATAB3 PO; -ROPI0.253 PO; -SENN-186 PO; +SENN-80 PO; -SUCR1TA PO; -TIOT18INH INH
[2022-10-21] MEDS ORDERED: IBUP200T46 PO (08:39)
[2022-10-21] MEDS ORDERED: MORPHINE 2 MG/ML 1ML VIAL IV ONE (08:55)
[2022-10-21 09:58] LABS: BASO # 0.1 10^3/uL (0.0-0.2); BASO % 0.9 % (0.0-1.0); EOS # 0.1 10^3/uL (0.0-0.5); EOS % 1.6 % (0.0-3.0); HEMATOCRIT 26.9 % (36.0-47.0); HEMOGLOBIN 8.5 g/dl (12.0-15.5); LYMPH # 0.9 10^3/uL (1.5-5.0); LYMPH % 15.2 % (24.0-44.0); MEAN CORPUSCULAR HEMOGLOBIN 24.7 pg (27.0-33.0); MEAN CORPUSCULAR HGB CONC 31.6 g/dl (32.0-36.5); MEAN CORPUSCULAR VOLUME 78.2 fl (80.0-96.0); MONO # 0.6 10^3/uL (0.0-0.8); MONO % 10.1 % (2.0-8.0); NEUTROPHILS # 4.1 10^3/uL (1.5-8.5); NEUTROPHILS % 71.7 % (36.0-66.0); PLATELET COUNT, AUTOMATED 534 10^3/uL (150-450); RED BLOOD COUNT 3.44 10^6/uL (4.00-5.40); WHITE BLOOD COUNT 5.7 10^3/uL (4.0-10.0)
[2022-10-21 10:15] LABS: URIC ACID 5.9 MG/DL (3.1-7.8)
[2022-10-21] MEDS ORDERED: cefTRIAXone SOD 1 GM in D5W MINI-BAG PLUS 50 ML IV ONE (10:20)
[2022-10-21 10:22] LABS: ALBUMIN 2.1 G/DL (3.2-5.2); ALKALINE PHOSPHATASE 82 U/L (46-116); ALT/SGPT < 9 U/L (7.0-40); AST/SGOT 11 U/L (<34); BILIRUBIN,TOTAL 0.6 MG/DL (0.3-1.2); BLOOD UREA NITROGEN 18 MG/DL (9-23); CALCIUM LEVEL 8.7 MG/DL (8.3-10.6); CARBON DIOXIDE LEVEL 26 MMOL/L (20-31); CHLORIDE LEVEL 101 MMOL/L (98-107); CHOLESTEROL LEVEL 107 MG/DL (<200); CHOLESTEROL RISK RATIO 2.06 (<5); CREATININE FOR GFR 0.74 MG/DL (0.55-1.30); ERYTHROCYTE SEDIMENTATION RATE 122 mm/hr (0-30); GLOMERULAR FILTRATION RATE > 60.0 (>32); GLUCOSE, FASTING 90 MG/DL (74-106); HDL CHOLESTEROL 51.9 MG/DL (>40); LDL CHOLESTEROL 44.3 MG/DL (<100); NON-HDL-C 55 MG/DL; POTASSIUM SERUM 4.5 MMOL/L (3.5-5.1); SODIUM LEVEL 134 MMOL/L (136-145); TOTAL PROTEIN 7.1 G/DL (5.7-8.2); TRIGLYCERIDES LEVEL 54 MG/DL (<150)
[2022-10-21] MEDS ORDERED: CYAN100050 PO (11:05)
[2022-10-21] MEDS ORDERED: LEVO100T5 PO (11:05)
[2022-10-21] MEDS ORDERED: CYAN1000VL IM (11:05)
[2022-10-21] MEDS ORDERED: PROA1AER2 INH (11:09)
[2022-10-21] MEDS ORDERED: HOME MED LIST COMPLETE! XX SCH (11:10)
[2022-10-21 11:42] LABS: RSV AMPLIFICATION NEGATIVE (NEGATIVE)
[2022-10-21] MEDS ORDERED: SENNA 8.6 MG TAB (SENOKOT) PO PRN (12:05)
[2022-10-21] MEDS ORDERED: MIRALAX *UNIT DOSE* 17GM PACKET PO PRN (12:05)
[2022-10-21] MEDS: LACTOBACILLUS ACIDOPHILUS CAP (BACID) PO SCH ×3 (13:02→22:07)
[2022-10-21] MEDS: CALCIUM/VITAMIN D 500 MG TAB PO SCH ×2 (13:02→22:08)
[2022-10-21] MEDS: OMEPRAZOLE 20MG CAP PO SCH (13:03)
[2022-10-21] MEDS: predniSONE 20 MG TAB PO SCH (13:08)
[2022-10-21] MEDS: IBUPROFEN 100MG 5ML ORAL SUSP UDC PO SCH ×2 (13:08→17:21)
[2022-10-21 14:15] LABS: FERRITIN 59.6 NG/ML (7.3-270.7)
[2022-10-21 15:00] VITALS: BP 113/71
[2022-10-21] MEDS ORDERED: FERRIC CARBOXYMALTOSE INJ 750 MG, VIAL MATE ADAPTER 1 EACH in NS 250 ML IV ONE (15:00)
[2022-10-21] MEDS ORDERED: ACETAMINOPHEN 500 MG TAB PO SCH (16:00)
[2022-10-21] MEDS: SUCRALFATE SUSP 1GM/10ML UD PO SCH ×2 (17:20→22:05)
[2022-10-21] MEDS: SALMETEROL DISKUS 50MCG INHALER (SEREVENT) INH SCH (19:01)
[2022-10-21] MEDS: FLUTICASONE HFA 220 MCG 12 GM INHALER (FLOVENT) INH SCH (19:01)
[2022-10-21 19:41] VITALS: BP 115/71
[2022-10-22 05:43] VITALS: BP 142/81
[2022-10-22 05:47] VITALS: BP 148/65
[2022-10-22] MEDS ORDERED: LEVOTHYROXINE 100MCG TABLET (0.1MG) PO SCH (06:00)
[2022-10-22] MEDS: SALMETEROL DISKUS 50MCG INHALER (SEREVENT) INH SCH (07:26)
[2022-10-22] MEDS: FLUTICASONE HFA 220 MCG 12 GM INHALER (FLOVENT) INH SCH (07:26)
[2022-10-22] MEDS: SUCRALFATE SUSP 1GM/10ML UD PO SCH ×2 (08:25→11:49)
[2022-10-22] MEDS: IBUPROFEN 100MG 5ML ORAL SUSP UDC PO SCH ×2 (08:25→11:51)
[2022-10-22] MEDS: CALCIUM/VITAMIN D 500 MG TAB PO SCH (08:25)
[2022-10-22] MEDS: LACTOBACILLUS ACIDOPHILUS CAP (BACID) PO SCH ×2 (08:25→11:49)
[2022-10-22] MEDS: predniSONE 20 MG TAB PO SCH (08:25)
[2022-10-22] MEDS: OMEPRAZOLE 20MG CAP PO SCH (08:26)
[2022-10-22 10:07] LABS: C REACTIVE PROTEIN QUANTITATIV 14.2 MG/DL (<1.0)
[2022-10-22] MEDS ORDERED: RISATAB3 PO (10:59)
[2022-10-22] MEDS ORDERED: CIPR-250 PO (10:59)
[2022-10-22] MEDS ORDERED: PRED20TA PO (11:00)
[2022-10-22] MEDS ORDERED: cefTRIAXone SOD 1 GM in D5W MINI-BAG PLUS 50 ML IV SCH (11:00)
[2022-10-26 14:13] LABS: RHEUMATOID FACTOR QUANT 10.1 IU/ML (<14)
== END 2022-10-22 14:19 | DRG 554 ==
LOC: M ED 08:14 → M ED INP 12:02 → ENRESERV 13:32 → M MSPAV 14:57
PROVIDERS: ADMIT General Practice; ATTEND General Practice
DX: M13.0 Polyarthritis, unspecified (principal); N39.0 Urinary tract infection, site not specified; I50.32 Chronic diastolic (congestive) heart failure; Z68.1 Body mass index [BMI] 19.9 or less, adult; E03.9 Hypothyroidism, unspecified; J45.30 Mild persistent asthma, uncomplicated; D50.9 Iron deficiency anemia, unspecified; K21.9 Gastro-esophageal reflux disease without esophagitis; K22.2 Esophageal obstruction; R63.6 Underweight; R13.10 Dysphagia, unspecified; K59.00 Constipation, unspecified; K44.9 Diaphragmatic hernia without obstruction or gangrene; Z96.643 Presence of artificial hip joint, bilateral; Z66 Do not resuscitate; Z79.899 Other long term (current) drug therapy; Z88.0 Allergy status to penicillin; Z88.5 Allergy status to narcotic agent; Z88.8 Allergy status to other drugs, medicaments and biological substances; L40.8 Other psoriasis

== ENCOUNTER 2022-10-22 12:31 | Inpatient (IN) | payer MEDICARE, MEDICAID ==
[~2022-10-22] VITALS: Ht 154.9 cm; Wt 52.0 kg
[~2022-10-22 12:31] MED LIST changes: +CIPR-250 PO; +CYAN100050 PO; +CYAN1000VL IM; +IBUP200T46 PO; +LEVO100T5 PO; +PRED20TA PO; +PROA1AER2 INH; +RISATAB3 PO
[2022-10-22 14:45] VITALS: BP 147/67
[2022-10-22] MEDS ORDERED: BISACODYL 10MG SUPP PR PRN (15:30)
[2022-10-22] MEDS ORDERED: traZODone 25MG PER 1/2 TABLET PO PRN (16:00)
[2022-10-22] MEDS: REMEDY PHYTOPLEX Z-GUARD PASTE 113GM TUBE (FROM STOREROOM PRODUCT) TOP SCH ×2 (16:00→21:24)
[2022-10-22] MEDS ORDERED: ACETAMINOPHEN 500 MG TAB PO SCH (16:00)
[2022-10-22] MEDS: CIPROFLOXACIN 250MG TAB PO SCH (18:00)
[2022-10-22] MEDS: LACTOBACILLUS ACIDOPHILUS CAP (BACID) PO SCH ×2 (18:00→21:24)
[2022-10-22] MEDS: SUCRALFATE 1 GM TAB PO SCH ×2 (18:00→21:24)
[2022-10-22] MEDS: IBUPROFEN 200MG TAB PO SCH (18:01)
[2022-10-22] MEDS: FLUTICASONE HFA 220 MCG 12 GM INHALER (FLOVENT) INH SCH (19:46)
[2022-10-22] MEDS: SALMETEROL DISKUS 50MCG INHALER (SEREVENT) INH SCH (19:46)
[2022-10-22 20:00] VITALS: BP 147/67
[2022-10-22] MEDS: DOCUSATE SODIUM 100MG CAPSULE PO SCH (21:00)
[2022-10-22] MEDS: SENNA 8.6 MG TAB (SENOKOT) PO SCH (21:00)
[2022-10-22] MEDS: HEPARIN SOD (PORCINE) 5000UNITS/ML 1ML VIAL/SYRINGE SC SCH (21:24)
[2022-10-22] MEDS: CALCIUM/VITAMIN D 500 MG TAB PO SCH (21:24)
[2022-10-22] MEDS: DOXYCYCLINE HYCLATE 100MG TABLET PO SCH (21:24)
[2022-10-22] MEDS: rOPINIRole 0.25 MG TAB(REQUIP) PO PRN (22:23)
[2022-10-23] MEDS: LEVOTHYROXINE 100MCG TABLET (0.1MG) PO SCH (05:19)
[2022-10-23] MEDS: CIPROFLOXACIN 250MG TAB PO SCH ×2 (05:19→17:22)
[2022-10-23 06:00] VITALS: BP 120/61
[2022-10-23 07:24] LABS: BASO % 0.3 % (0.0-1.0); HEMATOCRIT 25.9 % (36.0-47.0); HEMOGLOBIN 7.7 g/dl (12.0-15.5); LYMPH # 0.9 10^3/uL (1.5-5.0); MEAN CORPUSCULAR HEMOGLOBIN 22.4 pg (27.0-33.0); MEAN CORPUSCULAR HGB CONC 29.7 g/dl (32.0-36.5); MEAN CORPUSCULAR VOLUME 75.5 fl (80.0-96.0); MONO # 0.5 10^3/uL (0.0-0.8); MONO % 7.4 % (2.0-8.0); NEUTROPHILS # 5.4 10^3/uL (1.5-8.5); NEUTROPHILS % 78.7 % (36.0-66.0); PLATELET COUNT, AUTOMATED 512 10^3/uL (150-450); RED BLOOD COUNT 3.43 10^6/uL (4.00-5.40); WHITE BLOOD COUNT 6.9 10^3/uL (4.0-10.0)
[2022-10-23] MEDS: SALMETEROL DISKUS 50MCG INHALER (SEREVENT) INH SCH ×2 (08:00→19:41)
[2022-10-23 08:06] LABS: ALBUMIN 2.1 G/DL (3.2-5.2); ALKALINE PHOSPHATASE 82 U/L (46-116); ALT/SGPT < 9 U/L (7.0-40); AST/SGOT 11 U/L (<34); BILIRUBIN,TOTAL 0.2 MG/DL (0.3-1.2); BLOOD UREA NITROGEN 24 MG/DL (9-23); CALCIUM LEVEL 8.6 MG/DL (8.3-10.6); CARBON DIOXIDE LEVEL 27 MMOL/L (20-31); CHLORIDE LEVEL 103 MMOL/L (98-107); CREATININE FOR GFR 0.62 MG/DL (0.55-1.30); GLOMERULAR FILTRATION RATE > 60.0 (>32); GLUCOSE, FASTING 83 MG/DL (74-106); POTASSIUM SERUM 4.8 MMOL/L (3.5-5.1); SODIUM LEVEL 138 MMOL/L (136-145); TOTAL PROTEIN 6.9 G/DL (5.7-8.2)
[2022-10-23] MEDS: CALCIUM/VITAMIN D 500 MG TAB PO SCH ×2 (08:17→21:00)
[2022-10-23] MEDS: predniSONE 20 MG TAB PO SCH (08:17)
[2022-10-23] MEDS: OMEPRAZOLE 20MG CAP PO SCH (08:17)
[2022-10-23] MEDS: IBUPROFEN 200MG TAB PO SCH ×3 (08:18→20:50)
[2022-10-23] MEDS: DOXYCYCLINE HYCLATE 100MG TABLET PO SCH ×2 (08:18→20:50)
[2022-10-23] MEDS: SUCRALFATE 1 GM TAB PO SCH ×4 (08:19→20:50)
[2022-10-23] MEDS: LACTOBACILLUS ACIDOPHILUS CAP (BACID) PO SCH ×4 (08:19→20:50)
[2022-10-23] MEDS: DOCUSATE SODIUM 100MG CAPSULE PO SCH ×2 (08:19→21:00)
[2022-10-23] MEDS: HEPARIN SOD (PORCINE) 5000UNITS/ML 1ML VIAL/SYRINGE SC SCH (08:21)
[2022-10-23] MEDS: REMEDY PHYTOPLEX Z-GUARD PASTE 113GM TUBE (FROM STOREROOM PRODUCT) TOP SCH ×3 (08:21→21:00)
[2022-10-23] MEDS: LIDOCAINE 5% (LIDODERM) PATCH TD SCH (08:21)
[2022-10-23] MEDS: FLUTICASONE HFA 220 MCG 12 GM INHALER (FLOVENT) INH SCH ×2 (11:11→19:41)
[2022-10-23 14:00] VITALS: BP 124/72
[2022-10-23 20:00] VITALS: BP 125/73
[2022-10-23] MEDS: SENNA 8.6 MG TAB (SENOKOT) PO SCH (20:50)
[2022-10-23] MEDS: rOPINIRole 0.25 MG TAB(REQUIP) PO PRN (22:00)
[2022-10-24] MEDS: LEVOTHYROXINE 100MCG TABLET (0.1MG) PO SCH (05:19)
[2022-10-24] MEDS: CIPROFLOXACIN 250MG TAB PO SCH ×2 (05:19→17:05)
[2022-10-24 06:00] VITALS: BP 135/67
[2022-10-24] MEDS: SALMETEROL DISKUS 50MCG INHALER (SEREVENT) INH SCH ×2 (07:18→20:00)
[2022-10-24] MEDS: FLUTICASONE HFA 220 MCG 12 GM INHALER (FLOVENT) INH SCH ×2 (07:19→20:18)
[2022-10-24] MEDS: IBUPROFEN 200MG TAB PO SCH ×3 (08:00→20:15)
[2022-10-24] MEDS: CALCIUM/VITAMIN D 500 MG TAB PO SCH ×2 (08:42→20:15)
[2022-10-24] MEDS: REMEDY PHYTOPLEX Z-GUARD PASTE 113GM TUBE (FROM STOREROOM PRODUCT) TOP SCH ×3 (08:44→20:15)
[2022-10-24] MEDS: LACTOBACILLUS ACIDOPHILUS CAP (BACID) PO SCH ×4 (08:51→20:15)
[2022-10-24] MEDS: DOCUSATE SODIUM 100MG CAPSULE PO SCH ×2 (08:51→20:15)
[2022-10-24] MEDS: DOXYCYCLINE HYCLATE 100MG TABLET PO SCH ×2 (08:52→20:15)
[2022-10-24] MEDS: predniSONE 20 MG TAB PO SCH (08:52)
[2022-10-24] MEDS: OMEPRAZOLE 20MG CAP PO SCH (08:52)
[2022-10-24] MEDS: LIDOCAINE 5% (LIDODERM) PATCH TD SCH (08:53)
[2022-10-24] MEDS: SUCRALFATE 1 GM TAB PO SCH ×4 (08:55→20:15)
[2022-10-24] MEDS ORDERED: TRIAMCINOLONE ACET 0.1% OINTMENT 15GM TOP PRN (15:05)
[2022-10-24] MEDS ORDERED: TRIAMCINOLONE ACET 0.1% CREAM 15GM TOP PRN (15:14)
[2022-10-24 20:00] VITALS: BP 124/67
[2022-10-24] MEDS: SENNA 8.6 MG TAB (SENOKOT) PO SCH (20:15)
[2022-10-24] MEDS: rOPINIRole 0.25 MG TAB(REQUIP) PO PRN (20:23)
[2022-10-25] MEDS: CIPROFLOXACIN 250MG TAB PO SCH (05:16)
[2022-10-25] MEDS: LEVOTHYROXINE 100MCG TABLET (0.1MG) PO SCH (05:16)
[2022-10-25 06:00] VITALS: BP 124/56
[2022-10-25] MEDS: FLUTICASONE HFA 220 MCG 12 GM INHALER (FLOVENT) INH SCH ×2 (07:28→19:54)
[2022-10-25] MEDS: SALMETEROL DISKUS 50MCG INHALER (SEREVENT) INH SCH ×2 (07:28→19:54)
[2022-10-25] MEDS: IBUPROFEN 200MG TAB PO SCH ×2 (08:00→12:30)
[2022-10-25] MEDS: REMEDY PHYTOPLEX Z-GUARD PASTE 113GM TUBE (FROM STOREROOM PRODUCT) TOP SCH ×3 (09:00→19:50)
[2022-10-25] MEDS: DOXYCYCLINE HYCLATE 100MG TABLET PO SCH ×2 (09:37→19:59)
[2022-10-25] MEDS: OMEPRAZOLE 20MG CAP PO SCH (09:37)
[2022-10-25] MEDS: predniSONE 20 MG TAB PO SCH (09:38)
[2022-10-25] MEDS: LIDOCAINE 5% (LIDODERM) PATCH TD SCH (09:38)
[2022-10-25] MEDS: CALCIUM/VITAMIN D 500 MG TAB PO SCH ×2 (09:38→19:50)
[2022-10-25] MEDS: DOCUSATE SODIUM 100MG CAPSULE PO SCH ×2 (09:38→19:49)
[2022-10-25] MEDS: LACTOBACILLUS ACIDOPHILUS CAP (BACID) PO SCH ×4 (09:41→19:59)
[2022-10-25] MEDS: SUCRALFATE 1 GM TAB PO SCH ×4 (09:41→19:58)
[2022-10-25 11:04] LABS: BASO # 0.1 10^3/uL (0.0-0.2); BASO % 0.8 % (0.0-1.0); EOS # 0.1 10^3/uL (0.0-0.5); EOS % 0.6 % (0.0-3.0); HEMATOCRIT 24.8 % (36.0-47.0); HEMOGLOBIN 7.7 g/dl (12.0-15.5); LYMPH # 1.2 10^3/uL (1.5-5.0); LYMPH % 13.9 % (24.0-44.0); MEAN CORPUSCULAR VOLUME 80.5 fl (80.0-96.0); MONO # 0.8 10^3/uL (0.0-0.8); MONO % 9.7 % (2.0-8.0); NEUTROPHILS # 6.1 10^3/uL (1.5-8.5); NEUTROPHILS % 72.8 % (36.0-66.0); PLATELET COUNT, AUTOMATED 517 10^3/uL (150-450); RED BLOOD COUNT 3.08 10^6/uL (4.00-5.40); WHITE BLOOD COUNT 8.3 10^3/uL (4.0-10.0)
[2022-10-25 11:16] LABS: BLOOD UREA NITROGEN 50 MG/DL (9-23); CALCIUM LEVEL 8.2 MG/DL (8.3-10.6); CARBON DIOXIDE LEVEL 28 MMOL/L (20-31); CHLORIDE LEVEL 102 MMOL/L (98-107); CREATININE FOR GFR 0.76 MG/DL (0.55-1.30); GLOMERULAR FILTRATION RATE > 60.0 (>32); GLUCOSE, FASTING 129 MG/DL (74-106); POTASSIUM SERUM 4.4 MMOL/L (3.5-5.1); SODIUM LEVEL 137 MMOL/L (136-145)
[2022-10-25] MEDS ORDERED: NS 1,000 ML IV ONE (13:00)
[2022-10-25 14:00] VITALS: BP 132/68
[2022-10-25] MEDS: SENNA 8.6 MG TAB (SENOKOT) PO SCH (19:49)
[2022-10-25] MEDS: IBUPROFEN 200MG TAB PO PRN (19:59)
[2022-10-25 20:00] VITALS: BP 116/56
[2022-10-25] MEDS: rOPINIRole 0.25 MG TAB(REQUIP) PO PRN (20:19)
[2022-10-26] MEDS: LEVOTHYROXINE 100MCG TABLET (0.1MG) PO SCH (05:46)
[2022-10-26 06:00] VITALS: BP 133/68
[2022-10-26 07:23] LABS: BASO % 0.5 % (0.0-1.0); EOS # 0.1 10^3/uL (0.0-0.5); EOS % 0.9 % (0.0-3.0); HEMATOCRIT 23.2 % (36.0-47.0); LYMPH # 1.4 10^3/uL (1.5-5.0); MEAN CORPUSCULAR HEMOGLOBIN 24.4 pg (27.0-33.0); MEAN CORPUSCULAR HGB CONC 30.2 g/dl (32.0-36.5); MEAN CORPUSCULAR VOLUME 80.8 fl (80.0-96.0); MONO # 0.7 10^3/uL (0.0-0.8); MONO % 8.6 % (2.0-8.0); NEUTROPHILS # 5.6 10^3/uL (1.5-8.5); NEUTROPHILS % 70.9 % (36.0-66.0); PLATELET COUNT, AUTOMATED 453 10^3/uL (150-450); RED BLOOD COUNT 2.87 10^6/uL (4.00-5.40); WHITE BLOOD COUNT 7.9 10^3/uL (4.0-10.0)
[2022-10-26] MEDS: FLUTICASONE HFA 220 MCG 12 GM INHALER (FLOVENT) INH SCH ×2 (07:40→20:25)
[2022-10-26] MEDS: SALMETEROL DISKUS 50MCG INHALER (SEREVENT) INH SCH ×2 (07:40→20:25)
[2022-10-26] MEDS: DOCUSATE SODIUM 100MG CAPSULE PO SCH ×3 (07:49→09:39)
[2022-10-26 07:50] LABS: BLOOD UREA NITROGEN 49 MG/DL (9-23); CALCIUM LEVEL 8.1 MG/DL (8.3-10.6); CARBON DIOXIDE LEVEL 28 MMOL/L (20-31); CHLORIDE LEVEL 104 MMOL/L (98-107); GLOMERULAR FILTRATION RATE > 60.0 (>32); GLUCOSE, FASTING 75 MG/DL (74-106); POTASSIUM SERUM 4.9 MMOL/L (3.5-5.1); SODIUM LEVEL 138 MMOL/L (136-145)
[2022-10-26] MEDS: CALCIUM/VITAMIN D 500 MG TAB PO SCH ×3 (09:00→19:33)
[2022-10-26] MEDS: LIDOCAINE 5% (LIDODERM) PATCH TD SCH (09:30)
[2022-10-26] MEDS: LACTOBACILLUS ACIDOPHILUS CAP (BACID) PO SCH ×4 (09:31→20:06)
[2022-10-26] MEDS: SUCRALFATE 1 GM TAB PO SCH ×4 (09:31→20:06)
[2022-10-26] MEDS: OMEPRAZOLE 20MG CAP PO SCH (09:32)
[2022-10-26] MEDS: DOXYCYCLINE HYCLATE 100MG TABLET PO SCH ×2 (09:32→20:05)
[2022-10-26] MEDS: REMEDY PHYTOPLEX Z-GUARD PASTE 113GM TUBE (FROM STOREROOM PRODUCT) TOP SCH ×3 (09:33→20:06)
[2022-10-26] MEDS ORDERED: FLUCONAZOLE 50MG TABLET PO ONE (12:00)
[2022-10-26] MEDS ORDERED: NS 1,000 ML IV ONE (12:10)
[2022-10-26 14:00] VITALS: BP 118/59
[2022-10-26] MEDS ORDERED: ACETAMINOPHEN TAB 650MG DOSE (2X325MG) PO ONE (14:50)
[2022-10-26 17:38] VITALS: BP 129/65
[2022-10-26 20:00] VITALS: BP 126/52
[2022-10-26] MEDS: rOPINIRole 0.25 MG TAB(REQUIP) PO PRN (20:05)
[2022-10-26 23:50] VITALS: BP 110/54
[2022-10-27] VITALS (11 sets, daily range): BP systolic 104–140; BP diastolic 58–67
[2022-10-27] MEDS: LEVOTHYROXINE 100MCG TABLET (0.1MG) PO SCH (05:59)
[2022-10-27] MEDS: FLUTICASONE HFA 220 MCG 12 GM INHALER (FLOVENT) INH SCH ×2 (07:20→20:28)
[2022-10-27] MEDS: SALMETEROL DISKUS 50MCG INHALER (SEREVENT) INH SCH ×2 (07:20→20:27)
[2022-10-27] MEDS: LIDOCAINE 5% (LIDODERM) PATCH TD SCH (07:26)
[2022-10-27] MEDS: DOXYCYCLINE HYCLATE 100MG TABLET PO SCH ×2 (07:26→20:34)
[2022-10-27] MEDS: LACTOBACILLUS ACIDOPHILUS CAP (BACID) PO SCH ×4 (07:26→20:34)
[2022-10-27] MEDS: SUCRALFATE 1 GM TAB PO SCH ×4 (07:26→20:34)
[2022-10-27] MEDS: CALCIUM/VITAMIN D 500 MG TAB PO SCH ×2 (07:27→20:43)
[2022-10-27] MEDS: OMEPRAZOLE 20MG CAP PO SCH (07:27)
[2022-10-27] MEDS: REMEDY PHYTOPLEX Z-GUARD PASTE 113GM TUBE (FROM STOREROOM PRODUCT) TOP SCH ×3 (07:28→20:36)
[2022-10-27 07:38] LABS: BASO # 0.1 10^3/uL (0.0-0.2); EOS # 0.1 10^3/uL (0.0-0.5); EOS % 1.5 % (0.0-3.0); HEMATOCRIT 27.8 % (36.0-47.0); LYMPH # 0.7 10^3/uL (1.5-5.0); LYMPH % 8.2 % (24.0-44.0); MEAN CORPUSCULAR HEMOGLOBIN 30.2 pg (27.0-33.0); MONO # 0.7 10^3/uL (0.0-0.8); MONO % 9.1 % (2.0-8.0); NEUTROPHILS # 6.3 10^3/uL (1.5-8.5); PLATELET COUNT, AUTOMATED 369 10^3/uL (150-450); RED BLOOD COUNT 3.31 10^6/uL (4.00-5.40); WHITE BLOOD COUNT 8.2 10^3/uL (4.0-10.0)
[2022-10-27] MEDS: TIOTROPIUM INHALER/CAPSULE (SPIRIVA) INH SCH (08:00)
[2022-10-27 08:05] LABS: BLOOD UREA NITROGEN 49 MG/DL (9-23); CALCIUM LEVEL 7.8 MG/DL (8.3-10.6); CARBON DIOXIDE LEVEL 25 MMOL/L (20-31); CHLORIDE LEVEL 106 MMOL/L (98-107); CREATININE FOR GFR 0.63 MG/DL (0.55-1.30); GLOMERULAR FILTRATION RATE > 60.0 (>32); GLUCOSE, FASTING 94 MG/DL (74-106); POTASSIUM SERUM 4.6 MMOL/L (3.5-5.1); SODIUM LEVEL 138 MMOL/L (136-145)
[2022-10-27] MEDS: IBUPROFEN 200MG TAB PO PRN (16:42)
[2022-10-27] MEDS: HEPARIN SOD (PORCINE) 5000UNITS/ML 1ML VIAL/SYRINGE SQ SCH (20:33)
[2022-10-27] MEDS: HYDROCORTISONE 2.5% 20GM OINTMENT TOP SCH (20:33)
[2022-10-27] MEDS ORDERED: ANUSOL HC CREAM 30GM TOP SCH (21:00)
[2022-10-28 05:00] VITALS: BP 138/74
[2022-10-28] MEDS: LEVOTHYROXINE 100MCG TABLET (0.1MG) PO SCH (05:47)
[2022-10-28] MEDS: CALCIUM/VITAMIN D 500 MG TAB PO SCH ×2 (09:00→20:19)
[2022-10-28] MEDS: REMEDY PHYTOPLEX Z-GUARD PASTE 113GM TUBE (FROM STOREROOM PRODUCT) TOP SCH ×3 (09:00→20:19)
[2022-10-28] MEDS: TIOTROPIUM INHALER/CAPSULE (SPIRIVA) INH SCH (09:02)
[2022-10-28] MEDS: SALMETEROL DISKUS 50MCG INHALER (SEREVENT) INH SCH ×2 (09:02→20:12)
[2022-10-28] MEDS: FLUTICASONE HFA 220 MCG 12 GM INHALER (FLOVENT) INH SCH ×2 (09:03→20:12)
[2022-10-28] MEDS: OMEPRAZOLE 20MG CAP PO SCH (09:13)
[2022-10-28] MEDS: HEPARIN SOD (PORCINE) 5000UNITS/ML 1ML VIAL/SYRINGE SQ SCH ×2 (09:13→20:19)
[2022-10-28] MEDS: DOXYCYCLINE HYCLATE 100MG TABLET PO SCH ×2 (09:14→20:18)
[2022-10-28] MEDS: LIDOCAINE 5% (LIDODERM) PATCH TD SCH (09:15)
[2022-10-28] MEDS: HYDROCORTISONE 2.5% 20GM OINTMENT TOP SCH ×2 (09:16→20:19)
[2022-10-28] MEDS: SUCRALFATE 1 GM TAB PO SCH ×4 (09:17→20:18)
[2022-10-28] MEDS: LACTOBACILLUS ACIDOPHILUS CAP (BACID) PO SCH ×4 (09:18→20:18)
[2022-10-28] MEDS: predniSONE 20 MG TAB PO SCH (12:18)
[2022-10-28 14:00] VITALS: BP 122/57
[2022-10-28 20:00] VITALS: BP 117/60
[2022-10-28] MEDS ORDERED: rOPINIRole 0.25 MG TAB(REQUIP) PO SCH (21:00)
[2022-10-29 06:00] VITALS: BP 114/57
[2022-10-29] MEDS: LEVOTHYROXINE 100MCG TABLET (0.1MG) PO SCH (06:06)
[2022-10-29] MEDS: TIOTROPIUM INHALER/CAPSULE (SPIRIVA) INH SCH (07:27)
[2022-10-29] MEDS: FLUTICASONE HFA 220 MCG 12 GM INHALER (FLOVENT) INH SCH (07:27)
[2022-10-29] MEDS: SALMETEROL DISKUS 50MCG INHALER (SEREVENT) INH SCH (07:27)
[2022-10-29] MEDS: REMEDY PHYTOPLEX Z-GUARD PASTE 113GM TUBE (FROM STOREROOM PRODUCT) TOP SCH ×2 (07:37→08:41)
[2022-10-29] MEDS: CALCIUM/VITAMIN D 500 MG TAB PO SCH (07:38)
[2022-10-29 08:10] LABS: BASO % 0.3 % (0.0-1.0); EOS # 0.1 10^3/uL (0.0-0.5); HEMATOCRIT 36.9 % (36.0-47.0); LYMPH % 13.3 % (24.0-44.0); MEAN CORPUSCULAR HEMOGLOBIN 25.2 pg (27.0-33.0); MEAN CORPUSCULAR HGB CONC 29.8 g/dl (32.0-36.5); MEAN CORPUSCULAR VOLUME 84.4 fl (80.0-96.0); MONO # 0.6 10^3/uL (0.0-0.8); MONO % 8.2 % (2.0-8.0); NEUTROPHILS # 5.5 10^3/uL (1.5-8.5); NEUTROPHILS % 76.1 % (36.0-66.0); PLATELET COUNT, AUTOMATED 368 10^3/uL (150-450); RED BLOOD COUNT 4.37 10^6/uL (4.00-5.40); WHITE BLOOD COUNT 7.2 10^3/uL (4.0-10.0)
[2022-10-29] MEDS: OMEPRAZOLE 20MG CAP PO SCH (08:39)
[2022-10-29] MEDS: DOXYCYCLINE HYCLATE 100MG TABLET PO SCH (08:39)
[2022-10-29] MEDS: LACTOBACILLUS ACIDOPHILUS CAP (BACID) PO SCH ×2 (08:40→11:57)
[2022-10-29] MEDS: predniSONE 20 MG TAB PO SCH (08:40)
[2022-10-29] MEDS: SUCRALFATE 1 GM TAB PO SCH ×2 (08:40→11:57)
[2022-10-29] MEDS: HYDROCORTISONE 2.5% 20GM OINTMENT TOP SCH (08:41)
[2022-10-29] MEDS: LIDOCAINE 5% (LIDODERM) PATCH TD SCH (08:41)
[2022-10-29] MEDS: HEPARIN SOD (PORCINE) 5000UNITS/ML 1ML VIAL/SYRINGE SQ SCH (08:42)
[2022-10-29 08:44] LABS: BLOOD UREA NITROGEN 26 MG/DL (9-23); CALCIUM LEVEL 8.2 MG/DL (8.3-10.6); CARBON DIOXIDE LEVEL 28 MMOL/L (20-31); CHLORIDE LEVEL 104 MMOL/L (98-107); CREATININE FOR GFR 0.55 MG/DL (0.55-1.30); GLOMERULAR FILTRATION RATE > 60.0 (>32); GLUCOSE, FASTING 145 MG/DL (74-106); POTASSIUM SERUM 3.8 MMOL/L (3.5-5.1); SODIUM LEVEL 138 MMOL/L (136-145)
[2022-10-29] MEDS ORDERED: TIOT18INH INH (10:32)
[2022-10-29] MEDS ORDERED: ROPI0.253 PO (10:32)
[2022-10-29] MEDS ORDERED: PRED10TA2 PO (10:32)
[2022-10-29] MEDS ORDERED: RISATAB3 PO (10:32)
[2022-10-29] MEDS ORDERED: SUCR1TA PO (10:32)
[2022-10-29] MEDS ORDERED: LEVO100T5 PO (10:32)
[2022-10-29] MEDS ORDERED: SALMDISK INH (10:32)
[2022-10-29] MEDS ORDERED: DOXY-444 PO (10:32)
[2022-10-29] MEDS ORDERED: PROA1AER2 INH (10:32)
[2022-10-29] MEDS ORDERED: OMEP40CA4 PO (10:32)
[2022-10-29] MEDS ORDERED: FLUT22IN INH (10:32)
== END 2022-10-29 12:10 | disposition home or self-care (01) | DRG 554 ==
LOC: M PM&R 14:25
PROVIDERS: ADMIT Physical Medicine & Rehabilitation; ATTEND Physical Medicine & Rehabilitation
PROC: 30233N1 Transfusion of Nonautologous Red Blood Cells into Peripheral Vein, Percutaneous Approach (ICD-10-PCS; principal; 2022-10-26)
DX: M13.0 Polyarthritis, unspecified (principal); N39.0 Urinary tract infection, site not specified; I50.32 Chronic diastolic (congestive) heart failure; R26.89 Other abnormalities of gait and mobility; I11.0 Hypertensive heart disease with heart failure; G25.81 Restless legs syndrome; Z96.643 Presence of artificial hip joint, bilateral; D50.9 Iron deficiency anemia, unspecified; K59.09 Other constipation; Z87.442 Personal history of urinary calculi; E03.9 Hypothyroidism, unspecified; J45.909 Unspecified asthma, uncomplicated; N81.10 Cystocele, unspecified; R32 Unspecified urinary incontinence; Z74.09 Other reduced mobility; Z74.1 Need for assistance with personal care; R53.1 Weakness; Z79.52 Long term (current) use of systemic steroids; Z79.890 Hormone replacement therapy; Z79.899 Other long term (current) drug therapy; Z88.5 Allergy status to narcotic agent; Z88.8 Allergy status to other drugs, medicaments and biological substances; Z88.6 Allergy status to analgesic agent; Z91.048 Other nonmedicinal substance allergy status; Z66 Do not resuscitate; K21.9 Gastro-esophageal reflux disease without esophagitis; K44.9 Diaphragmatic hernia without obstruction or gangrene; K22.2 Esophageal obstruction; L40.8 Other psoriasis; R13.10 Dysphagia, unspecified

== ENCOUNTER → 2023-02-23 | Outpatient (CLI) | payer MEDICARE, MEDICAID ==
[~2023-02-23] MED LIST changes: +CYAN-1 PO; -CYAN100050 PO; +PRED10TA2 PO; +ROPI0.253 PO; +SENN-186 PO; -SENN-80 PO; +SUCR1TA PO; +TIOT18INH INH
[2023-02-23 15:27] LABS: BASO % 0.8 % (0.0-1.0); EOS # 0.2 10^3/uL (0.0-0.5); HEMATOCRIT 26.5 % (36.0-47.0); HEMOGLOBIN 9.5 g/dl (12.0-15.5); LYMPH # 0.6 10^3/uL (1.5-5.0); LYMPH % 11.9 % (24.0-44.0); MEAN CORPUSCULAR HEMOGLOBIN 32.8 pg (27.0-33.0); MEAN CORPUSCULAR HGB CONC 35.8 g/dl (32.0-36.5); MEAN CORPUSCULAR VOLUME 91.4 fl (80.0-96.0); MONO # 0.5 10^3/uL (0.0-0.8); MONO % 10.5 % (2.0-8.0); NEUTROPHILS # 3.7 10^3/uL (1.5-8.5); NEUTROPHILS % 73.6 % (36.0-66.0); PLATELET COUNT, AUTOMATED 372 10^3/uL (150-450)
[2023-02-23 15:58] LABS: ERYTHROCYTE SEDIMENTATION RATE 112 mm/hr (0-30)
[2023-02-23 16:11] LABS: TOTAL 25(OH) VITAMIN D 43.1 NG/ML (20.0-100.0)
[2023-02-23 16:12] LABS: FERRITIN 199.6 NG/ML (7.3-270.7); THYROID STIMULATING HORMONE 3.789 uIU/ML (0.55-4.78)
[2023-02-23 16:14] LABS: FREE T4 1.31 NG/DL (0.89-1.76); URIC ACID 5.1 MG/DL (3.1-7.8); VITAMIN B12 LEVEL 848 PG/ML (211-911)
[2023-02-23 16:17] LABS: ALBUMIN 2.7 G/DL (3.2-5.2); ALKALINE PHOSPHATASE 74 U/L (46-116); ALT/SGPT < 9 U/L (7.0-40); AST/SGOT < 8 U/L (<34); BILIRUBIN,TOTAL 0.4 MG/DL (0.3-1.2); BLOOD UREA NITROGEN 20 MG/DL (9-23); CARBON DIOXIDE LEVEL 28 MMOL/L (20-31); CHLORIDE LEVEL 103 MMOL/L (98-107); CREATININE FOR GFR 0.65 MG/DL (0.55-1.30); GLOMERULAR FILTRATION RATE > 60.0 (>32); GLUCOSE, FASTING 102 MG/DL (74-106); MAGNESIUM LEVEL 1.7 MG/DL (1.8-2.4); POTASSIUM SERUM 4.3 MMOL/L (3.5-5.1); RHEUMATOID FACTOR QUANT 4.9 IU/ML (<14); SODIUM LEVEL 136 MMOL/L (136-145); TOTAL PROTEIN 6.9 G/DL (5.7-8.2)
== END ==
LOC: M PLALAB 12:53
PROVIDERS: ATTEND Physician Assistant
DX: D50.9 Iron deficiency anemia, unspecified (principal); E03.9 Hypothyroidism, unspecified; E55.9 Vitamin D deficiency, unspecified; I50.32 Chronic diastolic (congestive) heart failure; M19.90 Unspecified osteoarthritis, unspecified site

== ENCOUNTER → 2023-03-04 | Outpatient (CLI) | payer MEDICARE, MEDICAID ==
[~2023-03-04] VITALS: Ht 160 cm; Wt 55.4 kg
[~2023-03-04] MED LIST changes: +ALBUTEROL SULFATE 2.5MG/0.5ML INH NEB SOLN INH PRN; +EPINEPHrine INJ 1 MG/ML 1ML AMP IM PRN; +FERRIC CARBOXYMALTOSE INJ 750 MG in NS 250 ML (>50kg) IV ONE; -ROPI0.253 PO; +ROPI5TAB19 PO; +diphenhydrAMINE 50MG/ML VIAL IV PRN; +methylPREDNISolone 125MG 2ML VIAL IV PRN
[2023-03-04 13:55] VITALS: BP 145/82; O2SAT 97
[2023-03-04 15:30] VITALS: BP 144/58; O2SAT 96
== END ==
LOC: M INFU 13:50
PROVIDERS: ATTEND Physician Assistant
DX: D50.9 Iron deficiency anemia, unspecified (principal); Z88.0 Allergy status to penicillin; Z88.5 Allergy status to narcotic agent; Z88.8 Allergy status to other drugs, medicaments and biological substances
CPT/HCPCS: 96365; J1439

== ENCOUNTER → 2023-04-29 | Outpatient (CLI) | payer MEDICARE, MEDICAID ==
[~2023-04-29] MED LIST changes: -ALBUTEROL SULFATE 2.5MG/0.5ML INH NEB SOLN INH PRN; -EPINEPHrine INJ 1 MG/ML 1ML AMP IM PRN; -FERRIC CARBOXYMALTOSE INJ 750 MG in NS 250 ML (>50kg) IV ONE; -diphenhydrAMINE 50MG/ML VIAL IV PRN; -methylPREDNISolone 125MG 2ML VIAL IV PRN
[2023-04-29 15:53] LABS: PERCENT SATURATION 16.4 % (13.2-45.0)
[2023-04-29 15:59] LABS: FERRITIN 577.6 NG/ML (7.3-270.7)
[2023-04-29 16:00] LABS: FOLATE 22.6 NG/ML (>5.4)
[2023-04-29 16:07] LABS: BASO # 0.1 10^3/uL (0.0-0.2); BASO % 0.8 % (0.0-1.0); EOS # 0.1 10^3/uL (0.0-0.5); EOS % 1.6 % (0.0-3.0); HEMATOCRIT 36.3 % (36.0-47.0); LYMPH # 0.8 10^3/uL (1.5-5.0); LYMPH % 10.7 % (24.0-44.0); MEAN CORPUSCULAR HEMOGLOBIN 27.9 pg (27.0-33.0); MEAN CORPUSCULAR HGB CONC 30.3 g/dl (32.0-36.5); MEAN CORPUSCULAR VOLUME 92.1 fl (80.0-96.0); MONO # 0.7 10^3/uL (0.0-0.8); MONO % 8.4 % (2.0-8.0); PLATELET COUNT, AUTOMATED 336 10^3/uL (150-450); RED BLOOD COUNT 3.94 10^6/uL (4.00-5.40); WHITE BLOOD COUNT 7.7 10^3/uL (4.0-10.0)
== END ==
LOC: M PLALAB 13:46
PROVIDERS: ATTEND Physician Assistant
DX: D50.9 Iron deficiency anemia, unspecified (principal)

== ENCOUNTER → 2023-06-01 | Outpatient (CLI) | payer MEDICARE, MEDICAID ==
[2023-06-01 16:42] LABS: BASO % 0.6 % (0.0-1.0); EOS # 0.1 10^3/uL (0.0-0.5); EOS % 1.7 % (0.0-3.0); HEMATOCRIT 33.8 % (36.0-47.0); HEMOGLOBIN 10.4 g/dl (12.0-15.5); LYMPH # 0.8 10^3/uL (1.5-5.0); LYMPH % 12.1 % (24.0-44.0); MEAN CORPUSCULAR HEMOGLOBIN 28.5 pg (27.0-33.0); MEAN CORPUSCULAR HGB CONC 30.8 g/dl (32.0-36.5); MEAN CORPUSCULAR VOLUME 92.6 fl (80.0-96.0); MONO # 0.6 10^3/uL (0.0-0.8); MONO % 9.1 % (2.0-8.0); NEUTROPHILS # 4.9 10^3/uL (1.5-8.5); NEUTROPHILS % 76.2 % (36.0-66.0); PLATELET COUNT, AUTOMATED 355 10^3/uL (150-450); RED BLOOD COUNT 3.65 10^6/uL (4.00-5.40); WHITE BLOOD COUNT 6.5 10^3/uL (4.0-10.0)
[2023-06-01 16:44] LABS: ALBUMIN 2.6 G/DL (3.2-5.2); ALKALINE PHOSPHATASE 78 U/L (46-116); ALT/SGPT < 9 U/L (7.0-40); AST/SGOT 12 U/L (<34); BILIRUBIN,TOTAL 0.4 MG/DL (0.3-1.2); BLOOD UREA NITROGEN 23 MG/DL (9-23); CALCIUM LEVEL 8.9 MG/DL (8.3-10.6); CARBON DIOXIDE LEVEL 27 MMOL/L (20-31); CHLORIDE LEVEL 102 MMOL/L (98-107); FREE T4 1.29 NG/DL (0.89-1.76); GLOMERULAR FILTRATION RATE > 60.0 (>32); GLUCOSE, FASTING 112 MG/DL (74-106); IRON (FE) 21 UG/DL (50-170); PERCENT SATURATION 12.5 % (13.2-45.0); POTASSIUM SERUM 4.3 MMOL/L (3.5-5.1); SODIUM LEVEL 137 MMOL/L (136-145); TOTAL IRON BINDING CAPACITY 168 UG/DL (250-425); TOTAL PROTEIN 6.7 G/DL (5.7-8.2)
[2023-06-01 16:45] LABS: FERRITIN 500.5 NG/ML (7.3-270.7)
[2023-06-01 16:46] LABS: TOTAL 25(OH) VITAMIN D 46.2 NG/ML (20.0-100.0); VITAMIN B12 LEVEL 742 PG/ML (211-911)
== END ==
LOC: M PLALAB 12:50
PROVIDERS: ATTEND Physician Assistant
DX: R61 Generalized hyperhidrosis (principal); D50.9 Iron deficiency anemia, unspecified; E03.9 Hypothyroidism, unspecified; E53.8 Deficiency of other specified B group vitamins; E55.9 Vitamin D deficiency, unspecified

== ENCOUNTER → 2023-08-02 | Outpatient (CLI) | payer MEDICARE, MEDICAID ==
[2023-08-02 15:57] LABS: BASO % 0.4 % (0.0-1.0); EOS % 0.1 % (0.0-3.0); HEMATOCRIT 30.4 % (36.0-47.0); HEMOGLOBIN 10.8 g/dl (12.0-15.5); LYMPH # 0.5 10^3/uL (1.5-5.0); MEAN CORPUSCULAR HEMOGLOBIN 34.3 pg (27.0-33.0); MEAN CORPUSCULAR HGB CONC 35.5 g/dl (32.0-36.5); MEAN CORPUSCULAR VOLUME 96.5 fl (80.0-96.0); MONO # 0.5 10^3/uL (0.0-0.8); MONO % 6.8 % (2.0-8.0); NEUTROPHILS # 6.6 10^3/uL (1.5-8.5); NEUTROPHILS % 85.3 % (36.0-66.0); PLATELET COUNT, AUTOMATED 264 10^3/uL (150-450); RED BLOOD COUNT 3.15 10^6/uL (4.00-5.40); WHITE BLOOD COUNT 7.8 10^3/uL (4.0-10.0)
[2023-08-02 16:23] LABS: FERRITIN 436.3 NG/ML (7.3-270.7)
[2023-08-02 16:25] LABS: FREE T4 1.39 NG/DL (0.89-1.76)
[2023-08-02 16:45] LABS: THYROID STIMULATING HORMONE 0.719 uIU/ML (0.55-4.78)
== END ==
LOC: M PLALAB 13:58
PROVIDERS: ATTEND Physician Assistant
DX: E03.9 Hypothyroidism, unspecified (principal); D50.9 Iron deficiency anemia, unspecified

== ENCOUNTER → 2023-09-28 | Outpatient (CLI) | payer MEDICARE, MEDICAID ==
[2023-09-28 15:41] LABS: BASO % 0.4 % (0.0-1.0); EOS % 0.4 % (0.0-3.0); HEMATOCRIT 33.3 % (36.0-47.0); HEMOGLOBIN 11.2 g/dl (12.0-15.5); LYMPH # 0.6 10^3/uL (1.5-5.0); LYMPH % 5.8 % (24.0-44.0); MEAN CORPUSCULAR HEMOGLOBIN 32.4 pg (27.0-33.0); MEAN CORPUSCULAR HGB CONC 33.6 g/dl (32.0-36.5); MEAN CORPUSCULAR VOLUME 96.2 fl (80.0-96.0); MONO # 0.5 10^3/uL (0.0-0.8); MONO % 5.2 % (2.0-8.0); NEUTROPHILS # 8.6 10^3/uL (1.5-8.5); NEUTROPHILS % 87.8 % (36.0-66.0); PLATELET COUNT, AUTOMATED 344 10^3/uL (150-450); RED BLOOD COUNT 3.46 10^6/uL (4.00-5.40); WHITE BLOOD COUNT 9.8 10^3/uL (4.0-10.0)
[2023-09-28 16:11] LABS: FERRITIN 350.7 NG/ML (7.3-270.7)
[2023-09-28 16:12] LABS: THYROID STIMULATING HORMONE 0.454 uIU/ML (0.55-4.78)
[2023-09-28 16:13] LABS: FREE T4 1.58 NG/DL (0.89-1.76)
== END ==
LOC: M PLALAB 12:39
PROVIDERS: ATTEND Physician Assistant
DX: D50.9 Iron deficiency anemia, unspecified (principal); E53.8 Deficiency of other specified B group vitamins; E03.9 Hypothyroidism, unspecified

== ENCOUNTER → 2024-05-01 | Outpatient (CLI) | payer MEDICARE, MEDICAID ==
[~2024-05-01] MED LIST changes: +DOXY-440 PO; -DOXY-444 PO; +ONDA-282 PO; -ONDA4TAB6 PO
[2024-05-01 18:15] LABS: IRON (FE) 15 UG/DL (50-170); PERCENT SATURATION 8.1 % (13.2-45.0); TOTAL IRON BINDING CAPACITY 185 UG/DL (250-425)
[2024-05-01 18:16] LABS: ALBUMIN 2.5 G/DL (3.2-5.2); ALKALINE PHOSPHATASE 77 U/L (46-116); ALT/SGPT < 9 U/L (7.0-40); AST/SGOT 10 U/L (<34); BILIRUBIN,TOTAL 0.3 MG/DL (0.3-1.2); BLOOD UREA NITROGEN 22 MG/DL (9-23); CALCIUM LEVEL 8.9 MG/DL (8.3-10.6); CARBON DIOXIDE LEVEL 28 MMOL/L (20-31); CHLORIDE LEVEL 106 MMOL/L (98-107); CHOLESTEROL LEVEL 144 MG/DL (<200); CHOLESTEROL RISK RATIO 2.21 (<5); GLOMERULAR FILTRATION RATE > 60.0 (>32); GLUCOSE, FASTING 148 MG/DL (74-106); HDL CHOLESTEROL 65.1 MG/DL (>40); LDL CHOLESTEROL 64.7 MG/DL (<100); NON-HDL-C 78.9 MG/DL; SODIUM LEVEL 139 MMOL/L (136-145); TOTAL PROTEIN 6.3 G/DL (5.7-8.2); TRIGLYCERIDES LEVEL 71 MG/DL (<150)
[2024-05-01 18:19] LABS: FERRITIN 263.2 NG/ML (7.3-270.7); THYROID STIMULATING HORMONE 2.022 uIU/ML (0.55-4.78); TOTAL 25(OH) VITAMIN D 37.5 NG/ML (20.0-100.0)
[2024-05-01 18:20] LABS: FREE T4 1.24 NG/DL (0.89-1.76)
[2024-05-01 18:36] LABS: BASO % 0.5 % (0.0-1.0); EOS % 0.2 % (0.0-3.0); HEMATOCRIT 32.2 % (36.0-47.0); HEMOGLOBIN 9.7 g/dl (12.0-15.5); LYMPH # 0.5 10^3/uL (1.5-5.0); LYMPH % 8.4 % (24.0-44.0); MEAN CORPUSCULAR HEMOGLOBIN 26.5 pg (27.0-33.0); MEAN CORPUSCULAR HGB CONC 30.1 g/dl (32.0-36.5); MONO # 0.4 10^3/uL (0.0-0.8); MONO % 6.3 % (2.0-8.0); NEUTROPHILS # 5.1 10^3/uL (1.5-8.5); NEUTROPHILS % 84.3 % (36.0-66.0); PLATELET COUNT, AUTOMATED 332 10^3/uL (150-450); RED BLOOD COUNT 3.66 10^6/uL (4.00-5.40); WHITE BLOOD COUNT 6.1 10^3/uL (4.0-10.0)
[2024-05-01 18:45] LABS: HEMOGLOBIN A1c 5.9 % (4.0-6.0)
== END ==
LOC: M PLALAB 14:29
PROVIDERS: ATTEND Physician Assistant
DX: D50.9 Iron deficiency anemia, unspecified (principal); E55.9 Vitamin D deficiency, unspecified; R73.01 Impaired fasting glucose; E03.9 Hypothyroidism, unspecified; Z13.220 Encounter for screening for lipoid disorders

== ENCOUNTER 2024-08-25 09:20 | Emergency (ER) | payer MEDICARE, MEDICAID ==
[~2024-08-25] VITALS: Ht 157.5 cm; Wt 60.9 kg
[~2024-08-25 09:20] MED LIST changes: -HOLTER MONITOR XX
[2024-08-25 10:16] LABS: BASO # 0.1 10^3/uL (0.0-0.2); BASO % 0.9 % (0.0-1.0); EOS # 0.2 10^3/uL (0.0-0.5); EOS % 2.9 % (0.0-3.0); HEMATOCRIT 31.6 % (36.0-47.0); HEMOGLOBIN 10.1 g/dl (12.0-15.5); LYMPH # 0.9 10^3/uL (1.5-5.0); LYMPH % 15.4 % (24.0-44.0); MEAN CORPUSCULAR HEMOGLOBIN 27.1 pg (27.0-33.0); MEAN CORPUSCULAR VOLUME 84.7 fl (80.0-96.0); MONO # 0.5 10^3/uL (0.0-0.8); NEUTROPHILS % 71.4 % (36.0-66.0); PLATELET COUNT, AUTOMATED 269 10^3/uL (150-450); RED BLOOD COUNT 3.73 10^6/uL (4.00-5.40); WHITE BLOOD COUNT 5.6 10^3/uL (4.0-10.0)
[2024-08-25 10:48] LABS: BLOOD UREA NITROGEN 12 MG/DL (9-23); CARBON DIOXIDE LEVEL 26 MMOL/L (20-31); CHLORIDE LEVEL 108 MMOL/L (98-107); GLOMERULAR FILTRATION RATE > 60.0 (>32); GLUCOSE, FASTING 85 MG/DL (74-106); IRON (FE) 22 UG/DL (50-170); MAGNESIUM LEVEL 1.7 MG/DL (1.8-2.4); PERCENT SATURATION 9.3 % (13.2-45.0); POTASSIUM SERUM 4.1 MMOL/L (3.5-5.1); SODIUM LEVEL 142 MMOL/L (136-145); TOTAL IRON BINDING CAPACITY 237 UG/DL (250-425)
[2024-08-25 10:50] LABS: FERRITIN 88.7 NG/ML (7.3-270.7)
[2024-08-25 10:51] LABS: VITAMIN B12 LEVEL 1446 PG/ML (211-911)
[2024-08-25 10:53] LABS: FOLATE 0.96 NG/ML (>5.4)
[2024-08-25] MEDS ORDERED: HOLTER MONITOR XX (13:06)
[2024-08-25 13:12] VITALS: BP 130/77; TEMP 97.8; O2SAT 96
== END 2024-08-25 13:22 | disposition home or self-care (01) ==
LOC: EDBD 09:20 → M ED 09:20
DX: R06.00 Dyspnea, unspecified (principal); R00.8 Other abnormalities of heart beat; G52.2 Disorders of vagus nerve; J45.909 Unspecified asthma, uncomplicated; K21.9 Gastro-esophageal reflux disease without esophagitis; D50.9 Iron deficiency anemia, unspecified; F41.9 Anxiety disorder, unspecified; Z88.0 Allergy status to penicillin; Z88.5 Allergy status to narcotic agent; Z88.8 Allergy status to other drugs, medicaments and biological substances; Z91.048 Other nonmedicinal substance allergy status; Z79.52 Long term (current) use of systemic steroids; Z79.83 Long term (current) use of bisphosphonates; Z79.899 Other long term (current) drug therapy

== ENCOUNTER → 2024-08-25 | Outpatient (CLI) | payer MEDICARE, MEDICAID ==
[~2024-08-25] MED LIST changes: +HOLTER MONITOR XX
== END ==
LOC: M EKG 13:29
PROVIDERS: ATTEND Emergency Medicine
DX: I49.8 Other specified cardiac arrhythmias (principal); Z53.9 Procedure and treatment not carried out, unspecified reason

== ENCOUNTER → 2024-09-27 | Outpatient (CLI) | payer MEDICARE, MEDICAID ==
[~2024-09-27] MED LIST changes: +HOLTER MONITOR XX
[2024-09-27 18:18] LABS: TOTAL IRON BINDING CAPACITY 233 UG/DL (250-425)
[2024-09-27 18:19] LABS: ALBUMIN 2.9 G/DL (3.2-5.2); ALKALINE PHOSPHATASE 62 U/L (35-104); ALT/SGPT < 9 U/L (7.0-40); AST/SGOT 11 U/L (<34); BILIRUBIN,TOTAL 0.4 MG/DL (0.3-1.2); BLOOD UREA NITROGEN 17 MG/DL (9-23); CALCIUM LEVEL 8.7 MG/DL (8.3-10.6); CARBON DIOXIDE LEVEL 28 MMOL/L (20-31); CHLORIDE LEVEL 102 MMOL/L (98-107); CHOLESTEROL LEVEL 148 MG/DL (<200); GLOMERULAR FILTRATION RATE > 60.0 (>32); GLUCOSE, FASTING 105 MG/DL (74-106); HDL CHOLESTEROL 61.5 MG/DL (>40); IRON (FE) 14 UG/DL (50-170); LDL CHOLESTEROL 72.7 MG/DL (<100); NON-HDL-C 86.5 MG/DL; POTASSIUM SERUM 4.7 MMOL/L (3.5-5.1); SODIUM LEVEL 140 MMOL/L (136-145); TOTAL PROTEIN 6.8 G/DL (5.7-8.2); TRIGLYCERIDES LEVEL 69 MG/DL (<150)
[2024-09-27 18:23] LABS: FERRITIN 150.7 NG/ML (7.3-270.7); FREE T4 1.38 NG/DL (0.89-1.76); THYROID STIMULATING HORMONE 5.313 uIU/ML (0.55-4.78)
[2024-09-27 18:25] LABS: VITAMIN B12 LEVEL 1253 PG/ML (211-911)
[2024-09-27 18:29] LABS: BASO # 0.1 10^3/uL (0.0-0.2); BASO % 0.7 % (0.0-1.0); EOS % 0.6 % (0.0-3.0); HEMOGLOBIN 10.6 g/dl (12.0-15.5); HEMOGLOBIN A1c 6.3 % (4.0-6.0); LYMPH # 0.5 10^3/uL (1.5-5.0); LYMPH % 7.7 % (24.0-44.0); MEAN CORPUSCULAR HEMOGLOBIN 31.7 pg (27.0-33.0); MEAN CORPUSCULAR VOLUME 86.8 fl (80.0-96.0); MONO # 0.5 10^3/uL (0.0-0.8); MONO % 6.7 % (2.0-8.0); NEUTROPHILS # 5.8 10^3/uL (1.5-8.5); PLATELET COUNT, AUTOMATED 355 10^3/uL (150-450); RED BLOOD COUNT 3.34 10^6/uL (4.00-5.40); WHITE BLOOD COUNT 6.9 10^3/uL (4.0-10.0)
[2024-09-27 18:31] LABS: MEAN CORPUSCULAR HGB CONC 36.6 g/dl (32.0-36.5)
== END ==
LOC: M PLALAB 14:55
PROVIDERS: ATTEND Student in an Organized Health Care Education/Training Program
DX: D50.9 Iron deficiency anemia, unspecified (principal); E53.8 Deficiency of other specified B group vitamins; Z79.899 Other long term (current) drug therapy

== ENCOUNTER 2024-10-18 11:40 | Outpatient (CLI) | payer MEDICARE, MEDICAID ==
[~2024-10-18] VITALS: Ht 160 cm; Wt 56.8 kg
[~2024-10-18 11:40] MED LIST changes: +ALBUTEROL SULFATE 2.5MG/0.5ML INH NEB SOLN INH PRN; +EPINEPHrine INJ 1 MG/ML 1ML AMP IM PRN; +diphenhydrAMINE 50MG/ML VIAL IV PRN; +methylPREDNISolone 125MG 2ML VIAL IV PRN
[2024-10-18 12:10] VITALS: BP 152/70; O2SAT 98
[2024-10-18] MEDS: FERRIC CARBOXYMALTOSE 750 MG (VIAL MATE) IN 100ML NS IV ONE (12:13)
[2024-10-18 12:46] VITALS: BP 134/83; O2SAT 97
== END 2024-10-18 12:55 ==
LOC: M INFU 11:40
PROVIDERS: ATTEND Student in an Organized Health Care Education/Training Program
DX: D50.9 Iron deficiency anemia, unspecified (principal); Z88.5 Allergy status to narcotic agent; Z88.8 Allergy status to other drugs, medicaments and biological substances; Z91.048 Other nonmedicinal substance allergy status
CPT/HCPCS: 96365; J1439

== ENCOUNTER 2024-10-25 11:32 | Outpatient (CLI) | payer MEDICARE, MEDICAID ==
[~2024-10-25] VITALS: Ht 160 cm; Wt 57.0 kg
[2024-10-25 12:00] VITALS: BP 154/67; O2SAT 99
[2024-10-25] MEDS: FERRIC CARBOXYMALTOSE 750 MG (VIAL MATE) IN 100ML NS IV ONE (12:02)
== END 2024-10-25 12:33 ==
LOC: M INFU 11:32
PROVIDERS: ATTEND Student in an Organized Health Care Education/Training Program
DX: D50.9 Iron deficiency anemia, unspecified (principal); Z88.0 Allergy status to penicillin; Z88.5 Allergy status to narcotic agent; Z88.8 Allergy status to other drugs, medicaments and biological substances; Z91.048 Other nonmedicinal substance allergy status
CPT/HCPCS: 96365; J1439

== ENCOUNTER → 2024-11-16 | Outpatient (REF) | payer MEDICARE, MEDICAID ==
[~2024-11-16] MED LIST changes: -ALBUTEROL SULFATE 2.5MG/0.5ML INH NEB SOLN INH PRN; -EPINEPHrine INJ 1 MG/ML 1ML AMP IM PRN; -diphenhydrAMINE 50MG/ML VIAL IV PRN; -methylPREDNISolone 125MG 2ML VIAL IV PRN
== END ==
LOC: M PLALAB 12:10
PROVIDERS: ATTEND Advanced Practice Midwife
DX: R30.0 Dysuria (principal); N90.89 Other specified noninflammatory disorders of vulva and perineum; N76.0 Acute vaginitis